=== PATIENT | male | born 1940 | race Caucasian/White ===

== ENCOUNTER → 2017-04-22 07:37 | Outpatient (CLI) | payer MEDICARE, BC, SELFPAY ==
[2017-04-22 10:26] LABS: ALB/GLOB Ratio 1.2 RATIO (0.9-2.4); AST(SGOT) 21 U/L (15-37); Alanine Aminotransfer ALT/SGPT 22 U/L (16-61); Albumin, Serum 3.5 g/dL (3.2-5.0); Alkaline Phosphatase 82 U/L (45-117); Anion Gap 6 (5-15); BUN 21 mg/dL (7-18); BUN/Creat Ratio 20.4 RATIO (10-20); Calcium,Total 8.6 mg/dL (8.5-10.1); Chloride 109 mmol/L (98-107); Cholesterol 138 mg/dL (200); Creatinine, Serum 1.03 mg/dL (0.70-1.30); EST Glomerular Filtration Rate 74 mL/min (>60); Est Glom Filt Rate - Afr Amer 90 mL/min (>60); Glucose 106 mg/dL (74-106); Hemoglobin A1c 5.4 % (4.2-6.3); High Density Lipoprotein 45 mg/dL; Potassium 4.4 mmol/L (3.5-5.1); Protein, Total 6.5 g/dL (6.4-8.2); Sodium Level 141 mmol/L (136-145); Triglycerides 69 mg/dL; Very Low Density Lipoprotein 14 mg/dL (5-40)
== END ==
PROVIDERS: Family Provider Family Medicine; PCP Family Medicine; Visit Provider Family Medicine
DX: E11.22 Type 2 diabetes mellitus with diabetic chronic kidney disease (principal); N18.9 Chronic kidney disease, unspecified
CPT/HCPCS: 36415; 80053; 80061; 83036

== ENCOUNTER → 2017-05-13 12:55 | Outpatient (CLI) | payer MEDICARE, BC, SELFPAY ==
--- NOTE | 2017-05-13 12:57 | CDU_ITS ---
Reason For Study: BRUIT Rt. Velocities/BP Lt. Velocities/BP Prox CCA 120/19 cm/sec. Prox CCA 86/26 cm/sec. Mid CCA 115/9 cm/sec. Mid CCA 96/21 cm/sec. Dist CCA 70/15 cm/sec. Dist CCA 65/19 cm/sec. Prox ICA 85/28 cm/sec. Prox ICA 140/11 cm/sec. Mid ICA 170/49 cm/sec. Mid ICA 97/21 cm/sec. Dist ICA 143/31 cm/sec. Dist ICA 129/28 cm/sec. Rt. ICA/CCA = 1.5. Lt. ICA/CCA = 1.5. Prox ECA 106/13 cm/sec. Prox ECA 96/11 cm/sec. Rt. Vert. 38/11 cm/sec. Lt. Vert. 54/15 cm/sec. Right Extracranial There is intimal thickening but no significant atherosclerotic plaque noted in the right common carotid artery. There is heterogeneous, irregular atherosclerotic plaque noted in the right internal carotid artery. There is homogeneous, smooth atherosclerotic plaque noted in the right internal carotid artery. There is intimal thickening but no significant atherosclerotic plaque noted in the right external carotid artery. Antegrade flow is noted in the right vertebral artery. There is homogeneous, smooth atherosclerotic plaque noted in the right bulb. Left Extracranial There is homogeneous, smooth atherosclerotic plaque noted in the left common carotid artery. There is heterogeneous, irregular atherosclerotic plaque noted in the left internal carotid artery. There is homogeneous, smooth atherosclerotic plaque noted in the left internal carotid artery. There is homogeneous, smooth atherosclerotic plaque noted in the left external carotid artery. Antegrade flow is noted in the left vertebral artery. There is heterogeneous, irregular atherosclerotic plaque noted in the left bulb. Procedure Carotid Duplex 73322. Exam performed in department. Interpretation Summary Moderate (50-69%) stenosis right extracranial internal carotid. Mild (<50%) stenosis left extracranial internal carotid. Flow within the vertebral arteries is antegrade bilaterally. Ordering Physician: Blair Alexandra Performed By: Maxine Staton RDCS, RVT
== END ==
PROVIDERS: Family Provider Family Medicine; PCP Family Medicine; Visit Provider Family Medicine
DX: R09.89 Other specified symptoms and signs involving the circulatory and respiratory systems (principal)
CPT/HCPCS: 93880

== ENCOUNTER → 2018-01-25 09:52 | Outpatient (CLI) | payer MEDICARE, BC, SELFPAY ==
[2017-06-02 13:43] VITALS: BMI 39.9
[2018-01-25 11:09] LABS: Hematocrit 44.2 % (40-54); Hemoglobin 14.9 g/dl (13.0-16.5); Mean Corp Hgb Conc 33.7 g/gl (32-36); Mean Corpuscular Volume 88.9 fL (80-94); Mean Platelet Vol. 11.3 fl (6.2-12.0); Platelet Count 180 K/mm3 (150-450); RBC Distribution Width CV 13.6 % (11.6-14.6); RBC Distribution Width SD 44.3 fl (35.1-43.9); Red Blood Count 4.97 M/mm3 (4.6-6.2); White Blood Count 7.5 K/mm3 (4.4-11.0)
[2018-01-25 11:11] LABS: Scan Indicated on CBC? Y/N NO
--- OUTSIDE RECORDS SUMMARY | 2018-04-28 22:19 | XMS RPT_ITS ---
:1940 Author Organization OHIP Care Team Providers Name Role Phone Debora Osorio Attending Unavailable Debora Osorio Referring Unavailable Ibrahima, Blair Primary Care Unavailable Blair Alexandra Attending Unavailable Alexandra, Blair Primary Care Unavailable Blair Alexandra Attending Unavailable Ibrahima, Blair Primary Care Unavailable Joesph Rodriguez Attending Unavailable Ibrahima, Blair Referring Unavailable Joesph Rodriguez Attending Unavailable Alexandra, Blair Referring Unavailable Alexandra, Blair Primary Care Unavailable PROBLEMS PROBLEMS DATE TYPE CONDITION / CODE ATTENDING STATUS SOURCE 06/02/2017 Unknown I65.23 - Joesph Rodriguez Active [facility] and [facility] bilateral Repository carotid arteries / I65.23(ICD-10) PROCEDURES PROCEDURES No Procedure Records FoundRESULTS RESULTS CBC-COMPLETE BLOOD CNT Collected: 01/25/2018 Status: F Source: [place] NO DIFF 10:05 AM [facility] REPOSITORY TYPE CODE TESTS RESULT OUT OF RANGE REFERENCE UNITS LAB L100.1000 4.4-11.0 K/mm3 Normal WBC 7.5 LAB L100.1200 4.6-6.2 M/mm3 Normal RBC 4.97 LAB L100.1300 13.0-16.5 g/dl Normal HGB 14.9 LAB L100.1400 40-54 % Normal HCT 44.2 LAB L100.1500 80-94 fL Normal MCV 88.9 LAB L100.1600 27.0-32.0 pg Normal MCH 30.0 LAB L100.1700 32-36 g/gl Normal MCHC 33.7 LAB L100.1810 11.6-14.6 % Normal RDW CV 13.6 LAB L100.1820 35.1-43.9 fl High RDW SD 44.3 LAB L100.1900 150-450 K/mm3 Normal PLT 180 LAB L100.2000 6.2-12.0 fl Normal MPV 11.3 Performed By: #### L100.0500 #### [facility] [address] [place], [address] TESTOSTERONE, SERUM TOTAL Collected: 01/25/2018 Status: F Source: [place] 10:05 AM [facility] REPOSITORY TYPE CODE TESTS RESULT OUT OF REFERENCE UNITS RANGE LAB L509.3000 ng/dL Testosterone Normal 439.43 Result Comment: NORMAL REFERENCE RANGES MALE AGE <50 123.06 - 813.86 ng/dL MALE AGE >50 89.98 - 780.10 ng/dL FEMALE PREMENOPAUSE AGE 21 - 60 9.01 - 47.94 ng/dL FEMALE POSTMENOPAUSE AGE 45 - 89 <7.00 - 45.62 ng/dL REFERENCE RANGE AND METHODOLOGY CHANGED 01/28/2017 Performed By: #### L509.3000 #### [facility] [address] [place], [address] SURGERY VISIT REPORT Observed: 06/02/2017 Status: F Source: [place] 2:09 PM [facility] REPOSITORY [facility] [address] [place] [address] OFFICE VISIT Date of Service: 06/02/17 MR#: [id number] Acct: [id number] Name: BENNY RAYGOZA Rep #: [id number] : 1940 Provider: Joesph Rodriguez MD Age/Sex: 76/M Location: [facility] Status: Signed Intake Vital Signs06/02/17 Height 5 ft 6 in 06/02/17 Weight: 247 lb Intake Visit Reasons: R CAROTID ARTERY BLOCKAGE Smearer Required: No Is patient in pain?: No Allergies No Known Allergies Allergy (Verified 06/02/17 13:44) Medications Candesartan Cilexetil [Atacand] 8 mg PO DAILY 04/06/16 [History Confirmed 06/02/17] Finasteride [Propecia] 5 mg PO DAILY 04/06/16 [History Confirmed 06/02/17] Pioglitazone [Actos] 30 mg PO DAILY 04/06/16 [History Confirmed 06/02/17] Simvastatin [Zocor] 40 mg PO DAILY 04/06/16 [History Confirmed 06/02/17] Testosterone Cypionate [Depo-Testosterone] 200 mg IM Q14D 04/06/16 [History Confirmed 06/02/17] Aspirin 325 mg PO BIDCM #30 tab 10/01/16 [Rx Confirmed 06/02/17] PFSH Medical History Carotid stenosis, bilateral (Acute) Arthritis (Acute) Diabetes (Acute) Hypercholesterolemia (Acute) Hypertension (Chronic) Surgical History excision skin cancer (Acute) history hipreplacement (Acute) Family History Mother Diabetes Heart disease Hypertension High cholesterol Son Asthma Hypertension Father Colon cancer Skin cancer Brother Heart disease CVA (cerebral vascular accident) Social History Smoking Status: Former smoker alcohol intake: never substance use type: does not use HPI HPI HPI: BENNY RAYGOZA, is a 76 M who presents to the office today for surgical consultation regarding extracranial carotid artery occlusive disease. The patient has established care with Dr. Blair Alexandra. Patient is referred to me for surgical consultation regarding carotid bruits and abnormal carotid duplex imaging. A written copy of my surgical consult recommendations will return to Dr. Alexandra Mr. Raygoza is a 76-year-old gentleman. He presents with his daughter today. He denies any previous history of stroke or myocardial infarction. He is diabetic but he states that he has well-controlled blood sugars. He did smoke cigars for 15 years but states he quit 30 years ago. He was a lifetime truck assembler for 60 years. He has had a very poor fast food diet. He notes that he is overweight currently at 247 pounds. He does not get any routine activity particularly during the winter months he is very sedentary. He states he does not like to go outside. Even during the summer months he does not have a set exercise pattern. He states that frequently he will gain at least 10-15 pounds during the winter. His current BMI is 39.9. He denies focal motor or sensory loss. He denies TIA. He does have right rotator cuff issues and has had a right hip replacement with intermittent discomfort. At the [facility] on May 13, 2017 he had carotid duplex imaging to evaluate carotid bruit. The peak systolic velocity within the right mid internal carotid was 178 cm/s flow with end-diastolic velocity of 49. There was smooth plaque noted within the right internal carotid consistent with 50-69% stenosis. The peak systolic velocity within the left internal carotid was 129 cm/s peak systolic flow. There was minimal plaque seen. This was felt to be consistent with less than 50% stenosis. The patient does have hypercholesterolemia and is currently on medical treatment. He denies calf claudication with ambulation ROS General General: Yes fatigue; no weight change, appetite, colon cancer, breast cancer or weakness HEENT HEENT: No difficulty swallowing, eye injury, eye surgery, swollen glands or hoarseness Endo Endocrine: Yes diabetes mellitus; no thyroid disease, thyroid cancer, Hair loss, heat intolerance or cold intolerance Skin Skin: No rash or changing moles Breast Breast: No left breast lump, right breast lump, nipple discharge, breast pain, abnormal mammogram, abnormal US or breast enlargement Musc Musculoskeletal: Yes arthritis; no back problems, rheumatoid arthritis, gout or joint pain Cardio Cardiovascular: Yes high blood pressure; no murmur, pacemaker, heart disease, atrial fibrillation, heart attack, heart stent, palpitations, shortness of breat with exertion or chest pain Psych Psychiatric: No depression, anxiety or hearing voices Resp Respiratory: No shortness of breath, No sleep apnea, No cough, No COPD, No asthma, No emphysema, No wheezing Gastro Gastrointestinal: No abdominal pain, No nausea or vomiting, No diarrhea, No constipation, No blood in stool, No acid reflux, No hemorrhoids, No ulcers, No gallbladder problem, No black,tarry stools [place]quin Hematologic: No blood thinners, No blood disorders, No bleeding, No anemia, No blood clots Neuro Neurologic: No system reviewed and no additional complaints, except as docu, No as per HPI, No abnormal walking, No abnormal hearing, No abnormal movements, No abnormal speech, No behavioral changes, No burning sensations, No confusion, No seizure-like activity, No unsteadiness, No dizziness, No localized weakness, No frequent falls, No headache(s), No lack of coordination, No loss of vision, No memory loss, Yes numbness, No other visual disturbances, No radiating pain, No restless legs, No sensory deficit, No fainting, Yes tingling, No tremor(s), No weakness, No other Exam Const General: cooperative, comfortable, no acute distress Nutritional Appearance: obese Orientation: alert, awake, oriented x3 HENMT Head: normal to inspection Eyes General: appearance normal, both eyes and all related structures Neck Neck: normal visual inspection Carotids: normal carotid upstroke, bruit bilaterally Lymphatic: no lymphadenopathy noted Chest Chest palpation AND inspection: normal inspection of the chest Breast Palpation: No nipple discharge Resp Effort AND Inspection: normal respiratory effort Auscultation: clear to auscultation bilaterally Cardio Rate: regular rate Rhythm: regular rhythm Heart Sounds: no murmurs Other: Bilateral carotids are 2+. Bilateral brachials 2+. Bilateral radials 2+. Bilateral femorals are 3+. Bilateral popliteals tube loss 2/6 bilateral carotid bruits GI Palpation: soft, no hepatosplenomegaly Other: Markedly overweight. I cannot easily palpate any internal organs. No bruit. I cannot palpate the aorta Skin General: no rashes or lesions noted Neuro Cranial Nerves: CN's II-XI intact bilaterally Extrem General: no clubbing, cyanosis or edema Psych Affect: normal affect Assessment AND Plan Problems 1. Carotid stenosis, bilateral I65.23 Plan 76-year-old gentleman with bilateral carotid stenosis. 50- 69% stenosis on the right and less than 50% stenosis on the left but close to 50%. He is asymptomatic. He has modifiable health factors. In detail I have discussed with him recommendations regarding plant-based diet. I recommended daily exercise program. I have encouraged him at weight loss. With his daughter present we have discussed limiting salt intake to maximize his hypertension control. He will continue to take his low-dose aspirin and his statin medications. He will continue follow-up with Dr. Blair Alexandra. The patient has been instructed that if he were to become symptomatic that he needs to have someone take him to the emergency room immediately. At this point he does not meet surgical criteria and I am not recommending surgical intervention at this time. I do recommend follow-up carotid duplex imaging at 1 year. He has had an opportunity to ask and have questions answered. I very much appreciate the kind opportunity of assisting with his surgical care. I anticipate following up at 1 year but would be more than pleased to see him sooner if you were to become symptomatic. Cc: Dr. Blair Rodriguez M.D., F.A.C.S. Orders Orders: Coding Level of Care Code Detailed, Low Diagnoses Carotid stenosis, bilateral I65.23 06/02/17 1409 <Electronically signed by Joesph Rodriguez MD> Date Joesph Rodriguez MD Cosigner Signature: Date (if applicable) CC: Blair Alexandra MD CAROTID DUPLEX Observed: 05/20/2017 Status: F Source: [place] ULTRASOUND 6:52 AM [facility] REPOSITORY [facility] [address] [place] [address] Carotid Duplex Ultrasound 05/13/17 1256 MR#: [id number] Acct: [id number] Name: BENNY RAYGOZA Rep #: [id number] : 1940 76 From: Jose Angel Wan MD Attending Dr: Blair Alexandra MD Status: REG CLI Ordering Dr: Blair Alexandra MD Date: 05/13/17 Location: [facility] Sex: M C Admitted: Reason For Study: BRUIT Rt. Velocities/BP Lt. Velocities/BP Prox CCA 120/19 cm/sec. Prox CCA 86/26 cm/sec. Mid CCA 115/9 cm/sec. Mid CCA 96/21 cm/sec. Dist CCA 70/15 cm/sec. Dist CCA 65/19 cm/sec. Prox ICA 85/28 cm/sec. Prox ICA 140/11 cm/sec. Mid ICA 170/49 cm/sec. Mid ICA 97/21 cm/sec. Dist ICA 143/31 cm/sec. Dist ICA 129/28 cm/sec. Rt. ICA/CCA = 1.5. Lt. ICA/CCA = 1.5. Prox ECA 106/13 cm/sec. Prox ECA 96/11 cm/sec. Rt. Vert. 38/11 cm/sec. Lt. Vert. 54/15 cm/sec. Right Extracranial There is intimal thickening but no significant atherosclerotic plaque noted in the right common carotid artery. There is heterogeneous, irregular atherosclerotic plaque noted in the right internal carotid artery. There is homogeneous, smooth atherosclerotic plaque noted in the right internal carotid artery. There is intimal thickening but no significant atherosclerotic plaque noted in the right external carotid artery. Antegrade flow is noted in the right vertebral artery. There is homogeneous, smooth atherosclerotic plaque noted in the right bulb. Left Extracranial There is homogeneous, smooth atherosclerotic plaque noted in the left common carotid artery. There is heterogeneous, irregular atherosclerotic plaque noted in the left internal carotid artery. There is homogeneous, smooth atherosclerotic plaque noted in the left internal carotid artery. There is homogeneous, smooth atherosclerotic plaque noted in the left external carotid artery. Antegrade flow is noted in the left vertebral artery. There is heterogeneous, irregular atherosclerotic plaque noted in the left bulb. Procedure Carotid Duplex 25320. Exam performed in department. Interpretation Summary Moderate (50-69%) stenosis right extracranial internal carotid. Mild (<50%) stenosis left extracranial internal carotid. Flow within the vertebral arteries is antegrade bilaterally. Ordering Physician: Blair Alexandra Performed By: Maxine Staton, JUAN C, RVT 05/20/17 0652 Date Jose Angel Wan MD CC: Blair Alexandra MD Date Dictated: 05/13/17 1256 Date Transcribed: 05/20/17 0652 Bean Sorter: Signed COMPREHENSIVE METABOLIC Collected: 04/22/2017 Status: F Source: [place] 7:45 AM [facility] REPOSITORY Order Comment: Order Date: 10/29/16 Order Info: [id number] - CMP Order Info: [id number] - LIPID TYPE CODE TESTS RESULT OUT OF RANGE REFERENCE UNITS LAB L501.0100 74-106 mg/dL Normal GLU 106 Result Comment: Fasting Glucose result from 100 to 125 mg/dL suggests IMPAIRED HOMEOSTASIS per A.D.A. criteria. Please note revised GLUCOSE reference range effective 2017. LAB L501.1000 7-18 mg/dL High BUN 21 LAB L501.1100 0.70-1.30 mg/dL Normal CREAT,SERUM 1.03 Result Comment: The validity of the calculated GFR AND GFRAA in patients over 70 years has not been determined. Clinical correlation is essential. LAB L501.1110 >60 mL/min Normal EST GFR 74 Result Comment: Non- GFR Calc LAB L501.1115 >60 mL/min Normal EST GFR - AA 90 Result Comment: GFR Calc LAB L501.1300 10-20 RATIO High BUN/CRE 20.4 LAB L501.1500 6.4-8.2 g/dL T Normal PROT 6.5 LAB L501.1800 3.2-5.0 g/dL Normal ALB 3.5 LAB L501.1950 2.2-4.2 g/dL Normal GLOB 3.0 LAB L501.2000 0.9-2.4 RATIO Normal A/G 1.2 LAB L501.2200 8.5-10.1 mg/dL CA Normal 8.6 LAB L501.4100 15-37 U/L Normal AST 21 LAB L501.4305 45-117 U/L Normal ALK P 82 LAB L501.4405 16-61 U/L Normal ALT 22 Result Comment: Please note revised ALT reference range effective 2017. LAB L501.4600 0.20-1.00 mg/dL Normal T BILI 0.70 LAB L501.5300 136-145 mmol/L Normal NA 141 LAB L501.5600 3.5-5.1 mmol/L Normal K 4.4 LAB L501.5900 98-107 mmol/L High CL 109 LAB L501.6100 21.0-32.0 mmol/L Normal CO2 26.0 LAB L501.6200 5-15 Normal GAP 6 Performed By: #### L500.4050, L500.4100, L501.9985 #### [facility] [address] [place], [place], [id number] LIPID PROFILE Collected: 04/22/2017 Status: F Source: [place] 7:45 AM [facility] REPOSITORY Order Comment: Order Date: 10/29/16 Order Info: [id number] - CMP Order Info: [id number] - LIPID TYPE CODE TESTS RESULT OUT OF RANGE REFERENCE UNITS LAB L501.4900 200 mg/dL Normal CHOL 138 Result Comment: <200 mg/dL Desirable 200-240 mg/dL Borderline >240 mg/dL High Risk LAB L501.5000 mg/dL Normal TRIG 69 Result Comment: The drugs N-Acetylcysteine and Metamizole may falsely depress this assay. Serum Triglycerides Reference Interval Normal <150 mg/dL Borderline high 150 - 199 mg/dL High 200 - 499 mg/dL Very High > or = 500 mg/dL LAB L501.6400 mg/dL Normal HDL 45 Result Comment: The drugs N-Acetylcysteine and Metamizole may falsely depress this assay. Reference Range HDL <40 mg/dL Low HDL Cholesterol HDL >or= 60 mg/dL High HDL Cholesterol LAB L501.6500 0-130 mg/dL Normal LDL 79 LAB L501.6600 5-40 mg/dL Normal VLDL 14 Performed By: #### L500.4050, L500.4100, L501.9985 #### [facility] [address] [place], [place], [address] HEMOGLOBIN A1C Collected: 04/22/2017 Status: F Source: [place] 7:45 AM [facility] REPOSITORY Order Comment: Order Date: 10/29/16 Order Info: [id number] - A1C TYPE CODE TESTS RESULT OUT OF RANGE REFERENCE UNITS LAB L501.9985 4.2-6.3 % Normal HGB A1C 5.4 Performed By: #### L500.4050, L500.4100, L501.9985 #### [facility] [address] [place], [address] ALLERGIES ALLERGIES DATE TYPE / CODE NAME / CODE REACTION SEVERITY SOURCE 06/02/2017 Drug No Known Unknown [facility] Allergy/4160 Allergies/F00 [facility] 33338(SNOMED 7423602(RXNOR Repository CT) M) ENCOUNTERS ENCOUNTERS ADMIT/DISCHARGE ACCOUNT ADMITTING ENCOUNTER LOCATION SOURCE NUMBER CLASS 01/25/2018 [id number] Ambulatory [place] 7 [facility] ing:LAB Repository 06/02/2017/ [id number] Ambulatory BMSBuilding:B [facility] 8 4 [facility] Repository 05/26/2017 [id number] Ambulatory BMSBuilding:B [place] 9 [facility] Repository 05/13/2017 [id number] Ambulatory [place] 8 [facility] ing:CVS Repository 04/22/2017 [id number] Ambulatory [place] 0 [facility] ing:MTLAB Repository PAYERS PAYERS ENCOUNTER GUARANTOR PAYER SUBSCRIBER SOURCE 01/25/2018 BENNY W Primary BENNY W [place] [id number] Insurance:MEDICARE BROWNDOB: [facility] [id number] Number: Repository [id number]: [phone] [id number] [phone] () Date:2018-01-25 01/25/2018 Secondary BENNY W [place] Insurance:ANTHEMPolic BROWNDOB: Community y Number: [id number] Hospital [id number] Repository Date:[id number] [address]GB: 01/25/2018 Tertiary NOT GIVENUNK [place] Insurance:SELF PAY [facility] Number: Effective Repository Date:2018-01-25 06/02/2017 BENNY W Primary BENNY W [place] [id number] Insurance:MEDICARE BROWNDOB: [facility] [id number] Number: Repository [address]Ixg: [id number] [phone]~330- Date:2017-05-26 4 (HP) 06/02/2017 Secondary BENNY W [place] Insurance:ANTHEMPolic BROWNDOB: Community y Number: [id number] Hospital [id number] Repository Date:[id number] [address]OX: 06/02/2017 Tertiary NOT GIVENUNK [place] Insurance:SELF PAY [facility] Number: Effective Repository Date:2017-06-02 05/26/2017 BENNY W Primary BENNY W [place] [id number] Insurance:MEDICARE BROWNDOB: [facility] PART A [facility] [id number] Number: Repository [address]Cct: [id number] [phone]~330- Date:2017-05-20 4 () 05/26/2017 Secondary BENNY W [place] Insurance:ANTHEMPolic BROWNDOB: Community y Number: [id number] Hospital [id number] Repository Date:2803-07-04[address] [address]NM: 05/26/2017 Tertiary NOT GIVENUNK [place] Insurance:SELF PAY [facility] Number: Effective Repository Date:2017-05-20 05/13/2017 Benny W Primary Benny W [place] [id number] Insurance:MEDICARE BrownDOB: [facility] PART A [id number] [place] Number: Repository [id number]: [id number] [phone]~330- Date:2017-05-01 4 () 05/13/2017 Secondary Benny W [place] Insurance:ANTHEMPolic BrownDOB: Community y Number: [id number] [facility] [id number] Repository Date:0298-26-53[address], [place] [address]IA: 05/13/2017 Tertiary NOT GIVENUNK [place] Insurance:SELF PAY [facility] Effective Repository Date:2017-05-01 04/22/2017 Benny Araujo Primary Benny W [place] [id number] Insurance:MEDICARE BrownDOB: Community [place] PART A BPolicy [id number] Number: Repository [address]Kio: [id number] [phone]~330- Date:2017-04-22 4 (HP) 04/22/2017 Secondary Benny Lainez Insurance:ANTHEMPolic BrownDOB: Community y Number: [id number] Hospital [id number] Repository Date:[id number] [place] [id number], [place] [address]OD: 04/22/2017 Tertiary NOT GIVENUNK [place] Insurance:SELF PAY [facility] Number: Effective Repository Date:2017-04-22
== END ==
PROVIDERS: Family Provider Family Medicine; PCP Family Medicine; Referring Provider Nurse Practitioner Adult Health; Visit Provider Nurse Practitioner Adult Health
DX: E29.1 Testicular hypofunction (principal)
CPT/HCPCS: 36415; 84403; 85027

== ENCOUNTER → 2018-04-20 10:46 | Outpatient (CLI) | payer MEDICARE, BC, SELFPAY ==
[2017-06-02 13:43] VITALS: BMI 39.9
[2018-04-20 12:43] LABS: ALB/GLOB Ratio 1.1 RATIO (0.9-2.4); AST(SGOT) 19 U/L (15-37); Alanine Aminotransfer ALT/SGPT 31 U/L (16-61); Albumin, Serum 3.7 g/dL (3.2-5.0); Alkaline Phosphatase 90 U/L (45-117); Anion Gap 8 (5-15); BUN 17 mg/dL (7-18); BUN/Creat Ratio 16.5 RATIO (10-20); Calcium,Total 9.3 mg/dL (8.5-10.1); Chloride 108 mmol/L (98-107); Creatinine, Serum 1.03 mg/dL (0.70-1.30); EST Glomerular Filtration Rate 74 mL/min (>60); Est Glom Filt Rate - Afr Amer 90 mL/min (>60); Globulin 3.5 g/dL (2.2-4.2); Glucose 112 mg/dL (74-106); Potassium 4.7 mmol/L (3.5-5.1); Protein, Total 7.2 g/dL (6.4-8.2); Sodium Level 143 mmol/L (136-145)
[2018-04-20 12:57] LABS: Hemoglobin A1c 5.7 % (4.2-6.3)
== END ==
PROVIDERS: Family Provider Family Medicine; PCP Family Medicine; Referring Provider Family Medicine; Visit Provider Family Medicine
DX: E11.21 Type 2 diabetes mellitus with diabetic nephropathy (principal); I10 Essential (primary) hypertension
CPT/HCPCS: 36415; 80053; 83036

== ENCOUNTER → 2018-10-05 07:26 | Outpatient (CLI) | payer MEDICARE, BC, SELFPAY ==
[2018-10-05 10:42] LABS: Absolute Lymphocyte Count 2.26 X10^3/uL (0.83-4.51); Absolute Neutrophil Count 5.4 X10^3/uL (2.0-7.7); Basophil# 0.05 X10^3/uL; Basophil% 0.6 % (0-1); Eosinophils% 3.4 % (0-5); Hematocrit 46.8 % (40-54); Hemoglobin 15.2 g/dL (13.0-16.5); Lymphocyte # 2.26 X10^3/ul (4.0); Lymphocyte % 25.7 % (19-41); Mean Corp Hgb Conc 32.5 g/dL (32-36); Mean Corpuscular Hgb 29.7 pg (27.0-32.0); Mean Corpuscular Volume 91.4 fL (80-94); Mean Platelet Vol. 11.5 fl (6.2-12.0); Monocyte# 0.75 X10^3/uL; Monocyte% 8.5 % (0-10); NRBC Flagged by Analyzer 0 % (0-5); Neutrophil # 5.37 X10^3/uL (2.7-7.7); Neutrophil % 61.2 % (47-70); Platelet Count 205 K/mm3 (150-450); RBC Distribution Width CV 14.5 % (11.6-14.6); RBC Distribution Width SD 48.2 fl (35.1-43.9); Red Blood Count 5.12 M/mm3 (4.6-6.2); White Blood Count 8.8 K/mm3 (4.4-11.0)
[2018-10-05 11:00] LABS: Hemoglobin A1c 5.9 % (4.2-6.3)
[2018-10-05 11:19] LABS: ALB/GLOB Ratio 1.1 RATIO (0.9-2.4); AST(SGOT) 17 U/L (15-37); Alanine Aminotransfer ALT/SGPT 34 U/L (16-61); Albumin, Serum 3.4 g/dL (3.2-5.0); Alkaline Phosphatase 75 U/L (45-117); Anion Gap 5 (5-15); BUN 21 mg/dL (7-18); BUN/Creat Ratio 18.6 RATIO (10-20); Calcium,Total 8.8 mg/dL (8.5-10.1); Chloride 107 mmol/L (98-107); Cholesterol 129 mg/dL (200); Creatinine, Serum 1.13 mg/dL (0.70-1.30); EST Glomerular Filtration Rate 67 mL/min (>60); Est Glom Filt Rate - Afr Amer 81 mL/min (>60); Globulin 3.1 g/dL (2.2-4.2); Glucose 103 mg/dL (74-106); High Density Lipoprotein 60 mg/dL; Potassium 4.7 mmol/L (3.5-5.1); Protein, Total 6.5 g/dL (6.4-8.2); Sodium Level 141 mmol/L (136-145); Triglycerides 60 mg/dL; Very Low Density Lipoprotein 12 mg/dL (5-40)
== END ==
PROVIDERS: Family Provider Family Medicine; PCP Family Medicine; Referring Provider Family Medicine; Visit Provider Family Medicine
DX: E11.21 Type 2 diabetes mellitus with diabetic nephropathy (principal); E78.5 Hyperlipidemia, unspecified
CPT/HCPCS: 36415; 80053; 80061; 83036; 85025

== ENCOUNTER → 2018-11-15 13:27 | Outpatient (CLI) | payer MEDICARE, BC, SELFPAY ==
--- NOTE | 2018-11-15 13:30 | ECHOD_ITS ---
Reason For Study: Heart Failure Procedure This was a 2D Doppler, Color Flow transthoracic echocardiogram. Exam performed in department. Left Ventricle Normal LV size. Concentric left ventricular hypertrophy. The estimated ejection fraction is 60 %. Diastolic function is indeterminate. No regional wall motion abnormalities noted. Right Ventricle Normal RV size. Normal systolic function. Atria Normal left atrium. Normal right atrium. No doppler evidence for ASD. Mitral Valve There is no mitral valve stenosis. Mild (1+) mitral valve insufficiency. Tricuspid Valve There is no tricuspid stenosis. Unable to estimate RV systolic pressure due to insufficient tricuspid regurgitant envelope. No tricuspid valve insufficiency. Aortic Valve Trisinus/trileaflet aortic valve. Moderate diffuse aortic valve thickening. Moderate aortic stenosis. No aortic valve insufficiency. Pulmonic Valve There is no pulmonic valvular stenosis. No pulmonic valve insufficiency. Great Vessels Normal aortic root. Pericardium/Pleural No pericardial effusion. MMode/2D Measurements & Calculations LVIDd: 3.8 cm IVSd: 1.6 cm LVOT diam: 2.1 cm LVIDs: 2.2 cm LVPWd: 1.6 cm LVOT area: 3.4 cm2 RVDd: 4.3 cm FS: 41.8 % Ao root diam: 3.2 cm LAV(MOD-bp): 60.1 ml LVAd ap4: 26.5 cm2 LAV(MOD-bp) Indexed: 27.6 ml/m2 EDV(MOD-sp4): 74.9 ml LAV(MOD-sp2): 63.5 ml EDV(sp4-el): 75.0 ml LAV(MOD-sp4): 51.6 ml LVAs ap4: 15.4 cm2 ESV(MOD-sp4): 29.7 ml ESV(sp4-el): 29.3 ml EF(MOD-sp4): 60.3 % EF(sp4-el): 61.0 % SV(MOD-sp4): 45.2 ml SV(sp4-el): 45.8 ml LA A4 area: 19.7 cm2 LA dimension(2D): 4.1 cm RA A4 area: 15.9 cm2 Doppler Measurements & Calculations MV E max shantanu: 96.1 cm/sec Lat Peak E' Shantanu: 5.9 cm/sec Med Peak E' Shantanu: 7.0 cm/sec MV A max shantanu: 105.1 cm/sec E/E' lat: 16.2 E/E' med: 13.8 MV E/A: 0.91 Ao V2 max: 313.9 cm/sec LV V1 max: 134.9 cm/sec SV(LVOT): 97.9 ml Ao max P.4 mmHg LV V1 max P.3 mmHg Ao V2 mean: 230.8 cm/sec LV V1 mean P.0 mmHg Ao mean P.2 mmHg LV V1 mean: 95.9 cm/sec Ao V2 VTI: 72.9 cm LV V1 VTI: 29.0 cm CIRILO(I,D): 1.3 cm2 CIRILO(V,D): 1.5 cm2 PA V2 max: 120.8 cm/sec TR max shantanu: 265.8 cm/sec TR max P.3 mmHg Interpretation Summary The estimated ejection fraction is 60 %. Diastolic function is indeterminate. Mild (1+) mitral valve insufficiency. Moderate aortic stenosis. Ordering Physician: Blair Alexandra Referring Physician: Blair Alexandra Performed By: Anastasia Langston RDCS, RVT
== END ==
PROVIDERS: Family Provider Family Medicine; PCP Family Medicine; Referring Provider Family Medicine; Visit Provider Family Medicine
DX: R60.0 Localized edema (principal); R09.89 Other specified symptoms and signs involving the circulatory and respiratory systems
CPT/HCPCS: 93306

== ENCOUNTER → 2019-02-15 09:31 | Outpatient (CLI) | payer MEDICARE, BC, SELFPAY ==
[2018-11-29 14:06] VITALS: BMI 39.9
[2019-02-18 12:07] LABS: Testosterone, Free 39.04 ng/dL (5.00-21.00)
[2019-02-20 15:16] LABS: Testosterone, % Free 2.73 % (1.50-4.20); Testosterone, Total 1430 ng/dL (264-916)
== END ==
PROVIDERS: Family Provider Family Medicine; PCP Family Medicine; Referring Provider Nurse Practitioner Adult Health; Visit Provider Nurse Practitioner Adult Health
DX: E29.1 Testicular hypofunction (principal)
CPT/HCPCS: 36415; 84402; 84403

== ENCOUNTER → 2019-03-04 10:42 | Outpatient (CLI) | payer MEDICARE, BC, SELFPAY ==
[2018-11-29 14:06] VITALS: BMI 39.9
--- NOTE | 2019-03-04 10:49 | MRI_ITS ---
STUDY: MRI LUMBAR SPINE WITHOUT CONTRAST REASON FOR EXAM: Male, 78 years old. LBP, RADIATING INTO L HIP AND DOWN LEG TECHNIQUE: Standardized fat and water weighted pulse sequences were obtained in the sagittal and axial planes. COMPARISON: 01/15/2015 FINDINGS: T12-L1: Normal endplates. Normal disc height, hydration and morphology. Normal bilateral facet joints. Normal central canal and bilateral lateral recesses. Normal bilateral intervertebral neural foramina. Normal lumbar lordosis. There is no substantial scoliosis. Normal conus medullaris that terminates at the L1/L2. L1-2: Normal endplates. Normal disc height, hydration and morphology. Normal bilateral facet joints. Normal central canal and bilateral lateral recesses. Normal bilateral intervertebral neural foramina. L2-3: No change in a mild bilobed disc protrusion which produces mild spinal stenosis and mild bilateral neural foraminal stenosis. L3-4: Mild bilateral facet hypertrophy and ligament flavum hypertrophy. No change in the moderate broad disc protrusion which produces moderate spinal stenosis with mild bilateral lateral recess stenosis and moderate bilateral neural foraminal stenosis with abutment of the L3 nerve roots bilaterally. L4-5: Continued mild broad disc protrusion but now with a large (8 mm round) central disc extrusion which produces a severe spinal stenosis with moderate right lateral recess stenosis and severe left lateral recess stenosis with effacement the left L5 nerve root and mild bilateral neural foraminal stenosis. L5-S1: Mild bilateral facet hypertrophy. No change in a small central disc protrusion with annular tear which produces mild spinal stenosis with mild bilateral lateral recess stenosis but no neural foraminal stenosis. Normal visualized sacral ala. Normal visualized paraspinous soft tissue structures. MRI/Spine Lumbar (Routine) IMPRESSION: Worsening degenerative disc disease at L4/L5 with a new large central disc extrusion producing severe spinal stenosis and severe left lateral recess stenosis with effacement of the left L5 nerve root. Electronically Signed: David Hallman MD at 18:49 EST Tel , Service support ,
== END ==
LOC: MRI 10:43
PROVIDERS: PCP Family Medicine; Referring Provider Physician Assistant; Visit Provider Physician Assistant
DX: M43.16 Spondylolisthesis, lumbar region (principal)
CPT/HCPCS: 72148

== ENCOUNTER → 2019-06-01 14:33 | Outpatient (CLI) | payer MEDICARE, BC, SELFPAY ==
[2018-11-29 14:06] VITALS: BMI 39.9
[2019-06-01 18:07] LABS: Microalbumin:Creatinine Ratio 36.4 mg/g CRE (<30 mg/g CRE)
[2019-06-01 18:09] LABS: BNP,B-Type NATRIURETIC PEPTIDE 89.1 pg/mL (0-100)
[2019-06-01 18:12] LABS: Vitamin D,25 Hydroxy 15.1 ng/mL
[2019-06-01 18:20] LABS: ALB/GLOB Ratio 1.3 RATIO (0.9-2.4); AST(SGOT) 19 U/L (15-37); Alanine Aminotransfer ALT/SGPT 24 U/L (16-61); Alkaline Phosphatase 72 U/L (45-117); Anion Gap 8 (5-15); BUN 17 mg/dL (7-18); BUN/Creat Ratio 15.9 RATIO (10-20); Calcium,Total 9.2 mg/dL (8.5-10.1); Chloride 105 mmol/L (98-107); Cholesterol 151 mg/dL (200); Creatinine, Serum 1.07 mg/dL (0.70-1.30); EST Glomerular Filtration Rate 71 mL/min (>60); Est Glom Filt Rate - Afr Amer 86 mL/min (>60); Globulin 3.1 g/dL (2.2-4.2); Glucose 74 mg/dL (74-106); High Density Lipoprotein 64 mg/dL; Potassium 4.2 mmol/L (3.5-5.1); Protein, Total 7.1 g/dL (6.4-8.2); Sodium Level 139 mmol/L (136-145); Triglycerides 82 mg/dL; Very Low Density Lipoprotein 16 mg/dL (5-40)
== END ==
PROVIDERS: PCP Family Medicine; Referring Provider Nurse Practitioner Adult Health; Visit Provider Nurse Practitioner Adult Health
DX: E29.1 Testicular hypofunction (principal); E11.21 Type 2 diabetes mellitus with diabetic nephropathy; M79.89 Other specified soft tissue disorders
CPT/HCPCS: 36415; 80053; 80061; 82043; 82306; 82570; 83880; 84402; 84403; 84443

== ENCOUNTER → 2019-06-03 09:00 | Outpatient (CLI) | payer MEDICARE, BC, SELFPAY ==
[2018-11-29 14:06] VITALS: BMI 39.9
[2019-06-06 08:06] LABS: Testosterone, Free 22.85 ng/dL (5.00-21.00)
[2019-06-06 14:01] LABS: Testosterone, % Free 2.13 % (1.50-4.20); Testosterone, Total 1073 ng/dL (264-916)
== END ==
PROVIDERS: PCP Family Medicine
DX: E29.1 Testicular hypofunction (principal)
CPT/HCPCS: 84402; 84403

== ENCOUNTER → 2019-10-27 11:20 | Outpatient (CLI) | payer MEDICARE, BC, SELFPAY ==
[2018-11-29 14:06] VITALS: BMI 39.9
[2019-07-18 13:44] VITALS: BMI 41.4
--- NOTE | 2019-10-27 11:24 | RAD_ITS ---
HISTORY: abdominal bloating EXAMINATION/TECHNIQUE: XR Abdomen W/ Decub and/or Erect Views: COMPARISON: None FINDINGS: LINES AND TUBES: None. BOWEL GAS PATTERN: No bowel or stomach distention. FREE AIR: Not assessed on a single supine view. ORGANOMEGALY: Not seen. CALCIFICATIONS: No abnormal calcifications observed. LOWER CHEST: No acute pathology. BONES AND SOFT TISSUES: Levoscoliosis. Degenerative disc disease. Laminectomies. Left total hip arthroplasty. RAD/Abd Inc Decub and/or Erect IMPRESSION: Non-obstructive bowel gas pattern. at 0602 Reported and signed by: Ramon Casey MD Electronically Signed: Ramon Casey MD at 6:00 EDT Tel , Service support ,
[2019-10-27 13:37] LABS: Hematocrit 39.6 % (40-54); Mean Corp Hgb Conc 32.8 g/dL (32-36); Mean Corpuscular Hgb 30.5 pg (27.0-32.0); Mean Platelet Vol. 12.1 fl (6.2-12.0); Platelet Count 192 K/mm3 (150-450); RBC Distribution Width SD 43.7 fl (35.1-43.9); Red Blood Count 4.26 M/mm3 (4.6-6.2); White Blood Count 5.8 K/mm3 (4.4-11.0)
[2019-10-27 13:52] LABS: Vitamin D,25 Hydroxy 19.8 ng/mL
[2019-10-27 14:01] LABS: ALB/GLOB Ratio 1.1 RATIO (0.9-2.4); AST(SGOT) 20 U/L (15-37); Alanine Aminotransfer ALT/SGPT 32 U/L (16-61); Albumin, Serum 3.7 g/dL (3.2-5.0); Alkaline Phosphatase 81 U/L (45-117); Anion Gap 6 (5-15); BUN 30 mg/dL (7-18); Calcium,Total 9.5 mg/dL (8.5-10.1); Chloride 106 mmol/L (98-107); EST Glomerular Filtration Rate 62 mL/min (>60); Est Glom Filt Rate - Afr Amer 75 mL/min (>60); Globulin 3.4 g/dL (2.2-4.2); Glucose 116 mg/dL (74-106); Magnesium 2.2 mg/dL (1.6-2.6); Potassium 4.5 mmol/L (3.5-5.1); Protein, Total 7.1 g/dL (6.4-8.2); Sodium Level 141 mmol/L (136-145); Thyroid Stim Hormone (TSH) 0.84 uIU/mL (0.358-3.74)
== END ==
PROVIDERS: PCP Family Medicine; Visit Provider Family Medicine
DX: E34.9 Endocrine disorder, unspecified (principal); E11.21 Type 2 diabetes mellitus with diabetic nephropathy; R14.0 Abdominal distension (gaseous); R60.9 Edema, unspecified
CPT/HCPCS: 36415; 74019; 80053; 82306; 83735; 84443; 85027

== ENCOUNTER → 2019-12-02 15:40 | Outpatient (CLI) | payer MEDICARE, BC, SELFPAY ==
[2019-07-18 13:44] VITALS: BMI 41.4
--- NOTE | 2019-12-02 15:43 | CT_ITS ---
STUDY: CT ABDOMEN AND PELVIS WITHOUT CONTRAST REASON FOR EXAM: Male, 79 years old. ABD DISTENTION RADIATION DOSAGE (If Supplied By Facility): CTDIvol = ( 14.80 ) mGy, DLP = ( 781.55 ) mGycm TECHNIQUE: Transaxial images were obtained from the dome of the diaphragm to the symphysis pubis without oral contrast, and without intravenous contrast. Sagittal and coronal images were reconstructed. Individualized dose optimization techniques were used for this CT. COMPARISON: None. FINDINGS: The visualized lung bases are unremarkable. The visualized portions of the heart are within normal limits. Normal liver. Normal gallbladder and extrahepatic biliary system. Normal spleen. Normal pancreas. Normal bilateral adrenal glands. Normal right kidney. Normal left kidney. Normal visualized stomach. Normal small intestine. There are multiple colonic diverticula consistent with diverticulosis. The appendix is visualized and appears normal. There is diffuse atherosclerotic calcification of the abdominal aorta, without a demonstrated aneurysm. Normal inferior vena cava. Normal retroperitoneum. Normal urinary bladder. Normal abdominal wall. Status post left hip arthroplasty which produces streak artifact obscures the pelvis. Status post posterior decompression at L4. CT/Abdomen/Pelvis without Cont IMPRESSION: Normal unenhanced CT of the abdomen and pelvis. Electronically Signed: David Hallman MD at 16:44 EDT Tel , Service support ,
== END ==
PROVIDERS: PCP Family Medicine; Referring Provider Family Medicine; Visit Provider Family Medicine
DX: R14.0 Abdominal distension (gaseous) (principal)
CPT/HCPCS: 74176

== ENCOUNTER 2020-02-23 08:30 | Outpatient (RCR) | payer MEDICARE, BC, SELFPAY ==
[2019-07-18 13:44] VITALS: BMI 41.4
== END 2020-02-23 23:59 | disposition home or self-care (01) ==
LOC: DC 08:30
PROVIDERS: PCP Family Medicine; Visit Provider Family Medicine
DX: E11.21 Type 2 diabetes mellitus with diabetic nephropathy (principal); R63.5 Abnormal weight gain
CPT/HCPCS: 97802; G0108

== ENCOUNTER → 2020-04-04 10:49 | Outpatient (CLI) | payer MEDICARE, BC, SELFPAY ==
[2019-07-18 13:44] VITALS: BMI 41.4
[2020-04-04 12:12] LABS: Absolute Lymphocyte Count 1.03 X10^3/uL (0.83-4.51); Basophil# 0.02 X10^3/uL; Basophil% 0.4 % (0-1); Eosinophil# 0.17 X10^3/uL; Eosinophils% 3.3 % (0-5); Hematocrit 33.5 % (40-54); Lymphocyte # 1.03 X10^3/ul (4.0); Lymphocyte % 20.2 % (19-41); Mean Corp Hgb Conc 32.8 g/dL (32-36); Mean Corpuscular Hgb 30.1 pg (27.0-32.0); Mean Corpuscular Volume 91.8 fL (80-94); Mean Platelet Vol. 11.8 fl (6.2-12.0); Monocyte# 0.82 X10^3/uL; Monocyte% 16.1 % (0-10); NRBC Flagged by Analyzer 0 % (0-5); Neutrophil # 3.03 X10^3/uL (2.7-7.7); Neutrophil % 59.6 % (47-70); Platelet Count 180 K/mm3 (150-450); RBC Distribution Width CV 13.2 % (11.6-14.6); RBC Distribution Width SD 44.5 fl (35.1-43.9); Red Blood Count 3.65 M/mm3 (4.6-6.2); White Blood Count 5.1 K/mm3 (4.4-11.0)
[2020-04-04 12:47] LABS: Insulin 100.4 mU/L (2.6-37.6)
[2020-04-04 12:53] LABS: ALB/GLOB Ratio 0.9 RATIO (0.9-2.4); AST(SGOT) 35 U/L (15-37); Alanine Aminotransfer ALT/SGPT 49 U/L (16-61); Albumin, Serum 3.2 g/dL (3.2-5.0); Alkaline Phosphatase 139 U/L (45-117); Anion Gap 9 (5-15); BUN 59 mg/dL (7-18); BUN/Creat Ratio 34.5 RATIO (10-20); Chloride 104 mmol/L (98-107); Creatinine, Serum 1.71 mg/dL (0.70-1.30); EST Glomerular Filtration Rate 41 mL/min (>60); Est Glom Filt Rate - Afr Amer 50 mL/min (>60); Globulin 3.5 g/dL (2.2-4.2); Glucose 157 mg/dL (74-106); Potassium 4.3 mmol/L (3.5-5.1); Protein, Total 6.7 g/dL (6.4-8.2); Sodium Level 139 mmol/L (136-145)
[2020-04-06 10:01] LABS: C-Peptide 27.6 ng/mL (1.1-4.4); Insulin Like Growth Factor 261 ng/mL (45-207)
== END ==
PROVIDERS: PCP Family Medicine; Referring Provider Family Medicine; Visit Provider Family Medicine
DX: E16.2 Hypoglycemia, unspecified (principal); E11.21 Type 2 diabetes mellitus with diabetic nephropathy
CPT/HCPCS: 36415; 80053; 83525; 84305; 84681; 85025

== ENCOUNTER → 2020-05-03 14:33 | Outpatient (CLI) | payer MEDICARE, BC, SELFPAY ==
[2019-07-18 13:44] VITALS: BMI 41.4
[2020-05-03 17:51] LABS: Absolute Lymphocyte Count 1.69 X10^3/uL (0.83-4.51); Basophil# 0.04 X10^3/uL; Basophil% 0.5 % (0-1); Eosinophil# 0.18 X10^3/uL; Eosinophils% 2.4 % (0-5); Hemoglobin 11.6 g/dL (13.0-16.5); Lymphocyte # 1.69 X10^3/ul (4.0); Lymphocyte % 22.5 % (19-41); Mean Corp Hgb Conc 32.2 g/dL (32-36); Mean Corpuscular Hgb 30.2 pg (27.0-32.0); Mean Corpuscular Volume 93.8 fL (80-94); Monocyte# 0.61 X10^3/uL; Monocyte% 8.1 % (0-10); NRBC Flagged by Analyzer 0 % (0-5); Neutrophil # 4.95 X10^3/uL (2.7-7.7); Neutrophil % 66.1 % (47-70); Platelet Count 216 K/mm3 (150-450); RBC Distribution Width CV 13.2 % (11.6-14.6); RBC Distribution Width SD 44.4 fl (35.1-43.9); Red Blood Count 3.84 M/mm3 (4.6-6.2); White Blood Count 7.5 K/mm3 (4.4-11.0)
[2020-05-03 18:04] LABS: ALB/GLOB Ratio 0.9 RATIO (0.9-2.4); AST(SGOT) 26 U/L (15-37); Alanine Aminotransfer ALT/SGPT 33 U/L (16-61); Albumin, Serum 3.5 g/dL (3.2-5.0); Alkaline Phosphatase 122 U/L (45-117); Anion Gap 7 (5-15); BUN 53 mg/dL (7-18); BUN/Creat Ratio 33.5 RATIO (10-20); Calcium,Total 9.1 mg/dL (8.5-10.1); Chloride 103 mmol/L (98-107); Creatinine, Serum 1.58 mg/dL (0.70-1.30); EST Glomerular Filtration Rate 45 mL/min (>60); Est Glom Filt Rate - Afr Amer 54 mL/min (>60); Globulin 3.8 g/dL (2.2-4.2); Glucose 140 mg/dL (74-106); Potassium 4.3 mmol/L (3.5-5.1); Protein, Total 7.3 g/dL (6.4-8.2); Sodium Level 138 mmol/L (136-145); Uric Acid 11.6 mg/dL (3.5-7.2)
== END ==
PROVIDERS: PCP Family Medicine; Referring Provider Family Medicine; Visit Provider Family Medicine
DX: E11.21 Type 2 diabetes mellitus with diabetic nephropathy (principal); M10.9 Gout, unspecified
CPT/HCPCS: 36415; 80053; 83036; 84550; 85025

== ENCOUNTER → 2020-06-21 08:46 | Outpatient (CLI) | payer MEDICARE, BC, SELFPAY ==
[2019-07-18 13:44] VITALS: BMI 41.4
--- NOTE | 2020-06-21 08:47 | ECHOD_ITS ---
Reason For Study: Aortic stenosis Procedure This was a 2D Doppler, Color Flow transthoracic echocardiogram. Exam performed in department. Left Ventricle Normal LV size. The estimated ejection fraction is 65 %. No evidence for diastolic dysfunction. No regional wall motion abnormalities noted. Right Ventricle Normal RV size. Normal systolic function. Atria Normal left atrium. Normal right atrium. No doppler evidence for ASD. Mitral Valve There is no mitral valve stenosis. Mild (1+) mitral valve insufficiency. Tricuspid Valve There is no tricuspid stenosis. Unable to estimate RV systolic pressure due to inadequate jet, pulmonary artery pressure probably normal. Aortic Valve Moderate diffuse aortic valve thickening. Moderate aortic stenosis. No aortic valve insufficiency. Pulmonic Valve There is no pulmonic valvular stenosis. No pulmonic valve insufficiency. Great Vessels Normal aortic root. Pericardium/Pleural No pericardial effusion. MMode/2D Measurements & Calculations LVIDd: 4.5 cm IVSd: 1.0 cm LVOT diam: 2.1 cm LVIDs: 2.5 cm LVPWd: 1.0 cm LVOT area: 3.5 cm2 RVDd: 3.5 cm FS: 43.4 % Ao root diam: 3.5 cm LAV(MOD-bp): 83.8 ml LVAd ap4: 34.6 cm2 LAV(MOD-bp) Indexed: 37.8 ml/m2 LVLd ap4: 8.2 cm LAV(MOD-sp2): 82.8 ml EDV(MOD-sp4): 121.2 ml LAV(MOD-sp4): 78.4 ml EDV(sp4-el): 124.4 ml LVAs ap4: 19.8 cm2 LVLs ap4: 6.7 cm ESV(MOD-sp4): 50.9 ml ESV(sp4-el): 49.8 ml EF(MOD-sp4): 58.0 % EF(sp4-el): 59.9 % SV(MOD-sp4): 70.3 ml SV(sp4-el): 74.6 ml LA A4 area: 24.8 cm2 LA dimension(2D): 4.2 cm RA A4 area: 17.2 cm2 Doppler Measurements & Calculations MV E max shantanu: 92.9 cm/sec Lat Peak E' Shantanu: 9.6 cm/sec Med Peak E' Shantanu: 7.1 cm/sec MV A max shantanu: 107.2 cm/sec E/E' lat: 9.6 E/E' med: 13.1 MV E/A: 0.87 Ao V2 max: 317.9 cm/sec LV V1 max: 128.8 cm/sec SV(LVOT): 103.1 ml Ao max P.4 mmHg LV V1 max P.7 mmHg Ao V2 mean: 233.0 cm/sec LV V1 mean P.8 mmHg Ao mean P.8 mmHg LV V1 mean: 91.4 cm/sec Ao V2 VTI: 77.2 cm LV V1 VTI: 29.3 cm CIRILO(I,D): 1.3 cm2 CIRILO(V,D): 1.4 cm2 PA V2 max: 124.0 cm/sec ECHO/Echo Complete Interpretation Summary The estimated ejection fraction is 65 %. No evidence for diastolic dysfunction. Mild (1+) mitral valve insufficiency. Moderate diffuse aortic valve thickening. Moderate aortic stenosis. Ordering Physician: Rosi Liang Referring Physician: Blair Alexandra MD Performed By: Yvonne Zarco RDCS
== END ==
PROVIDERS: PCP Family Medicine; Referring Provider Specialist; Visit Provider Specialist
DX: R60.0 Localized edema (principal); I35.0 Nonrheumatic aortic (valve) stenosis; I05.0 Rheumatic mitral stenosis; I10 Essential (primary) hypertension
CPT/HCPCS: 93306

== ENCOUNTER 2020-07-01 11:16 | Emergency (ER) | payer MEDICARE, BC, SELFPAY ==
[2019-07-18 13:44] VITALS: BMI 41.4
[2020-07-01 11:17] VITALS: BP 117/51; PULSE 103; RESP 18; TEMP 36.9; O2SAT 96; BMI 41.1
[2020-07-01 11:21] VITALS: BP 117/51; PULSE 103; RESP 18; TEMP 36.9; O2SAT 96
--- NOTE | 2020-07-01 11:51 | EX.ED.UPPERE ---
HPI History of Present Illness Chief Complaint: Upper Extremity Injury Informant: patient and spouse/S.O. Occured/Mechanism Mechanism/Context: Yes unknown Onset/Context/Timing Onset: Days Current Severity: Mild Maximum Severity: Mild Associated Symptoms Associated Symptoms: Negative for Parasthesia, Weakness and Loss of Funtion Narrative Narrative: 79-year-old male history of diabetes and gout. Has atraumatic swelling of his left elbow bursa. He denies any fever or chills. He is able to flex and extend the elbow without difficulty. This began on about 3 to 4 days ago. Prior similar symptoms: No Recent Illness/Hospitalization: No PFSH PFS Medical History Arthritis Carotid stenosis, bilateral Erectile dysfunction Essential hypertension Hyperlipidemia Nonrheumatic aortic (valve) stenosis Nonrheumatic mitral (valve) stenosis Restless leg syndrome Type 2 diabetes mellitus without complication Home Medications simvastatin 40 mg PO DAILY 04/06/16 [History Last Taken Unknown] amlodipine 5 mg tablet 5 mg PO DAILY 11/19/18 [History Last Taken Unknown] candesartan 16 mg tablet 16 mg PO DAILY 11/19/18 [History Last Taken Unknown] magnesium oxide 400 mg PO BID 11/19/18 [History Last Taken Unknown] finasteride 1 mg tablet 1 mg PO DAILY tab 07/18/19 [History Last Taken Unknown] furosemide 40 mg tablet PO 07/18/19 [History Last Taken Unknown] pregabalin 75 mg capsule PO 07/18/19 [History Last Taken Unknown] ropinirole 4 mg tablet mg PO 07/18/19 [History Last Taken Unknown] cephalexin [Keflex] 750 mg PO BID 7 Days #14 cap 07/01/20 [Rx Last Taken Unknown] prednisone 40 mg PO DAILY 7 Days #14 tab 07/01/20 [Rx Last Taken Unknown] Allergy/AdvReac Type Severity Reaction Status Date / Time atorvastatin [From Lipitor] AdvReac Intermediate myalgias Verified 07/01/20 11:17 Family History Mother Diabetes Heart disease Hypertension High cholesterol Son Asthma Hypertension Father Colon cancer Skin cancer Cancer lung cancer Brother Heart disease CVA (cerebral vascular accident) Surgical History History of facial fracture repair History of left hip replacement History of repair of pyloric stenosis History of skin cancer History of tonsillectomy Social History Smoking Status: Former smoker how long ago did patient quit smokin years ago alcohol intake: current alcohol intake frequency: holidays/special occasions only substance use type: does not use caffeine: Yes Type: carbonated beverages and coffee Number of servings: 2 ROS ROS ED ROS Narrative Patient denies any recent illness. Review of Systems ROS Unobtainable: Denies due to encephalopathy Constitutional Constitutional ED: Denies frequent falls Eyes Eyes: Denies change in vision ENT ENT ED: Denies ear pain or sore throat Cardiovascular Cardiovascular: Denies chest pain Respiratory/Chest Respiratory/Chest: Denies dyspnea Gastrointestinal Gastrointestinal: Denies abdominal pain, diarrhea, nausea or vomiting Genitourinary Genitourinary ED: Denies dysuria Musculoskeletal Musculoskeletal: Denies myalgias Integumentary Denies rash Neurologic Neurologic: Denies headache(s) Psychiatric Psychiatric: Denies depression Endocrine Endocrinology: Denies polyuria Hematologic/Lymphatic Hematologic/Lymphatic: Denies easy bruising Allergic/Immunologic Allergic/Immunologic ED: Denies urticaria EXAM Physical Exam Narrative Exam Narrative: 79-year-old male no acute distress. Vital signs stable afebrile. Lungs are clear. Heart regular rhythm no murmur. Left elbow is an obvious bursitis. He has full flexion-extension of the elbow. No signs of septic joint or joint involvement. No lymphangitic streaking. No axillary lymphadenopathy. He has normal classification and treatment director strength in his left hand. Normal radial pulse. And no swelling in the forearm or hand. Const Vital Signs: 07/01/20 11:17 07/01/20 11:21 Temperature 98.5 F 98.5 F Temperature Source Temporal Temporal Pulse Rate 103 H 103 H Respiratory Rate 18 18 Blood Pressure 117/51 L 117/51 L Blood Pressure Mean 73 73 Pulse Ox 96 96 Oxygen Delivery Method Room Air Room Air Positive well nourished and well developed General Appearance ED: well developed HEENT normocephalic Eyes PERRL and EOMs intact bilaterally Neck supple Chest Wall inspection of chest normal Resp normal respiratory effort and clear to auscultation bilaterally Cardio regular rate, regular rhythm and no murmurs GI non-tender, non-distended and no masses Auscultation: normoactive bowel sounds Palpation: soft; Negative for tender Back/Spine no CVA tenderness Extremity normal to inspection and full ROM Extremity Narrative: Left elbow bursitis. Normal range of motion. No septic joint. Left hand neurovascularly intact. Neuro oriented x3 Sensorium / Orientation: alert, oriented to person, oriented to place and oriented to time Psych mental status grossly normal Skin Rashes: no rashes MDM MDM MDM Narrative Medical decision making narrative: Patient has obvious left elbow bursitis. Rule out gout versus inflammatory process versus septic bursitis. Fluid to be obtained through needle aspiration of the bursa. Labs are being obtained. I attempted to aspirate the left elbow bursa and there is only a very small amount of blood. There is no fluid. I tried both with a 21 and an 18-gauge needle. Patient tolerated procedure well. Repeat exam no change. Patient has full flexion-extension of the elbow. There is no signs of septic joint. I explained to both he and his were unable obtain any bursal fluid. Due to his history of diabetes I will be cautious and treat him for possible infection with Keflex twice daily for 1 week. Also he will be placed on prednisone for what is most likely a gout flare. Or just inflammatory bursitis. They will follow up with her orthopedic physician at [facility]. They know to return if worse or develops a fever. He will be given a dose of prednisone and Keflex prior to discharge. Lab Data Attestation: I reviewed the patient's lab results. Lab results narrative: Uric acid is elevated at 12.3 consistent with possible gout. CBC was unremarkable. Chemistries are unremarkable. Blood sugar is elevated. Radiography Diagnostic Testing: Left elbow x-ray three views interpreted by myself shows no acute abnormality. No fracture. No air. No dislocation. Discharge Plan Triage Chief Complaint: Upper Extremity Injury ED Provider: Aldair Khan Dx/Rx/DC Orders Clinical Impression: Bursitis, olecranon, Gout attack Instructions: ED Bursitis, ED Gout Prescriptions: New cephalexin [Keflex] 750 mg capsule 750 mg PO BID 7 Days Qty: 14 RF: 0 prednisone 20 mg tablet 40 mg PO DAILY 7 Days Qty: 14 RF: 0 No Action candesartan 16 mg tablet 16 mg PO DAILY RF: 0 amlodipine 5 mg tablet 5 mg PO DAILY RF: 0 magnesium oxide 400 mg magnesium capsule 400 mg PO BID RF: 0 ropinirole 4 mg tablet PO RF: 0 pregabalin 75 mg capsule PO RF: 0 furosemide 40 mg tablet PO RF: 0 simvastatin 40 MG tablet 40 mg PO DAILY RF: 0 finasteride 1 mg tablet 1 mg PO DAILY RF: 0 Primary Care Provider: Blair Alexandra Referrals: Blair Alexandra MD [Primary Care Provider] - Gustavo Brown DO [STAFF PHYSICIAN] - As soon as possible Activity Restrictions/Additional Instructions: Take the prednisone once daily 40 mg to decrease inflammation of the bursa. That we will treat this if it is gout or just inflammation. Keflex 1 pill twice a day that will treated in case there is an infection. Call your orthopedic physician at [facility] and be seen in the next several days. Call them tomorrow. Return if looks a lot worse or you develop a fever. Disposition Disposition: Home, self care
--- NOTE | 2020-07-01 12:03 | RAD_ITS ---
STUDY: X-RAY - LEFT ELBOW REASON FOR EXAM: Male, 79 years old. Left elbow bursitis TECHNIQUE: 3 view(s) of the elbow. COMPARISON: None. FINDINGS: Normal visualized humerus, radius and ulna. Normal radiocapitellar and ulnotrochlear articulations. The soft tissue structures are unremarkable. RAD/Elbow min 3 Views IMPRESSION: Normal x-ray examination of the elbow. Electronically Signed: David Hallman MD at 14:12 EDT Tel , Service support ,
[2020-07-01 12:32] LABS: Absolute Lymphocyte Count 1.41 X10^3/uL (0.83-4.51); Absolute Neutrophil Count 5.7 X10^3/uL (2.0-7.7); Basophil# 0.02 X10^3/uL; Basophil% 0.2 % (0-1); Eosinophil# 0.17 X10^3/uL; Eosinophils% 2.1 % (0-5); Hematocrit 34.9 % (40-54); Hemoglobin 11.5 g/dL (13.0-16.5); Lymphocyte # 1.41 X10^3/ul (0.83-4.51); Lymphocyte % 17.6 % (19-41); Mean Corpuscular Hgb 29.6 pg (27.0-32.0); Mean Corpuscular Volume 89.7 fL (80-94); Mean Platelet Vol. 11.4 fl (6.2-12.0); Monocyte# 0.68 X10^3/uL; Monocyte% 8.5 % (0-10); NRBC Flagged by Analyzer 0 % (0-5); Neutrophil # 5.73 X10^3/uL (2.7-7.7); Neutrophil % 71.4 % (47-70); Platelet Count 196 K/mm3 (150-450); RBC Distribution Width CV 13.6 % (11.6-14.6); RBC Distribution Width SD 44.8 fl (35.1-43.9); Red Blood Count 3.89 M/mm3 (4.6-6.2)
[2020-07-01 13:00] LABS: Anion Gap 6 (5-15); BUN 64 mg/dL (7-18); BUN/Creat Ratio 35.2 RATIO (10-20); Chloride 107 mmol/L (98-107); Creatinine, Serum 1.82 mg/dL (0.70-1.30); EST Glomerular Filtration Rate 38 mL/min (>60); Est Glom Filt Rate - Afr Amer 46 mL/min (>60); Estimated Creatinine Clearance 29.21 ml/min; Glucose 154 mg/dL (74-106); Potassium 4.4 mmol/L (3.5-5.1); Sodium Level 139 mmol/L (136-145); Uric Acid 12.3 mg/dL (3.5-7.2)
--- NOTE | 2020-07-01 13:22 | ED.RN ---
Dr Khan attempted to obtain fluid from left elbow. No fluid obtained. Area cleaned and bandaged by this RN
[2020-07-01] MEDS: Cephalexin 250 MG Capsule 500 MG PO (14:34)
[2020-07-01] MEDS: predniSONE 20 MG Tablet 40 MG PO (14:34)
== END 2020-07-01 14:34 | disposition home or self-care (01) ==
PROVIDERS: Emergency Provider Emergency Medicine; PCP Family Medicine
DX: M70.22 Olecranon bursitis, left elbow (principal); M10.9 Gout, unspecified; I10 Essential (primary) hypertension; E11.9 Type 2 diabetes mellitus without complications; E78.5 Hyperlipidemia, unspecified; I35.0 Nonrheumatic aortic (valve) stenosis; M19.90 Unspecified osteoarthritis, unspecified site; Z79.52 Long term (current) use of systemic steroids; Z79.899 Other long term (current) drug therapy; Z87.891 Personal history of nicotine dependence
CPT/HCPCS: 73080; 80048; 84550; 85025; 99283; A4216

== ENCOUNTER → 2020-08-03 17:38 | Outpatient (CLI) | payer MEDICARE, BC, SELFPAY ==
[2020-07-24 12:59] VITALS: BMI 41.1
--- NOTE | 2020-08-03 17:52 | CT_ITS ---
STUDY: CT ABDOMEN AND PELVIS WITHOUT CONTRAST REASON FOR EXAM: Male, 79 years old. PAIN RADIATION DOSAGE (If Supplied By Facility): CTDIvol = ( 21.67 ) mGy, DLP = ( 1304.97 ) mGycm TECHNIQUE: Transaxial images were obtained from the dome of the diaphragm to the symphysis pubis with oral contrast, and without intravenous contrast. Sagittal and coronal images were reconstructed. Individualized dose optimization techniques were used for this CT. COMPARISON: 12/02/2019 FINDINGS: The visualized lung bases are unremarkable. The visualized portions of the heart are within normal limits. Normal liver. Normal gallbladder and extrahepatic biliary system. Normal spleen. Normal pancreas. Normal bilateral adrenal glands. Normal right kidney. Normal left kidney. Normal visualized stomach. Normal small intestine. There are multiple colonic diverticula consistent with diverticulosis. The appendix is visualized and appears normal. There is diffuse atherosclerotic calcification of the abdominal aorta, without a demonstrated aneurysm. Normal inferior vena cava. Normal retroperitoneum. Normal urinary bladder. Normal abdominal wall. Status post left hip arthroplasty produces streak artifact obscures the pelvis. CT/Abdomen/Pelvis without Cont IMPRESSION: Sigmoid diverticulosis without diverticulitis. Electronically Signed: David Hallman MD at 18:10 EDT Tel , Service support ,
== END ==
PROVIDERS: PCP Family Medicine; Referring Provider Family Medicine; Visit Provider Family Medicine
DX: R52 Pain, unspecified (principal)
CPT/HCPCS: 74176

== ENCOUNTER → 2020-08-07 06:29 | Outpatient (CLI) | payer MEDICARE, BC, SELFPAY ==
[2020-07-24 12:59] VITALS: BMI 41.1
--- NOTE | 2020-08-08 10:37 | STRESSREP_ITS ---
Stress Test Report Date: 08/07/2020 Procedure: Pharmacologic stress nuclear imaging study Indications: [Chest discomfort] Consent: Per the patient Procedure: The patient underwent pharmacologic (Regadenoson) evaluation with a peak heart rate of 74 beats per minute (64%predicted maximal heart rate) and a peak blood pressure of 108/60 mmHg. The baseline ECG demonstrated normal sinus rhythm. EKG during lexiscan infusion revealed no significant ischemic changes. EKG post infusion revealed no significant ischemic changes [There were no cardiac dysrhythmias pretest, during pharmacologic infusion, or recovery]. [There was no complaint of chest discomfort during pharmacologic infusion or recovery]. The examination was discontinued secondary to completion of protocol. Impression: 1. Lexiscan stress test test is negative for Lexiscan infusion induced EKG changes of ischemia. 2. Lexiscan stress test test is negative for Lexiscan infusion induced chest pain. 3. Results of the nuclear portion of the test is as below Myocardial perfusion imaging study: Technique: The patient was injected with 14.8 millicuries of technetium 99m Cardiolite and subsequently rest SPECT Cardiolite nuclear imaging was obtained in the horizontal long, vertical long, and short axis views. The patient underwent pharmacologic [Regadenoson 0.4mg] evaluation. Please see above for details. The patient was injected with 44.7 millicuries of technetium 99m Cardiolite and subsequently stress SPECT Cardiolite nuclear imaging was obtained in the horizon soledad long, vertical long, and short axis views. A gated Cardiolite study at peak stress was obtained. Interpretation: Rest and stress SPECT Cardiolite nuclear imaging status post realignment, norm alization, and attenuation correction demonstrate no evidence of significant ischemia or infarction. There is a fixed defect in the inferior wall prior to attenuation correction that resolves after attenuation correction suggestive of diaphragmatic attenuation artifact. Gated images reveal no significant regional wall motion abnormalities. The reported LVEF is 66%. Impression: 1. There is no evidence of significant ischemia or infarction. 2. Estimated ejection fraction is 66%. This note was generated with [employer] software. It may contain incorrect words, spelling, and punctuation that were not noted in checking the note before signing.
== END ==
PROVIDERS: PCP Family Medicine; Referring Provider Physician Assistant Medical; Visit Provider Physician Assistant Medical
DX: R06.00 Dyspnea, unspecified (principal); R07.9 Chest pain, unspecified; I35.0 Nonrheumatic aortic (valve) stenosis
CPT/HCPCS: 78452; 93017; A9500; A4216; J2785

== ENCOUNTER → 2020-11-21 08:22 | Outpatient (CLI) | payer MEDICARE, BC, SELFPAY ==
[2020-11-21 10:10] LABS: Absolute Lymphocyte Count 1.67 X10^3/uL (0.83-4.51); Absolute Neutrophil Count 4.4 X10^3/uL (2.0-7.7); Basophil# 0.03 X10^3/uL; Basophil% 0.4 % (0-1); Eosinophil# 0.35 X10^3/uL; Hematocrit 32.9 % (40-54); Hemoglobin 10.6 g/dL (13.0-16.5); Lymphocyte # 1.67 X10^3/ul (0.83-4.51); Lymphocyte % 23.8 % (19-41); Mean Corp Hgb Conc 32.2 g/dL (32-36); Mean Corpuscular Hgb 29.6 pg (27.0-32.0); Mean Corpuscular Volume 91.9 fL (80-94); Mean Platelet Vol. 11.7 fl (6.2-12.0); Monocyte# 0.54 X10^3/uL; Monocyte% 7.7 % (0-10); NRBC Flagged by Analyzer 0 % (0-5); Neutrophil # 4.39 X10^3/uL (2.7-7.7); Neutrophil % 62.7 % (47-70); Platelet Count 176 K/mm3 (150-450); RBC Distribution Width CV 13.3 % (11.6-14.6); RBC Distribution Width SD 45.1 fl (35.1-43.9); Red Blood Count 3.58 M/mm3 (4.6-6.2)
[2020-11-21 10:27] LABS: ALB/GLOB Ratio 0.9 RATIO (0.9-2.4); AST(SGOT) 21 U/L (15-37); Alanine Aminotransfer ALT/SGPT 23 U/L (16-61); Albumin, Serum 3.3 g/dL (3.2-5.0); Alkaline Phosphatase 88 U/L (45-117); Anion Gap 5 (5-15); BUN 86 mg/dL (7-18); BUN/Creat Ratio 44.6 RATIO (10-20); Calcium,Total 8.8 mg/dL (8.5-10.1); Chloride 105 mmol/L (98-107); Cholesterol 141 mg/dL (200); Creatinine, Serum 1.93 mg/dL (0.70-1.30); EST Glomerular Filtration Rate 36 mL/min (>60); Est Glom Filt Rate - Afr Amer 43 mL/min (>60); Globulin 3.6 g/dL (2.2-4.2); Glucose 138 mg/dL (74-106); High Density Lipoprotein 43 mg/dL; Potassium 4.2 mmol/L (3.5-5.1); Protein, Total 6.9 g/dL (6.4-8.2); Sodium Level 138 mmol/L (136-145); Triglycerides 148 mg/dL; Uric Acid 12.8 mg/dL (3.5-7.2); Very Low Density Lipoprotein 30 mg/dL (5-40)
[2020-11-21 10:28] LABS: Hemoglobin A1c 6.4 % (3.8-5.6)
== END ==
PROVIDERS: PCP Family Medicine; Referring Provider Family Medicine; Visit Provider Family Medicine
DX: M10.9 Gout, unspecified (principal); E11.21 Type 2 diabetes mellitus with diabetic nephropathy
CPT/HCPCS: 36415; 80053; 80061; 83036; 84550; 85025

== ENCOUNTER 2021-03-25 08:23 | Outpatient (CLI) | payer MEDICARE, BC, SELFPAY ==
[2021-03-25 10:36] LABS: AST(SGOT) 20 U/L (15-37); Alanine Aminotransfer ALT/SGPT 23 U/L (16-61); Albumin, Serum 3.5 g/dL (3.2-5.0); Alkaline Phosphatase 89 U/L (45-117); Anion Gap 4 (5-15); BUN 77 mg/dL (7-18); BUN/Creat Ratio 43.8 RATIO (10-20); Calcium,Total 9.2 mg/dL (8.5-10.1); Chloride 111 mmol/L (98-107); Creatinine, Serum 1.76 mg/dL (0.70-1.30); EST Glomerular Filtration Rate 40 mL/min (>60); Est Glom Filt Rate - Afr Amer 48 mL/min (>60); Globulin 3.4 g/dL (2.2-4.2); Glucose 118 mg/dL (74-106); Potassium 4.7 mmol/L (3.5-5.1); Protein, Total 6.9 g/dL (6.4-8.2); Sodium Level 141 mmol/L (136-145); Uric Acid 4.9 mg/dL (3.5-7.2)
[2021-03-25 10:54] LABS: Microalbumin,Random Urine < 5.0 mg/L (NO RANGE EST.)
== END 2021-03-25 23:59 | disposition home or self-care (01) ==
LOC: MTLAB 08:25
PROVIDERS: PCP Family Medicine; Referring Provider Family Medicine; Visit Provider Family Medicine
DX: E11.21 Type 2 diabetes mellitus with diabetic nephropathy (principal); M10.9 Gout, unspecified
CPT/HCPCS: 36415; 80053; 82043; 82570; 83036; 84550

== ENCOUNTER → 2021-06-12 | Outpatient (CLI) | payer MEDICARE, BC, SELFPAY ==
[2021-06-12 10:14] LABS: Absolute Lymphocyte Count 1.77 X10^3/uL (0.83-4.51); Absolute Neutrophil Count 5.5 X10^3/uL (2.0-7.7); Basophil# 0.05 X10^3/uL; Basophil% 0.6 % (0-1); Eosinophil# 0.26 X10^3/uL; Eosinophils% 3.1 % (0-5); Hematocrit 38.4 % (40-54); Hemoglobin 12.2 g/dL (13.0-16.5); Lymphocyte # 1.77 X10^3/ul (0.83-4.51); Lymphocyte % 21.2 % (19-41); Mean Corp Hgb Conc 31.8 g/dL (32-36); Mean Corpuscular Hgb 29.1 pg (27.0-32.0); Mean Corpuscular Volume 91.6 fL (80-94); Mean Platelet Vol. 12.2 fl (6.2-12.0); Monocyte# 0.71 X10^3/uL; Monocyte% 8.5 % (0-10); NRBC Flagged by Analyzer 0 % (0-5); Neutrophil # 5.52 X10^3/uL (2.7-7.7); Platelet Count 185 K/mm3 (150-450); RBC Distribution Width CV 13.9 % (11.6-14.6); Red Blood Count 4.19 M/mm3 (4.6-6.2); White Blood Count 8.4 K/mm3 (4.4-11.0)
[2021-06-12 10:16] LABS: Microalbumin,Random Urine 10.8 mg/L (NO RANGE EST.); Microalbumin:Creatinine Ratio 14.9 mg/g CRE (<30 mg/g CRE)
[2021-06-12 10:39] LABS: ALB/GLOB Ratio 0.9 RATIO (0.9-2.4); AST(SGOT) 23 U/L (15-37); Alanine Aminotransfer ALT/SGPT 23 U/L (16-61); Albumin, Serum 3.6 g/dL (3.2-5.0); Alkaline Phosphatase 77 U/L (45-117); Anion Gap 6 (5-15); BUN 39 mg/dL (7-18); BUN/Creat Ratio 26.9 RATIO (10-20); Calcium,Total 9.2 mg/dL (8.5-10.1); Chloride 107 mmol/L (98-107); Creatinine, Serum 1.45 mg/dL (0.70-1.30); EST Glomerular Filtration Rate 50 mL/min (>60); Est Glom Filt Rate - Afr Amer 60 mL/min (>60); Globulin 3.8 g/dL (2.2-4.2); Glucose 131 mg/dL (74-106); Potassium 4.2 mmol/L (3.5-5.1); Protein, Total 7.4 g/dL (6.4-8.2); Sodium Level 139 mmol/L (136-145); Uric Acid 10.3 mg/dL (3.5-7.2); Vitamin B12 440 pg/mL (211-911)
[2021-06-12 10:44] LABS: Hemoglobin A1c 5.8 % (3.8-5.6)
== END | disposition home or self-care (01) ==
LOC: MTLAB 08:50
PROVIDERS: PCP Family Medicine; Referring Provider Family Medicine; Visit Provider Family Medicine
DX: E11.21 Type 2 diabetes mellitus with diabetic nephropathy (principal); E79.0 Hyperuricemia without signs of inflammatory arthritis and tophaceous disease; R25.2 Cramp and spasm
CPT/HCPCS: 36415; 80053; 82043; 82570; 82607; 83036; 83735; 84550; 85025

== ENCOUNTER → 2021-08-22 | Outpatient (CLI) | payer MEDICARE, BC, SELFPAY ==
--- NOTE | 2021-08-22 12:40 | ECHOD_ITS ---
Reason For Study: Procedure This was a 2D Doppler, Color Flow transthoracic echocardiogram. Exam performed in department. Left Ventricle Normal LV size. Left ventricular systolic function is normal. The estimated ejection fraction is 65 %. Stage 1 diastolic dysfunction. No regional wall motion abnormalities noted. Right Ventricle Normal RV size. Normal systolic function. Atria Normal left atrium. Normal right atrium. Mitral Valve Normal mitral valve. Tricuspid Valve Normal tricuspid valve. Unable to estimate RV systolic pressure due to insufficient tricuspid regurgitant envelope. Aortic Valve Trisinus/trileaflet aortic valve. Mild focal aortic valve calcification. Peak aortic valve gradient 37 mmHg. Mean aortic valve gradient 23 mmHg. Mild to moderate aortic stenosis. Pulmonic Valve Normal pulmonic valve. Great Vessels Normal aortic root. The pulmonary artery is normal size. Normal inferior vena cava. Pericardium/Pleural No pericardial effusion. MMode/2D Measurements & Calculations LVIDd: 4.2 cm IVSd: 1.1 cm LVOT diam: 2.1 cm LVIDs: 2.5 cm LVPWd: 1.2 cm LVOT area: 3.5 cm2 RVDd: 3.4 cm FS: 41.4 % Ao root diam: 3.2 cm LAV(MOD-bp): 45.0 ml LVAd ap4: 34.4 cm2 LAV(MOD-bp) Indexed: 20.5 ml/m2 LVLd ap4: 8.2 cm LAV(MOD-sp2): 42.4 ml EDV(MOD-sp4): 119.7 ml LAV(MOD-sp4): 44.1 ml EDV(sp4-el): 122.5 ml LVAs ap4: 19.4 cm2 LVLs ap4: 7.4 cm ESV(MOD-sp4): 44.2 ml ESV(sp4-el): 43.3 ml EF(MOD-sp4): 63.1 % EF(sp4-el): 64.6 % LVAd ap2: 28.2 cm2 SV(MOD-sp4): 75.5 ml SV(MOD-sp2): 50.3 ml LVLd ap2: 8.1 cm EDV(MOD-sp2): 84.4 ml EDV(sp2-el): 82.9 ml LVAs ap2: 16.8 cm2 LVLs ap2: 7.1 cm ESV(MOD-sp2): 34.1 ml ESV(sp2-el): 33.5 ml EF(MOD-sp2): 59.6 % SV(sp4-el): 79.1 ml LA dimension(2D): 3.9 cm LA A4 area: 16.6 cm2 RA A4 area: 13.5 cm2 Time Measurements MV dec time: 0.25 sec Doppler Measurements & Calculations MV E max shantanu: 84.2 cm/sec Lat Peak E' Shantanu: 7.7 cm/sec Med Peak E' Shantanu: 8.5 cm/sec MV A max shantanu: 103.8 cm/sec E/E' lat: 10.9 E/E' med: 9.9 MV E/A: 0.81 Ao V2 max: 304.1 cm/sec LV V1 max: 106.3 cm/sec MV dec slope: 346.5 cm/sec2 Ao max P.0 mmHg LV V1 max P.5 mmHg Ao V2 mean: 227.9 cm/sec LV V1 mean P.3 mmHg Ao mean P.1 mmHg LV V1 mean: 71.7 cm/sec Ao V2 VTI: 71.1 cm LV V1 VTI: 22.3 cm CIRILO(I,D): 1.1 cm2 CIRILO(V,D): 1.2 cm2 SV(LVOT): 78.6 ml PA V2 max: 134.8 cm/sec PA V2 mean: 97.2 cm/sec ECHO/Echo Complete Interpretation Summary Normal LV size. Left ventricular systolic function is normal. The estimated ejection fraction is 65 %. Stage 1 diastolic dysfunction. Mean aortic valve gradient 23 mmHg. Mild to moderate aortic stenosis. Ordering Physician: Suma Chambers/Avi Mckeon Referring Physician: Blair Alexandra MD Performed By: Yvonne Zarco RDCS
== END | disposition home or self-care (01) ==
LOC: CVS 12:40
PROVIDERS: PCP Family Medicine; Referring Provider Physician Assistant Medical; Visit Provider Physician Assistant Medical
DX: I35.0 Nonrheumatic aortic (valve) stenosis (principal)
CPT/HCPCS: 93306

== ENCOUNTER → 2021-09-11 | Outpatient (CLI) | payer MEDICARE, BC, SELFPAY ==
[2021-09-11 10:16] LABS: Vitamin D,25 Hydroxy 28.5 ng/mL
[2021-09-11 10:18] LABS: ALB/GLOB Ratio 1.1 RATIO (0.9-2.4); AST(SGOT) 23 U/L (15-37); Alanine Aminotransfer ALT/SGPT 27 U/L (16-61); Albumin, Serum 3.6 g/dL (3.2-5.0); Alkaline Phosphatase 95 U/L (45-117); Anion Gap 6 (5-15); BUN 47 mg/dL (7-18); BUN/Creat Ratio 31.3 RATIO (10-20); Calcium,Total 9.6 mg/dL (8.5-10.1); Chloride 111 mmol/L (98-107); EST Glomerular Filtration Rate 48 mL/min (>60); Est Glom Filt Rate - Afr Amer 58 mL/min (>60); Globulin 3.2 g/dL (2.2-4.2); Glucose 142 mg/dL (74-106); Potassium 4.4 mmol/L (3.5-5.1); Protein, Total 6.8 g/dL (6.4-8.2); Sodium Level 142 mmol/L (136-145)
[2021-09-11 10:34] LABS: PTHIN 173.1 pg/mL (18.4-80.1)
== END | disposition home or self-care (01) ==
LOC: MTLAB 07:45
PROVIDERS: PCP Family Medicine; Referring Provider Family Medicine; Visit Provider Family Medicine
DX: N18.32 Chronic kidney disease, stage 3b (principal)
CPT/HCPCS: 36415; 80053; 82306; 83970; 84550

== ENCOUNTER → 2021-12-02 | Outpatient (CLI) | payer MEDICARE, BC, SELFPAY ==
[2021-12-02 10:43] LABS: PTHIN 102.1 pg/mL (18.4-80.1)
[2021-12-02 10:46] LABS: Vitamin D,25 Hydroxy 37.3 ng/mL
[2021-12-02 11:12] LABS: AST(SGOT) 26 U/L (15-37); Alanine Aminotransfer ALT/SGPT 29 U/L (16-61); Albumin, Serum 3.5 g/dL (3.2-5.0); Alkaline Phosphatase 96 U/L (45-117); Anion Gap 6 (5-15); BUN 47 mg/dL (7-18); BUN/Creat Ratio 29.6 RATIO (10-20); Calcium,Total 9.6 mg/dL (8.5-10.1); Chloride 109 mmol/L (98-107); Creatinine, Serum 1.59 mg/dL (0.70-1.30); EST Glomerular Filtration Rate 45 mL/min (>60); Est Glom Filt Rate - Afr Amer 54 mL/min (>60); Globulin 3.6 g/dL (2.2-4.2); Glucose 122 mg/dL (74-106); Potassium 4.4 mmol/L (3.5-5.1); Protein, Total 7.1 g/dL (6.4-8.2); Sodium Level 141 mmol/L (136-145)
[2021-12-02 11:32] LABS: Microalbumin,Random Urine 10.1 mg/L (NO RANGE EST.)
== END | disposition home or self-care (01) ==
LOC: MTLAB 07:21
PROVIDERS: PCP Family Medicine; Referring Provider Family Medicine; Visit Provider Family Medicine
DX: E11.21 Type 2 diabetes mellitus with diabetic nephropathy (principal); N18.31 Chronic kidney disease, stage 3a; E55.9 Vitamin D deficiency, unspecified
CPT/HCPCS: 36415; 80053; 82043; 82306; 83970

== ENCOUNTER 2022-01-21 13:00 | Outpatient (RCR) | payer MEDICARE, BC, SELFPAY ==
--- NOTE | 2021-12-26 14:08 | HP.PTEVAL ---
Patient's Visit Information LOBO VANEGAS is a 81 year old M referred to Physical Therapy by Blair Alexandra MD with a diagnosis of Fatigue, obesity, aortic stenosis, spinal stenosis. Date of Evaluation: 12/26/21 Physical Therapist: Asael Reyna - Visit Plan Frequency: 2x /Week Duration: 6 Weeks Plan: Continue with improving LE strength, core, and back strength. Also add balance exercises and work on improving endurance. - Subjective Pt. is a 81 y.o. who was referred to physical therapy for general deconditioning and lumbar spinal stenosis. Pt. PLOF includes history of lumbar spine disectomy three years ago and left THR four years ago. He has not had any recent imaging. He will occasionally get tingling in his left leg down to his foot. He denies any falls or change in his bowel or bladder function. He has difficulty with standing/walking longer than 5 minutes, ascending/descending stairs, squatting, lifting things, occasionally sleeping, and housework. 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 His goal with physical therapy is to get stronger and have more energy. He has had previous physical therapy for multiple things in the past. Pt. currently has some right knee pain which he rates at 3/10 currently, at worst 8/10, at best 0/10 and describes the pain as dull and achy. Pt. recently had a gel shot for his right knee. He is currently taking Tylenol for pain. Pt. PMH includes heart murmur, skin cancer, type II diabetes, left THR, lumbar disectomy, aortic stenosis, and lump removed from his chest. Pt. lives with his daughter and her family in a one story home with two steps to enter. His hobbies include watching tv and going out to eat. - Objective Posture- Good posture in standing. Palpation- No tenderness to palpation. Lumbar AROM- WFL for all motions and no pain. Hip PROM- WNL bilaterally. Moderate tight hamstrings bilaterally. Strength left hip flexion 4/5, abduction 4/5, adduction 4+/5, extension 4/5, knee extension 5/5, knee flexion 5/5, ankle DF 5/5, ankle PF 5/5. Strength right hip flexion 5/5, abduction 4+/5, adduction 5/5, extension 4+/5, knee extension 4+/5, knee flexion 5/5, ankle DF 5/5, ankle PF 5/5. Tandem stance right [16 secs ], left [30 secs ]. SLS right [3 secs], left [3 secs]. 30 sec sit to stand- x 9 with no arm assist. Gait- Pt. ambulates with wider base of support. Stairs- Pt. ascends/descends stairs with step to gait pattern and unilateral handrail. - Balance/Special Test Scores Oswestry Low Back Score: 22 Lower Extremity Functional Score: 35 - Goals Goal 1:: Pt. will be able to walk for at least 15 minutes with no rest break in order to improve endurance. Goal Time Frame: 4-6 Weeks Goal 2:: Pt. will be able to complete at least 11 sit to stands in 30 secs with no arm assist in order to improve mobility. Goal Time Frame: 4-6 Weeks Goal 3:: Pt. will be able to ascend/descend a flight of stairs with alternating step pattern and unilateral handrail. Goal Time Frame: 4-6 Weeks Goal 4:: Pt. will be able to lift at least 15# with proper body mechanics and no pain. Goal Time Frame: 4-6 Weeks Goal 5:: Pt. will improve LEFS score to 45% or less disability in order to improve mobility. Goal Time Frame: 4-6 Weeks - Rehabilitation Potential Physical Therapy Diagnosis: Decreased core, back, and LE strength, balance, endurance, and pain Rehabilitation Potential: Good - Anticipated Interventions Patient/Client Instruction: Educate patient on: Condition, Plan of Care, Benefits of Fitness Program For the Purpose of:: To improve ability to perform ADL's, To improve performance and independence with ADL's, To improve gait and locomotor functions, To improve endurance, To assume or resume ADL's, To improve tolerance to ADL's Therapeutic Exercise to Include: Strength training, Endurance training, Balance training, Body mechanics, Postural training, Flexibilty training, Gait and locomotor training, Active ROM, Dynamic Lumbar Stabilization Comment: Focus on LE strengthening, core, and back strengthening. For the Purpose of:: To decrease pain, To increase ROM, To improve muscle performance and motor function, To improve ability to perform ADL's, To improve performance and independence with ADL's, To increase flexibility/ROM, To assume or resume ADL's, To improve tolerance to ADL's Functional Training to Include: ADL Training, Gait training For the Purpose of:: To improve ability to perform ADL's, To improve performance and independence with ADL's, To improve tolerance to ADL's Assistive Devices: Cane For the Purpose of:: To decrease pain, To improve ability to perform ADL's, To improve balance, To improve safety with gait Thank you for the opportunity to evaluate your patient. For Medicare and Medicare HMO plans, please review the plan of care and approve it. It will need to be FAXED BACK to us at [phone] for Medicare purposes. For Medicare only, by signing this I certify the plan of care. Please let me know if there are questions or concerns regarding this plan of care. Physician Signature: Date:
== END 2022-01-21 19:00 | disposition home or self-care (01) ==
LOC: PT 13:00
PROVIDERS: PCP Family Medicine; Referring Provider Family Medicine; Visit Provider Family Medicine
DX: I35.0 Nonrheumatic aortic (valve) stenosis (principal); M48.00 Spinal stenosis, site unspecified; E66.9 Obesity, unspecified; R53.83 Other fatigue
CPT/HCPCS: 97110; 97162

== ENCOUNTER → 2022-03-05 | Outpatient (CLI) | payer MEDICARE, BC, SELFPAY ==
[2022-03-05 10:16] LABS: Absolute Lymphocyte Count 1.69 X10^3/uL (0.83-4.51); Basophil# 0.04 X10^3/uL; Basophil% 0.5 % (0-1); Eosinophil# 0.22 X10^3/uL; Eosinophils% 2.9 % (0-5); Hemoglobin 12.4 g/dL (13.0-16.5); Lymphocyte # 1.69 X10^3/ul (0.83-4.51); Lymphocyte % 22.3 % (19-41); Mean Corp Hgb Conc 31.8 g/dL (32-36); Mean Corpuscular Hgb 29.7 pg (27.0-32.0); Mean Corpuscular Volume 93.3 fL (80-94); Mean Platelet Vol. 11.4 fl (6.2-12.0); Monocyte# 0.58 X10^3/uL; Monocyte% 7.7 % (0-10); NRBC Flagged by Analyzer 0 % (0-5); Neutrophil # 5.03 X10^3/uL (2.7-7.7); Neutrophil % 66.3 % (47-70); Platelet Count 198 K/mm3 (150-450); RBC Distribution Width CV 15.2 % (11.6-14.6); RBC Distribution Width SD 51.7 fl (35.1-43.9); Red Blood Count 4.18 M/mm3 (4.6-6.2); White Blood Count 7.6 K/mm3 (4.4-11.0)
[2022-03-05 10:27] LABS: Vitamin D,25 Hydroxy 31.6 ng/mL
[2022-03-05 10:30] LABS: Hemoglobin A1c 6.4 % (3.8-5.6)
[2022-03-05 10:34] LABS: AST(SGOT) 22 U/L (15-37); Alanine Aminotransfer ALT/SGPT 29 U/L (16-61); Albumin, Serum 3.5 g/dL (3.2-5.0); Alkaline Phosphatase 90 U/L (45-117); Anion Gap 6 (5-15); BUN 37 mg/dL (7-18); BUN/Creat Ratio 25.7 RATIO (10-20); Calcium,Total 9.6 mg/dL (8.5-10.1); Chloride 110 mmol/L (98-107); Creatinine, Serum 1.44 mg/dL (0.70-1.30); EST Glomerular Filtration Rate 50 mL/min (>60); Est Glom Filt Rate - Afr Amer 60 mL/min (>60); Globulin 3.4 g/dL (2.2-4.2); Glucose 139 mg/dL (74-106); Potassium 4.7 mmol/L (3.5-5.1); Protein, Total 6.9 g/dL (6.4-8.2); Sodium Level 141 mmol/L (136-145)
[2022-03-05 10:51] LABS: PTHIN 90.6 pg/mL (18.4-80.1)
== END | disposition home or self-care (01) ==
LOC: MTLAB 07:07
PROVIDERS: PCP Family Medicine; Referring Provider Family Medicine; Visit Provider Family Medicine
DX: E21.3 Hyperparathyroidism, unspecified (principal); E11.21 Type 2 diabetes mellitus with diabetic nephropathy; N18.31 Chronic kidney disease, stage 3a; R53.83 Other fatigue
CPT/HCPCS: 36415; 80053; 82306; 83036; 83970; 85025

== ENCOUNTER → 2022-03-17 | Outpatient (CLI) | payer MEDICARE, BC, SELFPAY ==
[2022-03-17 10:38] LABS: AST(SGOT) 16 U/L (15-37); Alanine Aminotransfer ALT/SGPT 22 U/L (16-61); Albumin, Serum 3.4 g/dL (3.2-5.0); Alkaline Phosphatase 80 U/L (45-117); Anion Gap 7 (5-15); BUN 36 mg/dL (7-18); BUN/Creat Ratio 28.6 RATIO (10-20); Calcium,Total 9.7 mg/dL (8.5-10.1); Chloride 112 mmol/L (98-107); Creatinine, Serum 1.26 mg/dL (0.70-1.30); EST Glomerular Filtration Rate 58 mL/min (>60); Est Glom Filt Rate - Afr Amer 70 mL/min (>60); Globulin 3.4 g/dL (2.2-4.2); Glucose 104 mg/dL (74-106); Potassium 4.4 mmol/L (3.5-5.1); Protein, Total 6.8 g/dL (6.4-8.2); Sodium Level 145 mmol/L (136-145)
== END | disposition home or self-care (01) ==
LOC: MTLAB 08:50
PROVIDERS: PCP Family Medicine; Referring Provider Family Medicine; Visit Provider Family Medicine
DX: N18.31 Chronic kidney disease, stage 3a (principal)
CPT/HCPCS: 36415; 80053

== ENCOUNTER 2022-04-01 10:04 | Inpatient (IN) | payer MEDICARE, BC, SELFPAY ==
[2022-04-01] VITALS (12 sets, daily range): BP systolic 94–126; BP diastolic 54–64; PULSE 83–108; RESP 16–23; TEMP 36–37.5; O2SAT 90–99; BMI 46.8; BMI 46.7
--- NOTE | 2022-04-01 10:15 | RAD_ITS ---
STUDY: X-RAY CHEST REASON FOR EXAM: Male, 81 years old. cp TECHNIQUE: Single AP portable view of the chest. COMPARISON: None. FINDINGS: EKG electrodes are seen. The lungs are clear and expanded. There is no demonstrated pleural abnormality. There is mild cardiac enlargement. Normal mediastinum and raine. Normal visualized pulmonary arteries. There is atherosclerotic calcification of the aortic arch with tortuosity. Normal visualized thoracic spine. There is degenerative osteoarthritis of the bilateral shoulders. There is no demonstrated abnormality of the visualized soft tissue structures of the upper abdomen. RAD/Chest 1 View (Portable) IMPRESSION: Mild cardiomegaly. Electronically Signed: Forest Alcantar MD at 11:21 EST ,
--- NOTE | 2022-04-01 10:15 | EKG12_ITS ---
Test Reason : CP Blood Pressure : / mmHG Vent. Rate : 105 BPM Atrial Rate : 105 BPM P-R Int : 146 ms QRS Dur : 094 ms QT Int : 354 ms P-R-T Axes : 036 036 017 degrees QTc Int : 467 ms Sinus tachycardia Low voltage QRS Nonspecific ST abnormality Abnormal ECG Confirmed by DONNA CABALLERO, HERRERA ([id number]), newspaper managing editor CHUCK TOLEDO ([id number]) on 04/02/2022 9:02:09 AM Referred By: Remberto Burnett Confirmed By:HERRERA THOMPSON MD
--- NOTE | 2022-04-01 10:17 | EDS_ITS ---
HPI History of Present Illness Chief Complaint: Chest Pain Narrative Narrative: Patient presents with chest pain that started last night radiating to left arm. The pain waxes and wanes, it is only mild at this time. No fevers or chills. The pain does not not radiate into his back, there is no tearing sensation. The patient is slightly tachypneic but he is denying any shortness of breath or pleuritic component. He did have recent right knee replacement last week. 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 GFR 30-59 Home Medications simvastatin 40 mg tablet 40 mg PO DAILY 04/06/16 [History Last Taken Unknown] candesartan 16 mg tablet 16 mg PO DAILY 11/19/18 [History Last Taken Unknown] tamsulosin 0.4 mg capsule 0.4 mg PO DAILY 07/24/20 [History Last Taken Unknown] flash glucose scanning reader #1 ea 09/04/20 [History Last Taken Unknown] flash glucose sensor #1 ea 09/04/20 [History Last Taken Unknown] dulaglutide 3 mg/0.5 mL subcutaneous pen injector (Trulicity) 3 mg subcut QWEEK 07/23/21 [History Last Taken Unknown] allopurinol 100 mg tablet 100 mg PO BID 10/17/21 [History Last Taken Unknown] cholecalciferol (vitamin D3) 25 mcg (1,000 unit) capsule 25 mcg PO DAILY 10/17/21 [History Last Taken Unknown] diclofenac sodium 100 mg tablet,extended release 24 hr 100 mg PO DAILY 10/17/21 [History Last Taken Unknown] furosemide 40 mg tablet 20 mg PO QPM 10/17/21 [History Last Taken Unknown] magnesium oxide 400 mg (241.3 mg magnesium) tablet 400 mg PO DAILY 10/17/21 [History Last Taken Unknown] pantoprazole 40 mg tablet,delayed release 40 mg PO DAILY 10/17/21 [History Last Taken Unknown] ropinirole 4 mg tablet 2 mg PO BID 10/17/21 [History Last Taken Unknown] sildenafil 25 mg tablet (Viagra) 25 mg PO DAILY PRN 10/17/21 [History Last Taken Unknown] Allergy/AdvReac Type Severity Reaction Status Date / Time atorvastatin [From Lipitor] AdvReac Intermediate myalgias Verified 04/01/22 10:07 Family History Mother Diabetes Heart disease Hypertension High cholesterol Son Asthma Hypertension Father Colon cancer Skin cancer Cancer lung cancer Brother Heart disease CVA (cerebral vascular accident) Surgical History History of facial fracture repair History of left hip replacement History of repair of pyloric stenosis History of skin cancer History of tonsillectomy Social History Smoking Status: Former smoker how long ago did patient quit smokin years ago alcohol intake: current alcohol intake frequency: holidays/special occasions only substance use type: does not use caffeine: Yes Type: carbonated beverages and coffee Number of servings: 2 ROS ROS ED ROS Narrative Past medical history: Reviewed Medications: Reviewed Social history: Noncontributory Review of systems: All systems negative except as indicated General: No fever Eyes: No visual changes ENT: No upper airway congestion, normal voice Neck: No neck pain Cardiovascular: Chest pain as in HPI Respiratory: No shortness of breath or cough Gastrointestinal: No abdominal pain, nausea vomiting or diarrhea Genitourinary: No dysuria Musculoskeletal: Right knee pain which is under control with prescribed medication from the surgery. Skin: No rash Neurological: No memory loss, confusion or any focal weakness Psych: No recent behavioral changes Hematologic: No easy bleeding or easy bruising EXAM Physical Exam Narrative Exam Narrative: Physical exam General: Patient is relatively comfortable. Head: Normocephalic, Atraumatic Eyes: Conjunctiva not pale ENT: Moist mucous membranes Neck: Supple, Nontender, No lymphadenopathy Cardiovascular: Regular rhythm, slightly tachycardic. Patient endorses a murmur however it is difficult for me to auscultate the ambient noise is quite loud in the ED. Respiratory: Clear bilateral breath sounds Abdomen: Soft, Nontender, Nondistended Back: Nontender, Normal Inspection. Negative for: CVA tenderness Extremities: Examination of the knee shows an intact bandage, there is no surrounding erythema or calor there is edema of both legs. He tells me the edema is chronic but slightly worse today. Skin: Normal color, No rash Neurological: Alert, Normal Strength, Normal Sensation Psychological: Normal affect Const Vital Signs: 04/01/22 10:05 04/01/22 10:08 04/01/22 10:09 Temperature 96.8 F L Temperature Source Temporal Pulse Rate 108 H 105 H Respiratory Rate 23 H Respiratory Effort Normal Non-Labored Respiratory Pattern Tachypnea Blood Pressure 122/63 H Blood Pressure Mean 82 Pulse Ox 90 96 Oxygen Delivery Method Room Air Room Air 04/01/22 11:20 04/01/22 12:44 Temperature Temperature Source Pulse Rate 87 Respiratory Rate 18 Respiratory Effort Respiratory Pattern Blood Pressure 94/58 L 102/54 L Blood Pressure Mean 70 Pulse Ox 96 Oxygen Delivery Method Room Air MDM MDM Lab Data Labs: Laboratory Results - last 24 hr 04/01/22 04/01/22 04/01/22 10:18 10:18 10:18 WBC 6.1 RBC 2.96 L Hgb 8.8 L Hct 28.0 L MCV 94.6 H MCH 29.7 MCHC 31.4 L RDW Std Deviation 54.2 H RDW Coeff of Shade 15.8 H Plt Count 201 MPV 10.6 Immature Gran % (Auto) 0.700 Neut % (Auto) 76.0 H Lymph % (Auto) 11.0 L Millard % (Auto) 9.5 Eos % (Auto) 2.5 Baso % (Auto) 0.3 Absolute Neuts (auto) 4.7 Absolute Lymphs (auto) 0.67 L Nucleated RBC % 0 PT 14.3 INR 1.1 D-Dimer Quant (PE/DVT) 2.73 H* Sodium 143 Potassium 4.2 Chloride 111 H Carbon Dioxide 21.0 Anion Gap 11 BUN 61 H Creatinine 1.97 H Estim Creat Clear Calc 25.15 Est GFR (MDRD) Af Amer 42 L Est GFR (MDRD) Non-Af 35 L BUN/Creatinine Ratio 31.0 H Glucose 142 H Calcium 8.9 Total Bilirubin 0.90 AST 30 ALT 27 Alkaline Phosphatase 130 H Troponin I High Sens 2125 H* B-Natriuretic Peptide Total Protein 6.1 L Albumin 2.6 L Globulin 3.5 Albumin/Globulin Ratio 0.7 L 04/01/22 04/01/22 10:18 12:45 WBC RBC Hgb Hct MCV MCH MCHC RDW Std Deviation RDW Coeff of Shade Plt Count MPV Immature Gran % (Auto) Neut % (Auto) Lymph % (Auto) Millard % (Auto) Eos % (Auto) Baso % (Auto) Absolute Neuts (auto) Absolute Lymphs (auto) Nucleated RBC % PT INR D-Dimer Quant (PE/DVT) Sodium Potassium Chloride Carbon Dioxide Anion Gap BUN Creatinine Estim Creat Clear Calc Est GFR (MDRD) Af Amer Est GFR (MDRD) Non-Af BUN/Creatinine Ratio Glucose Calcium Total Bilirubin AST ALT Alkaline Phosphatase Troponin I High Sens 2113 H* B-Natriuretic Peptide 445.4 H Total Protein Albumin Globulin Albumin/Globulin Ratio Radiography Diagnostic Testing: Clinical Impression(s) from Imaging Studies Chest X-Ray 04/01/22 10:15 IMPRESSION: Mild cardiomegaly. Electronically Signed: Forest Alcantar MD at 11:21 EST , Chest CTA 04/01/22 10:52 IMPRESSION: No evidence of bone embolism. Mild degree of increased markings at the lung bases slightly more prominent at the right lung base suggestive of atelectasis. Electronically Signed: Forest Alcantar MD at 12:21 EST , Chest x-ray read by me as normal EKG Initial EKG: Comments: Sinus rhythm with a rate of 105. Normal MO and QTc intervals. Nonspecific ST changes throughout, otherwise unremarkable EKG Interpreted by emergency doctor Treatment and Re-Evaluation Narrative: A. Problems addressed Patient was ruled out for thromboembolic disease. This was done because of chest pain and recent surgery. He is found to have an NSTEMI due to his significantly elevated troponin. He is now pain-free after Nitropaste on him. I talked to cardiology, Dr. Esquivel and patient will be placed on a heparin drip, the plan is likely to have catheterization. I talked to the hospitalist for admission. B. Amount and/or complexity of the data 1. CBC CMP and troponin interpreted by me 2. Independent interpretation of test Telemetry: Sinus rhythm with a rate in the low 100s. No ectopy 3. I discussed with cardiology, Dr. Esquivel and hospitalist C. Risk of complications and/or morbidity Differential diagnosis: See above Critical Care Time Critical Care Time: Yes Critical care time (excluding procedures): 30-74 minutes Discharge Plan Triage Chief Complaint: Chest Pain ED Provider: Remberto Burnett Dx/Rx/DC Orders Clinical Impression: Non-ST elevation ID (NSTEMI), Chest pain, Post-op pain Prescriptions: No Action candesartan 16 mg tablet 16 mg PO DAILY furosemide 40 mg tablet 20 mg PO QPM ropinirole 4 mg tablet 2 mg PO BID tamsulosin 0.4 mg capsule 0.4 mg PO DAILY (DME) FreeStyle Caterina 14 Day Sensor Kit See Rx Instructions .ROUTE .MEDSUPPLY Qty: 1 Rx Instructions: As directed (DME) FreeStyle Caterina 14 Day [place] Misc See Rx Instructions .ROUTE .MEDSUPPLY Qty: 1 Rx Instructions: As directed Trulicity 3 mg/0.5 mL pen injector 3 mg subcut QWEEK cholecalciferol (vitamin D3) 25 mcg (1,000 unit) capsule 25 mcg PO DAILY allopurinol 100 mg tablet 100 mg PO BID magnesium oxide 400 mg (241.3 mg magnesium) tablet 400 mg PO DAILY pantoprazole 40 mg tablet,delayed release (DR/EC) 40 mg PO DAILY diclofenac sodium 100 mg tablet extended release 24 hr 100 mg PO DAILY sildenafil [Viagra] 25 mg tablet 25 mg PO DAILY PRN Rx Instructions: administer 30 minutes to 4 hours before activity simvastatin 40 MG tablet 40 mg PO DAILY Primary Care Provider: Blair Alexandra Referrals: Blair Alexandra MD [Primary Care Provider] - Disposition Disposition: Acute Care [facility]
[2022-04-01 10:24] LABS: Absolute Lymphocyte Count 0.67 X10^3/uL (0.83-4.51); Absolute Neutrophil Count 4.7 X10^3/uL (2.0-7.7); Basophil# 0.02 X10^3/uL; Basophil% 0.3 % (0-1); Eosinophil# 0.15 X10^3/uL; Eosinophils% 2.5 % (0-5); Hemoglobin 8.8 g/dL (13.0-16.5); Lymphocyte # 0.67 X10^3/ul (0.83-4.51); Mean Corp Hgb Conc 31.4 g/dL (32-36); Mean Corpuscular Hgb 29.7 pg (27.0-32.0); Mean Corpuscular Volume 94.6 fL (80-94); Mean Platelet Vol. 10.6 fl (6.2-12.0); Monocyte# 0.58 X10^3/uL; Monocyte% 9.5 % (0-10); NRBC Flagged by Analyzer 0 % (0-5); Neutrophil # 4.65 X10^3/uL (2.7-7.7); Platelet Count 201 K/mm3 (150-450); RBC Distribution Width CV 15.8 % (11.6-14.6); RBC Distribution Width SD 54.2 fl (35.1-43.9); Red Blood Count 2.96 M/mm3 (4.6-6.2); White Blood Count 6.1 K/mm3 (4.4-11.0)
[2022-04-01 10:34] LABS: International Normalized Ratio 1.1; Prothrombin Time (Protime)PT. 14.3 SECONDS (11.7-14.9)
[2022-04-01 10:46] LABS: D-Dimer Quantitative (DVT/PE) 2.73 FEU/ug/m (0.27-0.49)
[2022-04-01 10:48] LABS: BNP,B-Type NATRIURETIC PEPTIDE 445.4 pg/mL (0-100)
[2022-04-01 10:49] LABS: ALB/GLOB Ratio 0.7 RATIO (0.9-2.4); AST(SGOT) 30 U/L (15-37); Alanine Aminotransfer ALT/SGPT 27 U/L (16-61); Albumin, Serum 2.6 g/dL (3.2-5.0); Alkaline Phosphatase 130 U/L (45-117); Anion Gap 11 (5-15); BUN 61 mg/dL (7-18); Calcium,Total 8.9 mg/dL (8.5-10.1); Chloride 111 mmol/L (98-107); Creatinine, Serum 1.97 mg/dL (0.70-1.30); EST Glomerular Filtration Rate 35 mL/min (>60); Est Glom Filt Rate - Afr Amer 42 mL/min (>60); Estimated Creatinine Clearance 25.15 ml/min; Globulin 3.5 g/dL (2.2-4.2); Glucose 142 mg/dL (74-106); Potassium 4.2 mmol/L (3.5-5.1); Protein, Total 6.1 g/dL (6.4-8.2); Sodium Level 143 mmol/L (136-145); Troponin-I HS 2125 pg/mL (3.0-78.0)
--- NOTE | 2022-04-01 10:52 | CT_ITS ---
STUDY: CTA CHEST REASON FOR EXAM: Male, 81 years old. PE RADIATION DOSAGE (If Supplied By Facility): CTDIvol = ( 842.59 ) mGy, DLP = ( 37.03 ) mGycm TECHNIQUE: The examination was performed with the intravenous administration of IV-100 ML ISOVUE 370. Post-processing of the angiographic images was performed, with multiplanar reformation and 3D reconstruction. Individualized dose optimization techniques were used for this CT. COMPARISON: Comparison is made with prior chest radiograph done earlier in the day. FINDINGS: Normal enhancement of the main pulmonary artery and right and left pulmonary arteries. Normal enhancement of the bilateral peripheral pulmonary arteries. There is no demonstrated pulmonary embolism. There is atherosclerotic calcification of the aortic arch with tortuosity. There is no demonstrated aortic dissection. There are calcifications of the coronary arteries. Normal mediastinum. Normal hilar regions. Normal visualized trachea and bronchi. The lungs are well expanded. Mild degree of increased markings at the lung bases likely more prominent on the right side suggestive of bibasilar atelectasis. Normal pleura. Normal chest wall structures. There are degenerative changes of thoracic spine. Normal visualized upper abdomen. CT/CTA Chest W/WO Contrast IMPRESSION: No evidence of bone embolism. Mild degree of increased markings at the lung bases slightly more prominent at the right lung base suggestive of atelectasis. Electronically Signed: Forest Alcantar MD at 12:21 [facility] ,
[2022-04-01] MEDS: Nitroglycerin Oint 1 INCH PACKET 0.5 INCH TD (11:20)
[2022-04-01 13:23] LABS: Troponin-I HS 2113 pg/mL (3.0-78.0)
--- NOTE | 2022-04-01 13:26 | HP.PCM.HOS_ITS ---
HPI - General General Date of Admission: 04/01/22 Date of Service: 04/01/22 Chief Complaint: Chest pain last night and today in the morning. HPI Narrative LOBO VANEGAS, is a 81 M came to ED for chest pain/pressure that started yesterday night and morning today. Patient stated that last night while he was sitting he started having chest pain midsternal with radiation to left arm with mild shortness of breath and lasted for couple hours. Chest pain was 3-5/10 intensity pressure-like. In the morning today when he went to physical therapy and started having again similar quality chest pain with radiation to left arm associate with shortness of breath even before starting physical therapy. Therefore he was brought to ED. Patient had right TKR on 03/27/2022 by outside orthopedic surgeon Dr. Pinzon, in [facility]. He was doing outpatient physical therapy. Patient denies prior history of coronary artery disease cardiac stent or cardiac cath. He has murmur, aortic stenosis and follows Dr. Mckeon. Chest pain resolved after patient came to ED. Currently patient does not have chest pain or shortness of breath. In ED, triage vitals shows patient mild sinus tachycardic 100 degrees/min, tachypneic 23/min with no hypoxia or tachypnea. BP normal. Twelve-lead EKG was done and individually reviewed shows sinus tachycardia 105 bpm, subtle ST depression V4 to V6, low voltage QRS, nonspecific ST-T changes, QTc 467 ms. First troponin very high at 2113 and therefore started on IV heparin drip and further admitted. 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 GFR 30-59 Home Medications simvastatin 40 mg tablet 40 mg PO DAILY 04/06/16 [History Last Taken Unknown] candesartan 16 mg tablet 16 mg PO DAILY 11/19/18 [History Last Taken Unknown] tamsulosin 0.4 mg capsule 0.4 mg PO DAILY 07/24/20 [History Last Taken Unknown] flash glucose scanning reader #1 ea 09/04/20 [History Last Taken Unknown] flash glucose sensor #1 ea 09/04/20 [History Last Taken Unknown] dulaglutide 3 mg/0.5 mL subcutaneous pen injector (Trulicity) 3 mg subcut QWEEK 07/23/21 [History Last Taken Unknown] allopurinol 100 mg tablet 100 mg PO BID 10/17/21 [History Last Taken Unknown] cholecalciferol (vitamin D3) 25 mcg (1,000 unit) capsule 25 mcg PO DAILY 10/17/21 [History Last Taken Unknown] diclofenac sodium 100 mg tablet,extended release 24 hr 100 mg PO DAILY 10/17/21 [History Last Taken Unknown] furosemide 40 mg tablet 20 mg PO QPM 10/17/21 [History Last Taken Unknown] magnesium oxide 400 mg (241.3 mg magnesium) tablet 400 mg PO DAILY 10/17/21 [History Last Taken Unknown] pantoprazole 40 mg tablet,delayed release 40 mg PO DAILY 10/17/21 [History Last Taken Unknown] ropinirole 4 mg tablet 2 mg PO BID 10/17/21 [History Last Taken Unknown] sildenafil 25 mg tablet (Viagra) 25 mg PO DAILY PRN 10/17/21 [History Last Taken Unknown] Allergy/AdvReac Type Severity Reaction Status Date / Time atorvastatin [From Lipitor] AdvReac Intermediate myalgias Verified 04/01/22 10:07 Family History Mother Diabetes Heart disease Hypertension High cholesterol Son Asthma Hypertension Father Colon cancer Skin cancer Cancer lung cancer Brother Heart disease CVA (cerebral vascular accident) Surgical History History of facial fracture repair History of left hip replacement History of repair of pyloric stenosis History of skin cancer History of tonsillectomy Social History Smoking Status: Former smoker how long ago did patient quit smokin years ago alcohol intake: current alcohol intake frequency: holidays/special occasions only substance use type: does not use caffeine: Yes Type: carbonated beverages and coffee Number of servings: 2 ROS ROS Narrative Constitutional: Reports fatigue and weakness HEENT: Reports systems reviewed and no addt'l complaints, except as documented CVS: As described in HPI. No syncope or near syncope symptoms. No diaphoresis. Denies a stroke or peripheral arterial disease Respiratory: Patient denies history of smoking. Denies chronic lung disease. Gastrointestinal: Midline abdominal scar of childhood probably hypertrophic pyloric stenosis surgery. Denies coffee ground emesis, hematemesis or vomiting Genitourinary: Denies burning urination or new urinary tract symptoms Musculoskeletal: Recent right TKR as described in HPI. On PT. Neurologic: Denies seizure-like activity. No stroke skin: No ulcer. No rash Endocrinology: Reports systems reviewed and no addt'l complaints, except as documented Hematologic/Lymphatic: Reports systems reviewed and no addt'l complaints, except as documented Rest 14 ROS are negative except as mentioned in HPI Vital Signs Vital Signs Vital Signs: 04/01/22 10:05 04/01/22 10:08 04/01/22 10:09 Temperature 96.8 F L Temperature Source Temporal Pulse Rate 108 H 105 H Respiratory Rate 23 H Respiratory Effort Normal Non-Labored Respiratory Pattern Tachypnea Blood Pressure 122/63 H Blood Pressure Mean 82 Pulse Ox 90 96 Oxygen Delivery Method Room Air Room Air 04/01/22 11:20 04/01/22 12:44 Temperature Temperature Source Pulse Rate 87 Respiratory Rate 18 Respiratory Effort Respiratory Pattern Blood Pressure 94/58 L 102/54 L Blood Pressure Mean 70 Pulse Ox 96 Oxygen Delivery Method Room Air Weight Weight: 281 lb 12.012 oz Body Mass Index (BMI) 46.8 Physical Exam Narrative Physical exam General: Alert, Oriented x3, Cooperative, morbid obesity BMI 46.9 kg/m?. HEENT: Atraumatic, PERRLA, EOMI, Normocephalic Oral: Oral mucosa moist. No Gingival or Mucosal Lesions/ Ulcerations Neck: Supple, No JVD, Negative Carotid Bruits Lungs: Air entry diminished in bilateral lung bases. No crepitation/rhonchi Cardiovascular: Sinus tachycardia, Normal S1, Normal S2, grade 4/6 ejection systolic murmur over right second ICS. Abdomen: Bowel Sounds Present, Soft, Non Tender, mild abdominal distention, fat abdomen. Surgical scar present midline. : No renal angle tenderness. No suprapubic tenderness. Extremities: No edema, Capillary Refill Less than 3 Seconds Skin: No rashes, surgical scar of right TKR. Musculoskeletal: Right TKR surgical scar. No drainage. Restricted mobility of right knee. Status post left hip replacement. Neurological: Cranial nerves II-XII grossly intact, DTR 2+/4 and Symmetrical, Neuro grossly intact Psych/Mental Status: Flat affect. Results Lab / Micro Data Result Diagrams: 04/01/22 10:18 04/01/22 10:18 Labs: Laboratory Results - last 24 hr 04/01/22 10:18: WBC 6.1, RBC 2.96 L, Hgb 8.8 L, Hct 28.0 L, MCV 94.6 H, MCH 29.7, MCHC 31.4 L, RDW Std Deviation 54.2 H, RDW Coeff of [place] 15.8 H, Plt Count 201, MPV 10.6, Immature Gran % (Auto) 0.700, Neut % (Auto) 76.0 H, Lymph % (Auto) 11.0 L, [place] % (Auto) 9.5, Eos % (Auto) 2.5, Baso % (Auto) 0.3, Absolute Neuts (auto) 4.7, Absolute Lymphs (auto) 0.67 L, Nucleated RBC % 0 04/01/22 10:18: PT 14.3, INR 1.1, D-Dimer Quant (PE/DVT) 2.73 H* 04/01/22 10:18: Sodium 143, Potassium 4.2, Chloride 111 H, Carbon Dioxide 21.0, Anion Gap 11, BUN 61 H, Creatinine 1.97 H, Estim Creat Clear Calc 25.15, Est GFR (MDRD) Af Amer 42 L, Est GFR (MDRD) Non-Af 35 L, BUN/Creatinine Ratio 31.0 H, Glucose 142 H, Calcium 8.9, Total Bilirubin 0.90, AST 30, ALT 27, Alkaline Phosp hatase 130 H, Troponin I High Sens 2125 H*, Total Protein 6.1 L, Albumin 2.6 L, Globulin 3.5, Albumin/Globulin Ratio 0.7 L 04/01/22 10:18: B-Natriuretic Peptide 445.4 H 04/01/22 12:45: Troponin I High Sens 2113 H* Radiology Impression Chest X-Ray 04/01/22 10:15 IMPRESSION: Mild cardiomegaly. Electronically Signed: Forest Alcantar MD at 11:21 EST , Chest CTA 04/01/22 10:52 IMPRESSION: No evidence of bone embolism. Mild degree of increased markings at the lung bases slightly more prominent at the right lung base suggestive of atelectasis. Electronically Signed: Forest Alcantar MD at 12:21 EST , Assessment & Plan Assessment/Plan (1) Non-ST elevation [place] (NSTEMI): PLAN: Plan 1. Non-STEMI: Patient is being admitted in PCU. ZEHRA risk score 4. Elevated high troponin. EKG shows subtle ST depression changes in lateral leads. Locomotive Inspector Dr. Esquivel is consulted. Patient started on IV heparin drip, aspirin, low-dose beta-denice and continue ARB, candesartan. Serial troponin enzymes. Repeat twelve-lead EKG at time of admission. Fasting profile, and TSH tomorrow AM. 2. Moderate aortic stenosis: Patient follows Dr. Mckeon last clinic visit in October 2021. Patient had echo in August 2021 and showed moderate aortic stenosis with mean AV gradient 23 mmHg and mean AV area 1.1 cm?. EF 65% with LVH normal systolic function, stage I diastolic function consistent with mild chronic HFpEF. Patient was recommended echo 6-month therefore echo ordered. Avoid hypotension, less than 110 mmHg 3. Diabetes mellitus type 2: Glucose in BMP is 142. Accu-Chek AC needs coverage with Humalog sliding scale. 4. Dyslipidemia: Last lipid profile shows LDL68 HDL 43. On simvastatin. Changed to high intensity atorvastatin 5. Hypertension: As mentioned above. On candesartan. VT prophylaxis: IV heparin drip. Living will/advanced directive/end of life care: Patient does have living will or advanced directive. His daughter is power of employment attorney for health. After discussion of benefits/risks procedures involved with full code, DNR CC arrest and DNR CC, the patient opted for DNRCC arrest with no intubation Patient does want artificial life support including intubation, tube feed, ventilator and/chest compression, central venous catheter, vasopressor and DC shock if needed Total time spent in [id number] encounter in discussion of advanced directive 17 minutes. Laboratory Results 04/01/22 10:18: WBC 6.1, RBC 2.96 L, Hgb 8.8 L, Hct 28.0 L, MCV 94.6 H, MCH 29.7, MCHC 31.4 L, RDW Std Deviation 54.2 H, RDW Coeff of [place]ade 15.8 H, Plt Count 201, MPV 10.6, Immature Gran % (Auto) 0.700, Neut % (Auto) 76.0 H, Lymph % (Auto) 11.0 L, Mckinley % (Auto) 9.5, Eos % (Auto) 2.5, Baso % (Auto) 0.3, Absolute Neuts (auto) 4.7, Absolute Lymphs (auto) 0.67 L, Nucleated RBC % 0 04/01/22 10:18: PT 14.3, INR 1.1, D-Dimer Quant (PE/DVT) 2.73 H* 04/01/22 10:18: Sodium 143, Potassium 4.2, Chloride 111 H, Carbon Dioxide 21.0, Anion Gap 11, BUN 61 H, Creatinine 1.97 H, Estim Creat Clear Calc 25.15, Est GFR (MDRD) Af Amer 42 L, Est GFR (MDRD) Non-Af 35 L, BUN/Creatinine Ratio 31.0 H, Glucose 142 H, Calcium 8.9, Total Bilirubin 0.90, AST 30, ALT 27, Alkaline Phosphatase 130 H, Troponin I High Sens 5 H*, Total Protein 6.1 L, Albumin 2.6 L, Globulin 3.5, Albumin/Globulin Ratio 0.7 L 04/01/22 10:18: B-Natriuretic Peptide 445.4 H 04/01/22 10:18: PT Cancelled, INR Cancelled, APTT 36.9 H 04/01/22 10:18: Phosphorus 4.2, Magnesium 2.3 04/01/22 12:45: Troponin I High Sens 2112 H* Echo August 2021 Normal LV size. Left ventricular systolic function is normal. The estimated ejection fraction is 65 %. Stage 1 diastolic dysfunction. Mean aortic valve gradient 23 mmHg. Mild to moderate aortic stenosis. Pharmacological nuclear stress test 07/12/2020 showed no stress-induced ischemia or chest pain. No cardiac dysrhythmia Carotid duplex 05/13/2017, moderate right ECA, mild left ECA Charges/Coding Visit Charges Inpatient E&M: 39727 Init Hosp L3 Procedures Hospitalists Procedures: 79087 Advncd Care Plan 30 Min
[2022-04-01] MEDS: HEPARIN/D5w 25,000 UNITS 25,000 UNITS/250 ML IV.SOLN. 10 UNITS CONT INF (13:48)
[2022-04-01 13:51] LABS: Partial Thromboplast Time 36.9 Seconds (24.1-36.2)
[2022-04-01] MEDS: Heparin Injection (Vial) 5,000 UNIT/ML VIAL 4000 UNIT IV (13:52)
[2022-04-01 13:54] LABS: Magnesium 2.3 mg/dL (1.6-2.6); Phosphorus 4.2 mg/dL (2.5-4.9)
--- NOTE | 2022-04-01 14:34 | ECHOCS_ITS ---
Reason For Study: nstemi Procedure This was a 2D Doppler, Color Flow transthoracic echocardiogram. The study was technically difficult. Contrast injection was performed. Exam performed portable in patient room. Left Ventricle Segmental dysfunction with preserved ejection fraction (see wall motion). The estimated ejection fraction is 55 %. No evidence for diastolic dysfunction. Mid-Inferior: Hypokinetic. Mid- inferoseptal : Hypokinetic. Mid-anteroseptal : Hypokinetic. Anterior [place] : Hypokinetic. Inferior [place] : Akinetic. Lateral [place] : Hypokinetic. Septal [place] : Akinetic. Right Ventricle Normal RV size. Normal systolic function. Atria Normal left atrium. Normal right atrium. No doppler evidence for ASD. Mitral Valve There is no mitral annular calcification. Mild focal mitral valve calcification of the anterior leaflet. Mild-Moderate (1-2+) mitral valve insufficiency. Tricuspid Valve Normal tricuspid valve. Trivial tricuspid valve insufficiency. Unable to estimate RV systolic pressure/pulmonary artery pressure due to technically difficult study. Aortic Valve The aortic valve is not well visualized, however, based upon the 2D echocardiographic images obtained there appears to be diffuse thickening, calcification, and partial restriction. Pulmonic Valve The pulmonic valve is not well visualized. Great Vessels The aortic root is not well visualized. Pericardium/Pleural Epicardial fat. No pericardial effusion. Medication Diluted definity 2ml given slow IV push to enhance endocardial definition. MMode/2D Measurements & Calculations LAV(MOD-sp4): 33.6 ml SV(MOD-sp4): 93.0 ml LVAd ap4: 42.4 cm2 LVLd ap4: 9.5 cm EDV(MOD-sp4): 153.6 ml EDV(sp4-el): 160.9 ml LVAs ap4: 24.7 cm2 LVLs ap4: 8.3 cm ESV(MOD-sp4): 60.6 ml ESV(sp4-el): 62.6 ml EF(MOD-sp4): 60.6 % EF(sp4-el): 61.1 % SV(sp4-el): 98.2 ml LA A4 area: 15.4 cm2 RA A4 area: 12.3 cm2 Time Measurements MV dec time: 0.13 sec Doppler Measurements & Calculations MV E max shantanu: 110.8 cm/sec Lat Peak E' Shantanu: 13.7 cm/sec Med Peak E' Shantanu: 10.8 cm/sec MV A max shantanu: 77.9 cm/sec E/E' lat: 8.1 E/E' med: 10.3 MV E/A: 1.4 MV V2 max: 118.0 cm/sec MV dec slope: 889.5 cm/sec2 Ao V2 max: 80.6 cm/sec MV max P.6 mmHg Ao max P.6 mmHg MV V2 mean: 71.9 cm/sec Ao V2 mean: 57.9 cm/sec MV mean P.4 mmHg Ao mean P.5 mmHg MV V2 VTI: 26.1 cm Ao V2 VTI: 18.5 cm AV (velocity ratio): 1.1 LV V1 max: 82.6 cm/sec MR max shantanu: 520.3 cm/sec PA V2 max: 84.1 cm/sec LV V1 max P.7 mmHg MR max P.3 mmHg PA V2 mean: 65.5 cm/sec LV V1 mean P.7 mmHg LV V1 mean: 60.7 cm/sec LV V1 VTI: 20.0 cm ECHO/Echo Complete W/ Contrast Interpretation Summary The study was technically difficult. Contrast injection was performed. Segmental dysfunction with preserved ejection fraction (see wall motion). The estimated ejection fraction is 55 %. Mild focal mitral valve calcification of the anterior leaflet. Mild-Moderate (1-2+) mitral valve insufficiency. Trivial tricuspid valve insufficiency. The aortic valve is not well visualized, however, based upon the 2D echocardiog raphic images obtained there appears to be diffuse thickening, calcification, and partial res triction. Epicardial fat. Unable to estimate RV systolic pressure/pulmonary artery pressure due to techni bebeto difficult study. No evidence for diastolic dysfunction. Ordering Physician: Nam Cooper Referring Physician: Remberto Burnett Performed By: Mone Thorpe RCS
--- NOTE | 2022-04-01 14:50 | CASEMGMT ---
Patient has a Healthcare Power of Verification Engineer on file at [facility]. Patient's daughter Linda Melo is patient's Healthcare Power of Verification Engineer. Abbie Green DIRECTOR OF RECRUITMENT AND ADMISSIONS JACK
[2022-04-01] MEDS: Ipratropium/Albuterol Sulfate 3 ML AMPUL.NEB INHALATION ×2 (16:14→21:42)
--- NOTE | 2022-04-01 16:14 | PCM.CONS.C ---
Assessment & Plan Assessment/Plan (1) Non-ST elevation [place] (NSTEMI): PLAN: The patient presents with symptoms concerning for an unstable angina pectoris and abnormal troponin I levels compatible with a non-ST segment elevation [place]. At the present time the patient appears to be resting comfortably. His cardiac enzymes have been elevated with a slight decline on his second cardiac enzyme. His ECG changes are as noted above. He is pending further evaluation with a transthoracic echocardiogram. He has been evaluated by the [facility] emergency department staff and the [facility] hospitalist staff. He has been on aspirin therapy. He has been given nitroglycerin sublingual as needed total use. He has been placed on IV heparin therapy. It may not be unreasonable to consider other agents such as nitrates if his hemodynamics tolerate, beta-blockers if his hemodynamics tolerate, and continuation of his previous lipid-lowering therapy. He may eventually need further evaluation in the cardiac catheterization laboratory once he is stable from the standpoint of his postoperative anemia and his renal insufficiency. (2) Nonrheumatic aortic (valve) stenosis: PLAN: The patient has a history of aortic valve stenosis. It is unclear with as to how this has progressed and whether it is related to any of his concerning symptoms including his congestion . He is being evaluated with a transthoracic echocardiogram. (3) Hyperlipidemia: QUALIFIERS: Hyperlipidemia type: unspecified Qualified Code(s): E78.5 - Hyperlipidemia, unspecified PLAN: The patient should continue medical therapy. This includes his lipid-lowering therapy as he has been on simvastatin 40 mg p.o. daily. (4) Essential hypertension: PLAN: The patient reports a history of hypertension. However he states since his surgery his pressures have been somewhat lower and/or low at times. This does have to be taken in consideration with respect to adjusting his medications. (5) Diabetes: QUALIFIERS: Diabetes mellitus type: type 2 Diabetes mellitus mcc insulin use: without mcc use Diabetes mellitus complication status: with neurologic complications Diabetes mellitus complication detail: with polyneuropathy Qualified Code(s): E11.42 - Type 2 diabetes mellitus with diabetic polyneuropathy PLAN: The patient has a history of diabetes. He will continue evaluation care per internal medicine. (6) Renal insufficiency: PLAN: The patient has history of renal insufficiency. His creatinine is somewhat more elevated at this time. This may be secondary to his recent noncardiac surgical procedure and subsequent volume fluctuations superimposed upon his chronic medical conditions. This will have to be taken into consideration with respect to further invasive evaluation and care to minimize the risk of IV contrast related nephropathy. (7) Anemia: PLAN: The patient is noted to be anemic. This appears to have occurred since his surgery. His H&H will need to be followed. If his H&H continues to decline he may need to be considered for further evaluation as well as PRBC transfusion. (8) Post-op pain: PLAN: The patient will continue postoperative evaluation and care for his discomfort as per internal medicine and orthopedic surgery if needed. (9) Obesity: QUALIFIERS: Obesity type: due to excess calories Obesity classification: adult class 3 (BMI >= 40) Serious obesity comorbidity presence: with serious comorbidity Body mass index: BMI 40.0-44.9 Qualified Code(s): E66.01 - Morbid (severe) obesity due to excess calories; Z68.41 - Body mass index [BMI]40.0-44.9, adult PLAN: The patient unfortunately is obese. It may be challenging for the patient, and his current state, to make appropriate lifestyle adjustments to try and bring his weight under better control. Hopefully he can do this over the long-term. Addt'l Comments The patient's case was discussed and reviewed with the patient, the [facility] ED staff, the [facility] hospital staff, and the patient's multiple family members present. Comment: Time spent in the patient's evaluation/care, examination, review of diagnostic studies including radiologic studies, review of previous cardiovascular studies, discussion with the patient and family, documentation, etc.: 60 minutes. HPI Consult Data Date of Consult: 04/01/22 HPI Narrative Reason for Consultation: NSTEMI HPI Narrative: LOBO VANEGAS, is a 81 year old white male who presents for cardiovascular consultation based upon concerns of a non-ST segment elevation [place] superimposed upon a cardiovascular history of aortic valve disease/stenosis, hyperlipidemia, hypertension, and peripheral arterial occlusive disease/carotid artery stenosis who has most recently been evaluated by my colleague Dr. Mckeon in October 2021. At that time he was continuing with plans for future outpatient cardiovascular follow-up of his underlying valvular heart related issues. Since that time he states last week he underwent right knee replacement surgery at [facility] in [place], [place]. His family states it took him a long time to come out of anesthesia. They state they were told his blood pressure was on the low side as opposed to his history of hypertension. He was released home the same day. Since that time he states that he has noted congestion . His family members present state that he appears to have been more congested . Than he had prior to his right knee replacement surgery. He states he has been sleeping in bed with 1 pillow but he admits he has felt more congested. He notes that he has had lower extremity peripheral pitting edema with the right side being greater than the left side which is somewhat chronic but potentially exacerbated since his right knee replacement surgery. He notes last night he has had discomfort across to his chest radiating to the left upper extremity. He states he has also had discomfort radiating from his left wrist up his left forearm and into his left arm. He has denied associated nausea, emesis, or diaphoresis. There is been no report of near syncope or syncope. He notes instead of going to OT/PT today he elected to come to the hospital for further evaluation. He states over time his symptoms appear to have dissipated. He was evaluated in the emergency department. He was found to have abnormal high-sensitivity troponin I levels With the first level being 2124 and the second level being 2112. He had an ECG that demonstrated sinus tachycardia with low voltage QRS as well as nonspecific ST and T wave changes. A follow-up ECG demonstrated normal sinus rhythm. He had a chest x-ray performed as well. It was a portable film. Based upon review of the film it appeared to demonstrate diminished inspiratory effort. There was the appearance of potential mild increased pulmonary vascularity. The patient has undergone previous transthoracic echocardiogram with his last study being performed on 08-22-2021. At that point in time his left ventricle was described as normal with an LVEF of 65% with mild to moderate aortic valve stenosis. He was subsequently placed in the PCU for further evaluation and care. At the present time he states that his chest feels without acute symptoms. He still states he feels somewhat congested . He does have postoperative discomfort in the right knee area as well as ongoing peripheral pitting edema in the right lower extremity greater than left lower extremity. 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 GFR 30-59 Home Medications simvastatin 40 mg tablet 40 mg PO DAILY cholesterol 04/06/16 [History Last Taken Unknown] candesartan 16 mg tablet 16 mg PO QHS htn 11/19/18 [History Last Taken Unknown] flash glucose scanning reader #1 ea 09/04/20 [History Last Taken Unknown] flash glucose sensor #1 ea 09/04/20 [History Last Taken Unknown] allopurinol 100 mg tablet 100 mg PO BID gout 10/17/21 [History Last Taken Unknown] cholecalciferol (vitamin D3) 25 mcg (1,000 unit) capsule 25 mcg PO DAILY supplement 10/17/21 [History Last Taken Unknown] furosemide 40 mg tablet 20 mg PO QPM water pill 10/17/21 [History Last Taken Unknown] ropinirole 4 mg tablet 2 mg PO BID PD 10/17/21 [History Last Taken Unknown] ascorbic acid (vitamin C) 500 mg tablet 500 mg PO DAILY supplement 04/01/22 [History Last Taken Unknown] aspirin 325 mg capsule 325 mg PO BID dvt prophy 04/01/22 [History Last Taken Unknown] ferrous sulfate 325 mg (65 mg iron) tablet 325 mg PO DAILY supplement 04/01/22 [History Last Taken Unknown] finasteride 5 mg tablet 5 mg PO DAILY prostate 04/01/22 [History Last Taken Unknown] insulin glargine 100 unit/mL (3 mL) subcutaneous pen (Lantus Solostar U-100 Insulin) 6 unit subcut QHS blood sugar 04/01/22 [History Last Taken Unknown] tamsulosin 0.4 mg capsule (Flomax) 0.4 mg PO DAILY urine 04/01/22 [History Last Taken Unknown] Allergy/AdvReac Type Severity Reaction Status Date / Time atorvastatin [From Lipitor] AdvReac Intermediate myalgias Verified 04/01/22 10:07 Family History Mother Diabetes Heart disease Hypertension High cholesterol Son Asthma Hypertension Father Colon cancer Skin cancer Cancer lung cancer Brother Heart disease CVA (cerebral vascular accident) Surgical History History of facial fracture repair History of left hip replacement History of repair of pyloric stenosis History of skin cancer History of tonsillectomy Social History Smoking Status: Former smoker how long ago did patient quit smokin years ago alcohol intake: current alcohol intake frequency: holidays/special occasions only substance use type: does not use caffeine: Yes Type: carbonated beverages and coffee Number of servings: 2 ROS Constitutional Constitutional: Reports as per HPI Eyes Eyes: Reports as per HPI ENT HEENT: Reports as per HPI Cardiovascular Cardiovascular: Reports chest pain and dyspnea Respiratory/Chest Respiratory/Chest: Reports dyspnea Gastrointestinal Gastrointestinal: Reports as per HPI Genitourinary Genitourinary: Reports as per HPI Musculoskeletal Musculoskeletal: Reports joint pain Integumentary Integumentary: Reports as per HPI Neurologic Neurologic: Reports as per HPI Psychiatric Psychiatric: Reports as per HPI Physical Exam Const alert, oriented x3 and no apparent distress Orientation / Consciousness: awake HEENT normocephalic, head/scalp atraumatic and hearing grossly normal bilaterally Eyes PERRL, EOMs intact bilaterally, conjunctivae normal and no scleral icterus Neck full ROM, supple and no JVD Carotids: normal carotid upstroke Resp Auscultation: diminished lung sounds bilateral lower Cardio regular rate, regular rhythm, S1 normal heart sound and S2 normal heart sound Heart Sounds: murmur systolic II/ harsh mid left sternal border GI normal to inspection, nondistended, normoactive bowel sounds Extremity General Extremity: edema bilateral lower extremity (Right greater than left) Details: moderate Skin Skin Narrative: Right knee: surgical dressing Psych mental status grossly normal Risk Stratification Risk Stratification Applicable: Yes Age >/= 65: Yes >/= 3 CAD Risk Factors (HTN, HLD, DM, family hx of CAD, or current smoker): Yes Aspirin Use in the Past 7 Days: Yes Severe Angina (>/= episodes in 24 hours): Yes EKG ST Changes >/= 0.5mm: Yes Positive Cardiac Marker: Yes ZEHRA Risk Stratification Score: 6 ZEHRA % Risk: 41% Risk Procedure Criteria Type of Procedure Procedure Type: Elective Elective Risks - COVID COVID Risk Discussion: The surgeon/proceduralist and patient have discussed in detail the risk of exposure to and/or potential harm posed by the COVID-19 virus with having a surgery/procedure at this time versus the risk of delaying the surgery/procedure. It is not possible to know either the risk of delaying the surgery or procedure or chance of getting an infection with perfect accuracy, but a joint decision was made between the patient and the surgeon/proceduralist to proceed at this time with the scheduled surgery/procedure as indicated on the consent form. Objective Data Vital Signs: Vital Signs Temp Pulse Resp BP Pulse Ox O2 Del Method 97.9 F 90 20 H 98/56 L 99 Room Air 04/01/22 14:50 04/01/22 14:50 04/01/22 14:50 04/01/22 14:50 04/01/22 14:50 04/01/22 14:50 Oxygen Delivery Method Room Air Weight: 281 lb 1.43 oz Body Mass Index (BMI) 46.7 Intake & Output: Intake and Output for Last 24 Hours 03/30/22 03/31/22 04/01/22 23:59 23:59 23:59 Intake Total 500 / 500 Balance 500 / 500 Lab / Micro Data Result Diagrams: 04/01/22 10:18 04/01/22 10:18 Labs: Laboratory Results - last 24 hr 04/01/22 10:18: WBC 6.1, RBC 2.96 L, Hgb 8.8 L, Hct 28.0 L, MCV 94.6 H, MCH 29.7, MCHC 31.4 L, RDW Std Deviation 54.2 H, RDW Coeff of Shade 15.8 H, Plt Count 201, MPV 10.6, Immature Gran % (Auto) 0.700, Neut % (Auto) 76.0 H, Lymph % (Auto) 11.0 L, Collier % (Auto) 9.5, Eos % (Auto) 2.5, Baso % (Auto) 0.3, Absolute Neuts (auto) 4.7, Absolute Lymphs (auto) 0.67 L, Nucleated RBC % 0 04/01/22 10:18: PT 14.3, INR 1.1, D-Dimer Quant (PE/DVT) 2.73 H* 04/01/22 10:18: Sodium 143, Potassium 4.2, Chloride 111 H, Carbon Dioxide 21.0, Anion Gap 11, BUN 61 H, Creatinine 1.97 H, Estim Creat Clear Calc 25.15, Est GFR (MDRD) Af Amer 42 L, Est GFR (MDRD) Non-Af 35 L, BUN/Creatinine Ratio 31.0 H, Glucose 142 H, Calcium 8.9, Total Bilirubin 0.90, AST 30, ALT 27, Alkaline Phosphatase 130 H, Troponin I High Sens 2125 H*, Total Protein 6.1 L, Albumin 2.6 L, Globulin 3.5, Albumin/Globulin Ratio 0.7 L 04/01/22 10:18: B-Natriuretic Peptide 445.4 H 04/01/22 10:18: PT Cancelled, INR Cancelled, APTT 36.9 H 04/01/22 10:18: Phosphorus 4.2, Magnesium 2.3 04/01/22 12:45: Troponin I High Sens 3 H* Cardiology Labs/Tests 04/01/22 10:18: WBC 6.1, RBC 2.96 L, Hgb 8.8 L, Hct 28.0 L, MCV 94.6 H, MCH 29.7, MCHC 31.4 L, Plt Count 201, MPV 10.6, Immature Gran % (Auto) 0.700, Neut % (Auto) 76.0 H, Lymph % (Auto) 11.0 L, Collier % (Auto) 9.5, Eos % (Auto) 2.5, Baso % (Auto) 0.3, Absolute Neuts (auto) 4.7, Nucleated RBC % 0 04/01/22 10:18: PT 14.3, INR 1.1, D-Dimer Quant (PE/DVT) 2.73 H* 04/01/22 10:18: Sodium 143, Potassium 4.2, Chloride 111 H, Carbon Dioxide 21.0, Anion Gap 11, BUN 61 H, Creatinine 1.97 H, Est GFR (MDRD) Af Amer 42 L, Est GFR (MDRD) Non-Af 35 L, BUN/Creatinine Ratio 31.0 H, Glucose 142 H, Calcium 8.9, Total Bilirubin 0.90 04/01/22 10:18: B-Natriuretic Peptide 445.4 H 04/01/22 10:18: PT Cancelled, INR Cancelled, APTT 36.9 H 04/01/22 10:18: Phosphorus 4.2, Magnesium 2.3 Rhythm: Sinus rhythm EKG: As noted above ECHO: 08-22-2021 Reason For Study: Procedure This was a 2D Doppler, Color Flow transthoracic echocardiogram. Exam performed in department. Left Ventricle Normal LV size. Left ventricular systolic function is normal. The estimated ejection fraction is 65 %. Stage 1 diastolic dysfunction. No regional wall motion abnormalities noted. Right Ventricle Normal RV size. Normal systolic function. Atria Normal left atrium. Normal right atrium. Mitral Valve Normal mitral valve. Tricuspid Valve Normal tricuspid valve. Unable to estimate RV systolic pressure due to insufficient tricuspid regurgitant envelope. Aortic Valve Trisinus/trileaflet aortic valve. Mild focal aortic valve calcification. Peak aortic valve gradient 37 mmHg. Mean aortic valve gradient 23 mmHg. Mild to moderate aortic stenosis. Pulmonic Valve Normal pulmonic valve. Great Vessels Normal aortic root. The pulmonary artery is normal size. Normal inferior vena cava. Pericardium/Pleural No pericardial effusion. MMode/2D Measurements & Calculations LVIDd: 4.2 cm ? IVSd: 1.1 cm? LVOT diam: 2.1 cm LVIDs: 2.5 cm ? LVPWd: 1.2 cm ? LVOT area: 3.5 cm2 RVDd: 3.4 cm? FS: 41.4 % ? Ao root diam: 3.2 cm? LAV(MOD-bp): 45.0 ml? LVAd ap4: 34.4 cm2 ? LAV(MOD-bp) Indexed: 20.5 ml/m2 ? LVLd ap4: 8.2 cm ? LAV(MOD-sp2): 42.4 ml ? EDV(MOD-sp4): 119.7 ml ? LAV(MOD-sp4): 44.1 ml ? EDV(sp4-el): 122.5 ml ? LVAs ap4: 19.4 cm2 ? LVLs ap4: 7.4 cm ? ESV(MOD-sp4): 44.2 ml ? ESV(sp4-el): 43.3 ml ? EF(MOD-sp4): 63.1 % ? EF(sp4-el): 64.6 % ? LVAd ap2: 28.2 cm2? SV(MOD-sp4): 75.5 ml? SV(MOD-sp2): 50.3 ml LVLd ap2: 8.1 cm EDV(MOD-sp2): 84.4 ml EDV(sp2-el): 82.9 ml LVAs ap2: 16.8 cm2 LVLs ap2: 7.1 cm ESV(MOD-sp2): 34.1 ml ESV(sp2-el): 33.5 ml EF(MOD-sp2): 59.6 % ? SV(sp4-el): 79.1 ml ? LA dimension(2D): 3.9 cm ? LA A4 area: 16.6 cm2 ? RA A4 area: 13.5 cm2 Time Measurements MV dec time: 0.25 sec Doppler Measurements & Calculations MV E max shantanu: 84.2 cm/sec? Lat Peak E' Shantanu: 7.7 cm/sec ? ? ? Med Peak E' Shantanu: 8.5 cm/sec MV A max shantanu: 103.8 cm/sec ? ? ? E/E' lat: 10.9? E/E' med: 9.9 MV E/A: 0.81 ? Ao V2 max: 304.1 cm/sec ? LV V1 max: 106.3 cm/sec MV dec slope: 346.5 cm/sec2? ? ? Ao max P.0 mmHg? LV V1 max P.5 mmHg ? Ao V2 mean: 227.9 cm/sec? LV V1 mean P.3 mmHg ? Ao mean P.1 mmHg ? LV V1 mean: 71.7 cm/sec ? Ao V2 VTI: 71.1 cm? LV V1 VTI: 22.3 cm ? CIRILO(I,D): 1.1 cm2 ? CIRILO(V,D): 1.2 cm2 ? SV(LVOT): 78.6 ml? PA V2 max: 134.8 cm/sec ? PA V2 mean: 97.2 cm/sec ECHO/Echo Complete Interpretation Summary Normal LV size. Left ventricular systolic function is normal. The estimated ejection fraction is 65 %. Stage 1 diastolic dysfunction. Mean aortic valve gradient 23 mmHg. Mild to moderate aortic stenosis. Stress Test Report Date: 08/07/2020 ? Procedure: Pharmacologic stress nuclear imaging study? ? Indications: [Chest discomfort] ? Consent: Per the patient ? Procedure: ? The patient underwent pharmacologic (Regadenoson) evaluation with a peak heart rate of 74 beats per minute (64%predicted maximal heart rate) and a peak blood pressure of 108/60 mmHg. ? The baseline ECG demonstrated normal sinus rhythm.? EKG during lexiscan infusion revealed no significant ischemic changes. EKG post infusion revealed no significant ischemic changes ? [There were no cardiac dysrhythmias pretest, during pharmacologic infusion, or recovery]. ? [There was no complaint of chest discomfort during pharmacologic infusion or recovery]. ? The examination was discontinued secondary to completion of protocol. ? Impression: ? 1.? Lexiscan stress test test is negative for Lexiscan infusion induced EKG changes of ischemia. 2.? Lexiscan stress test test is negative for Lexiscan infusion induced chest pain. 3.? Results of the nuclear portion of the test is as below ? Myocardial perfusion imaging study: ? Technique: ? The patient was injected with 14.8 millicuries of technetium 99m Cardiolite and subsequently rest SPECT Cardiolite nuclear imaging was obtained in the horizontal long, vertical long, and short axis views. The patient underwent pharmacologic [Regadenoson 0.4mg] evaluation.? Please see above for details. The patient was injected with 44.7 millicuries of technetium 99m Cardiolite and subsequently stress SPECT Cardiolite nuclear imaging was obtained in the horizontal long, vertical long, and short axis views.? A gated Cardiolite study at peak stress was obtained. ? Interpretation: ? Rest and stress SPECT Cardiolite nuclear imaging status post realignment, normalization, and attenuation correction demonstrate no evidence of significant ischemia or infarction.? There is a fixed defect in the inferior wall prior to attenuation correction that resolves after attenuation correction suggestive of diaphragmatic attenuation artifact.? Gated images reveal no significant regional wall motion abnormalities.? The reported LVEF is 66%. ? Impression: ? 1.? There is no evidence of significant ischemia or infarction. 2.? Estimated ejection fraction is 66%. Radiography Diagnostic Testing: Radiology Impression Chest X-Ray 04/01/22 10:15 IMPRESSION: Mild cardiomegaly. Electronically Signed: Forest Alcantar MD at 11:21 EST , Chest CTA 04/01/22 10:52 IMPRESSION: No evidence of bone embolism. Mild degree of increased markings at the lung bases slightly more prominent at the right lung base suggestive of atelectasis. Electronically Signed: Forest Alcantar MD at 12:21 EST ,
[2022-04-01] MEDS: 0.9% Normal Saline 1,000 ML 75 ML IV (16:15)
[2022-04-01] MEDS: Furosemide 20 MG/2 ML VIAL IV (18:13)
[2022-04-01] MEDS: 0.9% Saline Lock 10 ML Syringe IV (18:13)
[2022-04-01 18:41] LABS: Troponin-I HS 2668 pg/mL (3.0-78.0)
[2022-04-01 20:21] LABS: Partial Thromboplast Time 50.5 Seconds (24.1-36.2)
[2022-04-01] MEDS: Losartan Potassium 25 MG Tablet 75 MG PO (20:40)
[2022-04-01] MEDS: oxyCODONE 5 MG Tablet PO (20:41)
[2022-04-01] MEDS: Pramipexole Di-HCl 1 MG Tablet PO (20:41)
[2022-04-01] MEDS: Metoprolol Tartrate 25 MG Tablet 12.5 MG PO (20:42)
[2022-04-01] MEDS: Senna/Docusate Sodium 1 Tablet 2 TABLET PO (20:42)
[2022-04-01 21:05] LABS: Bedside Glucose 87 mg/dL (74-106)
[2022-04-01] MEDS: Mupirocin Ointment 22gm Tube 1 APPLIC TOPICAL (21:16)
[2022-04-02] VITALS (12 sets, daily range): BP systolic 95–120; BP diastolic 50–65; PULSE 79–113; RESP 16–24; TEMP 36.7–36.8; O2SAT 93–98; BMI 46.8
[2022-04-02 02:30] LABS: Absolute Lymphocyte Count 0.98 X10^3/uL (0.83-4.51); Absolute Neutrophil Count 4.8 X10^3/uL (2.0-7.7); Basophil# 0.04 X10^3/uL; Basophil% 0.6 % (0-1); Eosinophil# 0.35 X10^3/uL; Eosinophils% 5.1 % (0-5); Hematocrit 26.4 % (40-54); Hemoglobin 8.4 g/dL (13.0-16.5); Lymphocyte # 0.98 X10^3/ul (0.83-4.51); Lymphocyte % 14.4 % (19-41); Mean Corp Hgb Conc 31.8 g/dL (32-36); Mean Corpuscular Hgb 29.9 pg (27.0-32.0); Mean Platelet Vol. 10.6 fl (6.2-12.0); Monocyte# 0.65 X10^3/uL; Monocyte% 9.5 % (0-10); NRBC Flagged by Analyzer 0 % (0-5); Neutrophil # 4.75 X10^3/uL (2.7-7.7); Neutrophil % 69.8 % (47-70); Platelet Count 229 K/mm3 (150-450); RBC Distribution Width SD 55.6 fl (35.1-43.9); Red Blood Count 2.81 M/mm3 (4.6-6.2); White Blood Count 6.8 K/mm3 (4.4-11.0)
[2022-04-02 02:40] LABS: Partial Thromboplast Time 54.6 Seconds (24.1-36.2)
[2022-04-02] MEDS: oxyCODONE 5 MG Tablet PO (02:54)
[2022-04-02 03:05] LABS: Anion Gap 5 (5-15); BUN 56 mg/dL (7-18); BUN/Creat Ratio 32.9 RATIO (10-20); Calcium,Total 9.1 mg/dL (8.5-10.1); Chloride 111 mmol/L (98-107); Cholesterol 116 mg/dL (200); EST Glomerular Filtration Rate 41 mL/min (>60); Est Glom Filt Rate - Afr Amer 50 mL/min (>60); Estimated Creatinine Clearance 29.14 ml/min; Glucose 104 mg/dL (74-106); High Density Lipoprotein 36 mg/dL; Potassium 4.3 mmol/L (3.5-5.1); Sodium Level 143 mmol/L (136-145); Thyroid Stim Hormone (TSH) 2.33 uIU/mL (0.358-3.74); Triglycerides 120 mg/dL; Very Low Density Lipoprotein 24 mg/dL (5-40)
[2022-04-02] MEDS: Ipratropium/Albuterol Sulfate 3 ML AMPUL.NEB INHALATION ×3 (05:17→20:35)
[2022-04-02 06:35] LABS: Bedside Glucose 100 mg/dL (74-106)
[2022-04-02] MEDS: 0.9% Saline Lock 10 ML Syringe IV ×3 (06:58→19:07)
[2022-04-02] MEDS: 0.9% Normal Saline 1,000 ML 75 ML IV (06:58)
[2022-04-02] MEDS: Aspirin E.C. 81 MG Tablet PO (08:28)
[2022-04-02] MEDS: Allopurinol 100 MG Tablet PO ×2 (08:29→17:23)
[2022-04-02] MEDS: Ascorbic Acid 500 MG Tablet PO (08:29)
[2022-04-02] MEDS: Mupirocin Ointment 22gm Tube 1 APPLIC TOPICAL ×2 (10:40→21:05)
[2022-04-02] MEDS: Metoprolol Tartrate 25 MG Tablet 12.5 MG PO ×2 (10:40→21:01)
[2022-04-02] MEDS: Tamsulosin HCl 0.4 MG Capsule PO (10:42)
[2022-04-02] MEDS: Pramipexole Di-HCl 1 MG Tablet PO ×2 (10:42→21:00)
[2022-04-02] MEDS: Cholecalciferol (VIT D3) 25 MCG TABLET (1,000 UNITS) PO (10:42)
[2022-04-02] MEDS: Finasteride 5 MG Tablet PO (10:42)
[2022-04-02 11:00] LABS: Bedside Glucose 104 mg/dL (74-106)
[2022-04-02] MEDS: Ondansetron 4 MG/2 ML Vial IV (11:16)
--- NOTE | 2022-04-02 13:06 | PN.CARD_ITS ---
Subjective Subjective Patient seen and evaluated. Appears to be doing well. Underwent cardiac catheterization today. Objective Data Vital Signs: Vital Signs Temp Pulse Resp BP Pulse Ox O2 Del Method 98.0 F 91 18 120/60 98 Room Air 04/02/22 10:48 04/02/22 10:48 04/02/22 10:48 04/02/22 10:48 04/02/22 10:48 04/02/22 10:48 Oxygen Delivery Method Room Air Weight: 281 lb 8.485 oz Body Mass Index (BMI) 46.8 Intake & Output: Intake and Output for Last 24 Hours 03/31/22 04/01/22 04/02/22 23:59 23:59 23:59 Intake Total 1168.33 / 1168.33 601.67 / 601.67 Output Total 500 / 500 Balance 1168.33 / 868.33 101.67 / 101.67 Lab / Micro Data Result Diagrams: 04/02/22 02:20 04/02/22 02:20 Labs: Laboratory Results - last 24 hr 04/01/22 10:18: PT Cancelled, INR Cancelled, APTT 36.9 H 04/01/22 10:18: Phosphorus 4.2, Magnesium 2.3 04/01/22 12:45: Troponin I High Sens 2113 H* 04/01/22 16:24: Troponin I High Sens 2668 H* 04/01/22 19:45: APTT 50.5 H 04/01/22 20:36: POC Glucose 87 04/02/22 02:20: WBC 6.8, RBC 2.81 L, Hgb 8.4 L, Hct 26.4 L, MCV 94.0, MCH 29.9, MCHC 31.8 L, RDW Std Deviation 55.6 H, RDW Coeff of Shade 16.0 H, Plt Count 229, MPV 10.6, Immature Gran % (Auto) 0.600, Neut % (Auto) 69.8, Lymph % (Auto) 14.4 L, Starr % (Auto) 9.5, Eos % (Auto) 5.1 H, Baso % (Auto) 0.6, Absolute Neuts (auto) 4.8, Absolute Lymphs (auto) 0.98, Nucleated RBC % 0 04/02/22 02:20: Sodium 143, Potassium 4.3, Chloride 111 H, Carbon Dioxide 27.0, Anion Gap 5, BUN 56 H, Creatinine 1.70 H, Estim Creat Clear Calc 29.14, Est GFR (MDRD) Af Amer 50 L, Est GFR (MDRD) Non-Af 41 L, BUN/Creatinine Ratio 32.9 H, Glucose 104, Calcium 9.1, Triglycerides 120, Cholesterol 116, LDL Cholesterol 56, VLDL Cholesterol 24, HDL Cholesterol 36 L, TSH 2.33 04/02/22 02:20: APTT 54.6 H 04/02/22 06:14: POC Glucose 100 04/02/22 10:39: POC Glucose 104 Cardiology Labs/Tests 04/01/22 10:18: PT Cancelled, INR Cancelled, APTT 36.9 H 04/01/22 10:18: Phosphorus 4.2, Magnesium 2.3 04/01/22 19:45: APTT 50.5 H 04/02/22 02:20: WBC 6.8, RBC 2.81 L, Hgb 8.4 L, Hct 26.4 L, MCV 94.0, MCH 29.9, MCHC 31.8 L, Plt Count 229, MPV 10.6, Immature Gran % (Auto) 0.600, Neut % (Auto) 69.8, Lymph % (Auto) 14.4 L, Starr % (Auto) 9.5, Eos % (Auto) 5.1 H, Baso % (Auto) 0.6, Absolute Neuts (auto) 4.8, Nucleated RBC % 0 04/02/22 02:20: Sodium 143, Potassium 4.3, Chloride 111 H, Carbon Dioxide 27.0, Anion Gap 5, BUN 56 H, Creatinine 1.70 H, Est GFR (MDRD) Af Amer 50 L, Est GFR ( MDRD) Non-Af 41 L, BUN/Creatinine Ratio 32.9 H, Glucose 104, Calcium 9.1, Triglycerides 120, Cholesterol 116, LDL Cholesterol 56, VLDL Cholesterol 24, HDL Cholesterol 36 L 04/02/22 02:20: APTT 54.6 H Rhythm: EKG: ECHO: Stress Test: Cardiac Cath: PCI: CT Surgery: Holter monitor: EPS: PPM: CXR: Chest CT Scan: Radiography Diagnostic Testing: Radiology Impression Echocardiogram 04/01/22 14:34 Interpretation Summary The study was technically difficult. Contrast injection was performed. Segmental dysfunction with preserved ejection fraction (see wall motion). The estimated ejection fraction is 55 %. Mild focal mitral valve calcification of the anterior leaflet. Mild-Moderate (1-2+) mitral valve insufficiency. Trivial tricuspid valve insufficiency. The aortic valve is not well visualized, however, based upon the 2D echocardiographic images obtained there appears to be diffuse thickening, calcification, and partial restriction. Epicardial fat. Unable to estimate RV systolic pressure/pulmonary artery pressure due to te chnically difficult study. No evidence for diastolic dysfunction. Ordering Physician: Nam Cooper Referring Physician: Remberto Burnett Performed By: Mone Thorpe RCS Physical Exam Const alert, oriented x3 and no apparent distress Orientation / Consciousness: awake HEENT normocephalic, head/scalp atraumatic and hearing grossly normal bilaterally Eyes PERRL, EOMs intact bilaterally, conjunctivae normal and no scleral icterus Neck full ROM, supple and no JVD Carotids: normal carotid upstroke Resp Auscultation: diminished lung sounds bilateral lower Cardio regular rate, regular rhythm, S1 normal heart sound and S2 normal heart sound Heart Sounds: murmur systolic II/ harsh mid left sternal border GI normal to inspection, nondistended, normoactive bowel sounds Extremity General Extremity: edema bilateral lower extremity (Right greater than left) Details: moderate Skin Skin Narrative: Right knee: surgical dressing Psych mental status grossly normal Assessment & Plan Assessment/Plan (1) Non-ST elevation DC (NSTEMI): PLAN: The patient presents with symptoms concerning for an unstable angina pectoris and abnormal troponin I levels compatible with a non-ST segment elevation DC. He underwent cardiac catheterization today which demonstrated the following: Dominant right coronary artery with moderate significant distal stenosis. Short left main coronary artery. Left anterior descending artery with moderately severe proximal to mid calcified lesion. Left circumflex artery with no high-grade stenosis. His estimated ejection fraction is 50%. He also appears to have mild aortic stenosis. Based on the above angiographic findings I would recommend an FFR or PCI to the LAD. (2) Nonrheumatic aortic (valve) stenosis: PLAN: The patient has a history of aortic valve stenosis. He does have a peak to peak gradient of approximately 20 mmHg. The above is suggestive of mild aortic stenosis. (3) Hyperlipidemia: QUALIFIERS: Hyperlipidemia type: unspecified Qualified Code(s): E78.5 - Hyperlipidemia, unspecified PLAN: The patient should continue medical therapy. This includes his lipid-lowering therapy as he has been on simvastatin 40 mg p.o. daily. (4) Essential hypertension: PLAN: The patient reports a history of hypertension. Patient will continue with current medical therapy.
--- NOTE | 2022-04-02 13:19 | CL.D_ITS ---
Patient Name: LOBO VANEGAS Study Date: 04/02/2022 Performing: Avi Mckeon MD Ht: 65 inches 165.1 cm : 1940 Wt: 281.53 lbs 127.7 kg Age: 81 Gender: male BSA: 2.29 PROCEDURE(S) PERFORMED DC02-(83780)LHC/COR IC12-(70868/C9600)STEPHANI W/WO PTCA, SINGLE CORONARY ARTERY CLINICAL PROFILE AND INDICATIONS Indications: Suspected CAD Heart Failure: None Stress/Imaging Stress/Image Study Performed: No CAD Presentations: Non-STEMI. Symptom onset Date/Time: 04/02/22 Time Not Available CONCLUSIONS Significant single-vessel disease involving the proximal to mid LAD and a calcified vessel and mild aortic stenosis with a peak to peak gradient of approximately 20 mmHg. RECOMMENDATIONS Referred for immediate PCI DESCRIPTION OF PROCEDURE The patient arrived to the procedure lab. The risks and benefits of the procedure as well as a full description of our services here and current unavailability of surgical backup were fully explained to the patient and/or their significant other prior to the catheterization. The Timeout was completed, verifying the correct patient and procedure. The patient's procedural site was prepped and draped in the usual fashion. Local anesthetic was given subcutaneously to right radial region with Lidocaine 2%. Using a modified Seldinger technique, arterial access was obtained via the right radial artery, a 6Fr sheath was inserted. Right Coronary Artery selective angiography was then performed in multiple views using a 5 Fr. 4.0 [place] catheter. Left Coronary Artery selective angiography was performed in multiple views using a 5 Fr. 4.0 [place] catheter. Left Coronary Artery selective angiography was performed in multiple views using a 5 Fr. JL4 catheter. LV to AO pullback pressures were then recorded. CORONARY ANGIOGRAPHY DOMINANCE: Right Dominant LEFT HEART ASSESSMENT Left Ventricular Ejection Fraction: by Echo 50 % Anterior Hypokinesis - Mild. Apical Akinesis Depressed Left Ventricular systolic function LEFT MAIN: Angiographically normal LEFT ANTERIOR DESCENDING ARTERY: The vessel is noted to be calcified in the midsegment with at least moderate 75% stenosis noted and mild disease noted distally. CIRCUMFLEX ARTERY: Mild luminal irregularities RIGHT CORONARY ARTERY: Dominant vessel with mild proximal disease and moderate mid to distal segment disease of approximately 60 to 70%. VALVE FINDINGS: Aortic Valve Stenosis - mild COMPLICATIONS PROCEDURE MEDICATIONS Fentanyl 50 mcg IV Versed 1 mg IV Fentanyl 50 mcg IV Oxygen: 2 L/min via nasal cannula Heparin given IA 04/02/2022 12:22:38 Lasix 40 mg IV 04/02/2022 12:46:15 Heparin 8000 unit(s) IV 04/02/2022 12:55:30 Verapamil 2.5mg, Ntg 100mcgs, 3000 units of Heparin given IA 04/02/2022 12:22:38 SUMMARY OF HEMODYNAMIC DATA Time AIR REST AO 93/50 (68) SA 12:30:25 LV 131/15, 36 12:43:50 LV 124/13, 36 12:44:00 LVp 126/12, 37 12:44:17 AOp 98/49 (68) 12:44:24 Signed By Avi Mckeon MD On 04/02/2022 13:18:55 Avi Mckeon MD
--- NOTE | 2022-04-02 13:56 | PN.HOSP_ITS ---
Reason for Visit Reason for Visit: Diagnoses Anemia, unspecified (04/01/22) Type 2 diabetes mellitus with diabetic polyneuropathy (04/01/22) Morbid (severe) obesity due to excess calories (04/01/22) Hyperlipidemia, unspecified (04/01/22) Other acute postprocedural pain (04/01/22) Essential (primary) hypertension (04/01/22) Non-ST elevation (NSTEMI) myocardial infarction (04/01/22) Nonrheumatic aortic (valve) stenosis (04/01/22) Disorder of kidney and ureter, unspecified (04/01/22) Body mass index [BMI] 40.0-44.9, adult (04/01/22) Subjective Subjective Patient seen and examined. He had no active complaints. He had a swelling by his bedside. Chest pain had not recurred. He denied any fever, chills, nausea vomiting or abdominal pain. Review of systems otherwise negative. He is for cardiac cath today. Objective Data Objective Data Vital Signs: Vital Signs Temp Pulse Resp BP Pulse Ox O2 Del Method 98.0 F 91 18 120/60 98 Room Air 04/02/22 10:48 04/02/22 10:48 04/02/22 10:48 04/02/22 10:48 04/02/22 10:48 04/02/22 10:48 Oxygen Delivery Method Room Air Weight: 281 lb 8.485 oz Body Mass Index (BMI) 46.8 Intake & Output: Intake and Output for Last 24 Hours 03/31/22 04/01/22 04/02/22 23:59 23:59 23:59 Intake Total 1168.33 / 1168.33 601.67 / 601.67 Output Total 500 / 500 Balance 1168.33 / 868.33 101.67 / 101.67 Lab / Micro Data Result Diagrams: 04/02/22 02:20 04/02/22 02:20 Labs: Laboratory Results - last 24 hr 04/01/22 16:24: Troponin I High Sens 2668 H* 04/01/22 19:45: APTT 50.5 H 04/01/22 20:36: POC Glucose 87 04/02/22 02:20: WBC 6.8, RBC 2.81 L, Hgb 8.4 L, Hct 26.4 L, MCV 94.0, MCH 29.9, MCHC 31.8 L, RDW Std Deviation 55.6 H, RDW Coeff of Shade 16.0 H, Plt Count 229, M PV 10.6, Immature Gran % (Auto) 0.600, Neut % (Auto) 69.8, Lymph % (Auto) 14.4 L , [place] % (Auto) 9.5, Eos % (Auto) 5.1 H, Baso % (Auto) 0.6, Absolute Neuts (auto) 4.8, Absolute Lymphs (auto) 0.98, Nucleated RBC % 0 04/02/22 02:20: Sodium 143, Potassium 4.3, Chloride 111 H, Carbon Dioxide 27.0, Anion Gap 5, BUN 56 H, Creatinine 1.70 H, Estim Creat Clear Calc 29.14, Est GFR (MDRD) Af Amer 50 L, Est GFR (MDRD) Non-Af 41 L, BUN/Creatinine Ratio 32.9 H, Glucose 104, Calcium 9.1, Triglycerides 120, Cholesterol 116, LDL Cholesterol 56, VLDL Cholesterol 24, HDL Cholesterol 36 L, TSH 2.33 04/02/22 02:20: APTT 54.6 H 04/02/22 06:14: POC Glucose 100 04/02/22 10:39: POC Glucose 104 Radiography Diagnostic Testing: Radiology Impression Echocardiogram 04/01/22 14:34 Interpretation Summary The study was technically difficult. Contrast injection was performed. Segmental dysfunction with preserved ejection fraction (see wall motion). The estimated ejection fraction is 55 %. Mild focal mitral valve calcification of the anterior leaflet. Mild-Moderate (1-2+) mitral valve insufficiency. Trivial tricuspid valve insufficiency. The aortic valve is not well visualized, however, based upon the 2D echocardiographic images obtained there appears to be diffuse thickening, calcification, and partial restriction. Epicardial fat. Unable to estimate RV systolic pressure/pulmonary artery pressure due to technically difficult study. No evidence for diastolic dysfunction. Ordering Physician: Nam Cooper Referring Physician: Remberto Burnett Performed By: Mone Thorpe RCS Physical Exam Const alert, oriented x3 and no apparent distress Constitutional Narrative: obese HEENT head/scalp atraumatic, moist oral mucous membranes and oropharynx normal Head and Scalp: normocephalic Mouth: oral and palatal mucosa normal Eyes PERRL, EOMs intact bilaterally and conjunctivae normal Neck no lymphadenopathy, supple and no JVD Resp normal respiratory effort, no retractions, no use of accessory muscles and clear to auscultation bilaterally Cardio regular rate, regular rhythm, S1 normal heart sound, S2 normal heart sound and no murmurs GI normal to inspection, nondistended, normoactive bowel sounds, soft to palpation, non-tender and non-distended Extremity normal to inspection, full ROM and no clubbing, cyanosis or edema Neuro oriented x3, CN's II-XII intact bilaterally, moves all extremities and no focal motor deficits Sensorium / Orientation: awake and alert Motor Exam: strength 5/5 throughout Psych affect normal Assessment & Plan Assessment/Plan (1) Non-ST elevation MA (NSTEMI): PLAN: Plan #Nonstemi * Admitted with a complaint of chest pain and found to have non-STEMI. Has not had any more chest pain overnight. * Troponins trended up into the high 1999's. * Had cardiac cath today which showed proximal to mid LAD blockage. For PCI. * On aspirin and Plavix as well as high intensity statin. * Cardiology on board. 2D echo ordered. * #Moderate aortic stenosis: * 2D echo in August 2021 showed moderate aortic stenosis with EF of 65%. * Repeat 2D echo pending. Follows with cardiology. * * #Type 2 diabetes mellitus: On insulin sliding scale. Checks ACHS. We will check A1c. #Dyslipidemia: On high intensity statin lipid profile pending #Hypertension: On candesartan #Recent right knee replacement * Had recent right knee replacement done in [facility]. Has been undergoing physical therapy. * States he did have cardiac clearance before surgery. * PT OT on board. Fall precautions. * DVT prophylaxis: was on heparin drip Total time spent seeing patient and examining him, reviewing chart, discussion with ancillary staff and nursing staff as well as discussing plan with consulting physicians, explaining plan to family and documentation: 40 minutes. Charges/Coding Visit Charges Inpatient E&M: 38977 Subs Hosp L2
--- NOTE | 2022-04-02 13:58 | CL.I_ITS ---
Patient Name: LOBO VANEGAS Study Date: 04/02/2022 Performing: Cheryl Escoto MD Ht: 65 inches 165.1 cm : 1940 Wt: 281.53 lbs 127.7 kg Age: 81 Gender: male BSA: 2.29 PROCEDURE(S) PERFORMED IC12-(59543/C9600)STEPHANI W/WO PTCA, SINGLE CORONARY ARTERY CLINICAL PROFILE AND CO-MORBIDITIES Indications: Suspected CAD Heart Failure: None Stress/Imaging Stress/Image Study Performed: No CAD Presentations: Non-STEMI. Symptom onset Date/Time: 04/02/22 Time Not Available CONCLUSIONS RECOMMENDATIONS ASA Indefinitley Plavix for at least 12 months DESCRIPTION OF PROCEDURE The patient arrived to the procedure lab. The risks and benefits of the procedure as well as a full description of our services here and current unavailability of surgical backup were fully explained to the patient and/or their significant other prior to the catheterization. The Timeout was completed, verifying the correct patient and procedure. The patient's procedural site was prepped and draped in the usual fashion. Local anesthetic was given subcutaneously to right radial region with Lidocaine 2% Using a modified Seldinger technique,arterial access was obtained via the right radial artery, a 6Fr sheath was inserted. Right Coronary Artery selective angiography was then performed in multiple views using a 5 Fr. 4.0 [place] catheter. Left Coronary Artery selective angiography was performed in multiple views using a 5 Fr. 4.0 [place] catheter. Left Coronary Artery selective angiography was performed in multiple views using a 5 Fr. JL4 catheter. LV to AO pullback pressures were then recorded. XB 2.5 Guide catheter was inserted and engaged into the LCA. RUNTHROUGH Guide wire was advanced to the LAD. 2.0X15 EUPHORA Balloon catheter was inserted. Balloon catheter was advanced across lesion in the LAD, proximal. PTCA balloon inflated at 8 atms for 10 secs. PTCA balloon inflated at 8 atms for 8 secs. PTCA balloon inflated at 8 atms for 7 secs. PTCA balloon inflated at 8 atms for 10 secs. 2.5X30 JOHNIE Drug Eluting stent was inserted. Drug Eluting stent was removed intact, failed to cross lesion 2.25X20 NC EMERGE Balloon catheter was inserted. Balloon catheter was advanced across lesion in the LAD, proximal. PTCA balloon inflated at 14 atms for 10 secs. PTCA balloon inflated at 16 atms for 12 secs. PTCA balloon inflated at 16 atms for 8 secs. PTCA balloon inflated at 16 atms for 12 secs. 2.5X30 JOHNIE Drug Eluting stent was inserted. Drug Eluting stent was advanced across the lesion in the LAD, proximal. Drug Eluting stent was removed intact, failed to cross lesion CHOICE EXTRA SUPPORT Guide wire was inserted as a justice wire 2.5X30 ORSIRO Drug Eluting stent was inserted. Angiogram performed post stent deployment. 2.5X12 NC EUPHORA Balloon catheter was inserted post stent. 2.5X8 JOHNIE Drug Eluting stent was inserted. Drug Eluting stent was advanced across the lesion in the LAD, proximal. 2.5X12 NC EUPHORA Balloon catheter was inserted post stent. INTERVENTION INFORMATION LESION SITE: LAD (Proximal) Lesion Complexity: High/C, culprit lesion: Yes Pre Stenosis: 80 % Pre intervention ZEHRA flow: 3 PROCEDURE: Drug Eluting Stent with pre and post dilatation Post Stenosis: 0 % Post intervention ZEHRA flow: 3 Lesion Devices: Cordis 6 Fr XB3.0 100cm Guide Catheter Cordis 6 Fr XB2.5 VBT 100cm Guide Catheter Medtronic SC EUPHORA RX 2.0x15 BALLOON Medtronic Resolute [place] RX STEPHANI 2.5x30 Aaron Sci NC EMERGE MR 2.25x20 BALLOON Biotronik Orsiro [place] MR STEPHANI 2.5x30 Aaron Sci .014 300cm Choice Extra Support Wire straight Medtronic NC EUPHORA RX 2.5x12 BALLOON Medtronic Resolute [place] RX STEPHANI 2.5x08 COMPLICATIONS PROCEDURE MEDICATIONS Fentanyl 50 mcg IV Versed 1 mg IV Fentanyl 50 mcg IV Fentanyl 50 mcg IV Fentanyl 25 mcg IV Oxygen: 2 L/min via nasal cannula Brilinta 180 mg PO @ 04/02/2022 13:52:12 Heparin given IA 04/02/2022 12:22:38 Lasix 40 mg IV 04/02/2022 12:46:15 Heparin 8000 unit(s) IV 04/02/2022 12:55:30 Heparin 2000 unit(s) IV 04/02/2022 13:29:39 Heparin 2000 unit(s) IV 04/02/2022 13:32:11 Verapamil 2.5mg, Ntg 100mcgs, 3000 units of Heparin given IA 04/02/2022 12:22:38 SUMMARY OF HEMODYNAMIC DATA Time AIR REST AO 93/50 (68) SA 12:30:25 LV 131/15, 36 12:43:50 LV 124/13, 36 12:44:00 LVp 126/12, 37 12:44:17 AOp 98/49 (68) 12:44:24 Signed By Cheryl Escoto MD On 04/02/2022 13:57:12 Cheryl Escoto MD
[2022-04-02] MEDS: Ferrous Sulfate 325 MG Tablet PO (14:35)
[2022-04-02] MEDS: 0.9% Normal Saline 1,000 ML 100 ML IV (14:36)
[2022-04-02 14:45] LABS: ACT Activated Clotting Time 251 sec (74-137)
[2022-04-02 14:46] LABS: ACT Activated Clotting Time 257 sec (74-137)
--- NOTE | 2022-04-02 15:05 | WOUNDNOTE ---
wound photo: right knee
--- NOTE | 2022-04-02 15:21 | CRPHASE1 ---
Patient Communication PHII Cardiac Rehab Discussed with Patient:: Yes Guide to Cardiac Rehab Given to Patient:: Yes Cardiac Rehab Facility Choice List Given to Patient:: Yes - chooses [facility] Choice Program [facility] CR PHII:: Communication Given to CR, Refer to [facility] Refer Phase II Cardiac Rehab:: Yes Sessions:: 36 sessions - 3 days/wk, 12 weeks Cardiac Rehabilitation Info Cardiac Rehabilitation Program Information: Cardiac Rehab The cardiac rehab team at [facility] consists of highly skilled exercise physiologists, nurses, respiratory therapists and physicians working together with you. Our purpose is to help you have a full recovery and achieve the goals you set for yourself. Over the years many of our patients have returned to activities they assumed they would never do again! We can help restore your confidence and motivation to make lifestyle changes that can have a significant impact on your health and quality of life! We can help answer questions and concerns you may have about exercise, lifestyle, medications, diet, stress and anxiety which are common following a hospitalization. WE monitor ECG and vital signs during exercise and discuss your progress with you and report to your physician(s). Cardiac Rehab is proven to help reduce readmissions, improve functional capacity and lower recurrence of problems with your heart. Our Cardiac Rehab program is Certified by the [place] [employer] Pulmonary [employer] (AACVPR) and Accredited by the [place] [employer] through our [facility]. You can contact us at . We invite you to call us with your questions or to get started in our program. If you have other questions or concerns be sure to ask your physician/provider during your follow-up visit. WE look forward to seeing you!
--- NOTE | 2022-04-02 15:22 | CRPH1.INSTRU ---
General Education CAD and cardiac anatomy and function:: Needs reinforcement Explanation of diagnoses and procedures:: Needs reinforcement Sign/Symptoms of NE:: Needs reinforcement Antiplatelet therapy: Needs reinforcement Proper use of NTG-SL: Needs reinforcement Emergency procedures and activation of EMS: Needs reinforcement Compliance of all prescribed medications: Needs reinforcement
--- NOTE | 2022-04-02 16:00 | CASEMGMT ---
EMELYN MORGAN Face to Face with patient for initial transition planning/care coordination assessment. RN CM introduced self and role at [facility]. Patient lying in bed, alert and oriented, daughter at bedside. Patient willing to participate in assessment and is able to answer all questions appropriately. Care providers, pharmacy, and demographics verified. Patient wishes to discharge home with resumption of outpatient therapy, will monitor progress with therapy. Patient states he has no further needs or concerns at this time. CM to follow for discharge planning needs that may arise. PCP: Blair Alexandra Specialists: jorge Baez; Mike airport baggage screener [facility] Benefit: yes Living Will/HPOA: daughterLinda LNOK: daughter Living Arrangements: Patient lives with daughter in a single story home with 2 steps to enter the home. Patient states he was independent at home prior to hospitalization. Transportation: daughter DME/C: Patient has shower chair, raised toilet, and walker at home. Patient just had right total knee on 03/27/22. Patient was setup with outpatient therapy at [facility]. Disposition Plan: Patient to return home with resumption of outpatient therapy, family support, and follow-up plans in place. Will monitor progress with therapy. China NEVES, RN, CM
[2022-04-02 17:00] LABS: Bedside Glucose 121 mg/dL (74-106)
[2022-04-02] MEDS: Clopidogrel Bisulfate 300 MG Tablet PO (18:26)
[2022-04-02] MEDS: Furosemide 40 MG/4 ML Vial IV (19:07)
[2022-04-02] MEDS: Losartan Potassium 25 MG Tablet 75 MG PO (21:01)
[2022-04-02 21:30] LABS: Bedside Glucose 139 mg/dL (74-106)
[2022-04-03] VITALS (11 sets, daily range): BP systolic 99–116; BP diastolic 51–77; PULSE 71–101; RESP 16–22; TEMP 36.5–36.9; O2SAT 96–97; BMI 46.7
--- NOTE | 2022-04-03 01:22 | NURSING ---
Pt's Simvastatin would not scan d/t being no-formulary. This RN verified medication w/ Virginia Thompson RN for a non-scan administration. Scan form filled out.
[2022-04-03] MEDS: oxyCODONE 5 MG Tablet PO ×2 (04:10→09:36)
[2022-04-03] MEDS: Ipratropium/Albuterol Sulfate 3 ML AMPUL.NEB INHALATION ×3 (04:20→19:34)
[2022-04-03 06:36] LABS: Hematocrit 26.2 % (40-54); Hemoglobin 8.5 g/dL (13.0-16.5); Mean Corp Hgb Conc 32.4 g/dL (32-36); Mean Corpuscular Hgb 30.5 pg (27.0-32.0); Mean Corpuscular Volume 93.9 fL (80-94); Platelet Count 245 K/mm3 (150-450); RBC Distribution Width CV 15.9 % (11.6-14.6); RBC Distribution Width SD 54.7 fl (35.1-43.9); Red Blood Count 2.79 M/mm3 (4.6-6.2); White Blood Count 7.8 K/mm3 (4.4-11.0)
[2022-04-03] MEDS: Insulin Glargine-YFGN 100 UNIT/ML Pen 6 UNIT SC (06:43)
[2022-04-03 06:56] LABS: ALB/GLOB Ratio 0.7 RATIO (0.9-2.4); AST(SGOT) 29 U/L (15-37); Alanine Aminotransfer ALT/SGPT 23 U/L (16-61); Albumin, Serum 2.4 g/dL (3.2-5.0); Alkaline Phosphatase 118 U/L (45-117); Anion Gap 10 (5-15); BUN 56 mg/dL (7-18); BUN/Creat Ratio 28.1 RATIO (10-20); Chloride 108 mmol/L (98-107); Creatinine, Serum 1.99 mg/dL (0.70-1.30); EST Glomerular Filtration Rate 34 mL/min (>60); Est Glom Filt Rate - Afr Amer 42 mL/min (>60); Globulin 3.4 g/dL (2.2-4.2); Glucose 139 mg/dL (74-106); Potassium 4.2 mmol/L (3.5-5.1); Protein, Total 5.8 g/dL (6.4-8.2); Sodium Level 143 mmol/L (136-145)
[2022-04-03 07:05] LABS: Bedside Glucose 137 mg/dL (74-106)
[2022-04-03] MEDS: Mupirocin Ointment 22gm Tube 1 APPLIC TOPICAL ×2 (09:36→21:35)
[2022-04-03] MEDS: Ascorbic Acid 500 MG Tablet PO (09:37)
[2022-04-03] MEDS: Finasteride 5 MG Tablet PO (09:37)
[2022-04-03] MEDS: Allopurinol 100 MG Tablet PO ×2 (09:37→16:56)
[2022-04-03] MEDS: Aspirin E.C. 81 MG Tablet PO (09:37)
[2022-04-03] MEDS: Tamsulosin HCl 0.4 MG Capsule PO (09:37)
[2022-04-03] MEDS: Metoprolol Tartrate 25 MG Tablet 12.5 MG PO ×2 (09:37→21:37)
[2022-04-03] MEDS: Clopidogrel Bisulfate 75 MG Tablet PO (09:38)
[2022-04-03] MEDS: Ferrous Sulfate 325 MG Tablet PO (09:38)
[2022-04-03] MEDS: Pramipexole Di-HCl 1 MG Tablet PO ×2 (09:38→21:37)
[2022-04-03] MEDS: Cholecalciferol (VIT D3) 25 MCG TABLET (1,000 UNITS) PO (09:38)
--- NOTE | 2022-04-03 09:47 | PCM.PN.CARD ---
Subjective Subjective Patient seen and evaluated. Appears to be doing well. Still in some pain in his knee and back. Objective Data Vital Signs: Vital Signs Temp Pulse Resp BP Pulse Ox O2 Del Method 97.7 F L 101 H 20 H 112/77 97 Room Air 04/03/22 09:00 04/03/22 09:37 04/03/22 09:00 04/03/22 09:00 04/03/22 09:00 04/03/22 09:00 Oxygen Delivery Method Room Air Weight: 281 lb 4.957 oz Body Mass Index (BMI) 46.7 Intake & Output: Intake and Output for Last 24 Hours 04/01/22 04/02/22 04/03/22 23:59 23:59 23:59 Intake Total 1168.33 / 1168.33 1694.17 / 1934.17 240 / 240 Output Total 2800 / 3050 450 / 450 Balance 1168.33 / 868.33 -1105.83 / -1115.83 -210 / -210 Lab / Micro Data Result Diagrams: 04/03/22 05:52 04/03/22 05:52 Labs: Laboratory Results - last 24 hr 04/02/22 10:39: POC Glucose 104 04/02/22 13:10: Activated Clotting Time 251 H 04/02/22 13:53: Activated Clotting Time 257 H 04/02/22 16:42: POC Glucose 121 H 04/02/22 20:55: POC Glucose 139 H 04/03/22 05:52: Sodium 143, Potassium 4.2, Chloride 108 H, Carbon Dioxide 25.0, Anion Gap 10, BUN 56 H, Creatinine 1.99 H, Estim Creat Clear Calc 24.90, Est GFR (MDRD) Af Amer 42 L, Est GFR (MDRD) Non-Af 34 L, BUN/Creatinine Ratio 28.1 H, Glucose 139 H, Calcium 9.0, Total Bilirubin 0.90, AST 29, ALT 23, Alkaline Phosphatase 118 H, Total Protein 5.8 L, Albumin 2.4 L, Globulin 3.4, Albumin/Globulin Ratio 0.7 L 04/03/22 05:52: WBC 7.8, RBC 2.79 L, Hgb 8.5 L, Hct 26.2 L, MCV 93.9, MCH 30.5, MCHC 32.4, RDW Std Deviation 54.7 H, RDW Coeff of Shade 15.9 H, Plt Count 245, MPV 11.0 04/03/22 06:42: POC Glucose 137 H Cardiology Labs/Tests 04/03/22 05:52: Sodium 143, Potassium 4.2, Chloride 108 H, Carbon Dioxide 25.0, Anion Gap 10, BUN 56 H, Creatinine 1.99 H, Est GFR (MDRD) Af Amer 42 L, Est GFR (MDRD) Non-Af 34 L, BUN/Creatinine Ratio 28.1 H, Glucose 139 H, Calcium 9.0, Total Bilirubin 0.90 04/03/22 05:52: WBC 7.8, RBC 2.79 L, Hgb 8.5 L, Hct 26.2 L, MCV 93.9, MCH 30.5, MCHC 32.4, Plt Count 245, MPV 11.0 Rhythm: EKG: ECHO: Stress Test: Cardiac Cath: PCI: CT Surgery: Holter monitor: EPS: PPM: CXR: Chest CT Scan: Physical Exam Const alert, oriented x3 and no apparent distress Constitutional Narrative: obese HEENT head/scalp atraumatic, moist oral mucous membranes and oropharynx normal Head and Scalp: normocephalic Mouth: oral and palatal mucosa normal Eyes PERRL, EOMs intact bilaterally and conjunctivae normal Neck no lymphadenopathy, supple and no JVD Resp normal respiratory effort, no retractions, no use of accessory muscles and clear to auscultation bilaterally Cardio regular rate, regular rhythm, S1 normal heart sound, S2 normal heart sound and no murmurs GI normal to inspection, nondistended, normoactive bowel sounds, soft to palpation, non-tender and non-distended Extremity normal to inspection, full ROM and no clubbing, cyanosis or edema Neuro oriented x3, CN's II-XII intact bilaterally, moves all extremities and no focal motor deficits Sensorium / Orientation: awake and alert Motor Exam: strength 5/5 throughout Psych affect normal Assessment & Plan Assessment/Plan (1) Non-ST elevation [place] (NSTEMI): PLAN: The patient presents with symptoms concerning for an unstable angina pectoris and abnormal troponin I levels compatible with a non-ST segment elevation CO. He underwent cardiac catheterization which demonstrated the following: Dominant right coronary artery with moderate significant distal stenosis. Short left main coronary artery. Left anterior descending artery with moderately severe proximal to mid calcified lesion. Left circumflex artery with no high-grade stenosis. His estimated ejection fraction is 50%. He also appears to have mild aortic stenosis. Based on the above angiographic findings he underwent PCI to the LAD successfully. (2) Nonrheumatic aortic (valve) stenosis: PLAN: The patient has a history of aortic valve stenosis. He does have a peak to peak gradient of approximately 20 mmHg. The above is suggestive of mild aortic stenosis. (3) Hyperlipidemia: QUALIFIERS: Hyperlipidemia type: unspecified Qualified Code(s): E78.5 - Hyperlipidemia, unspecified PLAN: The patient should continue medical therapy. This includes his lipid-lowering therapy as he has been on simvastatin 40 mg p.o. daily. (4) Essential hypertension: PLAN: The patient reports a history of hypertension. Patient will continue with current medical therapy.
[2022-04-03] MEDS: Insulin Lispro 100 UNIT/ML INSULN.PEN SC ×2 (11:46→21:35)
[2022-04-03 12:05] LABS: Bedside Glucose 167 mg/dL (74-106)
--- NOTE | 2022-04-03 12:34 | CASEMGMT ---
Therapy is recommending patient go somewhere short term for rehab. TREVER met with patient and his daughter Katarina. SW introduced self and role at [facility]. SW explained recommendations. SW explained Medicare benefits for care home facility. SW also provided them with a list of care home facility providers including quality and resource use data and consistent with patient?s preferred geographic region, medical needs, and insurance network were provided from the [facility]. SW explained they would need to pick 2-3 facilities they would be okay with and SW will contact the facilities. Patient's daughter took the list and was going to call patient's other daughter to discuss options. SW will check back. Plan: care home facility pending patient's choices and accepting facility. Abbie Green RENTAL CAR FERRY DRIVERVan SANTIAGO
--- NOTE | 2022-04-03 14:15 | CASEMGMT ---
SW checked back with patient and his daughter. [facility] choices were [facility], [facility], and [facility]. SW will work on referrals and update them as soon as SW has updates. Plan: d/c to SNF pending accepting facility. Abbie SANTIAGO
--- NOTE | 2022-04-03 14:50 | CASEMGMT ---
[facility] accepted patient. TREVER let patient and his daughter know that patient was accepted at [facility]. TREVER let them know to bring in clothes and toiletries for patient to take with him. Plan: d/c to [facility] at [place] when medically ready. Abbie SANTIAGO
--- NOTE | 2022-04-03 15:39 | PN.HOSP_ITS ---
Reason for Visit Reason for Visit: Diagnoses Anemia, unspecified (04/01/22) Type 2 diabetes mellitus with diabetic polyneuropathy (04/01/22) Morbid (severe) obesity due to excess calories (04/01/22) Hyperlipidemia, unspecified (04/01/22) Other acute postprocedural pain (04/01/22) Essential (primary) hypertension (04/01/22) Non-ST elevation (NSTEMI) myocardial infarction (04/01/22) Nonrheumatic aortic (valve) stenosis (04/01/22) Disorder of kidney and ureter, unspecified (04/01/22) Body mass index [BMI] 40.0-44.9, adult (04/01/22) Subjective Subjective Patient seen and examined. He had no complaints. He had an uneventful night and review of systems otherwise negative. He had cardiac cath Which showed significant blockage in the main and proximal LAD for which he had PCI with insertion of drug-eluting stents. Review of systems is otherwise negative. He has remained hemodynamically stable. Objective Data Objective Data Vital Signs: Vital Signs Temp Pulse Resp BP Pulse Ox O2 Del Method 97.7 F L 101 H 20 H 112/77 97 Room Air 04/03/22 09:00 04/03/22 09:37 04/03/22 09:00 04/03/22 09:00 04/03/22 09:00 04/03/22 14:06 Oxygen Delivery Method Room Air Weight: 281 lb 4.957 oz Body Mass Index (BMI) 46.7 Intake & Output: Intake and Output for Last 24 Hours 04/01/22 04/02/22 04/03/22 23:59 23:59 23:59 Intake Total 1168.33 / 1168.33 1694.17 / 1934.17 540 / 540 Output Total 2800 / 3050 600 / 600 Balance 1168.33 / 868.33 -1105.83 / -1115.83 -60 / -60 Lab / Micro Data Result Diagrams: 04/03/22 05:52 04/03/22 05:52 Labs: Laboratory Results - last 24 hr 04/02/22 16:42: POC Glucose 121 H 04/02/22 20:55: POC Glucose 139 H 04/03/22 05:52: Sodium 143, Potassium 4.2, Chloride 108 H, Carbon Dioxide 25.0, Anion Gap 10, BUN 56 H, Creatinine 1.99 H, Estim Creat Clear Calc 24.90, Est GFR (MDRD) Af Amer 42 L, Est GFR (MDRD) Non-Af 34 L, BUN/Creatinine Ratio 28.1 H, Glucose 139 H, Calcium 9.0, Total Bilirubin 0.90, AST 29, ALT 23, Alkaline Phosphatase 118 H, Total Protein 5.8 L, Albumin 2.4 L, Globulin 3.4, [place] min/Globulin Ratio 0.7 L 04/03/22 05:52: WBC 7.8, RBC 2.79 L, Hgb 8.5 L, Hct 26.2 L, MCV 93.9, MCH 30.5, MCHC 32.4, RDW Std Deviation 54.7 H, RDW Coeff of Shade 15.9 H, Plt Count 245, MPV 11.0 04/03/22 06:42: POC Glucose 137 H 04/03/22 11:43: POC Glucose 167 H Physical Exam Const alert, oriented x3 and no apparent distress Constitutional Narrative: obese HEENT head/scalp atraumatic, moist oral mucous membranes and oropharynx normal Head and Scalp: normocephalic Mouth: oral and palatal mucosa normal Eyes PERRL, EOMs intact bilaterally and conjunctivae normal Neck no lymphadenopathy, supple and no JVD Resp normal respiratory effort, no retractions, no use of accessory muscles and clear to auscultation bilaterally Cardio regular rate, regular rhythm, S1 normal heart sound, S2 normal heart sound and no murmurs GI normal to inspection, nondistended, normoactive bowel sounds, soft to palpation, non-tender and non-distended Extremity normal to inspection, full ROM and no clubbing, cyanosis or edema Neuro oriented x3, CN's II-XII intact bilaterally, moves all extremities and no focal motor deficits Sensorium / Orientation: awake and alert Motor Exam: strength 5/5 throughout Psych affect normal Assessment & Plan Assessment/Plan (1) Non-ST elevation [place] (NSTEMI): PLAN: Plan #Nonstemi * Admitted with a complaint of chest pain and found to have non-STEMI. Has not had any more chest pain overnight. * Troponins trended up into the high 1999's. * Had cardiac cath which showed proximal to mid LAD blockage. Had PCI with placement of drug eluting stents. * On aspirin and Plavix as well as high intensity statin. * Cardiology on board. * 2D echo showed EF of 55%, with mild focal mitral valve calcification of the anterior leaflet, with what appears to be diffuse thickening, calcification and partial restriction of the aortic valve. * #Moderate aortic stenosis: * 2D echo in August 2021 showed moderate aortic stenosis with EF of 65%. * 2D echo as above * follow up with cardiology on outpateint basis * #Type 2 diabetes mellitus: On insulin sliding scale. Checks ACHS. We will check A1c. #Dyslipidemia: On high intensity statin lipid profile pending #Hypertension: On candesartan #Recent right knee replacement * Had recent right knee replacement done in [facility]. Has been undergoing physical therapy. * States he did have cardiac clearance before surgery. * PT OT on board. Fall precautions. * DVT prophylaxis:lovenox Total time spent seeing patient and examining him, reviewing chart, discussion with ancillary staff and nursing staff as well as discussing plan with consulting physicians, explaining plan to family and documentation: 38 minutes. Disposition: for DC to the [facility] tomorrow. Charges/Coding Visit Charges Inpatient E&M: 30355 Subs Hosp L2
[2022-04-03 17:16] LABS: Bedside Glucose 149 mg/dL (74-106)
[2022-04-03] MEDS: 0.9% Saline Lock 10 ML Syringe IV (21:35)
[2022-04-03] MEDS: Losartan Potassium 25 MG Tablet 75 MG PO (21:37)
[2022-04-03 23:10] LABS: Bedside Glucose 255 mg/dL (74-106)
[2022-04-04] VITALS (14 sets, daily range): BP systolic 88–117; BP diastolic 45–68; PULSE 80–95; RESP 18–26; TEMP 36.1–37; O2SAT 95–98; BMI 46.0
--- NOTE | 2022-04-04 00:04 | NURSING ---
During rounds, patient stated that his right thigh has been itchy and was requesting lotion. This RN and housekeeping aid noted the area is reddened, taut and warm. Applied Bactroban and will continue to monitor if redness worsens.
[2022-04-04] MEDS: Ipratropium/Albuterol Sulfate 3 ML AMPUL.NEB INHALATION ×2 (01:15→20:47)
[2022-04-04] MEDS: oxyCODONE 5 MG Tablet PO ×3 (03:25→18:20)
[2022-04-04 06:30] LABS: Absolute Neutrophil Count 6.8 X10^3/uL (2.0-7.7); Basophil# 0.03 X10^3/uL; Basophil% 0.3 % (0-1); Eosinophil# 0.39 X10^3/uL; Eosinophils% 4.5 % (0-5); Hematocrit 28.5 % (40-54); Hemoglobin 8.8 g/dL (13.0-16.5); Lymphocyte % 8.1 % (19-41); Mean Corp Hgb Conc 30.9 g/dL (32-36); Mean Corpuscular Hgb 29.9 pg (27.0-32.0); Mean Corpuscular Volume 96.9 fL (80-94); Mean Platelet Vol. 11.1 fl (6.2-12.0); Monocyte# 0.63 X10^3/uL; Monocyte% 7.3 % (0-10); NRBC Flagged by Analyzer 0 % (0-5); Neutrophil # 6.79 X10^3/uL (2.7-7.7); Neutrophil % 79.2 % (47-70); Platelet Count 265 K/mm3 (150-450); RBC Distribution Width CV 16.2 % (11.6-14.6); RBC Distribution Width SD 57.5 fl (35.1-43.9); Red Blood Count 2.94 M/mm3 (4.6-6.2); White Blood Count 8.6 K/mm3 (4.4-11.0)
[2022-04-04] MEDS: Insulin Glargine-YFGN 100 UNIT/ML Pen 6 UNIT SC (06:38)
[2022-04-04 07:00] LABS: Bedside Glucose 148 mg/dL (74-106)
[2022-04-04 07:09] LABS: Anion Gap 9 (5-15); BUN 72 mg/dL (7-18); BUN/Creat Ratio 24.5 RATIO (10-20); Calcium,Total 9.2 mg/dL (8.5-10.1); Chloride 109 mmol/L (98-107); Creatinine, Serum 2.94 mg/dL (0.70-1.30); EST Glomerular Filtration Rate 22 mL/min (>60); Est Glom Filt Rate - Afr Amer 27 mL/min (>60); Estimated Creatinine Clearance 16.85 ml/min; Glucose 147 mg/dL (74-106); Potassium 4.6 mmol/L (3.5-5.1); Sodium Level 142 mmol/L (136-145)
[2022-04-04] MEDS: Metoprolol Tartrate 25 MG Tablet 12.5 MG PO (09:23)
[2022-04-04] MEDS: Senna/Docusate Sodium 1 Tablet 2 TABLET PO ×2 (09:23→20:32)
[2022-04-04] MEDS: Clopidogrel Bisulfate 75 MG Tablet PO (09:24)
[2022-04-04] MEDS: Pramipexole Di-HCl 1 MG Tablet PO ×2 (09:24→20:32)
[2022-04-04] MEDS: Ascorbic Acid 500 MG Tablet PO (09:24)
[2022-04-04] MEDS: Allopurinol 100 MG Tablet PO ×2 (09:24→16:48)
[2022-04-04] MEDS: Tamsulosin HCl 0.4 MG Capsule PO (09:24)
[2022-04-04] MEDS: Cholecalciferol (VIT D3) 25 MCG TABLET (1,000 UNITS) PO (09:24)
[2022-04-04] MEDS: Acetaminophen 325 MG Tablet 650 MG PO ×2 (09:24→18:20)
[2022-04-04] MEDS: Finasteride 5 MG Tablet PO (09:24)
[2022-04-04] MEDS: Ferrous Sulfate 325 MG Tablet PO (09:24)
[2022-04-04] MEDS: Aspirin E.C. 81 MG Tablet PO (09:24)
[2022-04-04] MEDS: Mupirocin Ointment 22gm Tube 1 APPLIC TOPICAL ×2 (09:25→20:32)
[2022-04-04] MEDS: 0.9% Normal Saline 1,000 ML 75 ML IV (09:25)
--- NOTE | 2022-04-04 10:00 | EKG12_ITS ---
Test Reason : PCI Blood Pressure : / mmHG Vent. Rate : 086 BPM Atrial Rate : 086 BPM P-R Int : 138 ms QRS Dur : 092 ms QT Int : 392 ms P-R-T Axes : 032 023 -30 degrees QTc Int : 469 ms Normal sinus rhythm Poor R wave progression Confirmed by VIDA CABALLERO, REMBERTO ([id number]), fan mail editor CHUCK TOLEDO ([id number]) on 04/07/2022 11:06:46 AM Referred By: Remberto Burnett Confirmed By:REMBERTO MCPHERSON MD
--- NOTE | 2022-04-04 10:18 | PN.HOSP_ITS ---
Reason for Visit Reason for Visit: Diagnoses Anemia, unspecified (04/01/22) Type 2 diabetes mellitus with diabetic polyneuropathy (04/01/22) Morbid (severe) obesity due to excess calories (04/01/22) Hyperlipidemia, unspecified (04/01/22) Other acute postprocedural pain (04/01/22) Essential (primary) hypertension (04/01/22) Non-ST elevation (NSTEMI) myocardial infarction (04/01/22) Nonrheumatic aortic (valve) stenosis (04/01/22) Disorder of kidney and ureter, unspecified (04/01/22) Body mass index [BMI] 40.0-44.9, adult (04/01/22) Subjective Subjective Patient seen and examined. He had no complaints and had an uneventful night. Review of systems is otherwise negative. He has remained hemodynamically stable. His Cr also noted to have trended up to 2.94. from 1.99 yesterday Objective Data Objective Data Vital Signs: Vital Signs Temp Pulse Resp BP Pulse Ox O2 Del Method 98.0 F 81 18 94/45 L 97 Room Air 04/04/22 09:21 04/04/22 09:23 04/04/22 09:21 04/04/22 09:21 04/04/22 09:21 04/04/22 09:21 Oxygen Delivery Method Room Air Weight: 276 lb 14.409 oz Body Mass Index (BMI) 46.0 Intake & Output: Intake and Output for Last 24 Hours 04/02/22 04/03/22 04/04/22 23:59 23:59 23:59 Intake Total 1694.17 / 1934.17 900 / 1120 460 / 460 Output Total 2800 / 3050 600 / 700 100 / 100 Balance -1105.83 / -1115.83 300 / 420 360 / 360 Lab / Micro Data Result Diagrams: 04/04/22 06:19 04/04/22 06:19 Labs: Laboratory Results - last 24 hr 04/03/22 11:43: POC Glucose 167 H 04/03/22 16:55: POC Glucose 149 H 04/03/22 21:34: POC Glucose 255 H 04/04/22 06:19: Sodium 142, Potassium 4.6, Chloride 109 H, Carbon Dioxide 24.0, Anion Gap 9, BUN 72 H, Creatinine 2.94 H, Estim Creat Clear Calc 16.85, Est GFR (MDRD) Af Amer 27 L, Est GFR (MDRD) Non-Af 22 L, BUN/Creatinine Ratio 24.5 H, Glucose 147 H, Calcium 9.2 04/04/22 06:19: WBC 8.6, RBC 2.94 L, Hgb 8.8 L, Hct 28.5 L, MCV 96.9 H, MCH 29.9, MCHC 30.9 L, RDW Std Deviation 57.5 H, RDW Coeff of Shade 16.2 H, Plt Count 265, MPV 11.1, Immature Gran % (Auto) 0.600, Neut % (Auto) 79.2 H, Lymph % (Au to) 8.1 L, [place] % (Auto) 7.3, Eos % (Auto) 4.5, Baso % (Auto) 0.3, Absolute Neuts (auto) 6.8, Absolute Lymphs (auto) 0.70 L, Nucleated RBC % 0 04/04/22 06:37: POC Glucose 148 H Physical Exam Const alert, oriented x3 and no apparent distress Constitutional Narrative: obese HEENT head/scalp atraumatic, moist oral mucous membranes and oropharynx normal Head and Scalp: normocephalic Mouth: oral and palatal mucosa normal Eyes PERRL, EOMs intact bilaterally and conjunctivae normal Neck no lymphadenopathy, supple and no JVD Resp normal respiratory effort, no retractions, no use of accessory muscles and clear to auscultation bilaterally Cardio regular rate, regular rhythm, S1 normal heart sound, S2 normal heart sound and no murmurs GI normal to inspection, nondistended, normoactive bowel sounds, soft to palpation, non-tender and non-distended Extremity Extremity Narrative: intact dressing over right knee, site of recent knee replacement Neuro oriented x3, CN's II-XII intact bilaterally, moves all extremities and no focal motor deficits Sensorium / Orientation: awake and alert Motor Exam: strength 5/5 throughout Psych affect normal Assessment & Plan Assessment/Plan (1) Non-ST elevation [place] (NSTEMI): PLAN: Plan #Nonstemi * Admitted with a complaint of chest pain and found to have non-STEMI. * Troponins trended up into the high 1999's. * Had cardiac cath which showed proximal to mid LAD blockage. Had PCI with placement of drug eluting stents. * On aspirin and Plavix as well as high intensity statin. * Cardiology on board. * 2D echo showed EF of 55%, with mild focal mitral valve calcification of the anterior leaflet, with what appears to be diffuse thickening, calcification and partial restriction of the aortic valve. * #LAKHWINDER on CKD Stage 3 * Cr today is 2.94, up from 1.99 yesterday. baseline is ! 1.5 * may be due to contrast he received. * hydrate gently with IVF overnight and trend Cr * #Moderate aortic stenosis: * 2D echo in August 2021 showed moderate aortic stenosis with EF of 65%. * 2D echo as above * follow up with cardiology on outpateint basis * #Type 2 diabetes mellitus: On insulin sliding scale. Checks ACHS. We will check A1c. #Dyslipidemia: On high intensity statin. #Hypertension: On candesartan. Hold candesartan o/a of elevated Cr #Recent right knee replacement * Had recent right knee replacement done in [facility]. Has been undergoing physical therapy. * States he did have cardiac clearance before surgery. * PT OT on board. Fall precautions. * DVT prophylaxis:lovenox, renally dosed. Total time spent seeing patient and examining him, reviewing chart, discussion with ancillary staff and nursing staff as well as discussing plan with consulting physicians, explaining plan to family and documentation: 37 minutes. Disposition: for DC to the [facility], most likely tomorrow once Cr improves. Charges/Coding Visit Charges Inpatient E&M: 67771 Subs Hosp L2
--- NOTE | 2022-04-04 10:36 | CASEMGMT ---
Patient is not ready for discharge today. TREVER notified Shantel at [facility]. SW also met with patient and his daughter. TREVER let them know that [facility] can set up transport tomorrow, but it would be wheelchair van and that is not covered by insurance so patient would get a bill. SW also let her know that family can transport patient if they feel comfortable. Patient's daughter was going to check with patient's other daughter who handles these matters. SW started convalescent in [facility] system. Green sheet on chart. Plan: d/c to [facility] under skilled level of care when medically ready. Patient will be going short term on a convalescent stay. Transport will be [facility] vs family. Abbie Green CLIENT SERVICE REPRESENTATIVE JACK
[2022-04-04 12:20] LABS: Bedside Glucose 119 mg/dL (74-106)
[2022-04-04 17:10] LABS: Bedside Glucose 139 mg/dL (74-106)
[2022-04-04] MEDS: guaiFENesin 10 ML UDC (200MG/10ML) PO (20:32)
[2022-04-04 20:56] LABS: Bedside Glucose 119 mg/dL (74-106)
[2022-04-05] VITALS (13 sets, daily range): BP systolic 99–115; BP diastolic 50–78; PULSE 84–105; RESP 16–28; TEMP 36.4–36.6; O2SAT 95–100; BMI 45.9
[2022-04-05] MEDS: Ipratropium/Albuterol Sulfate 3 ML AMPUL.NEB INHALATION ×6 (02:24→23:57)
[2022-04-05] MEDS: oxyCODONE 5 MG Tablet PO ×2 (04:09→09:32)
[2022-04-05 07:25] LABS: Absolute Lymphocyte Count 0.47 X10^3/uL (0.83-4.51); Basophil# 0.02 X10^3/uL; Basophil% 0.2 % (0-1); Eosinophil# 0.12 X10^3/uL; Eosinophils% 1.3 % (0-5); Hematocrit 27.2 % (40-54); Hemoglobin 8.3 g/dL (13.0-16.5); Lymphocyte # 0.47 X10^3/ul (0.83-4.51); Mean Corp Hgb Conc 30.5 g/dL (32-36); Mean Corpuscular Hgb 29.4 pg (27.0-32.0); Mean Corpuscular Volume 96.5 fL (80-94); Mean Platelet Vol. 11.3 fl (6.2-12.0); Monocyte# 0.72 X10^3/uL; Monocyte% 7.6 % (0-10); NRBC Flagged by Analyzer 0 % (0-5); Neutrophil # 8.03 X10^3/uL (2.7-7.7); Neutrophil % 84.8 % (47-70); POSITIVE DIFFERENTIAL YES; Platelet Count 288 K/mm3 (150-450); Red Blood Count 2.82 M/mm3 (4.6-6.2); White Blood Count 9.5 K/mm3 (4.4-11.0)
[2022-04-05] MEDS: Insulin Glargine-YFGN 100 UNIT/ML Pen 6 UNIT SC (07:48)
[2022-04-05] MEDS: Aspirin E.C. 81 MG Tablet PO (07:49)
[2022-04-05] MEDS: Ascorbic Acid 500 MG Tablet PO (07:49)
[2022-04-05] MEDS: Allopurinol 100 MG Tablet PO ×2 (07:49→16:57)
[2022-04-05 08:02] LABS: Anion Gap 10 (5-15); BUN 87 mg/dL (7-18); BUN/Creat Ratio 25.2 RATIO (10-20); Chloride 107 mmol/L (98-107); Creatinine, Serum 3.45 mg/dL (0.70-1.30); EST Glomerular Filtration Rate 18 mL/min (>60); Est Glom Filt Rate - Afr Amer 22 mL/min (>60); Estimated Creatinine Clearance 14.36 ml/min; Glucose 146 mg/dL (74-106); Potassium 4.6 mmol/L (3.5-5.1); Sodium Level 139 mmol/L (136-145)
[2022-04-05 08:12] LABS: Differential Indicated SCAN CRITERIA MET
--- NOTE | 2022-04-05 08:17 | US_ITS ---
STUDY: RENAL ULTRASOUND - COMPLETE REASON FOR EXAM: Male, 81 years old. Elevated BUN/creatinine TECHNIQUE: Ultrasound evaluation of the kidneys was performed with real-time and static harvey-scale imaging. COMPARISON: None. FINDINGS: RIGHT KIDNEY: Normal location of the right kidney, which is normal in size. The right kidney measures 11.2 x 5.0 x 5.2 cm. There is a normal cortex of the right kidney. The renal cortex measures 1.5 cm. There is no right renal mass or cyst. There are no right renal calculi. There is no right hydronephrosis. DISTAL RIGHT URETER: There is non-visualization of the distal right ureter. There is no demonstrated right ureterovesical junction calculus. There is a visualized right ureteral jet. LEFT KIDNEY: Normal location of the left kidney, which is normal in size. The left kidney measures 11.3 x 3.6 x 6.2 cm. There is a normal cortex of the left kidney. The renal cortex measures 1.5 cm. There is no left renal mass or cyst. There are no left renal calculi. There is no left hydronephrosis. DISTAL LEFT URETER: There is non-visualization of the distal left ureter. There is no demonstrated left ureterovesical junction calculus. There is a visualized left ureteral jet. AORTA: There is no elongation or tortuosity of the abdominal aorta. I.V.C.: The IVC is patent. BLADDER: The bladder is sonographically normal US/Kidney and Bladder IMPRESSION: No suspicious sonographic findings Electronically Signed: Sachin Silva MD at 12:40 EST ,
[2022-04-05 08:24] LABS: Anisocytosis 1+; Platelet Estimate ADEQUATE (ADEQ)
[2022-04-05 08:41] LABS: Bedside Glucose 138 mg/dL (74-106)
[2022-04-05] MEDS: 0.9% Normal Saline 1,000 ML 125 ML IV (09:30)
[2022-04-05] MEDS: Acetaminophen 325 MG Tablet 650 MG PO (09:33)
[2022-04-05] MEDS: Senna/Docusate Sodium 1 Tablet 2 TABLET PO (09:33)
[2022-04-05] MEDS: Mupirocin Ointment 22gm Tube 1 APPLIC TOPICAL ×2 (09:34→22:15)
[2022-04-05] MEDS: Clopidogrel Bisulfate 75 MG Tablet PO (09:35)
[2022-04-05] MEDS: Pramipexole Di-HCl 1 MG Tablet PO ×2 (09:35→22:16)
[2022-04-05] MEDS: Finasteride 5 MG Tablet PO (09:35)
[2022-04-05] MEDS: Cholecalciferol (VIT D3) 25 MCG TABLET (1,000 UNITS) PO (09:35)
[2022-04-05] MEDS: Tamsulosin HCl 0.4 MG Capsule PO (09:35)
[2022-04-05] MEDS: 0.9% Saline Lock 10 ML Syringe IV ×2 (09:36→20:31)
[2022-04-05] MEDS: Metoprolol Tartrate 25 MG Tablet 12.5 MG PO (09:36)
--- NOTE | 2022-04-05 10:00 | EKG12_ITS ---
Test Reason : AM EKG Blood Pressure : / mmHG Vent. Rate : 094 BPM Atrial Rate : 094 BPM P-R Int : 148 ms QRS Dur : 102 ms QT Int : 376 ms P-R-T Axes : 044 031 011 degrees QTc Int : 470 ms Normal sinus rhythm Nonspecific T wave abnormality Prolonged QT Abnormal ECG When compared with ECG of 04-APR-2022 05:15, MANUAL COMPARISON REQUIRED, DATA IS UNCONFIRMED Confirmed by DONNA CABALLERO, HERRERA ([id number]), map editor CHUCK TOLEDO ([id number]) on 04/08/2022 10:07:15 AM Referred By: Remberto Burnett Confirmed By:HERRERA THOMPSON MD
--- NOTE | 2022-04-05 10:03 | PN.HOSP_ITS ---
Reason for Visit Reason for Visit: Diagnoses Anemia, unspecified (04/01/22) Type 2 diabetes mellitus with diabetic polyneuropathy (04/01/22) Morbid (severe) obesity due to excess calories (04/01/22) Hyperlipidemia, unspecified (04/01/22) Other acute postprocedural pain (04/01/22) Essential (primary) hypertension (04/01/22) Non-ST elevation (NSTEMI) myocardial infarction (04/01/22) Nonrheumatic aortic (valve) stenosis (04/01/22) Disorder of kidney and ureter, unspecified (04/01/22) Body mass index [BMI] 40.0-44.9, adult (04/01/22) Subjective Subjective Patient seen and examined. He had no active complaints this morning and had remained hemodynamically stable. Review of systems otherwise negative. Creatinine however noted to be trending upwards and is 3.45 today. Objective Data Objective Data Vital Signs: Vital Signs Temp Pulse Resp BP Pulse Ox O2 Del Method 97.5 F L 96 20 H 105/74 95 Room Air 04/05/22 03:50 04/05/22 09:36 04/05/22 07:45 04/05/22 09:36 04/05/22 08:17 04/05/22 08:17 Oxygen Delivery Method Room Air Weight: 276 lb 3.827 oz Body Mass Index (BMI) 45.9 Intake & Output: Intake and Output for Last 24 Hours 04/03/22 04/04/22 04/05/22 23:59 23:59 23:59 Intake Total 900 / 1120 2300 / 2300 Output Total 600 / 700 100 / 100 Balance 300 / 420 2200 / 2200 Lab / Micro Data Result Diagrams: 04/05/22 06:56 04/05/22 06:56 Labs: Laboratory Results - last 24 hr 04/04/22 11:59: POC Glucose 119 H 04/04/22 16:46: POC Glucose 139 H 04/04/22 20:30: POC Glucose 119 H 04/05/22 06:56: WBC 9.5, RBC 2.82 L, Hgb 8.3 L, Hct 27.2 L, MCV 96.5 H, MCH 29.4, MCHC 30.5 L, RDW Std Deviation 57.0 H, RDW Coeff of [place] 16.0 H, Plt Count 288, MPV 11.3, Immature Gran % (Auto) 1.100 H, Neut % (Auto) 84.8 H, Lymph % (Auto) 5.0 L, [place] % (Auto) 7.6, Eos % (Auto) 1.3, Baso % (Auto) 0.2, Absolute Neuts (auto) 8.0 H, Absolute Lymphs (auto) 0.47 L, Nucleated RBC % 0, Platelet Estimate ADEQUATE, Anisocytosis 1+ 04/05/22 06:56: Sodium 139, Potassium 4.6, Chloride 107, Carbon Dioxide 22.0, Anion Gap 10, BUN 87 H, Creatinine 3.45 H, Estim Creat Clear Calc 14.36, Est GFR (MDRD) Af Amer 22 L, Est GFR (MDRD) Non-Af 18 L, BUN/Creatinine Ratio 25.2 H, Glucose 146 H, Calcium 9.0 04/05/22 07:45: POC Glucose 138 H Physical Exam Const alert, oriented x3 and no apparent distress Constitutional Narrative: obese HEENT head/scalp atraumatic, moist oral mucous membranes and oropharynx normal Head and Scalp: normocephalic Mouth: oral and palatal mucosa normal and dry mucous membranes Eyes PERRL, EOMs intact bilaterally and conjunctivae normal Neck no lymphadenopathy, supple and no JVD Resp normal respiratory effort, no retractions, no use of accessory muscles and clear to auscultation bilaterally Cardio regular rate, regular rhythm, S1 normal heart sound, S2 normal heart sound and no murmurs GI normal to inspection, nondistended, normoactive bowel sounds, soft to palpation, non-tender and non-distended Extremity normal to inspection, full ROM and no clubbing, cyanosis or edema Extremity Narrative: intact dressing over right knee, site of recent knee replacement Neuro oriented x3, CN's II-XII intact bilaterally, moves all extremities and no focal motor deficits Sensorium / Orientation: awake and alert Motor Exam: strength 5/5 throughout Psych affect normal Assessment & Plan Assessment/Plan (1) Non-ST elevation [place] (NSTEMI): PLAN: Plan #Nonstemi * Admitted with a complaint of chest pain and found to have non-STEMI. * Troponins trended up into the high 1999's. * Had cardiac cath which showed proximal to mid LAD blockage. Had PCI with placement of drug eluting stents. * On aspirin and Plavix as well as high intensity statin. * Cardiology on board. * 2D echo showed EF of 55%, with mild focal mitral valve calcification of the anterior leaflet, with what appears to be diffuse thickening, calcification and partial restriction of the aortic valve. * #LAKHWINDER on CKD Stage 3 * Cr has trended upwards further to 3.45 toay, from 2.94 yesterday * I do think the IV contrast he received may be playing a role * Continue hydration with IV fluids. Nephrology consulted. * Urine urea urine creatinine ordered to check Fe urea. * Renal ultrasound ordered. Urinalysis also ordered. * * #Moderate aortic stenosis: * 2D echo in August 2021 showed moderate aortic stenosis with EF of 65%. * 2D echo as above * follow up with cardiology on outpatient basis * #Type 2 diabetes mellitus: On insulin sliding scale. AccuChecks ACHS. We will check A1c. #Dyslipidemia: On high intensity statin. #Hypertension: on losartan; hold losartan o/a of LAKHWINDER #Recent right knee replacement * Had recent right knee replacement done in [facility]. Has been undergoing physical therapy. * States he did have cardiac clearance before surgery. * PT OT on board. Fall precautions. * DVT prophylaxis:lovenox, renally dosed. Total time spent seeing patient and examining him, reviewing chart, discussion with ancillary staff and nursing staff as well as discussing plan with consulting physicians, explaining plan to family and documentation: 35 minutes. Disposition: for DC to [facility], most likely tomorrow once Cr improves. Charges/Coding Visit Charges Inpatient E&M: 28856 Subs Hosp L2
[2022-04-05] MEDS: Enoxaparin 30 MG/0.3 ML Syringe SC (11:01)
[2022-04-05] MEDS: Ferrous Sulfate 325 MG Tablet PO (11:03)
[2022-04-05 11:30] LABS: Bedside Glucose 142 mg/dL (74-106)
--- NOTE | 2022-04-05 15:07 | CASEMGMT ---
Per CATHY Zeng, patient will be here through weekend. Marnie KNOWLES
--- NOTE | 2022-04-05 15:16 | PCM.CONS.R ---
Assessment & Plan Assessment/Plan (1) LAKHWINDER (acute kidney injury): PLAN: Prior to this admission, his baseline creatinine is between 1.2-1.4. His creatinine was around 1.5-1.7 initially. Now progressively getting worse. He did get a CTA on 04/01/2022, coronary angiogram with angioplasty on 04/02/2022. Renal ultrasound without any hydronephrosis Urine analysis and urine chemistries have been sent. Blood pressure is acceptable. No other nephrotoxic medications on his medication list. ? ATN due to contrast exposure ? Cholesterol emboli Typically contrast nephropathy is oliguric renal failure but he seems to be making okay amount of urine. We will send a urine eosinophil Appears quite dyspneic. Doubt this is prerenal. I will DC IV fluids for now. Okay to use Lasix if shortness of breath is worse HPI Consult Data Date of Consult: 04/05/22 HPI Narrative Reason for Consultation: Acute renal failure HPI Narrative: LOBO VANEGAS, is a 81 M who presents to the hospital with chest pain, shortness of breath. Nephrology consultation due to acute renal failure. It seems he has known history of CKD stage IIIa, baseline creatinine between 1.2-1.4. Presented with shortness of breath, initial CTA was negative for PE. Coronary angiogram showed atherosclerotic vascular disease and he is s/p PCI. His creatinine was around 1.5-1.7. Over the last 2 days, creatinine has been progressively increasing. Today he appears somewhat dyspneic. Significant wheezing. I spoke to family members at bedside and nursing staff. It seems he does have history of wheezing at baseline. Has been on IV fluids since morning. He says he has been voiding, he did make urine this morning. No obstructive symptoms. [facility] Medical History (Updated 04/05/22 @ 15:[address] Dominga Ardon MD) Arthritis Atherosclerosis of coronary artery of [place] heart without angina pectoris Bursitis, olecranon Carotid stenosis, bilateral Diabetes Erectile dysfunction Essential hypertension Gout attack Hyperlipidemia Nonrheumatic aortic (valve) stenosis Obesity Restless leg syndrome Type 2 diabetes mellitus without complication Type 2 diabetes with stage 3 chronic kidney disease GFR 30-59 Home Medications simvastatin 40 mg tablet 40 mg PO DAILY cholesterol 04/06/16 [History Last Taken Unknown] candesartan 16 mg tablet 16 mg PO QHS htn 11/19/18 [History Last Taken Unknown] flash glucose scanning reader #1 ea 09/04/20 [History Last Taken Unknown] flash glucose sensor #1 ea 09/04/20 [History Last Taken Unknown] allopurinol 100 mg tablet 100 mg PO BID gout 10/17/21 [History Last Taken Unknown] cholecalciferol (vitamin D3) 25 mcg (1,000 unit) capsule 25 mcg PO DAILY supplement 10/17/21 [History Last Taken Unknown] furosemide 40 mg tablet 20 mg PO QPM water pill 10/17/21 [History Last Taken Unknown] ropinirole 4 mg tablet 2 mg PO BID PD 10/17/21 [History Last Taken Unknown] ascorbic acid (vitamin C) 500 mg tablet 500 mg PO DAILY supplement 04/01/22 [History Last Taken Unknown] aspirin 325 mg capsule 325 mg PO BID dvt prophy 04/01/22 [History Last Taken Unknown] ferrous sulfate 325 mg (65 mg iron) tablet 325 mg PO DAILY supplement 04/01/22 [History Last Taken Unknown] finasteride 5 mg tablet 5 mg PO DAILY prostate 04/01/22 [History Last Taken Unknown] insulin glargine 100 unit/mL (3 mL) subcutaneous pen (Lantus Solostar U-100 Insulin) 6 unit subcut DAILY blood sugar 04/01/22 [History Last Taken Unknown] oxycodone-acetaminophen 5 mg-325 mg tablet 1 tab PO Q6H PRN PRN Pain 04/01/22 [History Last Taken Unknown] Allergy/AdvReac Type Severity Reaction Status Date / Time atorvastatin [From Lipitor] AdvReac Intermediate myalgias Verified 04/01/22 10:07 Family History Mother Diabetes Heart disease Hypertension High cholesterol Son Asthma Hypertension Father Colon cancer Skin cancer Cancer lung cancer Brother Heart disease CVA (cerebral vascular accident) Surgical History (Updated 04/02/22 @ 18:22 by Brenda Orta) History of coronary artery stent placement (~04/02/22) History of facial fracture repair History of left hip replacement History of repair of pyloric stenosis History of skin cancer History of tonsillectomy Social History Smoking Status: Former smoker how long ago did patient quit smokin years ago alcohol intake: current alcohol intake frequency: holidays/special occasions only substance use type: does not use caffeine: Yes Type: carbonated beverages and coffee Number of servings: 2 ROS ROS Narrative Negative except above Physical Exam Narrative Alert awake oriented x 3 no obvious distress no pallor no icterus no JVD s1s2 no murmurs lungs wheezing abdomen soft no organomegaly no edema no cyanosis Lab / Micro Data Result Diagrams: 04/05/22 06:56 04/05/22 06:56 Labs: Laboratory Results - last 24 hr 04/04/22 16:46: POC Glucose 139 H 04/04/22 20:30: POC Glucose 119 H 04/05/22 06:56: WBC 9.5, RBC 2.82 L, Hgb 8.3 L, Hct 27.2 L, MCV 96.5 H, MCH 29.4, MCHC 30.5 L, RDW Std Deviation 57.0 H, RDW Coeff of [place] 16.0 H, Plt Count 288, MPV 11.3, Immature Gran % (Auto) 1.100 H, Neut % (Auto) 84.8 H, Lymph % (Auto) 5.0 L, [place] % (Auto) 7.6, Eos % (Auto) 1.3, Baso % (Auto) 0.2, Absolute Neuts (auto) 8.0 H, Absolute Lymphs (auto) 0.47 L, Nucleated RBC % 0, Platelet Estimate ADEQUATE, Anisocytosis 1+ 04/05/22 06:56: Sodium 139, Potassium 4.6, Chloride 107, Carbon Dioxide 22.0, Anion Gap 10, BUN 87 H, Creatinine 3.45 H, Estim Creat Clear Calc 14.36, Est GFR (MDRD) Af Amer 22 L, Est GFR (MDRD) Non-Af 18 L, BUN/Creatinine Ratio 25.2 H, Glucose 146 H, Calcium 9.0 04/05/22 07:45: POC Glucose 138 H 04/05/22 11:00: POC Glucose 142 H Radiology Impression Renal Ultrasound 04/05/22 08:17 IMPRESSION: No suspicious sonographic findings Electronically Signed: Sachin Silva MD at 12:40 EST ,
[2022-04-05 16:56] LABS: Allen Test Positive; Base Excess -7 mmol/L (-2 to +2); Bicarbonate 18.6 mmol/L (22-26); Blood Gas Specimen Type ART; O2 Delivery Device Room Air; PO2 84 mmHG (75-100); SITE L Radial; SO2 96 % (95-99); Total Carbon Dioxide 20 mmol/L; pCO2 34.6 mmHg (35-45); pH 7.34 (7.35-7.45)
[2022-04-05 17:30] LABS: Bedside Glucose 140 mg/dL (74-106)
--- NOTE | 2022-04-05 19:40 | RAD_ITS ---
EXAM: XR CHEST, 1 VIEW CLINICAL INDICATION: SOB TECHNIQUE: Frontal view of the chest. This report was created using [employer] report generation technology. COMPARISON: 04/01/2022 FINDINGS: LUNGS AND PLEURAL SPACES: Unremarkable. No consolidation or edema. No pneumothorax. No effusion. HEART: Unremarkable. Cardiac silhouette not enlarged. MEDIASTINUM: Central airways and mediastinal contour are unremarkable. BONES/JOINTS: Unremarkable. SOFT TISSUES: Unremarkable. RAD/Chest 1 View (Portable) IMPRESSION: No radiographic evidence of acute cardiopulmonary disease. Electronically Signed: Anibal Roman MD at 20:52 EST ,
--- NOTE | 2022-04-05 20:08 | PCM.HOSP.N ---
Hospitalist Note Patient with ongoing confusion. ABG obtained during afternoon not marked appearing; however, given currently mildly worsened per family in regard to confusion will repeat repeat ABG. CXR with concern for mild congestion with wheezing. Aerosols already ordered and requested staff administer. Will pulse dose IV lasix x 1 especially given LAKHWINDER. Will obtain UA, UCx as still makes urine. Will also obtain procalcitonin. Will await this work-up and if not marked finding will obtain CT head.
[2022-04-05] MEDS: Furosemide 40 MG/4 ML Vial IV (20:31)
[2022-04-05 20:56] LABS: Allen Test Positive; Base Excess -5 mmol/L (-2 to +2); Bicarbonate 21.1 mmol/L (22-26); Blood Gas Specimen Type ART; FI02 21; O2 Delivery Device Cannula; PO2 143 mmHG (75-100); SITE R Radial; SO2 99 % (95-99); Total Carbon Dioxide 22 mmol/L; pCO2 40.6 mmHg (35-45); pH 7.32 (7.35-7.45)
[2022-04-05 21:03] LABS: Procalcitonin 0.51 ng/mL (0.00-0.09)
[2022-04-05 22:11] LABS: Bedside Glucose 140 mg/dL (74-106)
--- NOTE | 2022-04-05 22:23 | CPS ---
Patient was on O2 at time of blood gas drawl
[2022-04-05 22:37] LABS: Mucous, Urine 0 SEEN /hpf (<or=2+); Red Blood Cells-Urine 0 SEEN /hpf (0-5); Squamous Epithelial Cells - UA 0 SEEN /hpf (0-5)
[2022-04-05 22:47] LABS: Color, Urine Yellow (Yellow); Glucose, Dipstick Normal (Normal); Ketone-Dipstick 5 mg/dl (Negative); Leukocyte Esterase-Dipstick Negative /ul (Negative); Nitrite-Dipstick Negative (Negative); Occult Blood-Urine Negative /ul (Negative); Protein-Dipstick 15 mg/dl (Negative); Specific Gravity, Urine 1.025 (1.002-1.030); Urine Bilirubin Dipstick Negative (Negative); Urine Clarity Clear (Clear); Urine Urobilinogen 1 mg/dl (Normal)
[2022-04-05 22:59] LABS: Bacteria 1+ /hpf (None Seen); Hyaline Cast 5-10 SEEN /lpf (0-5); White Blood Cells 5-10 SEEN /hpf (0-5)
[2022-04-05 23:11] LABS: Urea Nitrogen, Urine 619 mg/dL (NO RANGE EST.)
[2022-04-06] VITALS (15 sets, daily range): BP systolic 96–107; BP diastolic 52–66; PULSE 84–108; RESP 12–33; TEMP 36.2–36.4; O2SAT 95–100; BMI 45.9
[2022-04-06] MEDS: Acetaminophen 325 MG Tablet 650 MG PO ×3 (04:40→17:42)
[2022-04-06] MEDS: Insulin Glargine-YFGN 100 UNIT/ML Pen 6 UNIT SC (06:24)
[2022-04-06 06:38] LABS: Absolute Lymphocyte Count 0.58 X10^3/uL (0.83-4.51); Absolute Neutrophil Count 5.3 X10^3/uL (2.0-7.7); Basophil# 0.02 X10^3/uL; Basophil% 0.3 % (0-1); Eosinophil# 0.13 X10^3/uL; Hematocrit 25.4 % (40-54); Hemoglobin 8.1 g/dL (13.0-16.5); Lymphocyte # 0.58 X10^3/ul (0.83-4.51); Lymphocyte % 8.9 % (19-41); Mean Corp Hgb Conc 31.9 g/dL (32-36); Mean Corpuscular Hgb 30.3 pg (27.0-32.0); Mean Corpuscular Volume 95.1 fL (80-94); Mean Platelet Vol. 11.1 fl (6.2-12.0); Monocyte# 0.46 X10^3/uL; Monocyte% 7.1 % (0-10); NRBC Flagged by Analyzer 0 % (0-5); Neutrophil % 81.2 % (47-70); POSITIVE DIFFERENTIAL YES; Platelet Count 257 K/mm3 (150-450); RBC Distribution Width CV 16.3 % (11.6-14.6); RBC Distribution Width SD 56.9 fl (35.1-43.9); Red Blood Count 2.67 M/mm3 (4.6-6.2); White Blood Count 6.5 K/mm3 (4.4-11.0)
[2022-04-06 06:47] LABS: Differential Indicated SCAN CRITERIA MET
[2022-04-06 06:55] LABS: Bedside Glucose 140 mg/dL (74-106)
[2022-04-06 06:56] LABS: Anion Gap 10 (5-15); BUN 95 mg/dL (7-18); Calcium,Total 8.6 mg/dL (8.5-10.1); Chloride 110 mmol/L (98-107); Creatinine, Serum 3.28 mg/dL (0.70-1.30); EST Glomerular Filtration Rate 19 mL/min (>60); Est Glom Filt Rate - Afr Amer 23 mL/min (>60); Glucose 133 mg/dL (74-106); Potassium 4.3 mmol/L (3.5-5.1); Sodium Level 141 mmol/L (136-145)
[2022-04-06 07:09] LABS: Differential Comment SCANNED; Hypochromasia 1+
[2022-04-06] MEDS: Ipratropium/Albuterol Sulfate 3 ML AMPUL.NEB INHALATION ×3 (07:43→20:28)
[2022-04-06] MEDS: Allopurinol 100 MG Tablet PO ×2 (08:22→17:41)
[2022-04-06] MEDS: Ascorbic Acid 500 MG Tablet PO (08:22)
[2022-04-06] MEDS: Aspirin E.C. 81 MG Tablet PO (08:22)
[2022-04-06] MEDS: Mupirocin Ointment 22gm Tube 1 APPLIC TOPICAL ×2 (09:24→22:06)
[2022-04-06] MEDS: Enoxaparin 30 MG/0.3 ML Syringe SC (09:25)
[2022-04-06] MEDS: Cholecalciferol (VIT D3) 25 MCG TABLET (1,000 UNITS) PO (09:26)
[2022-04-06] MEDS: Finasteride 5 MG Tablet PO (09:26)
[2022-04-06] MEDS: Pramipexole Di-HCl 1 MG Tablet PO ×2 (09:26→22:08)
[2022-04-06] MEDS: Clopidogrel Bisulfate 75 MG Tablet PO (09:27)
[2022-04-06] MEDS: Tamsulosin HCl 0.4 MG Capsule PO (09:27)
[2022-04-06] MEDS: Metoprolol Tartrate 25 MG Tablet 12.5 MG PO ×2 (09:39→22:08)
[2022-04-06] MEDS: 0.9% Saline Lock 10 ML Syringe IV (09:39)
--- NOTE | 2022-04-06 09:45 | PN_ITS ---
Subjective Subjective Patient seen and examined. Son and daughter were by his bedside. He had no active complaints. Family was worried about confusion yesterday, as patient was noted to have become more confused during the day. ABG done showed no hypoxia or hypercapnia. oxycodone was discontinued; he had also fide wheezing. He apparently had sleep apnea, but had not used a CPAP machine in over 10 years. Review of systems is otherwise negative. He has remained hemodynamically stable. Objective Data Objective Data Vital Signs: Vital Signs Temp Pulse Resp BP Pulse Ox O2 Del Method FiO2 97.1 F L 94 21 H 96/55 L 96 Room Air 30 04/06/22 03:30 04/06/22 09:39 04/06/22 07:45 04/06/22 09:39 04/06/22 08:16 04/06/22 08:16 04/06/22 04:40 Oxygen Delivery Method Room Air Weight: 276 lb 0.3 oz Body Mass Index (BMI) 45.9 Intake & Output: Intake and Output for Last 24 Hours 04/04/22 04/05/22 04/06/22 23:59 23:59 23:59 Intake Total 2300 / 2300 1648.33 / 1648.33 240 / 240 Output Total 100 / 100 Balance 2200 / 2200 1648.33 / 1648.33 240 / 240 Lab / Micro Data Result Diagrams: 04/06/22 06:22 04/06/22 06:22 Labs: Laboratory Results - last 24 hr 04/05/22 11:00: POC Glucose 142 H 04/05/22 16:52: POC Glucose 140 H 04/05/22 20:19: Procalcitonin 0.51 H 04/05/22 20:27: POC Glucose 140 H 04/05/22 21:00: Urine Creatinine 206.00, Urine Urea Nitrogen 619 04/05/22 21:00: Urine Color Yellow, Urine Clarity Clear, Urine pH 5.0, Ur Specific [place] 1.025, Urine Protein 15 H, Urine Glucose (UA) Normal, Urine Ketones 5 H, Urine Occult Blood Negative, Urine Nitrite Negative, Urine Bilirubin Negative, Urine Urobilinogen 1 H, Ur Leukocyte Esterase Negative, Urine RBC 0 SEEN, Urine WBC 5-10 SEEN, Ur Squamous Epith Cells 0 SEEN, Urine Bacteria 1+, Hyaline Casts 5-10 SEEN, Urine Mucus 0 SEEN 04/06/22 06:22: WBC 6.5, RBC 2.67 L, Hgb 8.1 L, Hct 25.4 L, MCV 95.1 H, MCH 30.3, MCHC 31.9 L, RDW Std Deviation 56.9 H, RDW Coeff of [place] 16.3 H, Plt Count 257, MPV 11.1, Immature Gran % (Auto) 0.500, Neut % (Auto) 81.2 H, Lymph % (Auto) 8.9 L, [place] % (Auto) 7.1, Eos % (Auto) 2.0, Baso % (Auto) 0.3, Absolute Neuts (auto) 5.3, Absolute Lymphs (auto) 0.58 L, Nucleated RBC % 0, Differential Comment SCANNED, Hypochromasia 1+ 04/06/22 06:22: Sodium 141, Potassium 4.3, Chloride 110 H, Carbon Dioxide 21.0, Anion Gap 10, BUN 95 H, Creatinine 3.28 H, Estim Creat Clear Calc 15.10, Est GFR (MDRD) Af Amer 23 L, Est GFR (MDRD) Non-Af 19 L, BUN/Creatinine Ratio 29.0 H, Glucose 133 H, Calcium 8.6 04/06/22 06:23: POC Glucose 140 H Micro: Microbiology 04/05/22 21:00 Urine, Clean Catch Urine Culture - Preliminary Culture exhibits no growth. ABG Data ABG results: ABG 04/05/22 04/05/22 16:52 20:48 Specimen Type ART ART Sample Site L Radial R Radial pH 7.34 L 7.32 L Bicarbonate Actual 18.6 L 21.1 L Total CO2 20 22 Base Excess -7 L -5 L O2 Saturation 96 99 O2 % 21 ABG pCO2 34.6 L 40.6 ABG pO2 84 143 H [place] Test Positive Positive O2 Delivery Device Room Air Cannula Radiography Diagnostic Testing: Radiology Impression Renal Ultrasound 04/05/22 08:17 IMPRESSION: No suspicious sonographic findings Electronically Signed: Sachin Silva MD at 12:40 EST , Chest X-Ray 04/05/22 19:40 IMPRESSION: No radiographic evidence of acute cardiopulmonary disease. Electronically Signed: Anibal Roman MD at 20:52 EST , Physical Exam Const alert, oriented x3 and no apparent distress Constitutional Narrative: obese HEENT head/scalp atraumatic, moist oral mucous membranes and oropharynx normal Eyes PERRL, EOMs intact bilaterally and conjunctivae normal Neck no lymphadenopathy, supple and no JVD Resp normal respiratory effort, no retractions, no use of accessory muscles and clear to auscultation bilaterally Resp Narrative: mildly diminished breath sounds bibasally, no wheezes or crackles. On Cardio regular rate, regular rhythm, S1 normal heart sound, S2 normal heart sound and no murmurs GI normal to inspection, nondistended, normoactive bowel sounds, soft to palpation, non-tender and non-distended Extremity normal to inspection, full ROM and no clubbing, cyanosis or edema Extremity Narrative: intact dressing over right knee, site of recent knee replacement. Neuro oriented x3, CN's II-XII intact bilaterally, moves all extremities and no focal motor deficits Sensorium / Orientation: awake and alert Motor Exam: strength 5/5 throughout Psych affect normal Assessment & Plan Assessment/Plan (1) Non-ST elevation [place] (NSTEMI): PLAN: Plan #Nonstemi * Admitted with a complaint of chest pain and found to have non-STEMI. * Troponins trended up into the high 1999's. * Had cardiac cath which showed proximal to mid LAD blockage. Had PCI with placement of drug eluting stents. * On aspirin and Plavix as well as high intensity statin. * Cardiology on board. * 2D echo showed EF of 55%, with mild focal mitral valve calcification of the anterior leaflet, with what appears to be diffuse thickening, calcification and partial restriction of the aortic valve. * #LAKHWINDER on CKD Stage 3 * Cr down to 3.24 today. * likely due to ATN from contrast. * nephrology on board. IVF discontinued yesterday due to concerns about fluid overload and shortness of breath * renal USG was essentially normal * management as per nephro * * #Acute encephalopathy * likely due to delirium. * patient was noted to be confused this morning, though he is more oriented today. * urinalysis showed no evidence of UTI. * ABG done showed no hypercapnia or hypoxia. * conservative methods to help with delirium, such as raising blinds during the day, and efforts not to change patient;s routin * #Moderate aortic stenosis: * 2D echo in August 2021 showed moderate aortic stenosis with EF of 65%. * 2D echo as above * follow up with cardiology on outpatient basis * #Type 2 diabetes mellitus: On insulin sliding scale. AccuChecks ACHS. We will check A1c. #Dyslipidemia: On high intensity statin. #Hypertension: on losartan; hold losartan o/a of LAKHWINDER #Recent right knee replacement * Had recent right knee replacement done in [facility]. Has been undergoing physical therapy. * States he did have cardiac clearance before surgery. * PT OT on board. Fall precautions. * DVT prophylaxis:lovenox, renally dosed. Total time spent seeing patient and examining him, reviewing chart, discussion with ancillary staff and nursing staff as well as discussing plan with consulting physicians, explaining plan to family and documentation: 33 minutes. Disposition: for DC to the [facility], once Cr improves Charges/Coding Visit Charges Inpatient E&M: 67706 Subs Hosp L2
[2022-04-06] MEDS: guaiFENesin 10 ML UDC (200MG/10ML) PO ×2 (10:49→17:41)
[2022-04-06] MEDS: Ferrous Sulfate 325 MG Tablet PO (10:50)
[2022-04-06] MEDS: Senna/Docusate Sodium 1 Tablet 2 TABLET PO (10:50)
[2022-04-06] MEDS: predniSONE 20 MG Tablet 40 MG PO (11:30)
[2022-04-06 11:55] LABS: Bedside Glucose 145 mg/dL (74-106)
--- NOTE | 2022-04-06 14:05 | PCM.PN.REN ---
Subjective Subjective No new complaints Objective Data Objective Data Vital Signs: Vital Signs Temp Pulse Resp BP Pulse Ox O2 Del Method FiO2 97.4 F L 84 22 H 96/55 L 97 Room Air 30 04/06/22 09:37 04/06/22 13:30 04/06/22 13:30 04/06/22 09:39 04/06/22 13:30 04/06/22 09:37 04/06/22 13:30 Oxygen Delivery Method Room Air Weight: 125.2 kg Body Mass Index (BMI) 45.9 Intake & Output: Intake and Output for Last 24 Hours 04/04/22 04/05/22 04/06/22 23:59 23:59 23:59 Intake Total 2300 / 2300 1648.33 / 1648.33 720 / 720 Output Total 100 / 100 Balance 2200 / 2200 1648.33 / 1648.33 720 / 720 Lab / Micro Data Result Diagrams: 04/06/22 06:22 04/06/22 06:22 Labs: Laboratory Results - last 24 hr 04/05/22 16:52: POC Glucose 140 H 04/05/22 20:19: Procalcitonin 0.51 H 04/05/22 20:27: POC Glucose 140 H 04/05/22 21:00: Urine Creatinine 206.00, Urine Urea Nitrogen 619 04/05/22 21:00: Urine Color Yellow, Urine Clarity Clear, Urine pH 5.0, Ur Specific [place] 1.025, Urine Protein 15 H, Urine Glucose (UA) Normal, Urine Ketones 5 H, Urine Occult Blood Negative, Urine Nitrite Negative, Urine Bilirubin Negative, Urine Urobilinogen 1 H, Ur Leukocyte Esterase Negative, Urine RBC 0 SEEN, Urine WBC 5-10 SEEN, Ur Squamous Epith Cells 0 SEEN, Urine Bacteria 1+, Hyaline Casts 5-10 SEEN, Urine Mucus 0 SEEN 04/06/22 06:22: WBC 6.5, RBC 2.67 L, Hgb 8.1 L, Hct 25.4 L, MCV 95.1 H, MCH 30.3, MCHC 31.9 L, RDW Std Deviation 56.9 H, RDW Coeff of [place] 16.3 H, Plt Count 257, MPV 11.1, Immature Gran % (Auto) 0.500, Neut % (Auto) 81.2 H, Lymph % (Auto) 8.9 L, [place] % (Auto) 7.1, Eos % (Auto) 2.0, Baso % (Auto) 0.3, Absolute Neuts (auto) 5.3, Absolute Lymphs (auto) 0.58 L, Nucleated RBC % 0, Differential Comment SCANNED, Hypochromasia 1+ 04/06/22 06:22: Sodium 141, Potassium 4.3, Chloride 110 H, Carbon Dioxide 21.0, Anion Gap 10, BUN 95 H, Creatinine 3.28 H, Estim Creat Clear Calc 15.10, Est GFR (MDRD) Af Amer 23 L, Est GFR (MDRD) Non-Af 19 L, BUN/Creatinine Ratio 29.0 H, Glucose 133 H, Calcium 8.6 04/06/22 06:23: POC Glucose 140 H 04/06/22 10:47: POC Glucose 145 H Micro: Microbiology 04/05/22 21:00 Urine, Clean Catch Urine Culture - Preliminary Culture exhibits no growth. ABG Data ABG results: ABG 04/05/22 04/05/22 16:52 20:48 Specimen Type ART ART Sample Site L Radial R Radial pH 7.34 L 7.32 L Bicarbonate Actual 18.6 L 21.1 L Total CO2 20 22 Base Excess -7 L -5 L O2 Saturation 96 99 O2 % 21 ABG pCO2 34.6 L 40.6 ABG pO2 84 143 H [place] Test Positive Positive O2 Delivery Device Room Air Cannula Radiography Diagnostic Testing: Radiology Impression Chest X-Ray 04/05/22 19:40 IMPRESSION: No radiographic evidence of acute cardiopulmonary disease. Electronically Signed: Anibal Roman MD at 20:52 EST , Physical Exam Narrative Alert awake oriented x 3 no obvious distress no pallor no icterus no JVD s1s2 no murmurs lungs wheezing abdomen soft no organomegaly no edema no cyanosis Assessment & Plan Assessment/Plan (1) LAKHWINDER (acute kidney injury): PLAN: Prior to this admission, his baseline creatinine is between 1.2-1.4. His creatinine was around 1.5-1.7 initially. He did get a CTA on 04/01/2022, coronary angiogram with angioplasty on 04/02/2022. Renal ultrasound without any hydronephrosis Urine analysis looks benign Blood pressure is acceptable. No other nephrotoxic medications on his medication list. ? ATN due to contrast exposure ? Cholesterol emboli Typically contrast nephropathy is oliguric renal failure but he seems to be making okay amount of urine. Creatinine is improving. Urine output is acceptable.
[2022-04-06] MEDS: Insulin Lispro 100 UNIT/ML INSULN.PEN SC ×2 (17:41→22:06)
[2022-04-06 18:11] LABS: Bedside Glucose 180 mg/dL (74-106)
[2022-04-06 22:55] LABS: Bedside Glucose 194 mg/dL (74-106)
[2022-04-07] VITALS (16 sets, daily range): BP systolic 95–105; BP diastolic 55–72; PULSE 78–93; RESP 12–22; TEMP 36.5–37.2; O2SAT 95–99; BMI 46.0
[2022-04-07] MEDS: Insulin Glargine-YFGN 100 UNIT/ML Pen 6 UNIT SC (06:50)
[2022-04-07 07:00] LABS: Absolute Lymphocyte Count 0.57 X10^3/uL (0.83-4.51); Basophil# 0.01 X10^3/uL; Basophil% 0.1 % (0-1); Eosinophil# 0.01 X10^3/uL; Eosinophils% 0.1 % (0-5); Lymphocyte # 0.57 X10^3/ul (0.83-4.51); Lymphocyte % 8.2 % (19-41); Mean Corp Hgb Conc 30.8 g/dL (32-36); Mean Corpuscular Hgb 29.6 pg (27.0-32.0); Mean Corpuscular Volume 96.3 fL (80-94); Mean Platelet Vol. 11.5 fl (6.2-12.0); Monocyte# 0.34 X10^3/uL; Monocyte% 4.9 % (0-10); NRBC Flagged by Analyzer 0 % (0-5); Neutrophil % 85.8 % (47-70); POSITIVE DIFFERENTIAL YES; Platelet Count 305 K/mm3 (150-450); RBC Distribution Width CV 16.4 % (11.6-14.6); RBC Distribution Width SD 57.4 fl (35.1-43.9)
[2022-04-07 07:04] LABS: Differential Indicated SCAN CRITERIA MET
[2022-04-07 07:11] LABS: Bedside Glucose 125 mg/dL (74-106)
[2022-04-07 07:21] LABS: Anion Gap 8 (5-15); BUN 100 mg/dL (7-18); BUN/Creat Ratio 39.5 RATIO (10-20); Calcium,Total 9.1 mg/dL (8.5-10.1); Chloride 110 mmol/L (98-107); Creatinine, Serum 2.53 mg/dL (0.70-1.30); EST Glomerular Filtration Rate 26 mL/min (>60); Est Glom Filt Rate - Afr Amer 32 mL/min (>60); Estimated Creatinine Clearance 19.58 ml/min; Glucose 136 mg/dL (74-106); Potassium 4.8 mmol/L (3.5-5.1); Sodium Level 141 mmol/L (136-145)
[2022-04-07 07:25] LABS: Differential Comment SCANNED
[2022-04-07] MEDS: Allopurinol 100 MG Tablet PO ×2 (08:11→16:07)
[2022-04-07] MEDS: Finasteride 5 MG Tablet PO (08:11)
[2022-04-07] MEDS: Aspirin E.C. 81 MG Tablet PO (08:11)
[2022-04-07] MEDS: predniSONE 20 MG Tablet 40 MG PO (08:11)
[2022-04-07] MEDS: Ascorbic Acid 500 MG Tablet PO (08:11)
[2022-04-07] MEDS: Enoxaparin 30 MG/0.3 ML Syringe SC (08:13)
[2022-04-07] MEDS: Clopidogrel Bisulfate 75 MG Tablet PO (08:13)
[2022-04-07] MEDS: Tamsulosin HCl 0.4 MG Capsule PO (08:13)
[2022-04-07] MEDS: Pramipexole Di-HCl 1 MG Tablet PO ×2 (08:13→22:53)
[2022-04-07] MEDS: Metoprolol Tartrate 25 MG Tablet 12.5 MG PO ×2 (08:13→22:54)
[2022-04-07] MEDS: Cholecalciferol (VIT D3) 25 MCG TABLET (1,000 UNITS) PO (08:13)
[2022-04-07] MEDS: Mupirocin Ointment 22gm Tube 1 APPLIC TOPICAL ×2 (08:22→22:57)
--- NOTE | 2022-04-07 10:51 | CASEMGMT ---
Updates sent to [facility] via [employer]. Abbie Green CLOTH DYEING RANGE TENDER CARDIAC NURSE SPECIALIST
--- NOTE | 2022-04-07 10:59 | PCM.PN.REN ---
Subjective Subjective No new complaints Objective Data Objective Data Vital Signs: Vital Signs Temp Pulse Resp BP Pulse Ox O2 Del Method FiO2 97.8 F 87 20 H 105/68 98 Room Air 30 04/07/22 08:02 04/07/22 08:13 04/07/22 08:02 04/07/22 08:13 04/07/22 08:46 04/07/22 08:05 04/07/22 05:32 Oxygen Delivery Method Room Air Weight: 125.7 kg Body Mass Index (BMI) 46.0 Intake & Output: Intake and Output for Last 24 Hours 04/05/22 04/06/22 04/07/22 23:59 23:59 23:59 Intake Total 1648.33 / 1648.33 1080 / 1180 100 / 100 Balance 1648.33 / 1648.33 1080 / 1180 100 / 100 Lab / Micro Data Result Diagrams: 04/07/22 06:35 04/07/22 06:35 Labs: Laboratory Results - last 24 hr 04/06/22 10:47: POC Glucose 145 H 04/06/22 17:38: POC Glucose 180 H 04/06/22 22:05: POC Glucose 194 H 04/07/22 06:34: POC Glucose 125 H 04/07/22 06:35: WBC 7.0, RBC 2.70 L, Hgb 8.0 L, Hct 26.0 L, MCV 96.3 H, MCH 29.6, MCHC 30.8 L, RDW Std Deviation 57.4 H, RDW Coeff of Shade 16.4 H, Plt Count 305, MPV 11.5, Immature Gran % (Auto) 0.900, Neut % (Auto) 85.8 H, Lymph % (Auto) 8.2 L, [place] % (Auto) 4.9, Eos % (Auto) 0.1, Baso % (Auto) 0.1, Absolute Neuts (auto) 6.0, Absolute Lymphs (auto) 0.57 L, Nucleated RBC % 0, Differential Comment SCANNED 04/07/22 06:35: Sodium 141, Potassium 4.8, Chloride 110 H, Carbon Dioxide 23.0, Anion Gap 8, BUN 100 H, Creatinine 2.53 H, Estim Creat Clear Calc 19.58, Est GFR (MDRD) Af Amer 32 L, Est GFR (MDRD) Non-Af 26 L, BUN/Creatinine Ratio 39.5 H, Glucose 136 H, Calcium 9.1 Micro: Microbiology 04/05/22 21:00 Urine, Clean Catch Urine Culture - Final Culture exhibits no growth. Physical Exam Narrative Alert awake oriented x 3 no obvious distress no pallor no icterus no JVD s1s2 no murmurs lungs wheezing abdomen soft no organomegaly no edema no cyanosis Assessment & Plan Assessment/Plan (1) LAKHWINDER (acute kidney injury): PLAN: Prior to this admission, his baseline creatinine is between 1.2-1.4. His creatinine was around 1.5-1.7 initially. He did get a CTA on 04/01/2022, coronary angiogram with angioplasty on 04/02/2022. Renal ultrasound without any hydronephrosis Urine analysis looks benign Blood pressure is acceptable. No other nephrotoxic medications on his medication list. ? ATN due to contrast exposure ? Cholesterol emboli Creatinine is improving. BUN continues to go high.? Etiology. No steroids. No evidence of GI bleed.
[2022-04-07] MEDS: Insulin Lispro 100 UNIT/ML INSULN.PEN SC ×2 (11:00→16:04)
[2022-04-07] MEDS: Senna/Docusate Sodium 1 Tablet 2 TABLET PO (11:00)
[2022-04-07] MEDS: Acetaminophen 325 MG Tablet 650 MG PO ×2 (11:00→17:42)
[2022-04-07] MEDS: Ferrous Sulfate 325 MG Tablet PO (11:01)
[2022-04-07 11:26] LABS: Bedside Glucose 154 mg/dL (74-106)
--- NOTE | 2022-04-07 15:29 | CASEMGMT ---
TREVER let Shantel at [facility] know that patient will not be discharged today. Abbie Green SENIOR CENTER DIRECTOR JACK
--- NOTE | 2022-04-07 15:31 | PCM.PN.HOSP ---
Reason for Visit Reason for Visit: Diagnoses Anemia, unspecified (04/01/22) Type 2 diabetes mellitus with diabetic polyneuropathy (04/01/22) Morbid (severe) obesity due to excess calories (04/01/22) Hyperlipidemia, unspecified (04/01/22) Other acute postprocedural pain (04/01/22) Essential (primary) hypertension (04/01/22) Non-ST elevation (NSTEMI) myocardial infarction (04/01/22) Nonrheumatic aortic (valve) stenosis (04/01/22) Acute kidney failure, unspecified (04/01/22) Disorder of kidney and ureter, unspecified (04/01/22) Body mass index [BMI] 40.0-44.9, adult (04/01/22) Subjective Subjective Starting to feel better, at times seems to have slightly labored breathing but per patient and family member at bedside this is unchanged from baseline, urinating fair, p.o. improving Objective Data Objective Data Vital Signs: Vital Signs Temp Pulse Resp BP Pulse Ox O2 Del Method FiO2 98.4 F 78 20 H 95/72 95 Room Air 30 04/07/22 14:08 04/07/22 14:08 04/07/22 14:10 04/07/22 14:08 04/07/22 14:08 04/07/22 14:10 04/07/22 05:32 Oxygen Delivery Method Room Air Weight: 125.7 kg Body Mass Index (BMI) 46.0 Intake & Output: Intake and Output for Last 24 Hours 04/05/22 04/06/22 04/07/22 23:59 23:59 23:59 Intake Total 1648.33 / 1648.33 1080 / 1180 580 / 580 Balance 1648.33 / 1648.33 1080 / 1180 580 / 580 Lab / Micro Data Result Diagrams: 04/07/22 06:35 04/07/22 06:35 Labs: Laboratory Results - last 24 hr 04/06/22 17:38: POC Glucose 180 H 04/06/22 22:05: POC Glucose 194 H 04/07/22 06:34: POC Glucose 125 H 04/07/22 06:35: WBC 7.0, RBC 2.70 L, Hgb 8.0 L, Hct 26.0 L, MCV 96.3 H, MCH 29.6, MCHC 30.8 L, RDW Std Deviation 57.4 H, RDW Coeff of Shade 16.4 H, Plt Count 305, MPV 11.5, Immature Gran % (Auto) 0.900, Neut % (Auto) 85.8 H, Lymph % (Auto) 8.2 L, [place] % (Auto) 4.9, Eos % (Auto) 0.1, Baso % (Auto) 0.1, Absolute Neuts (auto) 6.0, Absolute Lymphs (auto) 0.57 L, Nucleated RBC % 0, Differential Comment SCANNED 04/07/22 06:35: Sodium 141, Potassium 4.8, Chloride 110 H, Carbon Dioxide 23.0, Anion Gap 8, BUN 100 H, Creatinine 2.53 H, Estim Creat Clear Calc 19.58, Est GFR (MDRD) Af Amer 32 L, Est GFR (MDRD) Non-Af 26 L, BUN/Creatinine Ratio 39.5 H, Glucose 136 H, Calcium 9.1 04/07/22 10:58: POC Glucose 154 H Micro: Microbiology 04/05/22 21:00 Urine, Clean Catch Urine Culture - Final Culture exhibits no growth. Physical Exam Narrative General: Alert, oriented, no apparent distress HEENT: Atraumatic, normocephalic Eyes: Anicteric, normal conjunctiva, extraocular movements grossly intact Neck: Supple Respiratory: Somewhat diminished at the bases in part due to body habitus, at times some seem to have slight increased respiratory effort but that improves independently Cardiovascular: Regular rate and rhythm GI: Soft, nontender, nondistended Extremities: No edema Musculoskeletal: Moving all extremities Neuro: No overt focal neurological deficits Skin: No rashes appreciated Psych: Cooperative Assessment & Plan Assessment/Plan (1) LAKHWINDER (acute kidney injury): (2) Non-ST elevation IN (NSTEMI): (3) Essential hypertension: (4) Obesity: QUALIFIERS: Obesity type: due to excess calories Obesity classification: adult class 3 (BMI >= 40) Serious obesity comorbidity presence: with serious comorbidity Body mass index: BMI 40.0-44.9 Qualified Code(s): E66.01 - Morbid (severe) obesity due to excess calories; Z68.41 - Body mass index [BMI]40.0-44.9, adult PLAN: Plan 81-year-old male history of arthritis, hypertension, gout, type 2 diabetes who presented to [facility] 04/01 with chest pain. Had recent right total knee replacement on 03/27 in [facility] and was doing outpatient physical therapy. Does have history of aortic stenosis and follows with Dr. Mckeon as an outpatient. In the ED heart rate 100 mildly tachypneic at 23 with no hypoxia, BP was normal. Did have some subtle ST depressions in V4 through V6 with low voltage and troponin was elevated. Started on heparin drip and admitted. #LAKHWINDER on CKD III unkonwn subtype and elevated BUN -baseline creatinine 1.2-1.4 with initial creatinine on presentation roughly 1.5-1.7 but had gotten worse -Off IVF d/t SOB, renal US no hydronephrosis -Losartan held due to the LAKHWINDER -Cr trended in the correct direction today however BUN continued to increase -Nephrology following -pending clinical status and labs tomorrow possible DC to [facility] with nephro input #NSTEMI type I/CAD s/p PCI -Had elevated troponin with ST depressions and was started on a heparin drip. Had left heart cath 04/02 with PCI to LAD -Aspirin, statin, Plavix #Mild aortic stenosis -Follows with Dr. Mckeon on an outpatient basis -Patient had echo in August 2021 and showed moderate aortic stenosis with mean AV gradient 23 mmHg and mean AV area 1.1 cm?.? EF 65% with LVH normal systolic function, stage I diastolic function consistent with mild chronic HFpEF #Type 2 diabetes mellitus -on 6 u lantus -Glucose checks and sliding scale insulin #DVT ppx: Lovenox renally dosed Kimberlyn Mcdonough MD Time spent in the patient's overall evaluation,decision-making process, review of diagnostic data, adjustment of management, discussion with other providers, nursing nursing and ancillary staff involved in patient's care documentation, 32 minutes Charges/Coding Visit Charges Inpatient E&M: 54931 Subs Hosp L2
[2022-04-07 16:25] LABS: Bedside Glucose 166 mg/dL (74-106)
[2022-04-07] MEDS: guaiFENesin 10 ML UDC (200MG/10ML) PO (17:42)
[2022-04-07] MEDS: Ipratropium/Albuterol Sulfate 3 ML AMPUL.NEB INHALATION (22:57)
[2022-04-08] VITALS (11 sets, daily range): BP systolic 84–102; BP diastolic 43–70; PULSE 78–90; RESP 12–22; TEMP 36.4–36.9; O2SAT 94–100; BMI 46.5
[2022-04-08 00:15] LABS: Bedside Glucose 140 mg/dL (74-106)
--- NOTE | 2022-04-08 03:00 | NURSING ---
took over care of patient from EMELYN Devine at 0300
[2022-04-08 05:51] LABS: Absolute Lymphocyte Count 0.89 X10^3/uL (0.83-4.51); Absolute Neutrophil Count 6.9 X10^3/uL (2.0-7.7); Basophil# 0.01 X10^3/uL; Basophil% 0.1 % (0-1); Eosinophil# 0.04 X10^3/uL; Eosinophils% 0.5 % (0-5); Hematocrit 25.5 % (40-54); Hemoglobin 8.2 g/dL (13.0-16.5); Lymphocyte # 0.89 X10^3/ul (0.83-4.51); Lymphocyte % 10.6 % (19-41); Mean Corp Hgb Conc 32.2 g/dL (32-36); Mean Corpuscular Hgb 30.1 pg (27.0-32.0); Mean Corpuscular Volume 93.8 fL (80-94); Mean Platelet Vol. 11.7 fl (6.2-12.0); Monocyte% 5.9 % (0-10); NRBC Flagged by Analyzer 0 % (0-5); Neutrophil # 6.91 X10^3/uL (2.7-7.7); Neutrophil % 82.2 % (47-70); Platelet Count 335 K/mm3 (150-450); RBC Distribution Width CV 16.4 % (11.6-14.6); RBC Distribution Width SD 55.7 fl (35.1-43.9); Red Blood Count 2.72 M/mm3 (4.6-6.2); White Blood Count 8.4 K/mm3 (4.4-11.0)
[2022-04-08 06:34] LABS: Anion Gap 8 (5-15); BUN 109 mg/dL (7-18); BUN/Creat Ratio 44.9 RATIO (10-20); Calcium,Total 8.9 mg/dL (8.5-10.1); Chloride 109 mmol/L (98-107); Creatinine, Serum 2.43 mg/dL (0.70-1.30); EST Glomerular Filtration Rate 27 mL/min (>60); Est Glom Filt Rate - Afr Amer 33 mL/min (>60); Estimated Creatinine Clearance 20.39 ml/min; Glucose 138 mg/dL (74-106); Potassium 4.2 mmol/L (3.5-5.1); Sodium Level 139 mmol/L (136-145)
[2022-04-08] MEDS: Insulin Glargine-YFGN 100 UNIT/ML Pen 6 UNIT SC (06:54)
[2022-04-08 07:25] LABS: Bedside Glucose 126 mg/dL (74-106)
[2022-04-08] MEDS: Mupirocin Ointment 22gm Tube 1 APPLIC TOPICAL (08:00)
[2022-04-08] MEDS: Cholecalciferol (VIT D3) 25 MCG TABLET (1,000 UNITS) PO (08:01)
[2022-04-08] MEDS: Pramipexole Di-HCl 1 MG Tablet PO (08:01)
[2022-04-08] MEDS: Allopurinol 100 MG Tablet PO ×2 (08:01→16:28)
[2022-04-08] MEDS: Aspirin E.C. 81 MG Tablet PO (08:01)
[2022-04-08] MEDS: Ascorbic Acid 500 MG Tablet PO (08:01)
[2022-04-08] MEDS: predniSONE 20 MG Tablet 40 MG PO (08:01)
[2022-04-08] MEDS: Finasteride 5 MG Tablet PO (08:01)
[2022-04-08] MEDS: Tamsulosin HCl 0.4 MG Capsule PO (08:01)
[2022-04-08] MEDS: Clopidogrel Bisulfate 75 MG Tablet PO (08:01)
[2022-04-08] MEDS: Enoxaparin 30 MG/0.3 ML Syringe SC (08:02)
[2022-04-08] MEDS: Acetaminophen 325 MG Tablet 650 MG PO ×2 (08:04→15:21)
[2022-04-08] MEDS: Senna/Docusate Sodium 1 Tablet 2 TABLET PO (08:04)
--- NOTE | 2022-04-08 09:07 | CASEMGMT ---
TREVER received a voice mail from patient's daughter, Linda. Linda asked if patient could go to [facility] instead of [facility]. TREVER sent referral to [facility] via [facility]. Abbie SANTIAGO
[2022-04-08 10:30] LABS: Allen Test Positive; Base Excess -4 mmol/L (-2 to +2); Blood Gas Specimen Type ART; O2 Delivery Device Room Air; PO2 79 mmHG (75-100); SITE L Radial; SO2 95 % (95-99); Total Carbon Dioxide 22 mmol/L; pCO2 35.9 mmHg (35-45); pH 7.38 (7.35-7.45)
--- NOTE | 2022-04-08 10:31 | CASEMGMT ---
[facility] accepted patient. TREVER called patient's daughter Linda and left her a voice mail letting her know patient was accepted at [facility]. Abbie Green MATERIALS AND PROCESSES MANAGER JACK
--- NOTE | 2022-04-08 11:07 | CASEMGMT ---
TREVER received a call from patient's daughter Linda and she confirmed they want [facility] for patient. TREVER asked if she was still planning on transporting patient and she said she is not able to. Linda told TREVER to go ahead and set up transport when patient is ready. TREVER notified Shantel at [facility] patient is now going to [facility]. Plan: d/c to [facility] pending patient being medically ready. Abbie SANTIAGO
[2022-04-08] MEDS: Insulin Lispro 100 UNIT/ML INSULN.PEN SC ×2 (11:15→16:26)
[2022-04-08] MEDS: Ferrous Sulfate 325 MG Tablet PO (11:16)
[2022-04-08 11:40] LABS: Bedside Glucose 177 mg/dL (74-106)
--- NOTE | 2022-04-08 14:27 | PCM.PN.REN ---
Subjective Subjective no new complaints Objective Data Objective Data Vital Signs: Vital Signs Temp Pulse Resp BP Pulse Ox O2 Del Method FiO2 97.5 F L 80 20 H 102/46 L 96 Room Air 25 04/08/22 13:51 04/08/22 13:51 04/08/22 13:51 04/08/22 13:51 04/08/22 13:51 04/08/22 13:51 04/08/22 00:00 Oxygen Delivery Method Room Air Weight: 126.9 kg Body Mass Index (BMI) 46.5 Intake & Output: Intake and Output for Last 24 Hours 04/06/22 04/07/22 04/08/22 23:59 23:59 23:59 Intake Total 1080 / 1180 1000 / 1000 420 / 420 Output Total 200 / 200 Balance 1080 / 1180 1000 / 1000 220 / 220 Lab / Micro Data Result Diagrams: 04/08/22 05:34 04/08/22 05:34 Labs: Laboratory Results - last 24 hr 04/07/22 15:55: POC Glucose 166 H 04/07/22 23:00: POC Glucose 140 H 04/08/22 05:34: WBC 8.4, RBC 2.72 L, Hgb 8.2 L, Hct 25.5 L, MCV 93.8, MCH 30.1, MCHC 32.2, RDW Std Deviation 55.7 H, RDW Coeff of [place]ade 16.4 H, Plt Count 335, MPV 11.7, Immature Gran % (Auto) 0.700, Neut % (Auto) 82.2 H, Lymph % (Auto) 10.6 L, [place] % (Auto) 5.9, Eos % (Auto) 0.5, Baso % (Auto) 0.1, Absolute Neuts (auto) 6.9, Absolute Lymphs (auto) 0.89, Nucleated RBC % 0 04/08/22 05:34: Sodium 139, Potassium 4.2, Chloride 109 H, Carbon Dioxide 22.0, Anion Gap 8, BUN 109 H*, Creatinine 2.43 H, Estim Creat Clear Calc 20.39, Est GFR (MDRD) Af Amer 33 L, Est GFR (MDRD) Non-Af 27 L, BUN/Creatinine Ratio 44.9 H, Glucose 138 H, Calcium 8.9 04/08/22 06:52: POC Glucose 126 H 04/08/22 11:14: POC Glucose 177 H Micro: Microbiology 04/05/22 21:00 Urine, Clean Catch Urine Culture - Final Culture exhibits no growth. ABG Data ABG results: ABG 04/08/22 10:25 Specimen Type ART Sample Site L Radial pH 7.38 Bicarbonate Actual 21.0 L Total CO2 22 Base Excess -4 L O2 Saturation 95 ABG pCO2 35.9 ABG pO2 79 [place] Test Positive O2 Delivery Device Room Air Physical Exam Narrative Alert awake oriented x 3 no obvious distress no pallor no icterus no JVD s1s2 no murmurs lungs wheezing abdomen soft no organomegaly no edema no cyanosis Assessment & Plan Assessment/Plan (1) LAKHWINDER (acute kidney injury): PLAN: Prior to this admission, his baseline creatinine is between 1.2-1.4. His creatinine was around 1.5-1.7 initially. He did get a CTA on 04/01/2022, coronary angiogram with angioplasty on 04/02/2022. Renal ultrasound without any hydronephrosis Urine analysis looks benign Blood pressure is acceptable. No other nephrotoxic medications on his medication list. ? ATN due to contrast exposure ? Cholesterol emboli Creatinine is improving. BUN continues to go highlike. likely related to steroids. No further workup since creatinine is improving. He has no history of congestive heart failure. Resume Lasix 40 mg at the time of discharge. He can be discharged from nephrology standpoint.
--- NOTE | 2022-04-08 14:32 | PCM.TXEXTCAR ---
Diet Diet Order/Speech Therapy: 04/02/22 14:57 Diet: Cardiac - Heart Healthy Food consistency:: Regular Liquid Consistency:: Regular/Thin Is pt able to select menu?: Yes Routine Orders/Code Status Suppository Type: Dulcolax 10mg Suppository Frequency: Daily PRN Routine Lab Work: BMP (In 1-2 days) and - (Magnesium) Code Status: DNRCC-A Wound(s) right knee: Wound Type: Surgical Incision Dressing Change: Mepilex AG applied RIGHT WRIST: Wound Type: Puncture Therapies Physical Therapy: Eval and Treat Occupational Therapy: Eval and Treat Problem/Diagnosis (1) LAKHWINDER (acute kidney injury): Status: Acute Code(s): N17.9 - Acute kidney failure, unspecified Plan #LAKHWINDER on CKD III unkonwn subtype and elevated BUN #NSTEMI type I/CAD s/p PCI #Mild aortic stenosis #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 Had recent right total knee replacement on 03/27 in [facility] and was doing outpatient physical therapy. Does have history of aortic stenosis and follows with Dr. Mckeon as an outpatient. In the ED heart rate 100 mildly tachypneic at 23 with no hypoxia, BP was normal. Did have some subtle ST depressions in V4 through V6 with low voltage and troponin was elevated. Started on heparin drip and admitted. He had a heart cath on 04/02 and had PCI to LAD and was started on aspirin, statin, Plavix. Additionally he had some difficulty with his breathing and was placed on nebs and prednisone with some improvement. Did have hospital stay complicated by LAKHWINDER and was evaluated by nephrology, Lasix had been held and creatinine began to improve though BUN remained elevated, discussed with nephrology and was felt this was due to steroids and that his Lasix can be resumed and outpatient follow-up could be arranged. Discharge instructions as followed: -During this hospital admission you had a stent placed and will be discharged on aspirin 81 mg, Plavix, beta-denice, and a statin -You will need follow-up with cardiology upon discharge, contact information provided -You did also have decrease in your kidney function which has begun to get better but you will need lab work (BMP) in 1 to 2 days to verify continued improvement and to follow-up with nephrology on an outpatient basis in 3 to 4 weeks, contact information provided -You will need to call upon transfer to reschedule your hospital follow-up appointment with your orthopedic doctor, Dr. Ghassan Baez in [facility]. -Your jamia were removed 04/08 at the suggestion of your orthopedic doctors office, continue local wound care -You will need to continue Lovenox for DVT prophylaxis His Lovenox was decreased to 30 mg daily subcu due to his kidney function, if repeat BMP shows continued improvement in his creatinine/creatinine clearance will need to increase this to 40 twice daily. Attempted to call his orthopedic doctors office prior to discharge to confirm length of DVT prophylaxis recommended but the office is presently closed, will defer duration of DVT prophylaxis to his outpatient provider. -Your candesartan has been held due to your decreased kidney function, please hold this until kidneys improve further -You will need prednisone for 2 more days and can continue nebulizers and as needed albuterol -Please call your primary care provider's office upon discharge to schedule a hospital follow up within 1 week. -For any concerning signs or symptoms please call 911 or proceed to the nearest emergency department Allergies/Procedures Done in Hospital Allergies atorvastatin [From Lipitor] Adverse Reaction (Intermediate, Verified 04/01/22 10:07) myalgias Procedures: - (Renal US, cardiac catheterization, CTA chest, echo) Type of Care/Length of Stay Estimated LOS: Convalescent Care Less Than 30 days Type of Care Needed: Skilled Rehab Potential: Good Prognosis: Good Additional Orders/Day of Discharge Day of Discharge: 04/08/22 Dietary and Speech Recommendations Dietitian Recommendations/Changes: Continue Cardiac diet to manage medical conditions. Discharge Plan Admission Admit Date/Time: 04/01/22 13:17 Primary Reason for Your Visit: chest pain Attending Provider: Kimberlyn Mcdonough Primary Care Provider: Blair Alexandra Consulting Providers: Remberto Esquivel ; Nam Cooper ; Dominga Ardon ; Chari Oliver Instructions Patient Instructions: CAD Additional Instructions / Restrictions: DISCHARGE INSTRUCTIONS PLEASE READ *Please take this with you to your next doctors appointment* -During this hospital admission you had a stent placed and will be discharged on aspirin 81 mg, Plavix, beta-denice, and a statin -You will need follow-up with cardiology upon discharge, contact information provided -You did also have decrease in your kidney function which has begun to get better but you will need lab work (BMP) in 1 to 2 days to verify continued improvement and to follow-up with nephrology on an outpatient basis in 3 to 4 weeks, contact information provided -You will need to call upon transfer to reschedule your hospital follow-up appointment with your orthopedic doctor, Dr. Ghassan Baez in [facility]. -Your jamia were removed 04/08 at the suggestion of your orthopedic doctors office, continue local wound care -You will need to continue Lovenox for DVT prophylaxis His Lovenox was decreased to 30 mg daily subcu due to his kidney function, if repeat BMP shows continued improvement in his creatinine/creatinine clearance will need to increase this to 40 twice daily. Attempted to call his orthopedic doctors office prior to discharge to confirm length of DVT prophylaxis recommended but the office is presently closed, will defer duration of DVT prophylaxis to his outpatient provider. -Your candesartan has been held due to your decreased kidney function, please hold this until kidneys improve further -You will need prednisone for 2 more days and can continue nebulizers and as needed albuterol -Please call your primary care provider's office upon discharge to schedule a hospital follow up within 1 week. -For any concerning signs or symptoms please call 911 or proceed to the nearest emergency department Discharge Orders/Prescriptions Prescriptions: New aspirin 81 mg Tablet,Delayed Release (Dr/Ec) 81 mg PO BREAKFAST Qty: 0 0RF ipratropium-albuterol 0.5 mg-3 mg(2.5 mg base)/3 mL Solution For Nebulization 3 ml inhalation Q4H PRN (Reason: SOB/WHEEZING) Qty: 180 0RF prednisone 20 mg Tablet 40 mg PO BREAKFAST 2 Days Qty: 4 0RF clopidogrel 75 mg Tablet 75 mg PO DAILY Qty: 30 0RF tamsulosin 0.4 mg Capsule 0.4 mg PO DAILY Qty: 30 0RF mupirocin 2 % Ointment 1 applic topical BID Qty: 22 0RF Protocol: *Topical Application Instructions APPLICATION INSTRUCTIONS: apply to either side of right knee drsg. insulin lispro [Humalog KwikPen Insulin] 100 unit/mL Insulin Pen See Protocol subcut ACHS Qty: 0 0RF Protocol: 4. Sliding Scale Insulin High-Med Dosing Condition: 150-199 mg/dl = 2 units Condition: 200-259 mg/dl = 4 units Condition: 260-324 mg/dl = 6 units Condition: 325-374 mg/dl = 8 units Condition: 375-409 mg/dl = 10 units Condition: 410-449 mg/dl = 11 units Condition: Greater than 449 call physician Protocol Text: - Use for Total Daily Dose of Insulin 56-80 units - Patient who are insulin resistant or septic HIGH MEDIUM DOSING ALGORITHM metoprolol tartrate 25 mg Tablet 12.5 mg PO BID Qty: 30 0RF enoxaparin 30 mg/0.3 mL Syringe 30 mg subcut DAILY Qty: 0 0RF Continued furosemide 40 mg tablet 20 mg PO QPM ropinirole 4 mg tablet 2 mg PO BID (DME) flash glucose sensor Kit See Rx Instructions .ROUTE .MEDSUPPLY Qty: 1 Rx Instructions: As directed (DME) flash glucose scanning reader Misc See Rx Instructions .ROUTE .MEDSUPPLY Qty: 1 Rx Instructions: As directed cholecalciferol (vitamin D3) 25 mcg (1,000 unit) capsule 25 mcg PO DAILY allopurinol 100 mg tablet 100 mg PO BID simvastatin 40 MG tablet 40 mg PO DAILY ascorbic acid (vitamin C) 500 mg Tablet 500 mg PO DAILY ferrous sulfate 325 mg (65 mg iron) Tablet 325 mg PO DAILY finasteride 5 mg Tablet 5 mg PO DAILY insulin glargine [Lantus Solostar U-100 Insulin] 100 unit/mL (3 mL) Insulin Pen 6 unit SUBCUT DAILY Discontinued candesartan 16 mg tablet 16 mg PO QHS aspirin 325 mg Capsule 325 mg PO BID No Action oxycodone-acetaminophen 5-325 mg tablet 1 tab PO Q6H PRN PRN (Reason: Pain) Label Comments: Take 1 tablet by mouth every six hours as needed for pain For Post Op Pain Starting on 03/27/2022 Referrals / Follow Up: Avi Mckeon MD [Med Staff - Active Staff] - See Referral Note (Please call to schedule hospital cardiology follow-up upon discharge) Ghassan Baez DO [Non-Staff] - Within 1 Week Blair Alexandra MD [Primary Care Provider] - Within 1 Week Dominga Ardon MD [Med Staff - Consulting] - See Referral Note (Follow-up in 3 to 4 weeks with nephrology) Disposition Disposition (needs filled in before D/C Order can be placed[facility]
--- NOTE | 2022-04-08 15:15 | CASEMGMT ---
Patient is ready for discharge to [facility]. TREVER notified Dominique at [facility]. Dominique asked that transport be set up for after 5p. TREVER called [facility] and arranged for patient to get picked up at 6p via wheelchair van. Await orders and COVID test. Abbie Green POULTRYMAN JACK
[2022-04-08] MEDS: guaiFENesin 10 ML UDC (200MG/10ML) PO (15:23)
--- NOTE | 2022-04-08 16:33 | PHA.DC.MR ---
Pharmacy Service has performed discharge medication reconciliation for this patient. The patient's discharge medication list was reviewed for discrepancies and discrepancies were resolved. Home Medications simvastatin 40 mg tablet 40 mg PO DAILY cholesterol 04/06/16 flash glucose scanning reader #1 ea 09/04/20 flash glucose sensor #1 ea 09/04/20 allopurinol 100 mg tablet 100 mg PO BID gout 10/17/21 cholecalciferol (vitamin D3) 25 mcg (1,000 unit) capsule 25 mcg PO DAILY supplement 10/17/21 furosemide 40 mg tablet 20 mg PO QPM water pill 10/17/21 ropinirole 4 mg tablet 2 mg PO BID PD 10/17/21 ascorbic acid (vitamin C) 500 mg tablet 500 mg PO DAILY supplement 04/01/22 ferrous sulfate 325 mg (65 mg iron) tablet 325 mg PO DAILY supplement 04/01/22 finasteride 5 mg tablet 5 mg PO DAILY prostate 04/01/22 insulin glargine 100 unit/mL (3 mL) subcutaneous pen (Lantus Solostar U-100 Insulin) 6 unit subcut DAILY blood sugar 04/01/22 oxycodone-acetaminophen 5 mg-325 mg tablet 1 tab PO Q6H PRN PRN Pain 04/01/22 aspirin 81 mg tablet,delayed release 81 mg PO BREAKFAST #0 tabs 04/08/22 clopidogrel 75 mg tablet 75 mg PO DAILY #30 tabs 04/08/22 enoxaparin 30 mg/0.3 mL subcutaneous syringe 30 mg (0.3 mL) subcut DAILY #0 mL 04/08/22 insulin lispro 100 unit/mL subcutaneous pen (Humalog KwikPen (U-100) Insulin) See Protocol subcut ACHS #0 mL 04/08/22 ipratropium 0.5 mg-albuterol 3 mg (2.5 mg base)/3 mL nebulization soln 3 ml inhalation Q4H PRN SOB/WHEEZING #180 mL 04/08/22 metoprolol tartrate 25 mg tablet 12.5 mg PO BID #30 tabs 04/08/22 mupirocin 2 % topical ointment 1 applic topical BID #22 grams 04/08/22 prednisone 20 mg tablet 40 mg PO BREAKFAST 2 days #4 tabs 04/08/22 tamsulosin 0.4 mg capsule 0.4 mg PO DAILY #30 caps 04/08/22
--- NOTE | 2022-04-08 16:42 | PCM.DC.SUM ---
Providers Date of Admission: 04/01/22 Date of Discharge: 04/08/22 Primary Care Physician: Dr. Blair Alexandra MD Consultations 04/01/22 14:34 Consult: Cardiology Routine Consulting Provider: Remberto Esquivel Reason for Consult: Chest Pain/NSTEMI EMERGENT Consult: No Notified: Yes Date Notified: 04/01/22 Time Notified: 13:21 Method of Notification: ED Physician Initiated 04/01/22 18:57 Consult: Onc/Wound/nursing education specialist Routine Comment: 04/05/22 18:28 Consult: Nephrology Routine Consulting Provider: Dominga Ardon Reason for Consult: LAKHWINDER on CKD EMERGENT Consult: No Notified: Yes Date Notified: 04/05/22 Time Notified: 18:28 Method of Notification: Text Reason For Visit: NSTEMI Diagnosis Discharge Diagnosis (1) LAKHWINDER (acute kidney injury): Status: Acute Code(s): N17.9 - Acute kidney failure, unspecified Plan #LAKHWINDER on CKD III unkonwn subtype and elevated BUN #NSTEMI type I/CAD s/p PCI #Mild aortic stenosis #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 #Type 2 diabetes mellitus Medications at Discharge Home Medications simvastatin 40 mg tablet 40 mg PO DAILY cholesterol 04/06/16 flash glucose scanning reader #1 ea 09/04/20 flash glucose sensor #1 ea 09/04/20 allopurinol 100 mg tablet 100 mg PO BID gout 10/17/21 cholecalciferol (vitamin D3) 25 mcg (1,000 unit) capsule 25 mcg PO DAILY supplement 10/17/21 furosemide 40 mg tablet 20 mg PO QPM water pill 10/17/21 ropinirole 4 mg tablet 2 mg PO BID PD 10/17/21 ascorbic acid (vitamin C) 500 mg tablet 500 mg PO DAILY supplement 04/01/22 ferrous sulfate 325 mg (65 mg iron) tablet 325 mg PO DAILY supplement 04/01/22 finasteride 5 mg tablet 5 mg PO DAILY prostate 04/01/22 insulin glargine 100 unit/mL (3 mL) subcutaneous pen (Lantus Solostar U-100 Insulin) 6 unit subcut DAILY blood sugar 04/01/22 oxycodone-acetaminophen 5 mg-325 mg tablet 1 tab PO Q6H PRN PRN Pain 04/01/22 aspirin 81 mg tablet,delayed release 81 mg PO BREAKFAST #0 tabs 04/08/22 clopidogrel 75 mg tablet 75 mg PO DAILY #30 tabs 04/08/22 enoxaparin 30 mg/0.3 mL subcutaneous syringe 30 mg (0.3 mL) subcut DAILY #0 mL 04/08/22 insulin lispro 100 unit/mL subcutaneous pen (Humalog KwikPen (U-100) Insulin) See Protocol subcut ACHS #0 mL 04/08/22 ipratropium 0.5 mg-albuterol 3 mg (2.5 mg base)/3 mL nebulization soln 3 ml inhalation Q4H PRN SOB/WHEEZING #180 mL 04/08/22 metoprolol tartrate 25 mg tablet 12.5 mg PO BID #30 tabs 04/08/22 mupirocin 2 % topical ointment 1 applic topical BID #22 grams 04/08/22 prednisone 20 mg tablet 40 mg PO BREAKFAST 2 days #4 tabs 04/08/22 tamsulosin 0.4 mg capsule 0.4 mg PO DAILY #30 caps 04/08/22 Hospital Course Procedures - (Heart catheterization, echocardiogram, CTA, renal ultrasound) Summary of Care Provided Minutes Spent on Discharge: 40 Hospital Course: 81-year-old male history of arthritis, hypertension, gout, type 2 diabetes who presented to [facility] 04/01 with chest pain. Had recent right total knee replacement on 03/27 in [facility] and was doing outpatient physical therapy. Does have history of aortic stenosis and follows with Dr. Mckeon as an outpatient. In the ED heart rate 100 mildly tachypneic at 23 with no hypoxia, BP was normal. Did have some subtle ST depressions in V4 through V6 with low voltage and troponin was elevated. Started on heparin drip and admitted. He had a heart cath on 04/02 and had PCI to LAD and was started on aspirin, statin, Plavix. Additionally he had some difficulty with his breathing and was placed on nebs and prednisone with some improvement. Did have hospital stay complicated by LAKHWINDER and was evaluated by nephrology, Lasix had been held and creatinine began to improve though BUN remained elevated, discussed with nephrology and was felt this was due to steroids and that his Lasix can be resumed and outpatient follow-up could be arranged. On day of discharge he reported breathing was roughly the same, no chest pain, reports eating and urinating well. Discharge instructions as followed: -During this hospital admission you had a stent placed and will be discharged on aspirin 81 mg, Plavix, beta-ahmet, and a statin -You will need follow-up with cardiology upon discharge, contact information provided -You did also have decrease in your kidney function which has begun to get better but you will need lab work (BMP) in 1 to 2 days to verify continued improvement and to follow-up with nephrology on an outpatient basis in 3 to 4 weeks, contact information provided -You will need to call upon transfer to reschedule your hospital follow-up appointment with your orthopedic doctor, Dr. Ghassan Baez in [facility]. -Your jamia were removed 04/08 at the suggestion of your orthopedic doctors office, continue local wound care -You will need to continue Lovenox for DVT prophylaxis His Lovenox was decreased to 30 mg daily subcu due to his kidney function, if repeat BMP shows continued improvement in his creatinine/creatinine clearance will need to increase this to 40 twice daily. Attempted to call his orthopedic doctors office prior to discharge to confirm length of DVT prophylaxis recommended but the office is presently closed, will defer duration of DVT prophylaxis to his outpatient provider. -Your candesartan has been held due to your decreased kidney function, please hold this until kidneys improve further -You will need prednisone for 2 more days and can continue nebulizers and as needed albuterol -Please call your primary care provider's office upon discharge to schedule a hospital follow up within 1 week. -For any concerning signs or symptoms please call 911 or proceed to the nearest emergency department Physical Exam Narrative General: Alert, oriented, no apparent distress HEENT: Atraumatic, normocephalic Eyes: Anicteric, normal conjunctiva, extraocular movements grossly intact Neck: Supple Respiratory: Scattered wheezes Cardiovascular: Regular rate and rhythm GI: Soft, nontender, nondistended Extremities: No edema Musculoskeletal: Moving all extremities Neuro: No overt focal neurological deficits Skin: No rashes appreciated Psych: Cooperative Weight / BMI Weight Weight: 126.9 kg Body Mass Index (BMI) 46.5 ABG / Lab / Microbiology Data Result Diagrams: 04/08/22 05:34 04/08/22 05:34 Laboratory: Laboratory Results - last 24 hr 04/07/22 23:00: POC Glucose 140 H 04/08/22 05:34: WBC 8.4, RBC 2.72 L, Hgb 8.2 L, Hct 25.5 L, MCV 93.8, MCH 30.1, MCHC 32.2, RDW Std Deviation 55.7 H, RDW Coeff of Shade 16.4 H, Plt Count 335, MPV 11.7, Immature Gran % (Auto) 0.700, Neut % (Auto) 82.2 H, Lymph % (Auto) 10.6 L, Scurry % (Auto) 5.9, Eos % (Auto) 0.5, Baso % (Auto) 0.1, Absolute Neuts (auto) 6.9, Absolute Lymphs (auto) 0.89, Nucleated RBC % 0 04/08/22 05:34: Sodium 139, Potassium 4.2, Chloride 109 H, Carbon Dioxide 22.0, Anion Gap 8, BUN 109 H*, Creatinine 2.43 H, Estim Creat Clear Calc 20.39, Est GFR (MDRD) Af Amer 33 L, Est GFR (MDRD) Non-Af 27 L, BUN/Creatinine Ratio 44.9 H, Glucose 138 H, Calcium 8.9 04/08/22 06:52: POC Glucose 126 H 04/08/22 11:14: POC Glucose 177 H Microbiology: Microbiology 04/08/22 15:09 Nasal Secretion SARS-CoV-2 Antigen (Rapid) - Final 04/05/22 21:00 Urine, Clean Catch Urine Culture - Final Culture exhibits no growth. ABG: ABG 04/08/22 10:25 Specimen Type ART Sample Site L Radial pH 7.38 Bicarbonate Actual 21.0 L Total CO2 22 Base Excess -4 L O2 Saturation 95 ABG pCO2 35.9 ABG pO2 79 [place] Test Positive O2 Delivery Device Room Air D/C Instructions Discharge Diet: 2000 Calorie Control Diet and - (DASH diet) Meaningful Use Info Meaningful Use Diagnoses (Choose all that apply): AMI AMI/Post PCI/Angioplasty Aspirin given w/in 24hrs of arrival?: Yes ASA at discharge?: Yes Antiplatelet Therapy at Discharge:: Yes Statins at discharge?: Yes Suraj/ARB at discharge?: No Reason Suraj/ARB not ordered:: Hypotension Beta Ahmet at discharge?: Yes Done w/ Acute AK measure.: Yes Documented LVEF (%): 50 Discharge Plan Admission Admit Date/Time: 04/01/22 13:17 Primary Reason for Your Visit: chest pain Attending Provider: Kimberlyn Mcdonough Primary Care Provider: Blair Alexandra Consulting Providers: Remberto Esquivel ; Nam Cooper ; Dominga Ardon ; Chari Oliver Instructions Patient Instructions: CAD Additional Instructions / Restrictions: DISCHARGE INSTRUCTIONS PLEASE READ *Please take this with you to your next doctors appointment* -During this hospital admission you had a stent placed and will be discharged on aspirin 81 mg, Plavix, beta-ahmet, and a statin -You will need follow-up with cardiology upon discharge, contact information provided -You did also have decrease in your kidney function which has begun to get better but you will need lab work (BMP) in 1 to 2 days to verify continued improvement and to follow-up with nephrology on an outpatient basis in 3 to 4 weeks, contact information provided -You will need to call upon transfer to reschedule your hospital follow-up appointment with your orthopedic doctor, Dr. Ghassan Baez in [facility]. -Your jamia were removed 04/08 at the suggestion of your orthopedic doctors office, continue local wound care -You will need to continue Lovenox for DVT prophylaxis His Lovenox was decreased to 30 mg daily subcu due to his kidney function, if repeat BMP shows continued improvement in his creatinine/creatinine clearance will need to increase this to 40 twice daily. Attempted to call his orthopedic doctors office prior to discharge to confirm length of DVT prophylaxis recommended but the office is presently closed, will defer duration of DVT prophylaxis to his outpatient provider. -Your candesartan has been held due to your decreased kidney function, please hold this until kidneys improve further -You will need prednisone for 2 more days and can continue nebulizers and as needed albuterol -Please call your primary care provider's office upon discharge to schedule a hospital follow up within 1 week. -For any concerning signs or symptoms please call 911 or proceed to the nearest emergency department Discharge Orders/Prescriptions Prescriptions: New aspirin 81 mg Tablet,Delayed Release (Dr/Ec) 81 mg PO BREAKFAST Qty: 0 0RF ipratropium-albuterol 0.5 mg-3 mg(2.5 mg base)/3 mL Solution For Nebulization 3 ml inhalation Q4H PRN (Reason: SOB/WHEEZING) Qty: 180 0RF prednisone 20 mg Tablet 40 mg PO BREAKFAST 2 Days Qty: 4 0RF clopidogrel 75 mg Tablet 75 mg PO DAILY Qty: 30 0RF tamsulosin 0.4 mg Capsule 0.4 mg PO DAILY Qty: 30 0RF mupirocin 2 % Ointment 1 applic topical BID Qty: 22 0RF Protocol: *Topical Application Instructions APPLICATION INSTRUCTIONS: apply to either side of right knee drsg. insulin lispro [Humalog KwikPen Insulin] 100 unit/mL Insulin Pen See Protocol subcut ACHS Qty: 0 0RF Protocol: 4. Sliding Scale Insulin High-Med Dosing Condition: 150-199 mg/dl = 2 units Condition: 200-259 mg/dl = 4 units Condition: 260-324 mg/dl = 6 units Condition: 325-374 mg/dl = 8 units Condition: 375-409 mg/dl = 10 units Condition: 410-449 mg/dl = 11 units Condition: Greater than 449 call physician Protocol Text: - Use for Total Daily Dose of Insulin 56-80 units - Patient who are insulin resistant or septic HIGH MEDIUM DOSING ALGORITHM metoprolol tartrate 25 mg Tablet 12.5 mg PO BID Qty: 30 0RF enoxaparin 30 mg/0.3 mL Syringe 30 mg subcut DAILY Qty: 0 0RF Continued furosemide 40 mg tablet 20 mg PO QPM ropinirole 4 mg tablet 2 mg PO BID (DME) flash glucose sensor Kit See Rx Instructions .ROUTE .MEDSUPPLY Qty: 1 Rx Instructions: As directed (DME) flash glucose scanning reader [facility] See Rx Instructions .ROUTE .MEDSUPPLY Qty: 1 Rx Instructions: As directed cholecalciferol (vitamin D3) 25 mcg (1,000 unit) capsule 25 mcg PO DAILY allopurinol 100 mg tablet 100 mg PO BID simvastatin 40 MG tablet 40 mg PO DAILY ascorbic acid (vitamin C) 500 mg Tablet 500 mg PO DAILY ferrous sulfate 325 mg (65 mg iron) Tablet 325 mg PO DAILY finasteride 5 mg Tablet 5 mg PO DAILY insulin glargine [Lantus Solostar U-100 Insulin] 100 unit/mL (3 mL) Insulin Pen 6 unit SUBCUT DAILY Discontinued candesartan 16 mg tablet 16 mg PO QHS aspirin 325 mg Capsule 325 mg PO BID No Action oxycodone-acetaminophen 5-325 mg tablet 1 tab PO Q6H PRN PRN (Reason: Pain) Label Comments: Take 1 tablet by mouth every six hours as needed for pain For Post Op Pain Starting on 03/27/2022 Referrals / Follow Up: Avi Mckeon MD [Med Staff - Active Staff] - See Referral Note (Please call to schedule hospital cardiology follow-up upon discharge) Ghassan Baez DO [Non-Staff] - Within 1 Week Blair Alexandra MD [Primary Care Provider] - Within 1 Week Dominga Ardon MD [Med Staff - Consulting] - See Referral Note (Follow-up in 3 to 4 weeks with nephrology) Disposition Disposition (needs filled in before D/C Order can be placed): [facility] Charges/Coding Visit Charges Inpatient E&M: 91736 Disch Hosp >30min
--- NOTE | 2022-04-08 16:47 | CASEMGMT ---
Orders sent to [facility] along with COVID test and rock picker time. [id number] completed in [facility]. Plan: d/c to [facility] under skilled level of care on a convalescent stay. Physicians transported via wheelchair van. Abbie Green GINNER JACK
[2022-04-08 16:55] LABS: Bedside Glucose 222 mg/dL (74-106)
--- NOTE | 2022-04-08 17:56 | NURSING ---
Report called to [facility] at 1745 to EMELYN Khan at this time.
== END 2022-04-08 21:06 | disposition skilled nursing facility (03) | DRG 246 ==
LOC: ED 13:26 → PCU 13:53
PROVIDERS: Family Medicine; Internal Medicine Cardiovascular Disease; Student in an Organized Health Care Education/Training Program; Admitting Provider Internal Medicine; Emergency Provider Emergency Medicine; PCP Family Medicine; Visit Provider Internal Medicine
DX: I21.4 Non-ST elevation (NSTEMI) myocardial infarction (principal); N17.0 Acute kidney failure with tubular necrosis; I13.0 Hypertensive heart and chronic kidney disease with heart failure and stage 1 through stage 4 chronic kidney disease, or unspecified chronic kidney disease; I50.32 Chronic diastolic (congestive) heart failure; Z68.42 Body mass index [BMI] 45.0-49.9, adult; E11.22 Type 2 diabetes mellitus with diabetic chronic kidney disease; E11.42 Type 2 diabetes mellitus with diabetic polyneuropathy; N18.30 Chronic kidney disease, stage 3 unspecified; E66.01 Morbid (severe) obesity due to excess calories; I25.110 Atherosclerotic heart disease of native coronary artery with unstable angina pectoris; N18.31 Chronic kidney disease, stage 3a; I35.0 Nonrheumatic aortic (valve) stenosis; E78.5 Hyperlipidemia, unspecified; G47.33 Obstructive sleep apnea (adult) (pediatric); R41.0 Disorientation, unspecified; T50.8X5A Adverse effect of diagnostic agents, initial encounter; Y92.239 Unspecified place in hospital as the place of occurrence of the external cause; Z66 Do not resuscitate; G89.18 Other acute postprocedural pain; Z79.1 Long term (current) use of non-steroidal anti-inflammatories (NSAID); Z79.82 Long term (current) use of aspirin; Z79.899 Other long term (current) drug therapy; Z87.891 Personal history of nicotine dependence; Z96.651 Presence of right artificial knee joint; Z95.5 Presence of coronary angioplasty implant and graft
CPT/HCPCS: 36415; 36600; 71045; 71275; 76770; 80048; 80053; 80061; 81001; 82570; 82803; 82962; 83735; 83880; 84100; 84145; 84443; 84484; 84540; 85025; 85027; 85347; 85379; 85610; 85730; 87086; 87426; 92928; 93005; 93306; 93454; 94002; 94003; 94640; 94668; 94762; 97110; 97116; 97162; 97166; 97530; 97535; 97803; 99152; 99153; 99252; 99284; C1769; J7030; Q9957; Q9967; A4216; C1725; C1874; C1887; C1894; C8929; C9600; G0463; J1940; J2405

== ENCOUNTER 2022-04-12 09:33 | Emergency (ER) | payer MEDICARE, BC, SELFPAY ==
[2022-04-12 09:33] VITALS: BP 140/56; PULSE 96; RESP 20; TEMP 36.4; O2SAT 100
[2022-04-12 09:35] VITALS: BMI 45.7
--- NOTE | 2022-04-12 09:47 | VDLE_ITS ---
Reason For Study: PAIN RIGHT GSV is normal. CFV is compressible, spontaneous, phasic, competent and demonstrates normal augmentation. FV is compressible, spontaneous, phasic, competent and demonstrates normal augmentation. POP V is compressible, spontaneous, phasic, competent and demonstrates normal augmentation. T/P Trunk is compressible. PTV is compressible. RT PerV is compressible. Procedure This is a venous duplex using B-mode, color flow and spectral Doppler. Exam performed portable in ED. The study was technically difficult. Due to body habitus. A preliminary report was called and/or faxed to ED. VL/Venous Duplex US, Unilateral Interpretation Summary There is no evidence of right lower extremity deep vein thrombosis. Right great saphenous vein appears patent and compressible segmentally. The exam was noted to be technical ly difficult secondary to body habitus Ordering Physician: Mundo Ledezma Referring Physician: Blair Alexandra Performed By: Renetta Wilcox, JUAN C, RVT
--- NOTE | 2022-04-12 09:48 | EDS_ITS ---
HPI History of Present Illness Chief Complaint: Wound Check Detail of Chief Complaint: Right leg swelling and redness Informant: patient and family Narrative Narrative: Patient presents to the emergency department complaint of pain and swelling to the right leg. Patient states that he was just discharged a few days ago to an extended care facility to rehab after having a right total knee replacement on March 27. Patient was told by nursing staff today that they thought he might have a cellulitis of the leg. Daughter states the pain is more swollen since yesterday. Patient's not had a fever or chills or sweats. Patient also had an NM after his surgery and apparently received 1 cardiac stent and this was done at [facility]. Patient denies any chest pain. Patient denies shortness of breath. [facility] Medical History (Updated 04/12/22 @ 12:[address] 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 GFR 30-59 Home Medications simvastatin 40 mg tablet 40 mg PO DAILY cholesterol 04/06/16 [History Last Taken Unknown] flash glucose scanning reader #1 ea 09/04/20 [History Last Taken Unknown] flash glucose sensor #1 ea 09/04/20 [History Last Taken Unknown] allopurinol 100 mg tablet 100 mg PO BID gout 10/17/21 [History Last Taken Unknown] cholecalciferol (vitamin D3) 25 mcg (1,000 unit) capsule 25 mcg PO DAILY supplement 10/17/21 [History Last Taken Unknown] furosemide 40 mg tablet 20 mg PO QPM water pill 10/17/21 [History Last Taken Unknown] ropinirole 4 mg tablet 2 mg PO BID PD 10/17/21 [History Last Taken Unknown] ascorbic acid (vitamin C) 500 mg tablet 500 mg PO DAILY supplement 04/01/22 [History Last Taken Unknown] ferrous sulfate 325 mg (65 mg iron) tablet 325 mg PO DAILY supplement 04/01/22 [History Last Taken Unknown] finasteride 5 mg tablet 5 mg PO DAILY prostate 04/01/22 [History Last Taken Unknown] insulin glargine 100 unit/mL (3 mL) subcutaneous pen (Lantus Solostar U-100 Insulin) 6 unit subcut DAILY blood sugar 04/01/22 [History Last Taken Unknown] oxycodone-acetaminophen 5 mg-325 mg tablet 1 tab PO Q6H PRN PRN Pain 04/01/22 [History Last Taken Unknown] aspirin 81 mg tablet,delayed release 81 mg PO BREAKFAST #0 tabs 04/08/22 [Rx Last Taken Unknown] clopidogrel 75 mg tablet 75 mg PO DAILY #30 tabs 04/08/22 [Rx Last Taken Unknown] enoxaparin 30 mg/0.3 mL subcutaneous syringe 30 mg (0.3 mL) subcut DAILY #0 mL 04/08/22 [Rx Last Taken Unknown] insulin lispro 100 unit/mL subcutaneous pen (Humalog KwikPen (U-100) Insulin) See Protocol subcut ACHS #0 mL 04/08/22 [Rx Last Taken Unknown] ipratropium 0.5 mg-albuterol 3 mg (2.5 mg base)/3 mL nebulization soln 3 ml inhalation Q4H PRN SOB/WHEEZING #180 mL 04/08/22 [Rx Last Taken Unknown] metoprolol tartrate 25 mg tablet 12.5 mg PO BID #30 tabs 04/08/22 [Rx Last Taken Unknown] mupirocin 2 % topical ointment 1 applic topical BID #22 grams 04/08/22 [Rx Last Taken Unknown] prednisone 20 mg tablet 40 mg PO BREAKFAST 2 days #4 tabs 04/08/22 [Rx Last Taken Unknown] tamsulosin 0.4 mg capsule 0.4 mg PO DAILY #30 caps 04/08/22 [Rx Last Taken Unknown] doxycycline monohydrate 100 mg capsule 100 mg PO BID #20 CAPSULES 04/12/22 [Rx Last Taken Unknown] sulfamethoxazole 800 mg-trimethoprim 160 mg tablet 1 tab PO BID #20 TABLETS 04/12/22 [Rx Last Taken Unknown] Allergy/AdvReac Type Severity Reaction Status Date / Time atorvastatin [From Lipitor] AdvReac Intermediate myalgias Verified 04/12/22 09:41 Family History Mother Diabetes Heart disease Hypertension High cholesterol Son Asthma Hypertension Father Colon cancer Skin cancer Cancer lung cancer Brother Heart disease CVA (cerebral vascular accident) Surgical History History of coronary artery stent placement (~04/02/22) History of facial fracture repair History of left hip replacement History of repair of pyloric stenosis History of skin cancer History of tonsillectomy Social History Smoking Status: Former smoker how long ago did patient quit smokin years ago alcohol intake: current alcohol intake frequency: holidays/special occasions only substance use type: does not use caffeine: Yes Type: carbonated beverages and coffee Number of servings: 2 ROS ROS ED Review of Systems ROS Unobtainable: other Constitutional Constitutional ED: Reports lethargy; Denies chills, fever(s), sweats or weight loss Eyes Eyes: Denies blurry vision, change in vision or diplopia ENT ENT ED: Denies rhinorrhea or sore throat Cardiovascular Cardiovascular: Denies chest pain, orthopnea or racing heartbeat Respiratory/Chest Respiratory/Chest: Denies cough, dyspnea, dyspnea on exertion, orthopnea or sputum Gastrointestinal Gastrointestinal: Denies abdominal pain, diarrhea, nausea or vomiting Genitourinary Genitourinary ED: Denies dysuria, hematuria or urinary frequency Musculoskeletal Musculoskeletal: Reports other Details: Right leg swelling, pain, erythema ; Denies arthralgias, back pain, myalgias or neck pain Integumentary Denies abscess, Abrasions or rash Neurologic Neurologic: Denies headache(s) or weakness Psychiatric Psychiatric: Denies anxiety, depression or suicidal thoughts Endocrine Endocrinology: Denies polydipsia, polyphagia or polyuria Hematologic/Lymphatic Hematologic/Lymphatic: Denies easy bleeding, easy bruising or lymphadenopathy Allergic/Immunologic Allergic/Immunologic ED: Denies mouth swelling, tongue swelling or urticaria EXAM Physical Exam Const Vital Signs: 04/12/22 09:33 Temperature 97.5 F L Temperature Source Temporal Pulse Rate 96 Respiratory Rate 20 H Blood Pressure 140/56 H Blood Pressure Mean 84 Pulse Ox 100 Oxygen Delivery Method Room Air Positive well nourished and well developed General Appearance ED: well developed and NAD HEENT Reports TM's clear and moist mucous membranes normocephalic and atraumatic; Negative for trauma or tenderness Tympanic Membrane ED: Yes TM's clear Eyes PERRL and EOMs intact bilaterally General Eye ED: Negative for pale conjunctiva or scleral icterus Neck no lymphadenopathy, supple and no JVD General: Negative for tenderness Chest Wall inspection of chest normal and palpation of chest normal Chest: Negative for tenderness Resp normal respiratory effort and clear to auscultation bilaterally Effort and Inspection: Negative for respiratory distress or pain with movement Auscultation: Negative for rhonchi, wheezes or diminished lung sounds Cardio regular rate, regular rhythm, S1 normal heart sound, S2 normal heart sound and no murmurs Peripheral Pulses: pulses 2+ throughout GI normal to inspection, nondistended, normoactive bowel sounds, soft to palpation, non-tender, non-distended and no masses Back/Spine no CVA tenderness and no thoracic nor lumbar tenderness Extremity Extremity Narrative: Right leg-patient does have diffuse edema from the right thigh down to the foot. There is a slight reddish discoloration to the leg. The incision to the anterior aspect of the knee looks well approximated without evidence of dehiscence and no purulent drainage. Patient does have some pain with range of motion at the knee. He is neurovascular intact distally. General Extremety ED: Negative for edema General Extremity: Negative for edema Neuro oriented x3, CN's II-XII intact bilaterally, no sensory deficits noted and gait normal Sensorium / Orientation: awake, alert, oriented to person, oriented to place and oriented to time Motor Exam: strength 5/5 throughout and strength abnormal Psych mental status grossly normal Skin no rashes or lesions noted and no wounds MDM MDM MDM Narrative Medical decision making narrative: IV line established on arrival. Lab work-up obtained showed a normal white count of 8.2. Sed rate was elevated at 38. Lactate was elevated 2.1. CRP was elevated 12.3. Chemistries unremarkable. Patient had a venous Doppler that was negative for DVT. In the differential would be cellulitis versus postop knee infection versus DVT which we ruled out with ultrasound. I did discuss case with patient's orthopedic surgeon Dr. Heredia who recommended that we start doxycycline and Bactrim for suspected cellulitis. The knee incision looks good and he has good range of motion flexion extension of the knee therefore my suspicion for a postop knee infection is low. I was asked by Dr. Heredia to order outpatient CBC, sed rate, and CRP for 1 week from now. Patient also was advised to follow-up with Dr. Heredia's partner in a week for repeat exam. I advised patient and family to return if fever, chills, sweats, or condition should worsen anyway. Lab Data Attestation: I reviewed the patient's lab results. Labs: Laboratory Results - last 24 hr 04/12/22 04/12/22 04/12/22 09:58 09:58 09:58 WBC 8.2 RBC 3.15 L Hgb 9.5 L Hct 29.9 L MCV 94.9 H MCH 30.2 MCHC 31.8 L RDW Std Deviation 58.4 H RDW Coeff of [place] 17.1 H Plt Count 316 MPV 12.0 Immature Gran % (Auto) 1.000 H Neut % (Auto) 73.7 H Lymph % (Auto) 12.4 L [place] % (Auto) 6.9 Eos % (Auto) 5.6 H Baso % (Auto) 0.4 Absolute Neuts (auto) 6.1 Absolute Lymphs (auto) 1.02 Nucleated RBC % 0.2 ESR 38 H Sodium 142 Potassium 4.1 Chloride 113 H Carbon Dioxide 24.0 Anion Gap 5 BUN 36 H Creatinine 1.49 H Est GFR (MDRD) Af Amer 58 L Est GFR (MDRD) Non-Af 48 L BUN/Creatinine Ratio 24.2 H Glucose 205 H Lactic Acid 2.1 H* Calcium 9.0 C-React Prot Ext Range 12.30 H Discharge Plan Triage Chief Complaint: Wound Check ED Provider: Mundo Ledezma Dx/Rx/DC Orders Clinical Impression: Cellulitis of leg, right Instructions: ED Cellulitis Prescriptions: New sulfamethoxazole-trimethoprim [sulfamethoxazole-trimethoprim] 800-160 mg t ablet 1 tab PO BID Qty: 20 0RF doxycycline monohydrate 100 mg capsule 100 mg PO BID Qty: 20 0RF No Action furosemide 40 mg tablet 20 mg PO QPM ropinirole 4 mg tablet 2 mg PO BID (DME) flash glucose sensor Kit See Rx Instructions .ROUTE .MEDSUPPLY Qty: 1 Rx Instructions: As directed (DME) flash glucose scanning reader Misc See Rx Instructions .ROUTE .MEDSUPPLY Qty: 1 Rx Instructions: As directed cholecalciferol (vitamin D3) 25 mcg (1,000 unit) capsule 25 mcg PO DAILY allopurinol 100 mg tablet 100 mg PO BID simvastatin 40 MG tablet 40 mg PO DAILY ascorbic acid (vitamin C) 500 mg Tablet 500 mg PO DAILY ferrous sulfate 325 mg (65 mg iron) Tablet 325 mg PO DAILY finasteride 5 mg Tablet 5 mg PO DAILY insulin glargine [Lantus Solostar U-100 Insulin] 100 unit/mL (3 mL) Insulin Pen 6 unit SUBCUT DAILY oxycodone-acetaminophen 5-325 mg tablet 1 tab PO Q6H PRN PRN (Reason: Pain) Label Comments: Take 1 tablet by mouth every six hours as needed for pain For Post Op Pain Starting on 03/27/2022 aspirin 81 mg Tablet,Delayed Release (Dr/Ec) 81 mg PO BREAKFAST Qty: 0 0RF ipratropium-albuterol 0.5 mg-3 mg(2.5 mg base)/3 mL Solution For Nebulization 3 ml inhalation Q4H PRN (Reason: SOB/WHEEZING) Qty: 180 0RF prednisone 20 mg Tablet 40 mg PO BREAKFAST 2 Days Qty: 4 0RF clopidogrel 75 mg Tablet 75 mg PO DAILY Qty: 30 0RF tamsulosin 0.4 mg Capsule 0.4 mg PO DAILY Qty: 30 0RF mupirocin 2 % Ointment 1 applic topical BID Qty: 22 0RF Protocol: *Topical Application Instructions APPLICATION INSTRUCTIONS: apply to either side of right knee drsg. insulin lispro [Humalog KwikPen Insulin] 100 unit/mL Insulin Pen See Protocol subcut ACHS Qty: 0 0RF Protocol: 4. Sliding Scale Insulin High-Med Dosing Condition: 150-199 mg/dl = 2 units Condition: 200-259 mg/dl = 4 units Condition: 260-324 mg/dl = 6 units Condition: 325-374 mg/dl = 8 units Condition: 375-409 mg/dl = 10 units Condition: 410-449 mg/dl = 11 units Condition: Greater than 449 call physician Protocol Text: - Use for Total Daily Dose of Insulin 56-80 units - Patient who are insulin resistant or septic HIGH MEDIUM DOSING ALGORITHM metoprolol tartrate 25 mg Tablet 12.5 mg PO BID Qty: 30 0RF enoxaparin 30 mg/0.3 mL Syringe 30 mg subcut DAILY Qty: 0 0RF Primary Care Provider: Blair Alexandra Referrals: Blair Alexandra MD [Primary Care Provider] - Activity Restrictions/Additional Instructions: Follow-up with Dr. Alcantara who is Dr. Heredia's partner in about a week. Disposition Disposition: Home, Self Care
[2022-04-12 10:32] LABS: Erythrocyte Sedimentation Rate 38 mm/hr (0-20)
[2022-04-12 10:35] LABS: Absolute Lymphocyte Count 1.02 X10^3/uL (0.83-4.51); Absolute Neutrophil Count 6.1 X10^3/uL (2.0-7.7); Basophil# 0.03 X10^3/uL; Basophil% 0.4 % (0-1); Eosinophil# 0.46 X10^3/uL; Eosinophils% 5.6 % (0-5); Hematocrit 29.9 % (40-54); Hemoglobin 9.5 g/dL (13.0-16.5); Lymphocyte # 1.02 X10^3/ul (0.83-4.51); Lymphocyte % 12.4 % (19-41); Mean Corp Hgb Conc 31.8 g/dL (32-36); Mean Corpuscular Hgb 30.2 pg (27.0-32.0); Mean Corpuscular Volume 94.9 fL (80-94); Monocyte# 0.57 X10^3/uL; Monocyte% 6.9 % (0-10); NRBC Flagged by Analyzer 0.2 % (0-5); Neutrophil # 6.06 X10^3/uL (2.7-7.7); Neutrophil % 73.7 % (47-70); Platelet Count 316 K/mm3 (150-450); RBC Distribution Width CV 17.1 % (11.6-14.6); RBC Distribution Width SD 58.4 fl (35.1-43.9); Red Blood Count 3.15 M/mm3 (4.6-6.2); White Blood Count 8.2 K/mm3 (4.4-11.0)
[2022-04-12 10:43] LABS: Anion Gap 5 (5-15); BUN 36 mg/dL (7-18); BUN/Creat Ratio 24.2 RATIO (10-20); Chloride 113 mmol/L (98-107); Creatinine, Serum 1.49 mg/dL (0.70-1.30); EST Glomerular Filtration Rate 48 mL/min (>60); Est Glom Filt Rate - Afr Amer 58 mL/min (>60); Glucose 205 mg/dL (74-106); Potassium 4.1 mmol/L (3.5-5.1); Sodium Level 142 mmol/L (136-145)
[2022-04-12 10:45] LABS: Lactic Acid 2.1 mmol/L (0.4-1.9)
[2022-04-12 12:32] VITALS: BP 142/78; PULSE 94; RESP 18; O2SAT 97
[2022-04-12] MEDS: Smz/Tmp Ds Tablet 1 TABLET PO (12:51)
[2022-04-12] MEDS: Doxycycline 100 MG CAPSULE PO (12:51)
[2022-04-12 14:08] LABS: Reflex Lactate? Y
== END 2022-04-12 13:17 | disposition home or self-care (01) ==
PROVIDERS: Emergency Provider Emergency Medicine; PCP Family Medicine; Visit Provider Emergency Medicine
DX: L03.115 Cellulitis of right lower limb (principal); E11.22 Type 2 diabetes mellitus with diabetic chronic kidney disease; N18.30 Chronic kidney disease, stage 3 unspecified; I12.9 Hypertensive chronic kidney disease with stage 1 through stage 4 chronic kidney disease, or unspecified chronic kidney disease; R79.82 Elevated C-reactive protein (CRP); Z95.5 Presence of coronary angioplasty implant and graft; I25.10 Atherosclerotic heart disease of native coronary artery without angina pectoris; M79.604 Pain in right leg; Z87.891 Personal history of nicotine dependence; I25.2 Old myocardial infarction
CPT/HCPCS: 80048; 83605; 85025; 85652; 86140; 93971; 99283

== ENCOUNTER → 2022-04-18 | Outpatient (REF) | payer MEDICARE, BC, SELFPAY ==
[2022-04-18 08:23] LABS: Erythrocyte Sedimentation Rate 27 mm/hr (0-20)
[2022-04-18 08:25] LABS: Absolute Lymphocyte Count 1.38 X10^3/uL (0.83-4.51); Absolute Neutrophil Count 2.9 X10^3/uL (2.0-7.7); Basophil# 0.04 X10^3/uL; Basophil% 0.7 % (0-1); Eosinophil# 0.44 X10^3/uL; Eosinophils% 8.1 % (0-5); Hematocrit 30.4 % (40-54); Hemoglobin 9.4 g/dL (13.0-16.5); Lymphocyte # 1.38 X10^3/ul (0.83-4.51); Lymphocyte % 25.3 % (19-41); Mean Corp Hgb Conc 30.9 g/dL (32-36); Mean Corpuscular Hgb 29.8 pg (27.0-32.0); Mean Corpuscular Volume 96.5 fL (80-94); Mean Platelet Vol. 11.8 fl (6.2-12.0); Monocyte# 0.66 X10^3/uL; Monocyte% 12.1 % (0-10); NRBC Flagged by Analyzer 0 % (0-5); Neutrophil # 2.92 X10^3/uL (2.7-7.7); Neutrophil % 53.4 % (47-70); Platelet Count 169 K/mm3 (150-450); RBC Distribution Width CV 17.1 % (11.6-14.6); RBC Distribution Width SD 59.7 fl (35.1-43.9); Red Blood Count 3.15 M/mm3 (4.6-6.2); White Blood Count 5.5 K/mm3 (4.4-11.0)
== END ==
LOC: OLS.WHLTCC 05:00
PROVIDERS: PCP Family Medicine; Visit Provider Internal Medicine
DX: L03.115 Cellulitis of right lower limb (principal); I25.2 Old myocardial infarction; G93.40 Encephalopathy, unspecified; M62.81 Muscle weakness (generalized); R26.2 Difficulty in walking, not elsewhere classified; Z47.1 Aftercare following joint replacement surgery
CPT/HCPCS: 36415; 85025; 85652; 86140

== ENCOUNTER → 2022-06-05 | Outpatient (CLI) | payer MEDICARE, BC, SELFPAY ==
[2022-06-05 10:08] LABS: Absolute Lymphocyte Count 1.94 X10^3/uL (0.83-4.51); Basophil# 0.04 X10^3/uL; Basophil% 0.6 % (0-1); Eosinophil# 0.33 X10^3/uL; Eosinophils% 4.7 % (0-5); Hemoglobin 11.4 g/dL (13.0-16.5); Lymphocyte # 1.94 X10^3/ul (0.83-4.51); Lymphocyte % 27.8 % (19-41); Mean Corp Hgb Conc 31.7 g/dL (32-36); Mean Corpuscular Hgb 29.8 pg (27.0-32.0); Mean Corpuscular Volume 94.2 fL (80-94); Monocyte# 0.64 X10^3/uL; Monocyte% 9.2 % (0-10); NRBC Flagged by Analyzer 0 % (0-5); Neutrophil # 4.03 X10^3/uL (2.7-7.7); Neutrophil % 57.6 % (47-70); Platelet Count 225 K/mm3 (150-450); RBC Distribution Width CV 14.8 % (11.6-14.6); RBC Distribution Width SD 51.1 fl (35.1-43.9); Red Blood Count 3.82 M/mm3 (4.6-6.2)
[2022-06-05 10:32] LABS: BNP,B-Type NATRIURETIC PEPTIDE 146.2 pg/mL (0-100)
[2022-06-05 10:38] LABS: ALB/GLOB Ratio 0.8 RATIO (0.9-2.4); AST(SGOT) 26 U/L (15-37); Alanine Aminotransfer ALT/SGPT 33 U/L (16-61); Albumin, Serum 3.1 g/dL (3.2-5.0); Alkaline Phosphatase 103 U/L (45-117); Anion Gap 3 (5-15); BUN 35 mg/dL (7-18); Chloride 110 mmol/L (98-107); Creatinine, Serum 1.13 mg/dL (0.70-1.30); EST Glomerular Filtration Rate 66 mL/min (>60); Est Glom Filt Rate - Afr Amer 80 mL/min (>60); Globulin 3.7 g/dL (2.2-4.2); Glucose 132 mg/dL (74-106); Potassium 4.1 mmol/L (3.5-5.1); Protein, Total 6.8 g/dL (6.4-8.2); Sodium Level 138 mmol/L (136-145)
[2022-06-06 05:07] LABS: Fructosamine 205 umol/L (0-285)
== END | disposition home or self-care (01) ==
LOC: MTLAB 07:10
PROVIDERS: Nurse Practitioner Family; PCP Family Medicine; Referring Provider Family Medicine; Visit Provider Family Medicine
DX: E11.21 Type 2 diabetes mellitus with diabetic nephropathy (principal); N17.9 Acute kidney failure, unspecified; I21.4 Non-ST elevation (NSTEMI) myocardial infarction; I10 Essential (primary) hypertension; Z95.5 Presence of coronary angioplasty implant and graft; I35.0 Nonrheumatic aortic (valve) stenosis
CPT/HCPCS: 36415; 80053; 82985; 83880; 85025

== ENCOUNTER → 2022-06-09 | Outpatient (CLI) | payer MEDICARE, BC, SELFPAY ==
--- NOTE | 2022-06-09 07:40 | PCM.CR.ITP ---
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, HTN, HLD, Morbid Obesity, Aortic Valve stenosis Personal Learning Style:: Audio/Visual, Written Barriers to Learning: Vision Impairment Gave educational material for:: Treating Heart Disease, Emotions & Heart Disease, Stress Management & Relaxation, Sleep Disorders & Heart Disease, How The Heart Works, What it means to have Heart Disease, How Coronary Artery Disease is Diagnosed, Heart Procedures, What Heart Medications Do, Risk Factors & Modifications, Living an Active Life, Nutrition - Education/Goals Individual Counseling: Initial Assessment: Abnormal Cholesterol Levels, High Blood Pressure, Overweight/Obesity, Diabetes, Metabolic Syndrome (as evidenced by 3 of 5 A-E below), A. Fasting Blood Sugar >100 - 104, A!c 5.8%, B. Waist Circumference >35/Females >40/Males, Hypertension, Low HDL <40/Males or <50/Females - HDL 36 Cardiac Rehabilitation Goals: 1. Maintain the individual as the primary focus of care. 2. To improve the patient's quality of life. 3. Identification of cardiac risk factors and provide cardiac risk factor management. 4. Enhance the psychosocial status of the patient. 5. Reconditioning enough to allow the patient to resume customary activities. 6. Control symptoms of cardiac disease Scale for measuring improvement of personal goals: Enter appropriate number in Comments. 2 = Unchanged. 3 = Slightly Better. 4 = Moderate Improvement. 5 = Met my Goal - Diagnosis & Disease Process Outcomes/Goals: Pt IDs own risk factors & lifestyle modifications by Session 10, Verbalizes symptoms of angina & response by session 3., Pt independently manages Plan/Interventions: Assist Pt to ID & engage in lifestyle modification to reduce CVD risk, Instruct on individual risk factors, Review symptoms of angina & emergency actions, Review secondary diagnosis & identify educational needs. - Safety Referral to Physical Therapy: No Referral to [facility] Case Management: No Fall Risk Assessed:: Yes Assistive Devices:: Cane - stability and balance due ot knee issues, Wheelchair - for long distances due to bad knees Exercise - Initial Assessment - Visit Date of Eval: 06/09/22 Session #:: 0 - Pre-cardiac rehab evaluation Mets: Pre-: >5 METS for 30 minutes by discharge - Physician Prescribed Exercise Modalities: Treadmill, NuStep, SciFit, Lateral [place] Frequency: 3x/week for 12 weeks [36 sessions] Intensity: 60-80% of age predicted maximum heart rate reserve Duration: 30 - 45 minutes Current METSs:: 3.0 Target Heart Rate:: 89-104 Resting Blood Pressure: 124/72 EKG Type: Normal SInus Rhythm with T wave abnormality - Outcomes & Goals Goals:: Verbalizes understanding of THR, RPE & goal METS by session 6, Documents in home exercise log/reports 30 min aerobic 5 day/wk by DC, Demonstrates accurate pulse taking by DC - Intervention & Plan Exercise Program Goals: Instruct on personal THR & RPE, Instruct on MET level & personal MET goal, Show patient to take own pulse /validate performance until accurate, Instruct on home exercise - Physical Activity Home Exercise Physical Activity - Home Exercise: Safe Exercise, Warm-up, Self-monitoring, Cool-Down, Home Exercise > 30 min Daily, Sitting Time <3 hours/daily - Outcomes & Goals Outcomes/Goals: Demonstrates correct Warm-up/exercise Cool-Down (S3) if = 2.5 METs, Verbalizes symptoms of exercise intolerance by Session 3 (S3), Demonstrate safe equipment use (S3) & follows exercise prescrition (6) - Intervention & Plan Plan/Intervention: Instruct warm-up & cool-down if exercising at > 2 METs, Instruct on symptoms of exercise intolerance & actions to take, Instruct & monitor on saf, Assess intial functional capacity & safety risk Nutrition - Initial Assessment - Program Goals Nutrition Program Goals: LDL <100 optimal. 100 - 129 Near optimal. 130 - 159 Borderline High. 160 - 189 High. Total Cholesterol <200 desirable. 200 - 239 Borderline High. >/= 240 High. HDL < 40 Low >/=60 High. Triglycerides <150 desirable. <199 optimal. VlDL 5 - 40. HgbA1C <7%. BMI <25 Patient has diagnosis of Hyperlipidemia (ICD E78)?: Yes - Visit Date of Assessment:: 06/09/22 Session #:: 0 - Pre-cardiac rehab evaluation - Cholesterol/Lipids (Other Core Measures) Triglycerides (mg/dL): 120 - 04/02/2022 Total Cholesterol (mg/dL): 116 LDL Cholesterol (mg/dL): 56 HDL Cholesterol (mg/dL): 36 Determine presence & major risk factors that modify LDL goal: Hypertension or hypertensive medication, Low HDL cholesterol <40 mg/dL*, Family history of premature CHD in Male < 55 years: female <65 yearsFa, Age men > 45 years; women >/= 55 years Outcomes/Goals: Pt IDs own risk factors & lifestyle modifications by Session 10, Verbalizes symptoms of angina & response by session 3., Pt independently manages Intervention/Plan: Instruct on personal lipid levels & lipid goals/NCEP guidelines, Instruct on cholesterol Referral to dietitian:: Yes - Medical NUtrition Therapy - Diabetes (Other Core Measures) Diabetes Type: Diagnosis Type II ICD-10 E11 Fasting blood glucose:: 104 Hgb A1C (4.2 - 6.3): 5.8 Insulin dependent injection/pump?: Yes Non-Insulin Dependent?: Yes Do you monitor your blood sugar at home?: Yes Referral to Diabetic Clinic:: Yes Outcomes/Goals:: Able to state symptoms of, Able to state, Able to state Intervention/Plan:: Instruct on, Refer to, Instruct on - Weight Mgt (Other Care) Not Applicable: No Height: 5 ft 5 in Weight:: 264 lb - Stress importance of weight loss in relationship to both DM and CAD BMI: 43.9 Diagnosis Overweight/Obesity BMI> 30% ICD-10 E66: Yes Diagnosis High BMI/Morbid Obesity BMI> 35% ICD-10 Z68: Yes Outcomes/Goals: Pt sets, maintains & shows weight loss goal & trend during rehab Intervention/Plan: Instruct on ideal BMI & set weight loss goal w/patient, Assist pt to ID & incorporate diet changes for weight loss by S9, Refer to Structured Weight Loss program as appropriate, Encourage goal of using 250-300dcal per session for weight loss - Healthy Eating Habits Will attend diet classes:: Yes Outcomes/Goals:: Consume diet rich in vegs,fruits,whole grain/high fiber,fish,lean meat, Limit sat/trans fats,cholesterol & added salts & sugars Intervention/Plan:: Assess current eating habits - Education Gave educational materials for:: Signs & symptoms of hypoglycemia, Signs & symptoms of hyperglycemia, Relate diabetes to coronary artery disease, Healthy eating Nutrition - 30-Day Assessment Nutrition - 60-Day Assessment Nutrition - 90-Day Assessment Nutrition - Final Assessment Core - Initial Assessment - Visit Date of Eval: 06/09/22 Session #:: 0 - Pre-cardiac Rehab Evlauation - Medication Compliance Preventative Medication(s):: Aspirin, Clopidogrel/P2Y12 inhibit, Statin/lipid, Beta denice H/O mental health issues: depression, anxiety, or addiction?: No Doesn?t believe in the benefits of treatment?: No Believes medications are unnecessary or harmful?: No Has a concern about medication side effects?: No Expresses concern over the cost of medications?: No Outcomes/Goals: Verbalizes medications,desired effect & common side effects @ DC, Pt self-reports following medication regimen, Keeps card in wallet w/medications listed by DC Interventions/plans: Instruct on medication effects & side effects, Review medication list w/patient every two weeks, Instruct importance of taking meds as ordered & assist problem solving - Tobacco Use Tobacco Use: Non-smoker - Hypertension Hypertension Diagnosis:: Hypertension ICD-10 I10 Resting Blood Pressure:: 124/72 [place] [employer] Hypertension Guidelines: [place] [employer] Hypertension Guidelines. Normal BP Less than 120/80. Elevated BP 120/80. Hypertension Stage 1: BP 130-139/80-89. Hypertesnion Stage 2: BP 140 or higher/90 or higher. Hypertension Crisis: BP higher than 180/120 Outcomes/Goals: Able to verbalize/achieve optimal blood pressure <130/80, Incorporates diet changes & exercise for blood pressure control by DC Interventions/plan: Instruct on optimal blood pressure, hypertension & medications, Instruct on effects of sodium, alcohol, stress, exercise &hypertension - Tobacco Cessation Referral Smoking Cessation Referral:: No Individual Education/Counseling:: Yes - Medical Nutrition & Weight Loss program through [facility] Education Schedule Given:: Yes Core - 30-Day Assessment Core - 60-Day Assessment Core - 90 Day Assessment Core - Final Assessment Psychosocial - Initial Assess - VIsit Date of Eval: 06/09/22 Session #:: 0 - Pre-Cardiac rehab evaluation Not Applicable: Yes History of previous Mental disease:: No - Psychosocial Test Tool Used:: [employer] QOL Cardiac, PHQ-9 Questionnaire phq-9 Severity: Severity. 1-4 Minimal Depression. 5-9 Mild Depression. 10-14 Moderate Depression. 15-19 Moderately Sever Depression. 20-27 Severe Depression. Rule: See PHQ-9 Score: 12 - indicates Moderate level of Depression - Referral to Behavioral Health PS - Interventions: Yes Referral to Physician if PHQ-9 if score is 5-9: - Moderate Depression indicated, Yes Attend Stress Management Classes, No Referral to Behavioral Health if PHQ-9 score >9:, No Referral to [facility] - Outcomes/Goals: See list Psychosocial Outcomes/Goals:: ID's personal stressors & 2 strategies to manage stress by discharge - Intervention/Plan: See List Interventions/Plan:: Assess stressors,coping strategies & signs of derpression on admission, Instruct/assist pt to develop coping & personal stress Mgt strategies, Instruct patient to recognize signs & symptoms of depression, Instruct patient to recog Psychosocial - 30-Day Assess Psychosocial - 60-Day Assess Psychosocial - 90-Day Assess Psychosocial - Final Assessmen Patient Health Questionnaire Initial Assessment 1. Little interest or pleasure in doing things: Several days 2. Feeling down, depressed, or hopeless: More than half the days 3. Trouble falling or staying asleep, or sleeping too much: Nearly every day 4. Feeling tired or having little energy: Nearly every day 5. Poor appetite or overeating: Several days 6. Feeling bad about yourself -- or that you are a failure or have let yourself or your family down: Not at all 7. Trouble concentrating on things, such as reading the newspaper or watching television: Not at all 8. Moving or speaking so slowly that other people could have noticed. Or the opposite - being so fidgety or restless that you have been moving around a lot more than usual: More than half the days 9. Thoughts that you would be better off , or of hurting yourself in some way: Not at all How difficult have these problems made it for you to do your work, take care of things at home, or get along with other people?: Somewhat difficult Total Score: 12 GLORIA-Q SV Test - Statements CAD is a disease of the arteries in the heart: False Examples of risk factors for heart disease: True Angina is chest pain or discomfort: I Don't Know The benefits of resistance training include: True Eating more meat and dairy products: False Anti-platelet medications such as aspirin are important: False The only effective way to manage stress: True An exercise warm-up slowly increases heart rate: True Prepared, processed foods usually have high sodium: True Depression is common after a heart attack: True The statin medications lower cholesterol: False To control blood pressure, lower the amount of sodium: False If someone gets chest discomfort during walking: I Don't Know Transfats are partially hydrogenated vegetable oils: False Sleep apnea that is not treated increases the risk: False To control cholesterol, one should become a vegetarian: I Don't Know Someone knows if he/she is exercising at the right level: False Diabetes cannot be prevented with exercise & health eating: True Stress is a large risk for heart attack: True A diet that can help lower blood pressure is rich in: True - Total Score Total Correct Responses: 10 Self-Efficacy Initial Assessment We would like to know how confident you are in doing certain activities. Please select your confidence level for:: Select your confidence level for the following using the scale 1-10 where 1 is not at all confident and 10 is totally confident. Your score is the average of all 6 responses. Fatigue: How confident are you that you can keep the fatigue caused by your disease from interfering with the things you want to do? Select Number: 8 Physical Discomfort or Pain: How confident are you that you can keep the physical discomfort or pain of your disease from interfering with the things you want to do? Select Number: 3 Emotional Distress: How confident are you that you can keep the emotional distress caused by your disease from interfering with the things you want to do? Select Number: 8 Other Symptoms or Health Problems: How confident are you that you can keep other symptoms or health problems from interfering with the things you want to do? Select Number: 6 Different Tasks and Activities: How confident are you that you can do the different tasks and activities needed to manage your health condition so as to reduce your need to see a doctor? Select Number: 6 Medication: How confident are you that you can do things other than just taking medication to reduce how much your illness affects your everyday life? Select Number: 1 Total Score:: 5 Nutrition Survey - Nutrition Survey Initial Have you lost >10 lbs over the past 2 months without trying?: No Are you following a special diet at home for diabetes, low fat, or low salt?: No Are you interested in meeting with a dietitian for help understanding your diet?: No Do you eat less than 3 meals a day?: No Do you eat fatty meats (venegas, sausage, ribs, etc), fried foods, desserts, large amounts of salad dressings, margarine, butter, or cheese most days?: No Do you have food allergies? [Enter types in comment field]: No Do you eat in restaurants more than 3 times a week?: Yes Do you season food with salt, seasoning salt, or garlic salt?: No Do you used canned, boxed, frozen meals, or soups, seasoning packets?: Yes Total Score:: 2
--- NOTE | 2022-06-09 07:40 | PCM.CR.HP2 ---
CR - History & Physical - General Arrival date:: 06/09/22 Arrival time:: 08:00 Date of Referral:: 05/30/22 - Delayed CR due to total joint knee surgery Right Date of CR Evaluation:: 06/09/22 Referring Physician: Dr. Avi Mckeon Primary Diagnosis: NE-NonSTEMI, PCI w/coronary stenting - History of Present Cardiac Event Onset Date: Enter Onset Date of cardiac illnesses in Comment field below Acute Myocardial Infarction within 12 months:: Yes - Non-ST elevated myocardial infarction 04/02/2021 PTCA or coronary stenting:: Yes - PCI w/coronary stenting 04/02/2022 Type of Symptoms:: Patient was on his way to therapy and was not feeling well. 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 Upon arrival it was determined he was having an NE. Interventions with present event:: Heart cath and PCI intervention. Were there any complications?: No - Sleep Disorder Evaluation Hx of Sleep Apnea: Yes Do you snore loudly (louder than talking or can be heard through closed doors)?: Yes - Does not wear his CPAP Do you often feel tired/ fatigued/ sleepy during daytime?: Yes Has anyone observed you stop breathing during sleep?: Yes History of Hypertension (for STOP score): Yes STOP Results: Positive - Medications Home Medications: Ambulatory Orders Medication Instructions Recorded flash glucose scanning reader #1 ea 09/04/20 flash glucose sensor #1 ea 09/04/20 allopurinol 100 mg tablet 100 mg PO BID gout 10/17/21 cholecalciferol (vitamin D3) 25 25 mcg PO DAILY supplement 10/17/21 mcg (1,000 unit) capsule ropinirole 4 mg tablet 2 mg PO BID PD 10/17/21 ascorbic acid (vitamin C) 500 mg 500 mg PO DAILY supplement 04/01/22 tablet ferrous sulfate 325 mg (65 mg 325 mg PO DAILY supplement 04/01/22 iron) tablet finasteride 5 mg tablet 5 mg PO DAILY prostate 04/01/22 insulin glargine 100 unit/mL (3 6 unit subcut DAILY blood sugar 04/01/22 mL) subcutaneous pen (Lantus Solostar U-100 Insulin) aspirin 81 mg tablet,delayed 81 mg PO BREAKFAST #0 tabs 04/08/22 release enoxaparin 30 mg/0.3 mL 30 mg (0.3 mL) subcut DAILY #0 mL 04/08/22 subcutaneous syringe insulin lispro 100 unit/mL See Protocol subcut ACHS #0 mL 04/08/22 subcutaneous pen (Humalog KwikPen (U-100) Insulin) mupirocin 2 % topical ointment 1 applic topical BID #22 grams 04/08/22 tamsulosin 0.4 mg capsule 0.4 mg PO DAILY #30 caps 04/08/22 furosemide 40 mg tablet 40 mg PO DAILY water pill #90 tabs 05/05/22 metoprolol tartrate 25 mg tablet 12.5 mg PO BID #90 tabs 05/05/22 simvastatin 40 mg tablet 40 mg PO DAILY cholesterol #90 tabs 05/05/22 clopidogrel 75 mg tablet 75 mg PO DAILY #90 tabs 05/27/22 - Allergies Allergies/Adverse Reactions: Allergies atorvastatin [From Lipitor] Adverse Reaction (Intermediate, Verified 05/05/22 16:02) myalgias Advanced Directives - Advanced Directives Power of [employer]: Yes Living Will: Yes Advance Directives Information Provided: No Advance Directives on File: Yes DNR Order?:: Yes Past Medical History - Covid-19 Screening Fever: No Unexplained muscle aches: No Current respiratory symptoms: No Upper respiratory infections symptoms: No Gastro-intestinal symptoms: No [id number]-[id number]-[id number] symptoms: No Has tested positive for COVID-19 in last 30 days: No Date of testin06/09/22 - Fully vaccinatd w/boosters Had contact w/person w/symptoms or Covid-19 (+) last 14 days: No 65 years or older:: Yes Has a chronic lung disease or moderate to severe asthma:: No Has a serious heart condition:: No Immunocompromised:: No Severely obese (Body Mass Index of 40 or higher):: Yes Diabetic:: Yes Has chronic kidney disease undergoing dialysis:: Yes Has liver disease:: No - Past Medical Illness Medical History: Past Medical History (Last Reviewed 05/05/22 @ 16:25 by Gautam Langston [employer], [employer]) Arthritis M19.90 Atherosclerosis of coronary artery of [place] heart without angina pectoris I25.10 Bursitis, olecranon M70.20 Carotid stenosis, bilateral I65.23 Interpretation Summary Moderate (50-69%) stenosis right extracranial internal carotid. Mild (<50%) stenosis left extracranial internal carotid. Flow within the vertebral arteries is antegrade bilaterally. 2018 Diabetes E11.9 Erectile dysfunction N52.9 Essential hypertension I10 Gout attack M10.9 Hyperlipidemia E78.5 Non-ST elevation NE (NSTEMI) I21.4 Nonrheumatic aortic (valve) stenosis I35.0 Obesity E66.9 Restless leg syndrome G25.81 Type 2 diabetes mellitus without complication E11.9 Type 2 diabetes with stage 3 chronic kidney disease GFR 30-59 E11.22, N18.30 - Past Surgical History Surgical History: Past Surgical History (Last Reviewed 05/05/22 @ 16:25 by Gautam Langston [employer], [employer]-C) History of coronary artery stent placement Onset Date: ~04/02/22 Z95.5 Prox LAD using Resolute Carrie RX STEPHANI 2.5x30mm and Orsiro [place] MR STEPHANI 2.5x30mm and Resolute Alberto RX STEPHANI 2.5x08mm on 04/02/2022; History of facial fracture repair Z98.890, Z87.81 History of left hip replacement Z96.642 History of repair of pyloric stenosis Z98.890 History of skin cancer Z85.828 Excision History of tonsillectomy Z90.89 - Family History Summary Family History: Family History (Last Reviewed 05/05/22 @ 16:25 by Gautam Langston [employer], [employer]-C) Mother Diabetes Heart disease Hypertension High cholesterol Son Asthma Hypertension Father Colon cancer Skin cancer Cancer lung cancer Brother Heart disease CVA (cerebral vascular accident) Social History - Smoking History Smoking Status: Former smoker - Quit smoking 40 years ago Hx Tobacco Use: No Hx Smoking Exposure: No - Alcohol Use Alcohol Usage: No - Substance Abuse Hx Substance Use: No - Occupation Occupation (List type of work in comments):: Retired - Hobbies, Recreation, Social Activities Hobbies: Sports - fishing, Other - car shows, show car Recreational Activities: I am able to engage in most, but not all activities Social Environment - Status Marital Status: - Children How many children do you have?: 4 Do any of your children live nearby?: Yes - Lives with his daughter (Linda) - Safety Do you feel safe in your surroundings?: Yes - Assistance Do you need any assistance at home?: no Review of Systems - Review of Systems Hints: Right click = Denies ([place]ash). Left click = Reports ([place]) Review of Present Symptoms: Reports: Shortness of Breath with Exertion, Fatigue, Heart Arrhythmia/Irregularities - History of heart mumur aortic valve stenosis, Appetite - Normal. Denies: Shortness of Breath at Rest, Angina, Dizziness/Lightheadedness, Appetite - Special Diet, Sleep - Normal - very irregular has to get up aout every 2-3 hours for bathroom., Sexual Changes - Pain Is Patient Pain Free?: Yes Pain Location: none Pain Level: 10 Risk Factor Assessment - Vital Signs Temperature: 98.3 F Respiratory Rate: 18 Pulse Ox: 98 Blood Pressure: 124/72 - Pulse Pulse Rate: 78 Pulse Rhythm: Regular - Hypertension Blood Pressure Sitting - Left Arm: 124/72 - Blood Cholesterol/Lipids Total Cholesterol (mg/dL) Goal = less than 200 mg/dL: 116 - 04/02/2022 HDL Cholesterol (mg/dL) Goal = less than 40 mg/dL: 36 LDL Cholesterol (mg/dL) Goal = less than 70 mg/dL: 56 Triglycerides (mg/dL) Goal = less than 150 mg/dL: 120 - Diabetes Diabetic History: Type II, Medication Dependent, Insulin Dependent Nutrition Referral for Diabetes: Yes - Obesity Height: 5 ft 5 in Weight:: 264 lb Weight in Pounds: 264.0 lbs Weight Source: Stated by Patient Body Mass Index (BMI): 43.9 Nutritional Referral for Obesity: Yes - Physical Inactivity Physical Inactivity: None - pretty sedentary due to knee problems - Risk Stratification Risk Guidelines: Lowest Risk: Risk Factor for Dyslipidemia, Risk Factor for Diabetes - Glucose 104, A1c 5.8%, Moderate Risk: Risk Factor for Hypertension - 124/72, Highest Risk: Risk Factor for Obesity - BMI >43, Risk Factor for Sedentary Lifestyle - Family History Family History: Family History (Last Reviewed 05/05/22 @ 16:25 by Gautam Langston [employer], [employer]-C) Mother Diabetes Heart disease Hypertension High cholesterol Son Asthma Hypertension Father Colon cancer Skin cancer Cancer Brother Heart disease CVA (cerebral vascular accident) Motivation - Motivation to Participate On a scale of 1 to 10, how prepared are you to commit to attending program?: 10 What do you see as barriers to successfully being able to complete the program?: no What do you see as the benefits of succesfully completing the program? In other words, what do you hope to get out of participating in the program?: Breath better, more energy, increase stamina Are there issues you are dealing with that will interfere with completing the program?: Swelling in the lower extremeties, pitting edema, knee pain Do you have a spouse or signficant other, family or friends who will help support you to complete the program?: Yes
[2022-06-09 08:43] VITALS: BP 124/72; PULSE 78; RESP 18; TEMP 36.8; O2SAT 98; BMI 43.9
[2022-06-09 09:31] VITALS: BP 124/72; BMI 43.9
== END | disposition home or self-care (01) ==
LOC: CR 06:23
PROVIDERS: PCP Family Medicine; Referring Provider Internal Medicine Cardiovascular Disease; Visit Provider Internal Medicine Cardiovascular Disease
DX: Z95.5 Presence of coronary angioplasty implant and graft (principal); E11.22 Type 2 diabetes mellitus with diabetic chronic kidney disease; N18.30 Chronic kidney disease, stage 3 unspecified; E78.5 Hyperlipidemia, unspecified; E66.9 Obesity, unspecified; I12.9 Hypertensive chronic kidney disease with stage 1 through stage 4 chronic kidney disease, or unspecified chronic kidney disease

== ENCOUNTER → 2022-06-13 | Outpatient (CLI) | payer MEDICARE, BC, SELFPAY ==
[2022-06-09 09:31] VITALS: BMI 43.9
[2022-06-13 12:27] LABS: Anion Gap 6 (5-15); BUN 32 mg/dL (7-18); BUN/Creat Ratio 24.2 RATIO (10-20); Calcium,Total 9.2 mg/dL (8.5-10.1); Chloride 107 mmol/L (98-107); Creatinine, Serum 1.32 mg/dL (0.70-1.30); EST Glomerular Filtration Rate 55 mL/min (>60); Est Glom Filt Rate - Afr Amer 67 mL/min (>60); Glucose 122 mg/dL (74-106); Potassium 4.2 mmol/L (3.5-5.1); Sodium Level 142 mmol/L (136-145)
== END | disposition home or self-care (01) ==
LOC: LAB 11:31
PROVIDERS: PCP Family Medicine; Referring Provider Internal Medicine Cardiovascular Disease; Visit Provider Internal Medicine Cardiovascular Disease
DX: E11.22 Type 2 diabetes mellitus with diabetic chronic kidney disease (principal); N18.32 Chronic kidney disease, stage 3b; R60.9 Edema, unspecified; R06.02 Shortness of breath
CPT/HCPCS: 36415; 80048

== ENCOUNTER 2022-07-09 13:00 | Outpatient (RCR) | payer MEDICARE, BC, SELFPAY ==
[2022-06-09 09:12] VITALS: BMI 43.9
== END 2022-07-09 23:59 ==
LOC: CR 13:00
PROVIDERS: PCP Family Medicine; Referring Provider Internal Medicine Cardiovascular Disease; Visit Provider Internal Medicine Cardiovascular Disease
DX: I25.2 Old myocardial infarction (principal); E11.22 Type 2 diabetes mellitus with diabetic chronic kidney disease; E66.01 Morbid (severe) obesity due to excess calories; N18.30 Chronic kidney disease, stage 3 unspecified; Z95.5 Presence of coronary angioplasty implant and graft; I25.10 Atherosclerotic heart disease of native coronary artery without angina pectoris; I65.29 Occlusion and stenosis of unspecified carotid artery; M71.9 Bursopathy, unspecified; I12.9 Hypertensive chronic kidney disease with stage 1 through stage 4 chronic kidney disease, or unspecified chronic kidney disease; M10.9 Gout, unspecified; E78.5 Hyperlipidemia, unspecified; I35.0 Nonrheumatic aortic (valve) stenosis; G25.81 Restless legs syndrome
CPT/HCPCS: 93798

== ENCOUNTER 2022-08-08 13:00 | Outpatient (RCR) | payer MEDICARE, BC, SELFPAY ==
[2022-06-09 09:31] VITALS: BMI 43.9
--- NOTE | 2022-07-11 09:20 | PCM.CR.ITP ---
Diagnosis Exercise - 30-day Assessment - Visit Date of Eval: 07/11/22 Session #:: 12 - Physician Prescribed Exercise Modalities: NuStep, Lateral [place] Frequency: 3x/week for 12 weeks [36 sessions] Intensity: 60-80% of age predicted maximum heart rate reserve Current METSs:: 4 Target Heart Rate:: 89-104 Current RPE:: 12 Maximum Excercise HR:: 107 Resting Blood Pressure: 130/60 Maximum Exercise Blood Pressure: 130/60 EKG Type: NSR to ST with occas pac/rare pvc. - Outcomes & Goals Goals:: Verbalizes understanding of THR, RPE & goal METS by session 6, Documents in home exercise log/reports 30 min aerobic 5 day/wk by DC, Demonstrates accurate pulse taking by DC, Other additional outcome/goals: see below - Intervention & Plan Exercise Program Goals: Instruct on personal THR & RPE, Instruct on MET level & personal MET goal, Show patient to take own pulse /validate performance until accurate, Instruct on home exercise, Other additional plan/int - 30-day Reassessments 30 day Reassessments:: Progressing - THR explained - Physical Activity Home Exercise Physical Activity - Home Exercise: Safe Exercise, Warm-up, Self-monitoring, Cool-Down, Home Exercise > 30 min Daily, Sitting Time <3 hours/daily - Outcomes & Goals Outcomes/Goals: Demonstrates correct Warm-up/exercise Cool-Down (S3) if = 2.5 METs, Verbalizes symptoms of exercise intolerance by Session 3 (S3), Demonstrate safe equipment use (S3) & follows exercise prescrition (6), Other: See below - Intervention & Plan Plan/Intervention: Instruct warm-up & cool-down if exercising at > 2 METs, Instruct on symptoms of exercise intolerance & actions to take, Instruct & monitor on saf, Assess intial functional capacity & safety risk, Other See below - 30-day Reassessments 30 day Reassessments:: Progressing - warm up encouraged Nutrition - Initial Assessment Nutrition - 30-Day Assessment - Program Goals Nutrition Program Goals: LDL <100 optimal. 100 - 129 Near optimal. 130 - 159 Borderline High. 160 - 189 High. Total Cholesterol <200 desirable. 200 - 239 Borderline High. >/= 240 High. HDL < 40 Low >/=60 High. Triglycerides <150 desirable. <199 optimal. VlDL 5 - 40. HgbA1C <7%. BMI <25 Patient has diagnosis of Hyperlipidemia (ICD E78)?: Yes - Visit Date of Assessment:: 07/11/22 Session #:: 12 - Cholesterol/Lipids (Other Core Measures) Determine presence & major risk factors that modify LDL goal: Hypertension or hypertensive medication, Low HDL cholesterol <40 mg/dL*, Family history of premature CHD in Male < 55 years: female <65 yearsFa, Age men > 45 years; women >/= 55 years Outcomes/Goals: Pt IDs own risk factors & lifestyle modifications by Session 10, Verbalizes symptoms of angina & response by session 3., Pt independently manages, Other Additional Outcomes/Goals: Intervention/Plan: Advocate for lipid panel cholesterol medication if applicable, Instruct on personal lipid levels & lipid goals/NCEP guidelines, Instruct on cholesterol, Other additional plan/int Referral to dietitian:: No - pt will meet 07/14/22 30-day Reassessments:: Progressing - pt to see dietitian - Diabetes (Other Core Measures) Diabetes Type: Diagnosis Type II ICD-10 E11 Insulin dependent injection/pump?: Yes Non-Insulin Dependent?: Yes Do you monitor your blood sugar at home?: Yes Referral to Diabetic Clinic:: Yes Outcomes/Goals:: Able to state symptoms of, Able to state, Able to state, Other additional Intervention/Plan:: Instruct on, Refer to, Instruct on, Other 30-day Reassessments:: Progressing - pt to meet dietitian - Weight Mgt (Other Care) Height: 5 ft 5 in Weight:: 119.295 kg BMI: 43.7 Diagnosis Overweight/Obesity BMI> 30% ICD-10 E66: Yes Diagnosis High BMI/Morbid Obesity BMI> 35% ICD-10 Z68: Yes Outcomes/Goals: Pt sets, maintains & shows weight loss goal & trend during rehab, Other additional outcomes/goals Intervention/Plan: Instruct on ideal BMI & set weight loss goal w/patient, Assist pt to ID & incorporate diet changes for weight loss by S9, Refer to Structured Weight Loss program as appropriate, Encourage goal of using 250-300dcal per session for weight loss, Other additional plan/interventions 30 day Reassessments:: Progressing - pt to meet with dietitian - Healthy Eating Habits Will attend diet classes:: Yes Outcomes/Goals:: Consume diet rich in vegs,fruits,whole grain/high fiber,fish,lean meat, Limit sat/trans fats,cholesterol & added salts & sugars, Other additional outcome/goals: Intervention/Plan:: Assess current eating habits, Other Additional plan/interventions 30-day Reassessments:: Progressing - pt to meet dietitian - Education Gave educational materials for:: Signs & symptoms of hypoglycemia, Signs & symptoms of hyperglycemia, Relate diabetes to coronary artery disease, Healthy eating Nutrition - 60-Day Assessment Nutrition - 90-Day Assessment Nutrition - Final Assessment Core - Initial Assessment Core - 30-Day Assessment - Visit Date of Eval: 07/11/22 Session #:: 12 - Medication Compliance Preventative Medication(s):: Aspirin, Clopidogrel/P2Y12 inhibit, Statin/lipid, Beta denice Doesn?t believe in the benefits of treatment?: No Believes medications are unnecessary or harmful?: No Has a concern about medication side effects?: No Expresses concern over the cost of medications?: No Outcomes/Goals: Verbalizes medications,desired effect & common side effects @ DC, Pt self-reports following medication regimen, Keeps card in wallet w/medications listed by DC, Other additional outcome/goals: Interventions/plans: Instruct on medication effects & side effects, Review medication list w/patient every two weeks, Instruct importance of taking meds as ordered & assist problem solving, Other additional 30-day Reassessments:: Progressing - pt encouraged to take meds - Tobacco Use Tobacco Use: Non-smoker - Hypertension Hypertension Diagnosis:: Hypertension ICD-10 I10 Resting Blood Pressure:: 130/60 [place] [employer] Hypertension Guidelines: [place] [employer] Hypertension Guidelines. Normal BP Less than 120/80. Elevated BP 120/80. Hypertension Stage 1: BP 130-139/80-89. Hypertesnion Stage 2: BP 140 or higher/90 or higher. Hypertension Crisis: BP higher than 180/120 Peak Exercise Blood Pressure:: 130/60 Outcomes/Goals: Able to verbalize/achieve optimal blood pressure <130/80, Incorporates diet changes & exercise for blood pressure control by DC, Other additional outcomes/goals Interventions/plan: Instruct on optimal blood pressure, hypertension & medications, Instruct on effects of sodium, alcohol, stress, exercise &hypertension, Other additional plan/interventions 30 day Reassessments:: Progressing - pt encouraged to take meds - Tobacco Cessation Referral Smoking Cessation Referral:: No Individual Education/Counseling:: No Education Schedule Given:: Yes Core - 60-Day Assessment Core - 90 Day Assessment Core - Final Assessment Psychosocial - Initial Assess Psychosocial - 30-Day Assess - VIsit Date of Eval: 07/11/22 Session #:: 12 History of previous Mental disease:: No Psychosocial - 60-Day Assess Psychosocial - 90-Day Assess Psychosocial - Final Assessmen Patient Health Questionnaire 30-Day Re-eval Assessment 1. Little interest or pleasure in doing things: Several days 2. Feeling down, depressed, or hopeless: More than half the days 3. Trouble falling or staying asleep, or sleeping too much: Nearly every day 4. Feeling tired or having little energy: Nearly every day 5. Poor appetite or overeating: Several days 6. Feeling bad about yourself -- or that you are a failure or have let yourself or your family down: Not at all 7. Trouble concentrating on things, such as reading the newspaper or watching television: Not at all 8. Moving or speaking so slowly that other people could have noticed. Or the opposite - being so fidgety or restless that you have been moving around a lot more than usual: More than half the days 9. Thoughts that you would be better off , or of hurting yourself in some way: Not at all How difficult have these problems made it for you to do your work, take care of things at home, or get along with other people?: Somewhat difficult Total Score: 12 Self-Efficacy 30-Day Re-eval Assessment We would like to know how confident you are in doing certain activities. Please select your confidence level for:: Select your confidence level for the following using the scale 1-10 where 1 is not at all confident and 10 is totally confident. Your score is the average of all 6 responses. Fatigue: How confident are you that you can keep the fatigue caused by your disease from interfering with the things you want to do? Select Number: 8 Physical Discomfort or Pain: How confident are you that you can keep the physical discomfort or pain of your disease from interfering with the things you want to do? Select Number: 3 Emotional Distress: How confident are you that you can keep the emotional distress caused by your disease from interfering with the things you want to do? Select Number: 8 Other Symptoms or Health Problems: How confident are you that you can keep other symptoms or health problems from interfering with the things you want to do? Select Number: 6 Different Tasks and Activities: How confident are you that you can do the different tasks and activities needed to manage your health condition so as to reduce your need to see a doctor? Select Number: 8 Medication: How confident are you that you can do things other than just taking medication to reduce how much your illness affects your everyday life? Select Number: 1 Total Score:: 5 Nutrition Survey
[2022-07-11 09:32] VITALS: BP 130/60; BMI 43.7
--- NOTE | 2022-08-06 12:51 | PCM.CR.ITP ---
Diagnosis Diagnosis & Disease Process Outcomes/Goals: Pt IDs own risk factors & lifestyle modifications by Session 10, Verbalizes symptoms of angina & response by session 3., Pt independently manages and Other Additional Outcomes/Goals: Exercise - Initial Assessment Visit Date of Eval: 08/06/22 Session #:: 23 Physician Prescribed Exercise Modalities: NuStep and SciFit Frequency: 3x/week for 12 weeks [36 sessions] Intensity: 60-80% of age predicted maximum heart rate reserve Current METSs:: 4 Target Heart Rate:: 89-104 Current RPE:: 12 Maximum Excercise HR:: 103 Resting Blood Pressure: 126/58 Maximum Exercise Blood Pressure: 138/70 EKG Type: NSR to ST with rare pac/pvc. Outcomes & Goals Goals:: Verbalizes understanding of THR, RPE & goal METS by session 6, Documents in home exercise log/reports 30 min aerobic 5 day/wk by DC, Demonstrates accurate pulse taking by DC and Other additional outcome/goals: see below Intervention & Plan Exercise Program Goals: Instruct on personal THR & RPE, Instruct on MET level & personal MET goal, Show patient to take own pulse /validate performance until accurate, Instruct on home exercise and Other additional plan/int Physical Activity Home Exercise Physical Activity - Home Exercise: Safe Exercise, Warm-up, Self-monitoring, Cool-Down, Home Exercise > 30 min Daily and Sitting Time <3 hours/daily Outcomes & Goals Outcomes/Goals: Demonstrates correct Warm-up/exercise Cool-Down (S3) if = 2.5 METs, Verbalizes symptoms of exercise intolerance by Session 3 (S3), Demonstrate safe equipment use (S3) & follows exercise prescrition (6) and Other: See below Intervention & Plan Plan/Intervention: Instruct warm-up & cool-down if exercising at > 2 METs, Instruct on symptoms of exercise intolerance & actions to take, Instruct & monitor on saf, Assess intial functional capacity & safety risk and Other See below Exercise - 30-day Assessment Visit Date of Eval: 08/06/22 Session #:: 23 Physician Prescribed Exercise Modalities: NuStep and SciFit Frequency: 3x/week for 12 weeks [36 sessions] Intensity: 60-80% of age predicted maximum heart rate reserve Current METSs:: 4 Target Heart Rate:: 89-104 Current RPE:: 12 Maximum Excercise HR:: 103 Resting Blood Pressure: 126/58 Maximum Exercise Blood Pressure: 138/70 EKG Type: NSR to ST with rare pac/pvc. Outcomes & Goals Goals:: Verbalizes understanding of THR, RPE & goal METS by session 6, Documents in home exercise log/reports 30 min aerobic 5 day/wk by DC, Demonstrates accurate pulse taking by DC and Other additional outcome/goals: see below Intervention & Plan Exercise Program Goals: Instruct on personal THR & RPE, Instruct on MET level & personal MET goal, Show patient to take own pulse /validate performance until accurate, Instruct on home exercise and Other additional plan/int 30-day Reassessments 30 day Reassessments:: Progressing Reassessment Notes & Comments:: pulse taking demonstrated, pt encouraged to do labs Physical Activity Home Exercise Physical Activity - Home Exercise: Safe Exercise, Warm-up, Self-monitoring, Cool-Down, Home Exercise > 30 min Daily and Sitting Time <3 hours/daily Outcomes & Goals Outcomes/Goals: Demonstrates correct Warm-up/exercise Cool-Down (S3) if = 2.5 METs, Verbalizes symptoms of exercise intolerance by Session 3 (S3), Demonstrate safe equipment use (S3) & follows exercise prescrition (6) and Other: See below Intervention & Plan Plan/Intervention: Instruct warm-up & cool-down if exercising at > 2 METs, Instruct on symptoms of exercise intolerance & actions to take, Instruct & monitor on saf, Assess intial functional capacity & safety risk and Other See below 30-day Reassessments 30 day Reassessments:: Progressing Reassessment Notes & Comments:: cool down encouraged, pt met with dietitian, pt encouraged to take his meds Exercise - 60-day Assessment Visit Date of Eval: 08/06/22 Session #:: 23 Physician Prescribed Exercise Modalities: NuStep and SciFit Frequency: 3x/week for 12 weeks [36 sessions] Intensity: 60-80% of age predicted maximum heart rate reserve Current METSs:: 4 Target Heart Rate:: 89-104 Current RPE:: 12 Maximum Excercise HR:: 103 Resting Blood Pressure: 126/58 Maximum Exercise Blood Pressure: 138/70 EKG Type: NSR to ST with rare pac/pvc. Outcomes & Goals Goals:: Verbalizes understanding of THR, RPE & goal METS by session 6, Documents in home exercise log/reports 30 min aerobic 5 day/wk by DC, Demonstrates accurate pulse taking by DC and Other additional outcome/goals: see below Intervention & Plan Exercise Program Goals: Instruct on personal THR & RPE, Instruct on MET level & personal MET goal, Show patient to take own pulse /validate performance until accurate, Instruct on home exercise and Other additional plan/int 30-day Reassessments 30 day Reassessments:: Progressing Reassessment Notes & Comments:: pulse taking demonstrated, pt encouraged to do labs Physical Activity Home Exercise Physical Activity - Home Exercise: Safe Exercise, Warm-up, Self-monitoring, Cool-Down, Home Exercise > 30 min Daily and Sitting Time <3 hours/daily Outcomes & Goals Outcomes/Goals: Demonstrates correct Warm-up/exercise Cool-Down (S3) if = 2.5 METs, Verbalizes symptoms of exercise intolerance by Session 3 (S3), Demonstrate safe equipment use (S3) & follows exercise prescrition (6) and Other: See below Intervention & Plan Plan/Intervention: Instruct warm-up & cool-down if exercising at > 2 METs, Instruct on symptoms of exercise intolerance & actions to take, Instruct & monitor on saf, Assess intial functional capacity & safety risk and Other See below 30-day Reassessments 30 day Reassessments:: Progressing Reassessment Notes & Comments:: cool down encouraged, pt met with dietitian, pt encouraged to take his meds Exercise - 90-day Assessment Visit Date of Eval: 08/06/22 Session #:: 23 Physician Prescribed Exercise Modalities: NuStep and SciFit Frequency: 3x/week for 12 weeks [36 sessions] Intensity: 60-80% of age predicted maximum heart rate reserve Current METSs:: 4 Target Heart Rate:: 89-104 Current RPE:: 12 Maximum Excercise HR:: 103 Resting Blood Pressure: 126/58 Maximum Exercise Blood Pressure: 138/70 EKG Type: NSR to ST with rare pac/pvc. Outcomes & Goals Goals:: Verbalizes understanding of THR, RPE & goal METS by session 6, Documents in home exercise log/reports 30 min aerobic 5 day/wk by DC, Demonstrates accurate pulse taking by DC and Other additional outcome/goals: see below Intervention & Plan Exercise Program Goals: Instruct on personal THR & RPE, Instruct on MET level & personal MET goal, Show patient to take own pulse /validate performance until accurate, Instruct on home exercise and Other additional plan/int 30-day Reassessments 30 day Reassessments:: Progressing Reassessment Notes & Comments:: pulse taking demonstrated, pt encouraged to do labs Physical Activity Home Exercise Physical Activity - Home Exercise: Safe Exercise, Warm-up, Self-monitoring, Cool-Down, Home Exercise > 30 min Daily and Sitting Time <3 hours/daily Outcomes & Goals Outcomes/Goals: Demonstrates correct Warm-up/exercise Cool-Down (S3) if = 2.5 METs, Verbalizes symptoms of exercise intolerance by Session 3 (S3), Demonstrate safe equipment use (S3) & follows exercise prescrition (6) and Other: See below Intervention & Plan Plan/Intervention: Instruct warm-up & cool-down if exercising at > 2 METs, Instruct on symptoms of exercise intolerance & actions to take, Instruct & monitor on saf, Assess intial functional capacity & safety risk and Other See below 30-day Reassessments 30 day Reassessments:: Progressing Reassessment Notes & Comments:: cool down encouraged, pt met with dietitian, pt encouraged to take his meds Exercise - Final/Discharge Visit Date of Eval: 08/06/22 Session #:: 23 Physician Prescribed Exercise Modalities: NuStep and SciFit Frequency: 3x/week for 12 weeks [36 sessions] Intensity: 60-80% of age predicted maximum heart rate reserve Current METSs:: 4 Target Heart Rate:: 89-104 Current RPE:: 12 Maximum Excercise HR:: 103 Resting Blood Pressure: 126/58 Maximum Exercise Blood Pressure: 138/70 EKG Type: NSR to ST with rare pac/pvc. Outcomes & Goals Goals:: Verbalizes understanding of THR, RPE & goal METS by session 6, Documents in home exercise log/reports 30 min aerobic 5 day/wk by DC, Demonstrates accurate pulse taking by DC and Other additional outcome/goals: see below Intervention & Plan Exercise Program Goals: Instruct on personal THR & RPE, Instruct on MET level & personal MET goal, Show patient to take own pulse /validate performance until accurate, Instruct on home exercise and Other additional plan/int 30-day Reassessments 30 day Reassessments:: Progressing Reassessment Notes & Comments:: pulse taking demonstrated, pt encouraged to do labs Physical Activity Home Exercise Physical Activity - Home Exercise: Safe Exercise, Warm-up, Self-monitoring, Cool-Down, Home Exercise > 30 min Daily and Sitting Time <3 hours/daily Outcomes & Goals Outcomes/Goals: Demonstrates correct Warm-up/exercise Cool-Down (S3) if = 2.5 METs, Verbalizes symptoms of exercise intolerance by Session 3 (S3), Demonstrate safe equipment use (S3) & follows exercise prescrition (6) and Other: See below Intervention & Plan Plan/Intervention: Instruct warm-up & cool-down if exercising at > 2 METs, Instruct on symptoms of exercise intolerance & actions to take, Instruct & monitor on saf, Assess intial functional capacity & safety risk and Other See below 30-day Reassessments 30 day Reassessments:: Progressing Reassessment Notes & Comments:: cool down encouraged, pt met with dietitian, pt encouraged to take his meds Nutrition - Initial Assessment Program Goals Nutrition Program Goals Patient has diagnosis of Hyperlipidemia (ICD E78)?: Yes Visit Date of Assessment:: 08/06/22 Session #:: 23 Cholesterol/Lipids (Other Core Measures) Determine presence & major risk factors that modify LDL goal: Hypertension or hypertensive medication, Low HDL cholesterol <40 mg/dL*, Family history of premature CHD in Male < 55 years: female <65 yearsFa and Age men > 45 years; women >/= 55 years Outcomes/Goals: Pt IDs own risk factors & lifestyle modifications by Session 10, Verbalizes symptoms of angina & response by session 3., Pt independently manages and Other Additional Outcomes/Goals: Intervention/Plan: Advocate for lipid panel cholesterol medication if applicable, Instruct on personal lipid levels & lipid goals/NCEP guidelines, Instruct on cholesterol and Other additional plan/int Referral to dietitian:: No Diabetes (Other Core Measures) Diabetes Type: Diagnosis Type II ICD-10 E11 Insulin dependent injection/pump?: Yes Non-Insulin Dependent?: Yes Do you monitor your blood sugar at home?: Yes Referral to Diabetic Clinic:: Yes Outcomes/Goals:: Able to state symptoms of, Able to state, Able to state and Other additional Intervention/Plan:: Instruct on, Refer to, Instruct on and Other Weight Mgt (Other Care) Height: 5 ft 5 in Weight:: 260 lb 8 oz BMI: 43.3 Diagnosis Overweight/Obesity BMI> 30% ICD-10 E66: Yes Diagnosis High BMI/Morbid Obesity BMI> 35% ICD-10 Z68: Yes Outcomes/Goals: Pt sets, maintains & shows weight loss goal & trend during rehab and Other additional outcomes/goals Intervention/Plan: Instruct on ideal BMI & set weight loss goal w/patient, Assist pt to ID & incorporate diet changes for weight loss by S9, Refer to Structured Weight Loss program as appropriate, Encourage goal of using 250-300dcal per session for weight loss and Other additional plan/interventions Healthy Eating Habits Will attend diet classes:: Yes Outcomes/Goals:: Consume diet rich in vegs,fruits,whole grain/high fiber,fish,lean meat, Limit sat/trans fats,cholesterol & added salts & sugars and Other additional outcome/goals: Intervention/Plan:: Assess current eating habits and Other Additional plan/interventions Education Gave educational materials for:: Signs & symptoms of hypoglycemia, Signs & symptoms of hyperglycemia, Relate diabetes to coronary artery disease and Healthy eating Nutrition - 30-Day Assessment Program Goals Nutrition Program Goals Patient has diagnosis of Hyperlipidemia (ICD E78)?: Yes Visit Date of Assessment:: 08/06/22 Session #:: 23 Cholesterol/Lipids (Other Core Measures) Determine presence & major risk factors that modify LDL goal: Hypertension or hypertensive medication, Low HDL cholesterol <40 mg/dL*, Family history of premature CHD in Male < 55 years: female <65 yearsFa and Age men > 45 years; women >/= 55 years Outcomes/Goals: Pt IDs own risk factors & lifestyle modifications by Session 10, Verbalizes symptoms of angina & response by session 3., Pt independently manages and Other Additional Outcomes/Goals: Intervention/Plan: Advocate for lipid panel cholesterol medication if applicable, Instruct on personal lipid levels & lipid goals/NCEP guidelines, Instruct on cholesterol and Other additional plan/int Referral to dietitian:: No 30-day Reassessments:: Progressing Reassessment Notes & Comments:: pulse taking demonstrated, pt encouraged to do labs Diabetes (Other Core Measures) Diabetes Type: Diagnosis Type II ICD-10 E11 Insulin dependent injection/pump?: Yes Non-Insulin Dependent?: Yes Do you monitor your blood sugar at home?: Yes Referral to Diabetic Clinic:: Yes Outcomes/Goals:: Able to state symptoms of, Able to state, Able to state and Other additional Intervention/Plan:: Instruct on, Refer to, Instruct on and Other 30-day Reassessments:: Progressing (pt met dietitian) Weight Mgt (Other Care) Height: 5 ft 5 in Weight:: 260 lb 8 oz BMI: 43.3 Diagnosis Overweight/Obesity BMI> 30% ICD-10 E66: Yes Diagnosis High BMI/Morbid Obesity BMI> 35% ICD-10 Z68: Yes Outcomes/Goals: Pt sets, maintains & shows weight loss goal & trend during rehab and Other additional outcomes/goals Intervention/Plan: Instruct on ideal BMI & set weight loss goal w/patient, Assist pt to ID & incorporate diet changes for weight loss by S9, Refer to Structured Weight Loss program as appropriate, Encourage goal of using 250-300dcal per session for weight loss and Other additional plan/interventions 30 day Reassessments:: Progressing Reassessment Notes & Comments:: cool down encouraged, pt met with dietitian, pt encouraged to take his meds Healthy Eating Habits Will attend diet classes:: Yes Outcomes/Goals:: Consume diet rich in vegs,fruits,whole grain/high fiber,fish,lean meat, Limit sat/trans fats,cholesterol & added salts & sugars and Other additional outcome/goals: Intervention/Plan:: Assess current eating habits and Other Additional plan/interventions 30-day Reassessments:: Progressing Reassessment Notes & Comments:: pt met with dietitian Education Gave educational materials for:: Signs & symptoms of hypoglycemia, Signs & symptoms of hyperglycemia, Relate diabetes to coronary artery disease and Healthy eating Nutrition - 60-Day Assessment Program Goals Nutrition Program Goals Patient has diagnosis of Hyperlipidemia (ICD E78)?: Yes Visit Date of Assessment:: 08/06/22 Session #:: 23 Cholesterol/Lipids (Other Core Measures) Determine presence & major risk factors that modify LDL goal: Hypertension or hypertensive medication, Low HDL cholesterol <40 mg/dL*, Family history of premature CHD in Male < 55 years: female <65 yearsFa and Age men > 45 years; women >/= 55 years Outcomes/Goals: Pt IDs own risk factors & lifestyle modifications by Session 10, Verbalizes symptoms of angina & response by session 3., Pt independently manages and Other Additional Outcomes/Goals: Intervention/Plan: Advocate for lipid panel cholesterol medication if applicable, Instruct on personal lipid levels & lipid goals/NCEP guidelines, Instruct on cholesterol and Other additional plan/int Referral to dietitian:: No 30-day Reassessments:: Progressing Reassessment Notes & Comments:: pulse taking demonstrated, pt encouraged to do labs Diabetes (Other Core Measures) Diabetes Type: Diagnosis Type II ICD-10 E11 Insulin dependent injection/pump?: Yes Non-Insulin Dependent?: Yes Do you monitor your blood sugar at home?: Yes Referral to Diabetic Clinic:: Yes Outcomes/Goals:: Able to state symptoms of, Able to state, Able to state and Other additional Intervention/Plan:: Instruct on, Refer to, Instruct on and Other 30-day Reassessments:: Progressing (pt met dietitian) Weight Mgt (Other Care) Height: 5 ft 5 in Weight:: 260 lb 8 oz BMI: 43.3 Diagnosis Overweight/Obesity BMI> 30% ICD-10 E66: Yes Diagnosis High BMI/Morbid Obesity BMI> 35% ICD-10 Z68: Yes Outcomes/Goals: Pt sets, maintains & shows weight loss goal & trend during rehab and Other additional outcomes/goals Intervention/Plan: Instruct on ideal BMI & set weight loss goal w/patient, Assist pt to ID & incorporate diet changes for weight loss by S9, Refer to Structured Weight Loss program as appropriate, Encourage goal of using 250-300dcal per session for weight loss and Other additional plan/interventions 30 day Reassessments:: Progressing Reassessment Notes & Comments:: cool down encouraged, pt met with dietitian, pt encouraged to take his meds Healthy Eating Habits Will attend diet classes:: Yes Outcomes/Goals:: Consume diet rich in vegs,fruits,whole grain/high fiber,fish,lean meat, Limit sat/trans fats,cholesterol & added salts & sugars and Other additional outcome/goals: Intervention/Plan:: Assess current eating habits and Other Additional plan/interventions 30-day Reassessments:: Progressing Reassessment Notes & Comments:: pt met with dietitian Education Gave educational materials for:: Signs & symptoms of hypoglycemia, Signs & symptoms of hyperglycemia, Relate diabetes to coronary artery disease and Healthy eating Nutrition - 90-Day Assessment Program Goals Nutrition Program Goals Patient has diagnosis of Hyperlipidemia (ICD E78)?: Yes Visit Date of Assessment:: 08/06/22 Session #:: 23 Cholesterol/Lipids (Other Core Measures) Determine presence & major risk factors that modify LDL goal: Hypertension or hypertensive medication, Low HDL cholesterol <40 mg/dL*, Family history of premature CHD in Male < 55 years: female <65 yearsFa and Age men > 45 years; women >/= 55 years Outcomes/Goals: Pt IDs own risk factors & lifestyle modifications by Session 10, Verbalizes symptoms of angina & response by session 3., Pt independently manages and Other Additional Outcomes/Goals: Intervention/Plan: Advocate for lipid panel cholesterol medication if applicable, Instruct on personal lipid levels & lipid goals/NCEP guidelines, Instruct on cholesterol and Other additional plan/int Referral to dietitian:: No 30-day Reassessments:: Progressing Reassessment Notes & Comments:: pulse taking demonstrated, pt encouraged to do labs Diabetes (Other Core Measures) Diabetes Type: Diagnosis Type II ICD-10 E11 Insulin dependent injection/pump?: Yes Non-Insulin Dependent?: Yes Do you monitor your blood sugar at home?: Yes Referral to Diabetic Clinic:: Yes Outcomes/Goals:: Able to state symptoms of, Able to state, Able to state and Other additional Intervention/Plan:: Instruct on, Refer to, Instruct on and Other 30-day Reassessments:: Progressing (pt met dietitian) Reassessment Notes & Comments:: cool down encouraged, pt met with dietitian, pt encouraged to take his meds Weight Mgt (Other Care) Height: 5 ft 5 in Weight:: 260 lb 8 oz BMI: 43.3 Diagnosis Overweight/Obesity BMI> 30% ICD-10 E66: Yes Diagnosis High BMI/Morbid Obesity BMI> 35% ICD-10 Z68: Yes Outcomes/Goals: Pt sets, maintains & shows weight loss goal & trend during rehab and Other additional outcomes/goals Intervention/Plan: Instruct on ideal BMI & set weight loss goal w/patient, Assist pt to ID & incorporate diet changes for weight loss by S9, Refer to Structured Weight Loss program as appropriate, Encourage goal of using 250-300dcal per session for weight loss and Other additional plan/interventions 30 day Reassessments:: Progressing Healthy Eating Habits Will attend diet classes:: Yes Outcomes/Goals:: Consume diet rich in vegs,fruits,whole grain/high fiber,fish,lean meat, Limit sat/trans fats,cholesterol & added salts & sugars and Other additional outcome/goals: Intervention/Plan:: Assess current eating habits and Other Additional plan/interventions 30-day Reassessments:: Progressing Reassessment Notes & Comments:: pt met with dietitian Education Gave educational materials for:: Signs & symptoms of hypoglycemia, Signs & symptoms of hyperglycemia, Relate diabetes to coronary artery disease and Healthy eating Nutrition - Final Assessment Program Goals Nutrition Program Goals Patient has diagnosis of Hyperlipidemia (ICD E78)?: Yes Visit Date of Assessment:: 08/06/22 Session #:: 23 Cholesterol/Lipids (Other Core Measures) Determine presence & major risk factors that modify LDL goal: Hypertension or hypertensive medication, Low HDL cholesterol <40 mg/dL*, Family history of premature CHD in Male < 55 years: female <65 yearsFa and Age men > 45 years; women >/= 55 years Outcomes/Goals: Pt IDs own risk factors & lifestyle modifications by Session 10, Verbalizes symptoms of angina & response by session 3., Pt independently manages and Other Additional Outcomes/Goals: Intervention/Plan: Advocate for lipid panel cholesterol medication if applicable, Instruct on personal lipid levels & lipid goals/NCEP guidelines, Instruct on cholesterol and Other additional plan/int Referral to dietitian:: No 30-day Reassessments:: Progressing Reassessment Notes & Comments:: pulse taking demonstrated, pt encouraged to do labs Diabetes (Other Core Measures) Diabetes Type: Diagnosis Type II ICD-10 E11 Insulin dependent injection/pump?: Yes Non-Insulin Dependent?: Yes Do you monitor your blood sugar at home?: Yes Referral to Diabetic Clinic:: Yes Outcomes/Goals:: Able to state symptoms of, Able to state, Able to state and Other additional Intervention/Plan:: Instruct on, Refer to, Instruct on and Other 30-day Reassessments:: Progressing (pt met dietitian) Reassessment Notes & Comments:: cool down encouraged, pt met with dietitian, pt encouraged to take his meds Weight Mgt (Other Care) Height: 5 ft 5 in Weight:: 260 lb 8 oz BMI: 43.3 Diagnosis Overweight/Obesity BMI> 30% ICD-10 E66: Yes Diagnosis High BMI/Morbid Obesity BMI> 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-10 Z68: Yes Outcomes/Goals: Pt sets, maintains & shows weight loss goal & trend during rehab and Other additional outcomes/goals Intervention/Plan: Instruct on ideal BMI & set weight loss goal w/patient, Assist pt to ID & incorporate diet changes for weight loss by S9, Refer to Structured Weight Loss program as appropriate, Encourage goal of using 250-300dcal per session for weight loss and Other additional plan/interventions 30 day Reassessments:: Progressing Healthy Eating Habits Will attend diet classes:: Yes Outcomes/Goals:: Consume diet rich in vegs,fruits,whole grain/high fiber,fish,lean meat, Limit sat/trans fats,cholesterol & added salts & sugars and Other additional outcome/goals: Intervention/Plan:: Assess current eating habits and Other Additional plan/interventions 30-day Reassessments:: Progressing Reassessment Notes & Comments:: pt met with dietitian Education Gave educational materials for:: Signs & symptoms of hypoglycemia, Signs & symptoms of hyperglycemia, Relate diabetes to coronary artery disease and Healthy eating Core - Initial Assessment Visit Date of Eval: 08/06/22 Session #:: 23 Medication Compliance Preventative Medication(s):: Aspirin, Clopidogrel/P2Y12 inhibit, Statin/lipid and Beta denice H/O mental health issues: depression, anxiety, or addiction?: No Doesn?t believe in the benefits of treatment?: No Believes medications are unnecessary or harmful?: No Has a concern about medication side effects?: No Expresses concern over the cost of medications?: No Outcomes/Goals: Verbalizes medications,desired effect & common side effects @ DC, Pt self-reports following medication regimen, Keeps card in wallet w/medications listed by DC and Other additional outcome/goals: Interventions/plans: Instruct on medication effects & side effects, Review medication list w/patient every two weeks, Instruct importance of taking meds as ordered & assist problem solving and Other additional Tobacco Use Tobacco Use: Non-smoker Hypertension Hypertension Diagnosis:: Hypertension ICD-10 I10 Resting Blood Pressure:: 126/58 [place] [employer] Hypertension Guidelines Peak Exercise Blood Pressure:: 138/70 Outcomes/Goals: Able to verbalize/achieve optimal blood pressure <130/80, Incorporates diet changes & exercise for blood pressure control by DC and Other additional outcomes/goals Interventions/plan: Instruct on optimal blood pressure, hypertension & medications, Instruct on effects of sodium, alcohol, stress, exercise &hypertension and Other additional plan/interventions Tobacco Cessation Referral Smoking Cessation Referral:: No Individual Education/Counseling:: No Education Schedule Given:: Yes Core - 30-Day Assessment Visit Date of Eval: 08/06/22 Session #:: 23 Medication Compliance Preventative Medication(s):: Aspirin, Clopidogrel/P2Y12 inhibit, Statin/lipid and Beta denice H/O mental health issues: depression, anxiety, or addiction?: No Doesn?t believe in the benefits of treatment?: No Believes medications are unnecessary or harmful?: No Has a concern about medication side effects?: No Expresses concern over the cost of medications?: No Outcomes/Goals: Verbalizes medications,desired effect & common side effects @ DC, Pt self-reports following medication regimen, Keeps card in wallet w/medications listed by DC and Other additional outcome/goals: Interventions/plans: Instruct on medication effects & side effects, Review medication list w/patient every two weeks, Instruct importance of taking meds as ordered & assist problem solving and Other additional 30-day Reassessments:: Progressing Reassessment Notes & Comments:: encouraged to take meds Tobacco Use Tobacco Use: Non-smoker 30-day Reassessments:: Progressing (pt met dietitian) Reassessment Notes & Comments:: pulse taking demonstrated, pt encouraged to do labs Hypertension Hypertension Diagnosis:: Hypertension ICD-10 I10 Resting Blood Pressure:: 126/58 [place] Hypertension Guidelines Peak Exercise Blood Pressure:: 138/70 Outcomes/Goals: Able to verbalize/achieve optimal blood pressure <130/80, Incorporates diet changes & exercise for blood pressure control by DC and Other additional outcomes/goals Interventions/plan: Instruct on optimal blood pressure, hypertension & medications, Instruct on effects of sodium, alcohol, stress, exercise &hypertension and Other additional plan/interventions 30 day Reassessments:: Progressing Reassessment Notes & Comments:: cool down encouraged, pt met with dietitian, pt encouraged to take his meds Tobacco Cessation Referral Smoking Cessation Referral:: No Individual Education/Counseling:: No Education Schedule Given:: Yes Core - 60-Day Assessment Visit Date of Eval: 08/06/22 Session #:: 23 Medication Compliance Preventative Medication(s):: Aspirin, Clopidogrel/P2Y12 inhibit, Statin/lipid and Beta denice H/O mental health issues: depression, anxiety, or addiction?: No Doesn?t believe in the benefits of treatment?: No Believes medications are unnecessary or harmful?: No Has a concern about medication side effects?: No Expresses concern over the cost of medications?: No Outcomes/Goals: Verbalizes medications,desired effect & common side effects @ DC, Pt self-reports following medication regimen, Keeps card in wallet w/medications listed by DC and Other additional outcome/goals: Interventions/plans: Instruct on medication effects & side effects, Review medication list w/patient every two weeks, Instruct importance of taking meds as ordered & assist problem solving and Other additional 30-day Reassessments:: Progressing Reassessment Notes & Comments:: encouraged to take meds Tobacco Use Tobacco Use: Non-smoker 30-day Reassessments:: Progressing (pt met dietitian) Reassessment Notes & Comments:: pulse taking demonstrated, pt encouraged to do labs Hypertension Hypertension Diagnosis:: Hypertension ICD-10 I10 Resting Blood Pressure:: 126/58 [place] [employer] Hypertension Guidelines Peak Exercise Blood Pressure:: 138/70 Outcomes/Goals: Able to verbalize/achieve optimal blood pressure <130/80, Incorporates diet changes & exercise for blood pressure control by DC and Other additional outcomes/goals Interventions/plan: Instruct on optimal blood pressure, hypertension & medications, Instruct on effects of sodium, alcohol, stress, exercise &hypertension and Other additional plan/interventions 30 day Reassessments:: Progressing Reassessment Notes & Comments:: cool down encouraged, pt met with dietitian, pt encouraged to take his meds Tobacco Cessation Referral Smoking Cessation Referral:: No Individual Education/Counseling:: No Education Schedule Given:: Yes Core - 90 Day Assessment Visit Date of Eval: 08/06/22 Session #:: 23 Medication Compliance Preventative Medication(s):: Aspirin, Clopidogrel/P2Y12 inhibit, Statin/lipid and Beta denice H/O mental health issues: depression, anxiety, or addiction?: No Doesn?t believe in the benefits of treatment?: No Believes medications are unnecessary or harmful?: No Has a concern about medication side effects?: No Expresses concern over the cost of medications?: No Outcomes/Goals: Verbalizes medications,desired effect & common side effects @ DC, Pt self-reports following medication regimen, Keeps card in wallet w/medications listed by DC and Other additional outcome/goals: Interventions/plans: Instruct on medication effects & side effects, Review medication list w/patient every two weeks, Instruct importance of taking meds as ordered & assist problem solving and Other additional 30-day Reassessments:: Progressing Reassessment Notes & Comments:: encouraged to take meds Tobacco Use Tobacco Use: Non-smoker 30-day Reassessments:: Progressing (pt met dietitian) Reassessment Notes & Comments:: pulse taking demonstrated, pt encouraged to do labs Hypertension Hypertension Diagnosis:: Hypertension ICD-10 I10 Resting Blood Pressure:: 126/58 [place] [employer] Hypertension Guidelines Peak Exercise Blood Pressure:: 138/70 Outcomes/Goals: Able to verbalize/achieve optimal blood pressure <130/80, Incorporates diet changes & exercise for blood pressure control by DC and Other additional outcomes/goals Interventions/plan: Instruct on optimal blood pressure, hypertension & medications, Instruct on effects of sodium, alcohol, stress, exercise &hypertension and Other additional plan/interventions 30 day Reassessments:: Progressing Reassessment Notes & Comments:: cool down encouraged, pt met with dietitian, pt encouraged to take his meds Tobacco Cessation Referral Smoking Cessation Referral:: No Individual Education/Counseling:: No Education Schedule Given:: Yes Core - Final Assessment Visit Date of Eval: 08/06/22 Session #:: 23 Medication Compliance Preventative Medication(s):: Aspirin, Clopidogrel/P2Y12 inhibit, Statin/lipid and Beta denice H/O mental health issues: depression, anxiety, or addiction?: No Doesn?t believe in the benefits of treatment?: No Believes medications are unnecessary or harmful?: No Has a concern about medication side effects?: No Expresses concern over the cost of medications?: No Outcomes/Goals: Verbalizes medications,desired effect & common side effects @ DC, Pt self-reports following medication regimen, Keeps card in wallet w/medications listed by DC and Other additional outcome/goals: Interventions/plans: Instruct on medication effects & side effects, Review medication list w/patient every two weeks, Instruct importance of taking meds as ordered & assist problem solving and Other additional 30-day Reassessments:: Progressing Reassessment Notes & Comments:: encouraged to take meds Tobacco Use Tobacco Use: Non-smoker 30-day Reassessments:: Progressing (pt met dietitian) Reassessment Notes & Comments:: pulse taking demonstrated, pt encouraged to do labs Hypertension Hypertension Diagnosis:: Hypertension ICD-10 I10 Resting Blood Pressure:: 126/58 [place] [employer] Hypertension Guidelines Peak Exercise Blood Pressure:: 138/70 Outcomes/Goals: Able to verbalize/achieve optimal blood pressure <130/80, Incorporates diet changes & exercise for blood pressure control by DC and Other additional outcomes/goals Interventions/plan: Instruct on optimal blood pressure, hypertension & medications, Instruct on effects of sodium, alcohol, stress, exercise &hypertension and Other additional plan/interventions 30 day Reassessments:: Progressing Reassessment Notes & Comments:: cool down encouraged, pt met with dietitian, pt encouraged to take his meds Tobacco Cessation Referral Smoking Cessation Referral:: No Individual Education/Counseling:: No Education Schedule Given:: Yes Psychosocial - Initial Assess VIsit Date of Eval: 08/06/22 Session #:: 23 History of previous Mental disease:: No Target Goals Target Goals Psychosocial - 30-Day Assess VIsit Date of Eval: 08/06/22 Session #:: 23 History of previous Mental disease:: No Target Goals Target Goals Psychosocial - 60-Day Assess VIsit Date of Eval: 08/06/22 Session #:: 23 History of previous Mental disease:: No Target Goals Target Goals Psychosocial - 90-Day Assess VIsit Date of Eval: 08/06/22 Session #:: 23 History of previous Mental disease:: No Target Goals Target Goals Psychosocial - Final Assessmen VIsit Date of Eval: 08/06/22 Session #:: 23 History of previous Mental disease:: No Target Goals Target Goals Patient Health Questionnaire PHQ-9 Screening 60-Day Re-eval Assessment: 1. Little interest or pleasure in doing things: Several days 2. Feeling down, depressed, or hopeless: More than half the days 3. Trouble falling or staying asleep, or sleeping too much: Nearly every day 4. Feeling tired or having little energy: Nearly every day 5. Poor appetite or overeating: Several days 6. Feeling bad about yourself -- or that you are a failure or have let yourself or your family down: Not at all 7. Trouble concentrating on things, such as reading the newspaper or watching television: Not at all 8. Moving or speaking so slowly that other people could have noticed. Or the opposite - being so fidgety or restless that you have been moving around a lot more than usual: More than half the days 9. Thoughts that you would be better off , or of hurting yourself in some way: Not at all How difficult have these problems made it for you to do your work, take care of things at home, or get along with other people?: Somewhat difficult Total Score: 12 Self-Efficacy 6-Item Scale 60-Day Re-eval Assessment: We would like to know how confident you are in doing certain activities. Please select your confidence level for: Fatigue Select Number: 8 Physical Discomfort or Pain Select Number: 3 Emotional Distress Other Symptoms or Health Problems Select Number: 6 Different Tasks and Activities Select Number: 8 Medication Select Number: 1 Nutrition Survey Nutrition Survey Instructions Scoring Instructions
[2022-08-06 13:08] VITALS: BP 126/58; BP 138/70
[2022-08-06 13:11] VITALS: BMI 43.3
== END 2022-08-08 23:59 ==
LOC: CR 13:00
PROVIDERS: PCP Family Medicine; Referring Provider Internal Medicine Cardiovascular Disease; Visit Provider Internal Medicine Cardiovascular Disease
DX: I25.2 Old myocardial infarction (principal); E11.22 Type 2 diabetes mellitus with diabetic chronic kidney disease; E66.01 Morbid (severe) obesity due to excess calories; N18.30 Chronic kidney disease, stage 3 unspecified; Z95.5 Presence of coronary angioplasty implant and graft; I25.10 Atherosclerotic heart disease of native coronary artery without angina pectoris; I65.29 Occlusion and stenosis of unspecified carotid artery; M71.9 Bursopathy, unspecified; I12.9 Hypertensive chronic kidney disease with stage 1 through stage 4 chronic kidney disease, or unspecified chronic kidney disease; M10.9 Gout, unspecified; E78.5 Hyperlipidemia, unspecified; I35.0 Nonrheumatic aortic (valve) stenosis; G25.81 Restless legs syndrome
CPT/HCPCS: 93798

== ENCOUNTER 2022-09-08 13:00 | Outpatient (RCR) | payer MEDICARE, BC, SELFPAY ==
[2022-08-06 13:11] VITALS: BMI 43.3
[2022-08-09 01:27] VITALS: BP 126/58; BP 138/70
--- NOTE | 2022-09-08 08:06 | CR.ITP_ITS ---
Nutrition - Initial Assessment Weight Mgt (Other Care) Height: 5 ft 5 in Weight:: 256 lb BMI: 42.5 Psychosocial - Initial Assess Target Goals Target Goals Referral to Behavioral Health PS - Interventions: Yes: Attend Stress Management Classes and No: Referral to Behavioral Health if PHQ-9 score >9:, No: Referral to [facility] and No: Referral to Physician if PHQ-9 if score is 5-9: Patient Health Questionnaire PHQ-9 Screening 90-Day Re-eval Assessment: 1. Little interest or pleasure in doing things: Not at all 2. Feeling down, depressed, or hopeless: Several days 3. Trouble falling or staying asleep, or sleeping too much: More than half the days 4. Feeling tired or having little energy: More than half the days 5. Poor appetite or overeating: Several days 6. Feeling bad about yourself -- or that you are a failure or have let yourself or your family down: Not at all 7. Trouble concentrating on things, such as reading the newspaper or watching television: Not at all 8. Moving or speaking so slowly that other people could have noticed. Or the opposite - being so fidgety or restless that you have been moving around a lot more than usual: Not at all 9. Thoughts that you would be better off , or of hurting yourself in some way: Not at all How difficult have these problems made it for you to do your work, take care of things at home, or get along with other people?: Somewhat difficult Total Score: 6 Self-Efficacy 6-Item Scale 90-Day Re-eval Assessment: We would like to know how confident you are in doing certain activities. Please select your confidence level for: Fatigue Select Number: 8 Physical Discomfort or Pain Select Number: 5 Emotional Distress Select Number: 9 Other Symptoms or Health Problems Select Number: 8 Different Tasks and Activities Select Number: 8 Medication Select Number: 8 Total Score:: 7 Nutrition Survey Nutrition Survey Instructions Scoring Instructions Exercise - 90-day Assessment Visit Date of Eval: 09/08/22 Session #:: 31 Physician Prescribed Exercise Modalities: NuStep and SciFit Frequency: 3x/week for 12 weeks [36 sessions] Intensity: 60-80% of age predicted maximum heart rate reserve Duration: 30 - 45 minutes Current METSs:: 4.0 Target Heart Rate:: 89-104 Current RPE:: 12 Maximum Excercise HR:: 103 Resting Blood Pressure: 130/54 Maximum Exercise Blood Pressure: 134/64 EKG Type: NSR Current Physical Activity or Exercising minutes: 36:36 Outcomes & Goals Goals:: Verbalizes understanding of THR, RPE & goal METS by session 6, Documents in home exercise log/reports 30 min aerobic 5 day/wk by DC and Demonstrates accurate pulse taking by DC Intervention & Plan Exercise Program Goals: Instruct on personal THR & RPE, Instruct on MET level & personal MET goal, Show patient to take own pulse /validate performance until accurate and Instruct on home exercise 30-day Reassessments 30 day Reassessments:: Progressing Physical Activity Home Exercise Physical Activity - Home Exercise: Safe Exercise, Warm-up, Self-monitoring, Cool-Down, Home Exercise > 30 min Daily and Sitting Time <3 hours/daily Outcomes & Goals Outcomes/Goals: Demonstrates correct Warm-up/exercise Cool-Down (S3) if = 2.5 METs, Verbalizes symptoms of exercise intolerance by Session 3 (S3) and Demonstrate safe equipment use (S3) & follows exercise prescrition (6) Intervention & Plan Plan/Intervention: Instruct warm-up & cool-down if exercising at > 2 METs, Inst ruct on symptoms of exercise intolerance & actions to take, Instruct & monitor on saf and Assess intial functional capacity & safety risk 30-day Reassessments 30 day Reassessments:: Met Nutrition - 30-Day Assessment Weight Mgt (Other Care) Height: 5 ft 5 in Weight:: 256 lb BMI: 42.5 Nutrition - 60-Day Assessment Weight Mgt (Other Care) Height: 5 ft 5 in Weight:: 256 lb BMI: 42.5 Core - 90 Day Assessment Visit Date of Eval: 09/08/22 Session #:: 31 Medication Compliance Preventative Medication(s):: Aspirin, Clopidogrel/P2Y12 inhibit, Statin/lipid and Beta denice H/O mental health issues: depression, anxiety, or addiction?: No Doesn?t believe in the benefits of treatment?: No Believes medications are unnecessary or harmful?: No Has a concern about medication side effects?: No Expresses concern over the cost of medications?: No Outcomes/Goals: Verbalizes medications,desired effect & common side effects @ DC, Pt self-reports following medication regimen and Keeps card in wallet w/medications listed by DC Interventions/plans: Instruct on medication effects & side effects, Review medication list w/patient every two weeks and Instruct importance of taking meds as ordered & assist problem solving 30-day Reassessments:: Met Tobacco Use Tobacco Use: Non-smoker Hypertension Hypertension Diagnosis:: Hypertension ICD-10 I10 Resting Blood Pressure:: 130/54 [place] [employer] Hypertension Guidelines Peak Exercise Blood Pressure:: 152/56 Outcomes/Goals: Able to verbalize/achieve optimal blood pressure <130/80 and Incorporates diet changes & exercise for blood pressure control by DC Interventions/plan: Instruct on optimal blood pressure, hypertension & medications and Instruct on effects of sodium, alcohol, stress, exercise & hypertension 30 day Reassessments:: Met Tobacco Cessation Referral Smoking Cessation Referral:: No Individual Education/Counseling:: No Education Schedule Given:: Yes Psychosocial - 30-Day Assess Target Goals Target Goals Referral to Behavioral Health PS - Interventions: Yes: Attend Stress Management Classes and No: Referral to Behavioral Health if PHQ-9 score >9:, No: Referral to [facility] and No: Referral to Physician if PHQ-9 if score is 5-9: Psychosocial - 60-Day Assess Target Goals Target Goals Referral to Behavioral Health PS - Interventions: Yes: Attend Stress Management Classes and No: Referral to Behavioral Health if PHQ-9 score >9:, No: Referral to [facility] and No: Referral to Physician if PHQ-9 if score is 5-9: Psychosocial - 90-Day Assess VIsit Date of Eval: 09/08/22 Session #:: 31 Not Applicable: Yes History of previous Mental disease:: No Target Goals Target Goals Psychosocial Test Tool Used:: PHQ-9 Questionnaire phq-9 Severity Referral to Behavioral Health PS - Interventions: Yes: Attend Stress Management Classes and No: Referral to Behavioral Health if PHQ-9 score >9:, No: Referral to [facility] and No: Referral to Physician if PHQ-9 if score is 5-9: Outcomes/Goals: See list Psychosocial Outcomes/Goals:: ID's personal stressors & 2 strategies to manage stress by discharge Intervention/Plan: See List Interventions/Plan:: Assess stressors,coping strategies & signs of derpression on admission, Instruct/assist pt to develop coping & personal stress Mgt strategies, Instruct patient to recognize signs & symptoms of depression and Instruct patient to recog 30-day Reassessments: 30 day Reassessments:: Met Psychosocial - Final Assessmen Target Goals Target Goals Referral to Behavioral Health PS - Interventions: Yes: Attend Stress Management Classes and No: Referral to Behavioral Health if PHQ-9 score >9:, No: Referral to [facility] and No: Referral to Physician if PHQ-9 if score is 5-9: Nutrition - 90-Day Assessment Program Goals Nutrition Program Goals Patient has diagnosis of Hyperlipidemia (ICD E78)?: Yes Visit Date of Eval: 09/08/22 Session #:: 31 Cholesterol/Lipids (Other Core Measures) Triglycerides (mg/dL): 120 Total Cholesterol (mg/dL): 116 LDL Cholesterol (mg/dL): 56 HDL Cholesterol (mg/dL): 36 Lipid Medication: Simvastatin Determine presence & major risk factors that modify LDL goal: Hypertension or hypertensive medication, Low HDL cholesterol <40 mg/dL*, Family history of premature CHD in Male < 55 years: female <65 yearsFa and Age men > 45 years; women >/= 55 years Outcomes/Goals: Pt IDs own risk factors & lifestyle modifications by Session 10, Verbalizes symptoms of angina & response by session 3. and Pt independently manages Intervention/Plan: Instruct on personal lipid levels & lipid goals/NCEP guidelines and Instruct on cholesterol Referral to dietitian:: No 30-day Reassessments:: Progressing Reassessment Notes & Comments:: Patient was scheduled for Nutritional Services on 06/18/22 & 07/14/22 and cancelled appointments. He was to call to reschedule Diabetes (Other Core Measures) Diabetes Type: Diagnosis Type II ICD-10 E11 Insulin dependent injection/pump?: Yes Non-Insulin Dependent?: Yes Do you monitor your blood sugar at home?: Yes Referral to Diabetic Clinic:: No Outcomes/Goals:: Able to state symptoms of, Able to state and Able to state Intervention/Plan:: Instruct on and Instruct on 30-day Reassessments:: Not Met Reassessment Notes & Comments:: Patient was scheduled for Nutritional Services on 06/18/22 & 07/14/22 and cancelled appointments. He was to call to reschedule Weight Mgt (Other Care) Not Applicable: No Height: 5 ft 5 in Weight:: 256 lb BMI: 42.5 Diagnosis Overweight/Obesity BMI> 30% ICD-10 E66: Yes Diagnosis High BMI/Morbid Obesity BMI> 35% ICD-10 Z68: Yes Outcomes/Goals: Pt sets, maintains & shows weight loss goal & trend during rehab Intervention/Plan: Instruct on ideal BMI & set weight loss goal w/patient, Assist pt to ID & incorporate diet changes for weight loss by S9 and Encourage goal of using 250-300dcal per session for weight loss 30 day Reassessments:: Not Met Reassessment Notes & Comments:: Patient was scheduled for Nutritional Services on 06/18/22 & 07/14/22 and cancelled appointments. He was to call to reschedule Healthy Eating Habits Will attend diet classes:: Yes Outcomes/Goals:: Consume diet rich in vegs,fruits,whole grain/high fiber,fish,lean meat and Limit sat/trans fats,cholesterol & added salts & sugars Intervention/Plan:: Assess current eating habits 30-day Reassessments:: Not Met Reassessment Notes & Comments:: Patient was scheduled for Nutritional Services on 06/18/22 & 07/14/22 and cancelled appointments. He was to call to reschedule Education Gave educational materials for:: Signs & symptoms of hypoglycemia, Signs & symptoms of hyperglycemia, Relate diabetes to coronary artery disease and Healthy eating Nutrition - Final Assessment Weight Mgt (Other Care) Height: 5 ft 5 in Weight:: 256 lb BMI: 42.5
[2022-09-08 08:17] VITALS: BP 130/54; BMI 42.5
== END 2022-09-08 23:59 ==
LOC: CR 13:00
PROVIDERS: PCP Family Medicine; Referring Provider Internal Medicine Cardiovascular Disease; Visit Provider Internal Medicine Cardiovascular Disease
DX: I25.2 Old myocardial infarction (principal); E11.22 Type 2 diabetes mellitus with diabetic chronic kidney disease; E66.01 Morbid (severe) obesity due to excess calories; N18.30 Chronic kidney disease, stage 3 unspecified; Z95.5 Presence of coronary angioplasty implant and graft; I25.10 Atherosclerotic heart disease of native coronary artery without angina pectoris; I65.29 Occlusion and stenosis of unspecified carotid artery; M71.9 Bursopathy, unspecified; I12.9 Hypertensive chronic kidney disease with stage 1 through stage 4 chronic kidney disease, or unspecified chronic kidney disease; M10.9 Gout, unspecified; E78.5 Hyperlipidemia, unspecified; I35.0 Nonrheumatic aortic (valve) stenosis; G25.81 Restless legs syndrome
CPT/HCPCS: 93798

== ENCOUNTER 2022-09-17 13:00 | Outpatient (RCR) | payer MEDICARE, BC, SELFPAY ==
[2022-09-09 00:19] VITALS: BP 126/58; BP 130/54; BP 138/70
== END 2022-10-09 23:59 ==
LOC: CR 13:00
PROVIDERS: PCP Family Medicine; Referring Provider Internal Medicine Cardiovascular Disease; Visit Provider Internal Medicine Cardiovascular Disease
DX: I25.2 Old myocardial infarction (principal); E11.22 Type 2 diabetes mellitus with diabetic chronic kidney disease; E66.01 Morbid (severe) obesity due to excess calories; N18.30 Chronic kidney disease, stage 3 unspecified; Z95.5 Presence of coronary angioplasty implant and graft; I25.10 Atherosclerotic heart disease of native coronary artery without angina pectoris; I65.29 Occlusion and stenosis of unspecified carotid artery; M71.9 Bursopathy, unspecified; I12.9 Hypertensive chronic kidney disease with stage 1 through stage 4 chronic kidney disease, or unspecified chronic kidney disease; M10.9 Gout, unspecified; E78.5 Hyperlipidemia, unspecified; I35.0 Nonrheumatic aortic (valve) stenosis; G25.81 Restless legs syndrome
CPT/HCPCS: 93798

== ENCOUNTER 2022-12-23 07:24 | Outpatient (CLI) | payer MEDICARE, BC, SELFPAY ==
[2022-12-23 10:04] LABS: Absolute Lymphocyte Count 1.89 X10^3/uL (0.83-4.51); Absolute Neutrophil Count 3.8 X10^3/uL (2.0-7.7); Basophil# 0.04 X10^3/uL; Basophil% 0.6 % (0-1); Eosinophil# 0.53 X10^3/uL; Eosinophils% 7.8 % (0-5); Hematocrit 44.7 % (40-54); Hemoglobin 14.5 g/dL (13.0-16.5); Lymphocyte # 1.89 X10^3/ul (0.83-4.51); Lymphocyte % 27.7 % (19-41); Mean Corp Hgb Conc 32.4 g/dL (32-36); Mean Corpuscular Hgb 30.3 pg (27.0-32.0); Mean Corpuscular Volume 93.3 fL (80-94); Mean Platelet Vol. 11.3 fl (6.2-12.0); Monocyte# 0.59 X10^3/uL; Monocyte% 8.6 % (0-10); NRBC Flagged by Analyzer 0 % (0-5); Neutrophil # 3.77 X10^3/uL (2.7-7.7); Neutrophil % 55.2 % (47-70); Platelet Count 201 K/mm3 (150-450); RBC Distribution Width CV 14.3 % (11.6-14.6); RBC Distribution Width SD 49.1 fl (35.1-43.9); Red Blood Count 4.79 M/mm3 (4.6-6.2); White Blood Count 6.8 K/mm3 (4.4-11.0)
[2022-12-23 10:32] LABS: ALB/GLOB Ratio 0.9 RATIO (0.9-2.4); AST(SGOT) 34 U/L (15-37); Alanine Aminotransfer ALT/SGPT 30 U/L (16-61); Albumin, Serum 3.4 g/dL (3.2-5.0); Alkaline Phosphatase 111 U/L (45-117); Anion Gap 5 (5-15); BUN 44 mg/dL (7-18); BUN/Creat Ratio 33.8 RATIO (10-20); Calcium,Total 9.5 mg/dL (8.5-10.1); Chloride 104 mmol/L (98-107); Cholesterol 167 mg/dL (200); EST Glomerular Filtration Rate 56 mL/min (>60); Est Glom Filt Rate - Afr Amer 68 mL/min (>60); Globulin 3.9 g/dL (2.2-4.2); Glucose 174 mg/dL (74-106); High Density Lipoprotein 49 mg/dL; Potassium 4.1 mmol/L (3.5-5.1); Protein, Total 7.3 g/dL (6.4-8.2); Sodium Level 139 mmol/L (136-145); Triglycerides 186 mg/dL; Very Low Density Lipoprotein 37 mg/dL (5-40)
[2022-12-23 10:34] LABS: Hemoglobin A1c 6.9 % (3.8-5.6)
== END 2022-12-23 23:59 | disposition home or self-care (01) ==
LOC: MTLAB 07:25
PROVIDERS: PCP Family Medicine; Referring Provider Family Medicine; Visit Provider Family Medicine
DX: E11.21 Type 2 diabetes mellitus with diabetic nephropathy (principal); I50.32 Chronic diastolic (congestive) heart failure
CPT/HCPCS: 36415; 80053; 80061; 83036; 83880; 85025

== ENCOUNTER → 2023-03-26 | Outpatient (CLI) | payer MEDICARE, BC, SELFPAY ==
[2023-03-26 17:43] LABS: Hematocrit 43.8 % (40-54); Hemoglobin 13.9 g/dL (13.0-16.5); Mean Corp Hgb Conc 31.7 g/dL (32-36); Mean Corpuscular Hgb 30.3 pg (27.0-32.0); Mean Corpuscular Volume 95.6 fL (80-94); Mean Platelet Vol. 11.3 fl (6.2-12.0); Platelet Count 207 K/mm3 (150-450); RBC Distribution Width CV 14.2 % (11.6-14.6); RBC Distribution Width SD 49.8 fl (35.1-43.9); Red Blood Count 4.58 M/mm3 (4.6-6.2); White Blood Count 7.7 K/mm3 (4.4-11.0)
[2023-03-26 17:57] LABS: AST(SGOT) 33 U/L (15-37); Alanine Aminotransfer ALT/SGPT 34 U/L (16-61); Albumin, Serum 3.6 g/dL (3.2-5.0); Alkaline Phosphatase 109 U/L (45-117); Anion Gap 4 (5-15); BUN 33 mg/dL (7-18); BUN/Creat Ratio 26.2 RATIO (10-20); Calcium,Total 9.5 mg/dL (8.5-10.1); Chloride 105 mmol/L (98-107); Creatinine, Serum 1.26 mg/dL (0.70-1.30); EST Glomerular Filtration Rate 58 mL/min (>60); Est Glom Filt Rate - Afr Amer 70 mL/min (>60); Ferritin 135 ng/mL (26-388); Globulin 3.6 g/dL (2.2-4.2); Glucose 129 mg/dL (74-106); Potassium 3.9 mmol/L (3.5-5.1); Protein, Total 7.2 g/dL (6.4-8.2); Sodium Level 140 mmol/L (136-145)
== END | disposition home or self-care (01) ==
LOC: MTLAB 15:32
PROVIDERS: PCP Family Medicine; Referring Provider Family Medicine; Visit Provider Family Medicine
DX: G25.81 Restless legs syndrome (principal); E11.21 Type 2 diabetes mellitus with diabetic nephropathy
CPT/HCPCS: 36415; 80053; 82728; 85027

== ENCOUNTER → 2023-05-29 | Outpatient (CLI) | payer MEDICARE, BC, SELFPAY ==
[2023-05-29 18:21] LABS: Vitamin D,25 Hydroxy 38.5 ng/mL
[2023-05-29 18:24] LABS: PTHIN 115.6 pg/mL (18.4-80.1)
[2023-05-29 18:36] LABS: ALB/GLOB Ratio 0.9 RATIO (0.9-2.4); AST(SGOT) 27 U/L (15-37); Alanine Aminotransfer ALT/SGPT 30 U/L (16-61); Albumin, Serum 3.2 g/dL (3.2-5.0); Alkaline Phosphatase 100 U/L (45-117); Anion Gap 8 (5-15); BUN 32 mg/dL (7-18); BUN/Creat Ratio 24.6 RATIO (10-20); Calcium,Total 9.2 mg/dL (8.5-10.1); Chloride 105 mmol/L (98-107); EST Glomerular Filtration Rate 56 mL/min (>60); Est Glom Filt Rate - Afr Amer 68 mL/min (>60); Globulin 3.4 g/dL (2.2-4.2); Glucose 184 mg/dL (74-106); Potassium 3.8 mmol/L (3.5-5.1); Protein, Total 6.6 g/dL (6.4-8.2); Sodium Level 139 mmol/L (136-145)
[2023-05-29 18:48] LABS: Microalbumin,Random Urine 5.3 mg/L (NO RANGE EST.)
== END | disposition home or self-care (01) ==
LOC: MTLAB 14:14
PROVIDERS: PCP Family Medicine; Referring Provider Family Medicine; Visit Provider Family Medicine
DX: E21.3 Hyperparathyroidism, unspecified (principal); E11.21 Type 2 diabetes mellitus with diabetic nephropathy
CPT/HCPCS: 36415; 80053; 82043; 82306; 83970

== ENCOUNTER → 2023-08-28 | Outpatient (CLI) | payer MEDICARE, BC, SELFPAY ==
--- NOTE | 2023-08-28 09:43 | ECHOCS_ITS ---
Version 2 Reason For Study: NONRHEUM Procedure This was a 2D Doppler, Color Flow transthoracic echocardiogram. The study was technically difficult. Contrast injection was performed. Exam performed in department. Left Ventricle Normal LV size. Left ventricular systolic function is normal. The left ventricular ejection fraction is 65 %. Stage 1 diastolic dysfunction. No regional wall motion abnormalities noted. Right Ventricle Normal RV size. Atria Normal left atrium. Normal right atrium. Mitral Valve Normal mitral valve. Tricuspid Valve Normal tricuspid valve. Aortic Valve Trisinus/trileaflet aortic valve. Mild focal aortic valve calcification. Peak aortic valve gradient 38 mmHg. Mean aortic valve gradient 21 mmHg. Mild to moderate aortic stenosis. Pulmonic Valve Normal pulmonic valve. Great Vessels Normal aortic root. The pulmonary artery is normal size. Normal inferior vena cava. Pericardium/Pleural No pericardial effusion. Medication 22 gauge I.V. with prn adaptor inserted into right arm. Diluted definity 1.5ml given slow IV push to enhance endocardial definition. MMode/2D Measurements & Calculations LVIDd: 4.5 cm IVSd: 0.99 cm LVOT diam: 1.9 cm LVIDs: 2.2 cm LVPWd: 1.4 cm FS: 52.1 % LVOT area: 2.8 cm2 Ao root diam: 3.3 cm LAV(MOD-bp): 54.5 ml LVAd ap4: 41.2 cm2 LAV(MOD-bp) Indexed: 24.4 ml/m2 LVLd ap4: 8.7 cm LAV(MOD-sp2): 45.1 ml EDV(MOD-sp4): 156.6 ml LAV(MOD-sp4): 64.9 ml EDV(sp4-el): 164.8 ml LVAs ap4: 22.8 cm2 LVLs ap4: 7.1 cm ESV(MOD-sp4): 60.3 ml ESV(sp4-el): 62.3 ml EF(MOD-sp4): 61.5 % EF(sp4-el): 62.2 % SV(MOD-sp4): 96.2 ml SV(sp4-el): 102.5 ml LA A4 area: 21.9 cm2 LA dimension(2D): 4.4 cm RA A4 area: 13.4 cm2 TAPSE: 2.2 cm Time Measurements MV dec time: 0.22 sec Doppler Measurements & Calculations MV E max shantanu: 106.1 cm/sec Lat Peak E' Shantanu: 7.3 cm/sec Med Peak E' Shantanu: 8.7 cm/sec MV A max shantanu: 112.4 cm/sec E/E' lat: 14.5 E/E' med: 12.2 MV E/A: 0.94 MV V2 max: 133.9 cm/sec MV dec slope: 485.9 cm/sec2 Ao V2 max: 306.7 cm/sec MV max P.2 mmHg Ao max P.6 mmHg MV V2 mean: 62.5 cm/sec Ao V2 mean: 211.2 cm/sec MV mean P.1 mmHg Ao mean P.2 mmHg MV V2 VTI: 35.9 cm Ao V2 VTI: 79.2 cm MVA(VTI): 1.7 cm2 AV (velocity ratio): 0.27 CIRILO(I,D): 0.77 cm2 CIRILO(V,D): 0.90 cm2 LV V1 max: 98.6 cm/sec SV(LVOT): 61.0 ml LV V1 max P.9 mmHg LV V1 mean P.0 mmHg LV V1 mean: 66.9 cm/sec LV V1 VTI: 21.7 cm ECHO/Echo Complete W/ Contrast Interpretation Summary Normal LV size. Left ventricular systolic function is normal. The left ventricular ejection fraction is 65 %. Stage 1 diastolic dysfunction. Mean aortic valve gradient 21 mmHg. Mild focal aortic valve calcification. Mild to moderate aortic stenosis. Contrast injection was performed. Ordering Physician: Suma Chambers Referring Physician: Suma Chambers Performed By: Mone Thorpe RCS
--- NOTE | 2023-08-28 09:43 | ART_ITS ---
Reason For Study: Decreased Pedal Pulses Procedure A bilateral lower extremity continuous wave Doppler with analog waveform analysis,segmental pressures,and ankle brachial indexes without exercise. Left Segmental Pressures Left posterior tibial artery = 149mmHg. Left dorsalis pedis artery = 143mmHg. Left digit = 94 mmHg. Right Segmental Pressures Right brachial= 124mmHg. Right posterior tibial artery = 129mmHg. Right dorsalis pedis artery = 118mmHg. Right digit = 92 mmHg. Indices The right ankle brachial index by the posterior tibial artery is 1.04. The right ankle brachial index by the dorsalis pedis is 0.95. The right digital-brachial index is 0.74. The left ankle brachial index by the posterior tibial artery is 1.20. The left ankle brachial index by the dorsalis pedis is 1.15. The left digital-brachial index is 0.76. VL/Lower Ext Art Exam w/o Exercis Interpretation Summary Right RICARDO 1.04, normal. Doppler/PVR waveforms of the right leg normal at rest. TBI diminished, pedal/digit disease vs spasm Left RICARDO 1.2, normal. TBI and Doppler/PVR waveforms of the left leg normal at r est. Ordering Physician: Suma Chambers Referring Physician: Blair Alexandra Performed By: Anastasia Langston RDCS/RVT
== END | disposition home or self-care (01) ==
LOC: CVS 09:42
PROVIDERS: PCP Family Medicine; Referring Provider Physician Assistant Medical; Visit Provider Physician Assistant Medical
DX: I73.9 Peripheral vascular disease, unspecified (principal); R09.89 Other specified symptoms and signs involving the circulatory and respiratory systems; I35.0 Nonrheumatic aortic (valve) stenosis
CPT/HCPCS: 93306; 93923; Q9957; A4216; C8929

== ENCOUNTER 2023-08-31 12:30 | Outpatient (RCR) | payer MEDICARE, BC, SELFPAY ==
--- NOTE | 2023-08-06 17:15 | HP.OTEVAL ---
Patient's Visit Information Visit Information Visit Information: LOBO VANEGAS is a 82 year old M, referred to Occupational Therapy by Dr. Blair Alexandra MD, with a diagnosis of LE edema. Date of Evaluation: 08/05/23 Occupational Therapist: Suma Spencer, LIONELR/Scar, CHT Subjective Subjective: This 82 year old male was seen for OT eval with dx of LE edema. pt states about a year and a half ago he has issues with swelling. pt states about a year and a half ago he had a right TKR. and then had a heart attack.pt states 2 stints placed. pt states he did try compression socks for about 3-4 months but they were hard to get on and off. pt on water pill 2x a day pt states he sleeps in a bed with legs elevated but no change in swelling. pt states he did get water blisters on his legs but that has gone away. pt states just difficulty putting compression socks on and would like to know what more he can do to help with swelling. Pain bilateral LE: Current Pain Intensity: 3 Pain Intensity Range: 3 Lymphedema (Circumferential Measure) Mid-foot: right 24cm left 24cm Ankle: right 31cm left 31cm Lower calf: right 36cm left 34cm Largest calf: right 44cm left 45cm Below knee: right 40cm left 40cm Lower Limb Functional Index Lower Extremity Functional Score: 21 Goals Goal: Patient will demonstrate a 20% reduction in edema by discharge: Yes Goal: Patient will demonstrate adequate knowledge of self-massage by the end of the second week.: Yes Goal: Patient will demonstrate adequate knowledge of skin care and precautions by the end of the first week.: Yes Goal: Patient will demonstrate adequate knowledge of therapeutic exercises by discharge.: Yes Goal: Patient will select an appropriate compression garment and demonstrate adequate knowledge of correct donning technique, care and wearing schedule by discharge.: Yes Goal: Patient will voice understanding of need to replace compression garment every four to six months by discharge.: Yes Rehabilitation General Assessment: pt demo with LE edema limiting his mobility and risk of skin care. Pt demo need for skilled OT services 2-4 visits to ed. pt on life long mtg. of LE edema. Today therapist ed. pt on ex. to stimulate circulation and use of compression garments- as pt is unable to get compression socks on- therapist rec'd velcro closure compression alternatives. Pt receptive and was given handout on ex. as well as where to purchase the compression garment. Rehabilitation Potential: Questionable Anticipated Interventions Anticipated Interventions: Education re Diagnosis, Education re Life-long lymphedema Management, Education re Skin Care and Precautions, Education re Self Massage Techniques, Education re Correct Donning Tech,Care&Wearing Sched Comp Garments and Home Program Visit Plan TEXT: Thank you for the opportunity to evaluate your patient. For Medicare and Medicare HMO plans, please review the plan of care and approve it. It will need to be FAXED BACK to us at [phone] for Medicare purposes. Please let me know if there are questions or concerns regarding this plan of care. Physician Signature: Date:
== END 2023-08-31 19:00 | disposition home or self-care (01) ==
LOC: OT 12:30
PROVIDERS: PCP Family Medicine; Visit Provider Family Medicine
DX: I73.9 Peripheral vascular disease, unspecified (principal); M79.89 Other specified soft tissue disorders
CPT/HCPCS: 97166; 97530

== ENCOUNTER → 2023-10-06 | Outpatient (CLI) | payer MEDICARE, BC, SELFPAY ==
[2023-10-06 10:47] LABS: Bacteria 0 SEEN /hpf (None Seen); Mucous, Urine 0 SEEN /hpf (<or=2+); Red Blood Cells-Urine 0 SEEN /hpf (0-5); Squamous Epithelial Cells - UA 0 SEEN /hpf (0-5); White Blood Cells 0 SEEN /hpf (0-5)
[2023-10-06 12:06] LABS: Color, Urine Yellow (Yellow); Glucose, Dipstick Normal (Normal); Ketone-Dipstick Negative (Negative); Leukocyte Esterase-Dipstick Negative /ul (Negative); Nitrite-Dipstick Negative (Negative); Occult Blood-Urine Negative /ul (Negative); Protein-Dipstick Negative (Negative); Specific Gravity, Urine 1.015 (1.002-1.030); Urine Bilirubin Dipstick Negative (Negative); Urine Clarity Clear (Clear); Urine Urobilinogen Normal (Normal)
[2023-10-06 13:10] LABS: Absolute Lymphocyte Count 1.51 X10^3/uL (0.83-4.51); Absolute Neutrophil Count 4.4 X10^3/uL (2.0-7.7); Basophil# 0.05 X10^3/uL; Basophil% 0.7 % (0-1); Eosinophil# 0.22 X10^3/uL; Eosinophils% 3.2 % (0-5); Hematocrit 43.3 % (40-54); Hemoglobin 14.5 g/dL (13.0-16.5); Lymphocyte # 1.51 X10^3/ul (0.83-4.51); Lymphocyte % 22.2 % (19-41); Mean Corp Hgb Conc 33.5 g/dL (32-36); Mean Corpuscular Hgb 31.5 pg (27.0-32.0); Mean Corpuscular Volume 93.9 fL (80-94); Mean Platelet Vol. 12.1 fl (6.2-12.0); Monocyte# 0.59 X10^3/uL; Monocyte% 8.7 % (0-10); NRBC Flagged by Analyzer 0 % (0-5); Neutrophil % 64.9 % (47-70); Platelet Count 172 K/mm3 (150-450); RBC Distribution Width CV 13.9 % (11.6-14.6); RBC Distribution Width SD 47.3 fl (35.1-43.9); Red Blood Count 4.61 M/mm3 (4.6-6.2); White Blood Count 6.8 K/mm3 (4.4-11.0)
[2023-10-06 13:58] LABS: AST(SGOT) 27 U/L (15-37); Alanine Aminotransfer ALT/SGPT 32 U/L (16-61); Albumin, Serum 3.4 g/dL (3.2-5.0); Alkaline Phosphatase 112 U/L (45-117); Anion Gap 7 (5-15); BUN 32 mg/dL (7-18); BUN/Creat Ratio 25.2 RATIO (10-20); Calcium,Total 9.9 mg/dL (8.5-10.1); Chloride 105 mmol/L (98-107); Cholesterol 159 mg/dL (200); Creatinine, Serum 1.27 mg/dL (0.70-1.30); EST Glomerular Filtration Rate 57 mL/min (>60); Est Glom Filt Rate - Afr Amer 70 mL/min (>60); Globulin 3.4 g/dL (2.2-4.2); Glucose 206 mg/dL (74-106); High Density Lipoprotein 53 mg/dL; Potassium 4.1 mmol/L (3.5-5.1); Protein, Total 6.8 g/dL (6.4-8.2); Sodium Level 140 mmol/L (136-145); Triglycerides 180 mg/dL; Very Low Density Lipoprotein 36 mg/dL (5-40)
[2023-10-06 16:03] LABS: Hemoglobin A1c 8.1 % (3.8-5.6)
== END | disposition home or self-care (01) ==
LOC: MTLAB 10:15
PROVIDERS: PCP Family Medicine; Referring Provider Family Medicine; Visit Provider Family Medicine
DX: R10.9 Unspecified abdominal pain (principal); E11.21 Type 2 diabetes mellitus with diabetic nephropathy; I73.9 Peripheral vascular disease, unspecified
CPT/HCPCS: 36415; 80053; 80061; 81001; 83036; 85025

== ENCOUNTER → 2024-01-25 | Outpatient (CLI) | payer MEDICARE, BC, SELFPAY ==
--- NOTE | 2024-01-25 15:57 | RAD_ITS ---
EXAM: XR CHEST, 2 VIEWS CLINICAL INDICATION: CRACKLES IN LUNG/COUGH TECHNIQUE: Frontal and lateral views of the chest. COMPARISON: 04/05/2022 FINDINGS: LUNGS AND PLEURAL SPACES: Unremarkable. No consolidation or edema. No pneumothorax. No effusion. HEART: Unremarkable. Cardiac silhouette not enlarged. MEDIASTINUM: Central airways and mediastinal contour are unremarkable. BONES/JOINTS: Unremarkable. No acute fracture. SOFT TISSUES: Unremarkable. RAD/Chest PA and Lateral IMPRESSION: No radiographic evidence of acute cardiopulmonary disease. Electronically Signed: Allen Walsh MD at 23:59 EST ,
== END | disposition home or self-care (01) ==
LOC: MTRAD 15:56
PROVIDERS: PCP Family Medicine
DX: R05.9 Cough, unspecified (principal)
CPT/HCPCS: 71046

== ENCOUNTER → 2024-03-07 | Outpatient (CLI) | payer MEDICARE, BC, SELFPAY ==
[2024-03-07 17:47] LABS: Absolute Neutrophil Count 6.3 X10^3/uL (2.0-7.7); Basophil# 0.03 X10^3/uL; Basophil% 0.3 % (0-1); Eosinophil# 0.22 X10^3/uL; Eosinophils% 2.5 % (0-5); Hematocrit 40.5 % (40-54); Lymphocyte % 19.3 % (19-41); Mean Corp Hgb Conc 32.1 g/dL (32-36); Mean Corpuscular Hgb 30.4 pg (27.0-32.0); Mean Corpuscular Volume 94.8 fL (80-94); Mean Platelet Vol. 11.6 fl (6.2-12.0); Monocyte# 0.53 X10^3/uL; NRBC Flagged by Analyzer 0 % (0-5); Neutrophil # 6.31 X10^3/uL (2.7-7.7); Neutrophil % 71.6 % (47-70); Platelet Count 198 K/mm3 (150-450); RBC Distribution Width CV 13.7 % (11.6-14.6); RBC Distribution Width SD 47.4 fl (35.1-43.9); Red Blood Count 4.27 M/mm3 (4.6-6.2); White Blood Count 8.8 K/mm3 (4.4-11.0)
[2024-03-07 17:59] LABS: Lipase 57 U/L (13-75)
[2024-03-07 18:01] LABS: PTHIN 124.8 pg/mL (18.4-80.1)
[2024-03-07 18:03] LABS: Vitamin D,25 Hydroxy 49.9 ng/mL
[2024-03-07 18:13] LABS: Microalbumin,Random Urine < 5.0 mg/L (NO RANGE EST.)
[2024-03-07 18:21] LABS: Hemoglobin A1c 6.9 % (3.8-5.6)
[2024-03-07 19:20] LABS: International Normalized Ratio 1.1; Prothrombin Time (Protime)PT. 14.3 SECONDS (11.7-14.9)
[2024-03-09 04:07] LABS: GGTP 53 IU/L (0-65)
[2024-03-10 12:12] LABS: ALB/GLOB Ratio 0.9 RATIO (0.9-2.4); AST(SGOT) 22 U/L (15-37); Alanine Aminotransfer ALT/SGPT 23 U/L (16-61); Albumin, Serum 3.6 g/dL (3.2-5.0); Alkaline Phosphatase 100 U/L (45-117); Anion Gap 9 (5-15); BUN 75 mg/dL (7-18); BUN/Creat Ratio 43.6 RATIO (10-20); Calcium,Total 9.8 mg/dL (8.5-10.1); Chloride 97 mmol/L (98-107); Creatinine, Serum 1.72 mg/dL (0.70-1.30); EST Glomerular Filtration Rate 40 mL/min (>60); Est Glom Filt Rate - Afr Amer 49 mL/min (>60); Glucose 119 mg/dL (74-106); Potassium 3.8 mmol/L (3.5-5.1); Protein, Total 7.6 g/dL (6.4-8.2); Sodium Level 136 mmol/L (136-145)
== END | disposition home or self-care (01) ==
LOC: MTLAB 13:54
PROVIDERS: PCP Family Medicine; Referring Provider Family Medicine; Visit Provider Family Medicine
DX: R10.84 Generalized abdominal pain (principal); E11.21 Type 2 diabetes mellitus with diabetic nephropathy; E21.3 Hyperparathyroidism, unspecified
CPT/HCPCS: 80053; 82043; 82306; 82570; 82977; 83036; 83690; 83970; 85025; 85610; 86140

== ENCOUNTER → 2024-03-16 | Outpatient (CLI) | payer MEDICARE, BC, SELFPAY ==
--- NOTE | 2024-03-16 14:15 | US_ITS ---
PROCEDURE: ULTRASOUND THYROID REASON FOR EXAM: ABNORMAL LAB RESULTS. TECHNIQUE: REAL-TIME GRAYSCALE AND COLOR-FLOW IMAGING WAS PERFORMED ALONG WITH ROUTINE IMAGE DOCUMENTATION. COMPARISON: NO RELEVANT PRIOR. FINDINGS: Right thyroid lobe measures 3.4 x 1.5 x 1.7 cm. Left thyroid lobe measures 3.4 x 1.4 x 1.7 cm. Isthmus thickness is 0.6 cm. Thyroid Size: Normal Background Echotexture: Heterogeneous. Thyroid Nodules: None US/Thyroid IMPRESSION: Normal ultrasound of the thyroid gland. Reading Location: [facility]
== END | disposition home or self-care (01) ==
PROVIDERS: PCP Family Medicine; Referring Provider Family Medicine; Visit Provider Family Medicine
DX: E20.9 Hypoparathyroidism, unspecified (principal)
CPT/HCPCS: 76536

== ENCOUNTER 2024-05-07 14:14 | Emergency (ER) | payer MEDICARE, BC, SELFPAY ==
[2024-05-07 14:15] VITALS: BP 91/55; PULSE 91; RESP 18; TEMP 37.2; O2SAT 97; BMI 39.4
--- NOTE | 2024-05-07 14:43 | EX.ED.UPPERE ---
HPI <ANAHI Eddy - Last Filed: 05/07/24 15:24> History of Present Illness Chief Complaint: Upper Extremity Injury Narrative Narrative: Patient is an 83-year-old male with history of type 2 diabetes hypertension, CAD who presents to the emergency department with right posterior arm pain. Patient states he was sitting when he developed pain to his right tricep. He states that at first it was achy and significant. He states that he has been here is now down to a 3. It hurts worse with palpation. It is around where his Dexcom device is placed. There is no redness, patient denies any injury. He denies any fever chills nausea or vomiting. 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 GFR 30-59 Diabetes Gout attack Bursitis, olecranon Nonrheumatic aortic (valve) stenosis Hyperlipidemia Erectile dysfunction Restless leg syndrome Type 2 diabetes mellitus without complication Essential hypertension Carotid stenosis, bilateral Arthritis Home Medications ?Medication ?Instructions ?Recorded ?Last Taken ?Type flash glucose scanning reader #1 ea 09/04/20 Unknown History flash glucose sensor #1 ea 09/04/20 Unknown History allopurinol 100 mg tablet 100 mg PO BID gout 10/17/21 Unknown History ascorbic acid (vitamin C) 500 mg 500 mg PO DAILY supplement 04/01/22 Unknown History tablet ferrous sulfate 325 mg (65 mg 325 mg PO DAILY supplement 04/01/22 Unknown History iron) tablet finasteride 5 mg tablet 5 mg PO DAILY prostate 04/01/22 Unknown History aspirin 81 mg tablet,delayed 81 mg PO BREAKFAST #0 tabs 04/08/22 Unknown Rx release tamsulosin 0.4 mg capsule 0.4 mg PO DAILY #30 caps 04/08/22 Unknown Rx simvastatin 40 mg tablet 40 mg PO DAILY cholesterol #90 tabs 05/05/22 Unknown Rx furosemide 40 mg tablet 40 mg PO BID #180 tabs 06/25/23 Unknown Rx metoprolol tartrate 25 mg tablet 12.5 mg (1/2 x 25 mg) PO BID #90 06/25/23 Unknown Rx tabs cholecalciferol (vitamin D3) 25 50 mcg PO DAILY supplement 08/10/23 Unknown History mcg (1,000 unit) capsule ipratropium bromide 42 mcg (0.06 intranasal 08/10/23 Unknown History %) nasal spray magnesium oxide 400 mg PO QPM restless legs 08/10/23 Unknown History melatonin 5 mg tablet 5 mg PO HS PRN 08/10/23 Unknown History ropinirole 2 mg tablet 2 mg PO BID 08/10/23 Unknown History imiquimod 5 % topical cream packet 1 applic topical .weekly 02/16/24 Unknown History insulin degludec 100 unit/mL (3 20 unit subcut QDAY 02/16/24 Unknown History mL) subcutaneous pen (Tresiba FlexTouch U-100 insulin) insulin glargine 100 unit/mL (3 26 unit subcut QAM 02/16/24 Unknown History mL) subcutaneous pen (Basaglar KwikPen U-100 Insulin) menthol 0.44 %-zinc oxide 20.6 % 1 applic topical QDAY 02/16/24 Unknown History topical ointment (Calmoseptine) metolazone 2.5 mg tablet 2.5 mg PO QAM swelling 02/16/24 Unknown History potassium citrate 15 mEq (1,620 15 meq PO QDAY 02/16/24 Unknown History mg) tablet,extended release tirzepatide 5 mg/0.5 mL 5 mg subcut QWEEK 02/16/24 Unknown History subcutaneous pen injector (Mounjaro) Allergy/AdvReac Type Severity Reaction Status Date / Time atorvastatin (From Lipitor) AdvReac Intermediate myalgias Verified 05/07/24 14:15 Family History Mother Diabetes Heart disease Hypertension High cholesterol Son Asthma Hypertension Father Colon cancer Skin cancer Cancer lung cancer Brother Heart disease CVA (cerebral vascular accident) Surgical History History of coronary artery stent placement (~04/02/22) History of facial fracture repair History of repair of pyloric stenosis History of tonsillectomy History of skin cancer History of left hip replacement Social History Smoking Status: Former smoker how long ago did patient quit smokin years ago alcohol intake: current alcohol intake frequency: holidays/special occasions only substance use type: does not use caffeine: Yes Type: carbonated beverages and coffee Number of servings: 2 ROS <ANAHI Eddy - Last Filed: 05/07/24 15:24> ROS ED ROS Narrative Constitutional: Negative for fever, chills, weight loss, weakness Eyes: Negative for vision loss, vision change, double vision ENT: Negative for any sore throat, ear pain, congestion Cardiovascular: Negative for any chest pain, tightness, palpitations Respiratory: Negative for any cough, sputum production, hemoptysis, dyspnea, dyspnea on exertion, orthopnea Gastrointestinal: Negative for any abdominal pain, nausea, vomiting, diarrhea, constipation, blood in stool, blood in vomit : Negative for any urinary frequency, dysuria, retention, blood in urine Muscle skeletal: Negative for any neck pain, back pain. Positive for right arm pain Neurological: Negative for any headache, syncope, dizziness Skin: Negative for any rashes, itching, abrasions, lacerations Psychiatric: Negative for any depression, anxiety, stress, suicidal ideation, homicidal ideation Hematologic: Negative for any excessive bruising, easy bleeding EXAM <ANAHI Eddy - Last Filed: 05/07/24 15:24> Physical Exam Narrative Exam Narrative: Vital signs reviewed. HEET: Head normocephalic atraumatic, TMs clear bilaterally. Posterior pharynx is clear, moist mucous membranes. Nares clear bilaterally. Neck: Supple with no lymphadenopathy or tenderness. No signs of meningismus. Cardiac: Regular rate and rhythm no murmurs gallops or rubs, equal peripheral pulses bilaterally. Respiratory: Lungs clear to auscultation bilaterally. No chest tenderness. Abdomen: Soft, nontender, nondistended. No abdominal bruit or pulsatile masses. No hepatosplenomegaly Extremities: Patient has full range of motion. Patient is +2 radial pulse. Equal life insurance agent strength. Patient has full range of motion of the right arm. The pain is point tender to the posterior tricep by the Dexcom device. There is no erythema, patient states that the pain is improved. He is having difficulty point exactly where. Neuro: Cranial nerves II through XII intact, no focal neurological deficits. Skin: Clean dry and intact with no rash, purpura, petechiae, vesicles or pustules. Backs/flank: No CVA tenderness, no midline spinal tenderness, no deformity. Psych: Normal mood and affect. No SI, HI or acute psychosis. Const Vital Signs: 05/07/24 14:15 Temperature 98.9 F Temperature Source Oral Pulse Rate 91 Respiratory Rate 18 Blood Pressure 91/55 L Blood Pressure Mean 67 Pulse Ox 97 Oxygen Delivery Method Room Air [facility] <ANAHI Eddy - Last Filed: 05/07/24 15:24> [facility] Treatment and Re-Evaluation Narrative: Differential diagnosis includes however is not limited to: Myalgia, device complication, tricep sprain, foreign body, pathological fracture, cervical radiculopathy Patient appears generally well, vital signs are stable, patient is nontoxic-appearing. Presenting to the emergent department for complaints of right posterior arm pain. This is more to the tricep area. X-ray to be obtained of the humerus. Patient be given oral Tylenol. Patient's chest x-ray does show the foreign body which is the Dexcom, no other acute process. Patient at the Tylenol did feel better. Patient will remove this Dexcom and replace with a new one, there is no signs or symptoms of infection at this time. He will continue use Tylenol. At this time, patient is stable for discharge. <Dr. Marcin Turk DO - Last Filed: 05/07/24 16:53> [facility] Treatment and Re-Evaluation Narrative: Differential diagnosis includes however is not limited to: Myalgia, device complication, tricep sprain, foreign body, pathological fracture, cervical radiculopathy Patient appears generally well, vital signs are stable, patient is nontoxic-appearing. Presenting to the emergent department for complaints of right posterior arm pain. This is more to the tricep area. X-ray to be obtained of the humerus. Patient be given oral Tylenol. Patient's chest x-ray does show the foreign body which is the Dexcom, no other acute process. Patient at the Tylenol did feel better. Patient will remove this Dexcom and replace with a new one, there is no signs or symptoms of infection at this time. He will continue use Tylenol. At this time, patient is stable for discharge. Attending note: I have personally performed a face to face assessment of the patient and have reviewed the SNEHA note. I personally made/approved the management plan and take responsibility for the patient management. I performed a substantive portion of the visit including all aspects of the following. My pak findings include: Nontraumatic pain right upper arm behind his Dexcom which was replaced 3 days ago. No fever or chills. He took Advil at home states was resolving. No pain with movement. Exam Dexcom device posterior upper arm. No erythema around the area. Reproducible minimal tenderness. No drainage. 2 x-ray humerus was obtained interpreted by myself noted Dexcom device, no soft tissue gas. Reassuring findings. Discussed exchanging his Dexcom patch to the other side and gets home to avoid. Continue irritation. All questions were answered. Discharge Plan Triage Chief Complaint: Upper Extremity Injury ED Midlevel Provider: Remberto Chang ED Provider: Marcin Turk Dx/Rx/DC Orders Clinical Impression: Arm pain, History of diabetes mellitus Instructions: ED Myalgias Prescriptions: No Action (DME) flash glucose sensor Kit See Rx Instructions .ROUTE .MEDSUPPLY Qty: 1 Rx Instructions: As directed (DME) flash glucose scanning reader Misc See Rx Instructions .ROUTE .MEDSUPPLY Qty: 1 Rx Instructions: As directed allopurinol 100 mg tablet 100 mg PO BID cholecalciferol (vitamin D3) 25 mcg (1,000 unit) capsule 50 mcg PO DAILY simvastatin 40 mg tablet 40 mg PO DAILY Qty: 90 3RF melatonin 5 mg tablet 5 mg PO HS PRN magnesium oxide 400 mg magnesium tablet 400 mg PO QPM ropinirole 2 mg tablet 2 mg PO BID ipratropium bromide 42 mcg (0.06 %) spray,non-aerosol intranasal Patient Comments: [NO ORIGINAL SIG] insulin glargine [Basaglar KwikPen U-100 Insulin] 100 unit/mL (3 mL) insulin pen 26 unit subcut QAM imiquimod 5 % cream in packet 1 applic topical .weekly Mounjaro 5 mg/0.5 mL pen injector 5 mg subcut QWEEK potassium citrate 15 mEq tablet extended release 15 meq PO QDAY metolazone 2.5 mg tablet 2.5 mg PO QAM menthol-zinc oxide [Calmoseptine] 0.44-20.6 % ointment 1 applic topical QDAY insulin degludec [Tresiba FlexTouch U-100] 100 unit/mL (3 mL) insulin pen 20 unit subcut QDAY ascorbic acid (vitamin C) 500 mg Tablet 500 mg PO DAILY ferrous sulfate 325 mg (65 mg iron) Tablet 325 mg PO DAILY finasteride 5 mg Tablet 5 mg PO DAILY aspirin 81 mg Tablet,Delayed Release (Dr/Ec) 81 mg PO BREAKFAST Qty: 0 0RF tamsulosin 0.4 mg Capsule 0.4 mg PO DAILY Qty: 30 0RF metoprolol tartrate 25 mg tablet 12.5 mg PO BID Qty: 90 3RF furosemide 40 mg tablet 40 mg PO BID Qty: 180 3RF Primary Care Provider: Blair Alexandra Referrals: Blair Alexandra MD [Primary Care Provider] - Print Language: Malagasy Disposition Disposition: Home, Self Care Discharge Date/Time: 05/07/24 15:35
--- NOTE | 2024-05-07 14:45 | RAD_ITS ---
EXAM: Right humerus radiograph CLINICAL HISTORY: Right arm pain for 1 hour. COMPARISON: None TECHNIQUE: AP frontal and lateral radiographs of the right arm/humerus obtained. FINDINGS: Bones/joints: Normal Soft tissues: 1 cm lesion versus foreign body is identified in the subcutaneous fat in the lateral aspect of the mid right arm. RAD/Humerus min 2 Views IMPRESSION: Foreign body versus partly calcified lipoma versus other etiology for radiodens e lesion in the soft tissues/subcutaneous fat in the region of the mid lateral right humerus [facility]
[2024-05-07] MEDS: Acetaminophen 500 MG Tablet 1000 MG PO (14:56)
[2024-05-07 15:33] VITALS: BP 104/59; PULSE 91; RESP 18; TEMP 37.2; O2SAT 97
== END 2024-05-07 15:35 | disposition home or self-care (01) ==
PROVIDERS: Emergency Provider Emergency Medicine; PCP Family Medicine; Visit Provider Emergency Medicine
DX: M79.601 Pain in right arm (principal); E11.22 Type 2 diabetes mellitus with diabetic chronic kidney disease; Z83.3 Family history of diabetes mellitus; I25.10 Atherosclerotic heart disease of native coronary artery without angina pectoris; I10 Essential (primary) hypertension; Z87.891 Personal history of nicotine dependence; E78.5 Hyperlipidemia, unspecified; I25.2 Old myocardial infarction; Z95.5 Presence of coronary angioplasty implant and graft
CPT/HCPCS: 73060; 99282

== ENCOUNTER → 2024-07-08 | Outpatient (CLI) | payer MEDICARE, BC, SELFPAY ==
[2024-07-08 13:17] LABS: Erythrocyte Sedimentation Rate 47 mm/hr (0-20)
[2024-07-08 13:21] LABS: Absolute Lymphocyte Count 0.77 X10^3/uL (0.83-4.51); Absolute Neutrophil Count 6.7 X10^3/uL (2.0-7.7); Basophil# 0.02 X10^3/uL; Basophil% 0.2 % (0-1); Eosinophil# 0.59 X10^3/uL; Eosinophils% 6.8 % (0-5); Hematocrit 36.3 % (40-54); Hemoglobin 12.4 g/dL (13.0-16.5); Lymphocyte # 0.77 X10^3/ul (0.83-4.51); Lymphocyte % 8.9 % (19-41); Mean Corp Hgb Conc 34.2 g/dL (32-36); Mean Corpuscular Hgb 33.1 pg (27.0-32.0); Mean Corpuscular Volume 96.8 fL (80-94); Monocyte# 0.52 X10^3/uL; NRBC Flagged by Analyzer 0 % (0-5); Neutrophil # 6.71 X10^3/uL (2.7-7.7); Neutrophil % 77.8 % (47-70); Platelet Count 199 K/mm3 (150-450); RBC Distribution Width CV 14.2 % (11.6-14.6); RBC Distribution Width SD 49.5 fl (35.1-43.9); Red Blood Count 3.75 M/mm3 (4.6-6.2); White Blood Count 8.6 K/mm3 (4.4-11.0)
[2024-07-08 13:49] LABS: ALB/GLOB Ratio 1.6 RATIO (0.9-2.4); AST(SGOT) 27 U/L (<=37); Alanine Aminotransfer ALT/SGPT 25 U/L (<=46); Alkaline Phosphatase 99 U/L (40-129); Anion Gap 15 (5-15); BUN 91 mg/dL (4-19); BUN/Creat Ratio 43.9 RATIO (10-20); Calcium,Total 9.5 mg/dL (7.6-11.0); Carbon Dioxide 23.8 mmol/L (21.0-32.0); Chloride 96 mmol/L (98-108); Creatinine, Serum 2.07 mg/dL (0.70-1.20); EST Glomerular Filtration Rate 31 (>60); Globulin 2.4 g/dL (2.2-4.2); Glucose 217 mg/dL (70-99); Potassium 3.8 mmol/L (3.3-5.1); Protein, Total 6.4 g/dL (5.9-8.4); Sodium Level 135 mmol/L (133-145); Total Bilirubin 0.45 mg/dL (0.00-1.30)
[2024-07-11 14:08] LABS: ANTINUCLEAR ANTIBODIES DIRECT Negative (Negative)
[2024-07-12 10:08] LABS: Immunoglobulin E 8 IU/mL (6-495)
== END | disposition home or self-care (01) ==
LOC: MTLAB 11:08
PROVIDERS: PCP Family Medicine; Referring Provider Family Medicine; Visit Provider Family Medicine
DX: L27.0 Generalized skin eruption due to drugs and medicaments taken internally (principal)
CPT/HCPCS: 36415; 80053; 82785; 85025; 85652; 86038

== ENCOUNTER → 2024-07-11 | Outpatient (CLI) | payer MEDICARE, BC, SELFPAY ==
[2024-07-11 15:33] LABS: Absolute Lymphocyte Count 1.23 X10^3/uL (0.83-4.51); Absolute Neutrophil Count 6.6 X10^3/uL (2.0-7.7); Basophil# 0.04 X10^3/uL; Basophil% 0.4 % (0-1); Eosinophil# 0.85 X10^3/uL; Eosinophils% 9.1 % (0-5); Hematocrit 38.9 % (40-54); Hemoglobin 13.3 g/dL (13.0-16.5); Lymphocyte # 1.23 X10^3/ul (0.83-4.51); Lymphocyte % 13.1 % (19-41); Mean Corp Hgb Conc 34.2 g/dL (32-36); Mean Corpuscular Hgb 33.1 pg (27.0-32.0); Mean Corpuscular Volume 96.8 fL (80-94); Mean Platelet Vol. 12.3 fl (6.2-12.0); Monocyte# 0.68 X10^3/uL; Monocyte% 7.2 % (0-10); NRBC Flagged by Analyzer 0 % (0-5); Neutrophil # 6.56 X10^3/uL (2.7-7.7); Neutrophil % 69.9 % (47-70); Platelet Count 214 K/mm3 (150-450); RBC Distribution Width CV 14.1 % (11.6-14.6); RBC Distribution Width SD 49.6 fl (35.1-43.9); Red Blood Count 4.02 M/mm3 (4.6-6.2); White Blood Count 9.4 K/mm3 (4.4-11.0)
[2024-07-11 15:38] LABS: ALB/GLOB Ratio 1.4 RATIO (0.9-2.4); AST(SGOT) 20 U/L (<=37); Alanine Aminotransfer ALT/SGPT 24 U/L (<=46); Albumin, Serum 4.4 g/dL (3.4-4.8); Alkaline Phosphatase 99 U/L (40-129); Anion Gap 17 (5-15); BUN 82 mg/dL (4-19); BUN/Creat Ratio 48.9 RATIO (10-20); CPK Total, Creatine Kinase 43 U/L (24-195); CRP 9.35 mg/L (0.0-3.0); Calcium,Total 10.3 mg/dL (7.6-11.0); Carbon Dioxide 27.4 mmol/L (21.0-32.0); Chloride 95 mmol/L (98-108); Creatinine, Serum 1.68 mg/dL (0.70-1.20); EST Glomerular Filtration Rate 40 (>60); Globulin 3.2 g/dL (2.2-4.2); Glucose 170 mg/dL (70-99); Potassium 3.4 mmol/L (3.3-5.1); Protein, Total 7.6 g/dL (5.9-8.4); Rheumatoid Factor < 10.0 IU/mL (<15); Sodium Level 139 mmol/L (133-145); Total Bilirubin 0.36 mg/dL (0.00-1.30)
[2024-07-11 16:26] LABS: Erythrocyte Sedimentation Rate 56 mm/hr (0-20)
[2024-07-13 15:08] LABS: PROEL- A/G Ratio 1.1 (0.7-1.7); PROEL- Albumin 3.6 g/dL (2.9-4.4); PROEL- Alpha-1 Globulin 0.3 g/dL (0.0-0.4); PROEL- Alpha-2 Globulin 1.1 g/dL (0.4-1.0); PROEL- Beta Globulin 1.1 g/dL (0.7-1.3); PROEL- Gamma Globulin 0.8 g/dL (0.4-1.8); PROEL- Globulin, Total 3.3 g/dL (2.2-3.9); PROEL- TOTAL PROTEIN 6.9 g/dL (6.0-8.5); PROEL-M-Spike Not Observed g/dL (Not Observed)
[2024-07-13 15:08] LABS: Anti-Centromere B Ab <0.2 AI (0.0-0.9); Anti-Chromatin <0.2 AI (0.0-0.9); Anti-Jo <0.2 AI (0.0-0.9); Anti-Nuclear Antibody Test Negative (.); Anti-Scleroderma-70 AB <0.2 AI (0.0-0.9); Anti-dsDNA Ab <1 IU/mL (0-9); RNP Ab 0.2 AI (0.0-0.9); SJOGREN'S Anti-SS-A test < 0.2 AI (0.0-0.9); SJOGREN'S Anti-SS-B test < 0.2 AI (0.0-0.9); Smith Ab <0.2 AI (0.0-0.9)
== END | disposition home or self-care (01) ==
LOC: MTLAB 12:40
PROVIDERS: PCP Family Medicine; Referring Provider Family Medicine; Visit Provider Family Medicine
DX: R21 Rash and other nonspecific skin eruption (principal)
CPT/HCPCS: 36415; 80053; 82550; 84165; 85025; 85652; 86038; 86140; 86225; 86235; 86431

== ENCOUNTER → 2024-09-06 | Outpatient (CLI) | payer MEDICARE, BC, SELFPAY ==
[2024-09-06 10:22] LABS: AST(SGOT) 18 U/L (<=37); Alanine Aminotransfer ALT/SGPT 14 U/L (<=46); Albumin, Serum 4.0 g/dL (3.4-4.8); Alkaline Phosphatase 99 U/L (40-129); Anion Gap 12 (5-15); BUN 39 mg/dL (4-19); BUN/Creat Ratio 30.2 RATIO (10-20); Calcium,Total 9.8 mg/dL (7.6-11.0); Carbon Dioxide 26.8 mmol/L (21.0-32.0); Chloride 101 mmol/L (98-108); Globulin 3.2 g/dL (2.2-4.2); Glucose 153 mg/dL (70-99); Magnesium 2.5 mg/dL (1.5-2.2); Potassium 4.3 mmol/L (3.3-5.1)
== END | disposition home or self-care (01) ==
LOC: MTLAB 08:21
PROVIDERS: PCP Family Medicine; Referring Provider Family Medicine; Visit Provider Family Medicine
DX: M79.89 Other specified soft tissue disorders (principal)
CPT/HCPCS: 36415; 80053; 83735

== ENCOUNTER → 2024-09-26 | Outpatient (CLI) | payer MEDICARE, BC, SELFPAY ==
[2024-09-26 16:07] LABS: AST(SGOT) 24 U/L (<=37); Alanine Aminotransfer ALT/SGPT 23 U/L (<=46); Albumin, Serum 3.9 g/dL (3.4-4.8); Alkaline Phosphatase 94 U/L (40-129); Anion Gap 11 (5-15); BUN 34 mg/dL (4-19); BUN/Creat Ratio 28.1 RATIO (10-20); Calcium,Total 9.7 mg/dL (7.6-11.0); Carbon Dioxide 25.9 mmol/L (21.0-32.0); Chloride 105 mmol/L (98-108); Globulin 2.6 g/dL (2.2-4.2); Glucose 112 mg/dL (70-99); Magnesium 2.4 mg/dL (1.5-2.2); Potassium 4.5 mmol/L (3.3-5.1)
== END | disposition home or self-care (01) ==
LOC: MTLAB 10:32
PROVIDERS: PCP Family Medicine; Referring Provider Family Medicine; Visit Provider Family Medicine
DX: M79.89 Other specified soft tissue disorders (principal)
CPT/HCPCS: 36415; 80053; 83735